=== PATIENT | male | born 1935 | race Caucasian/White ===

== ENCOUNTER 2017-03-22 15:53 | Inpatient (IN) | payer MEDICARE, BC ==
[2017-03-22] MEDS ORDERED: Zosyn per Pharmacy* NOTE FOLLOW UP SCH (17:00)
[2017-03-22 18:03] LABS: Hematocrit 26 % (42-52); Hemoglobin 8.9 g/dl (14.0-18.0); Mean Corpuscular HGB Conc 34 g/dl (31-36); Mean Corpuscular Hemoglobin 32 pg (27-31); Mean Corpuscular Volume 96 fL (80-94); Mean Platelet Volume 9 um3 (7.4-10.4); Red Blood Count 2.75 10^6/ul (4.0-5.4); Red Cell Distribution Width 18 % (10.5-15); White Blood Count 13.7 10^3/ul (3.5-10.8)
[2017-03-22 18:34] LABS: BUN/Creatinine Ratio 28.7 (8-20); Calcium 9.1 mg/dL (8.6-10.3); EGFR African American 52.1 (>60); EGFR Non-African American 40.5 (>60); Potassium 4.4 mmol/L (3.5-5.0)
[2017-03-22] MEDS ORDERED: Iodixanol* (CONTRAST) 320 MG/ML 100 ML SDV IV ONE (20:06)
[2017-03-22] MEDS ORDERED: ALPRAZolam TAB* 0.25 MG PO SCH (21:00)
[2017-03-22] MEDS: ALPRAZolam TAB* 0.25 MG PO SCH (21:45)
[2017-03-22] MEDS: ZOSYN 3.375 GM Q8H per EXTENDED INFUSION IVPB SCH ×2 (21:45)
--- NOTE | 2017-03-22 22:00 | RAD ---
Indication: Confusion, patient with lung cancer. Contrast: Administered 75.0 ml of VISIPAQUE 320 mg/ml CT of the brain was performed without and with IV contrast. Ventricular structures are midline. No midline shift is noted. The extraction spaces are unremarkable. No intracranial mass or hemorrhage is noted. Post contrast images demonstrates no evidence of abnormally enhancing lesions. Mastoid air cells and paranasal sinuses are otherwise unremarkable. IMPRESSION: No intracranial mass or hemorrhage is noted.
--- NOTE | 2017-03-22 22:07 | RAD ---
Indication: Left lower quadrant pain, elevated white blood cell count. CT of the abdomen and pelvis was performed without oral or IV contrast administration. Coronal and sagittal reconstructed images were obtained. Comparison is made with previous exam dated February 22, 2017. The lung bases demonstrates small left pleural effusion. Heart is of normal size without evidence of pericardial effusion. The liver is normal in size. No focal lesions or intrahepatic ductal dilatation is noted. Calcified granulomas are noted in the right lobe of liver. This is unchanged from previous exam. Gallbladder demonstrates no calcified gallstones. No pericholecystic fluid or wall thickening is identified. The spleen is normal in size. No dilated loops of bowel are noted. The colon is filled with stool. No adrenal masses are noted. The kidneys demonstrate no hydronephrosis. No retroperitoneal lymphadenopathy is noted. Atherosclerotic aorta is noted. CT of the pelvis demonstrates no abnormal dilatation of small bowel. The colon is filled with stool. In the sigmoid colon in the left mid abdomen there is focal wall thickening with a localized perforation and infiltration of fat. This likely represents diverticulitis. Phlegmonous change is noted. The descending colon is otherwise unremarkable. The urinary bladder demonstrates diffuse wall thickening. The prostate and seminal vesicles are unremarkable. No hernias are noted. IMPRESSION: FINDINGS CONSISTENT WITH DIVERTICULITIS OF THE SIGMOID COLON WITH SMALL LOCALIZED PERFORATION AND PHLEGMONOUS CHANGE. CALCIFICATIONS LIKELY DUE TO GRANULOMATOUS DISEASE THE RIGHT LOBE OF LIVER. SMALL LEFT PLEURAL EFFUSION IS PRESENT.
[2017-03-23] MEDS ORDERED: NS 0.9% 1000 ML* 1,000 ML IV ONE (01:05)
[2017-03-23] MEDS: ZOSYN 3.375 GM Q8H per EXTENDED INFUSION IVPB SCH ×6 (05:34→21:46)
--- NOTE | 2017-03-23 07:09 | PN ---
Progress Note - Progress Note Date of Service: 03/23/17 SOAP: Subjective: mentally markedly better this am. reports that he feels less confused with improved energy, though still very tired. no appetite. +LLQ pain. bolus of fluid given at 3 am for hypotension. normal BM yesterday am, denies blood in stool. no nausea. +weak voice x 2 weeks. Objective: Vital Signs Temp Pulse Resp BP Pulse Ox 97.7 F 78 16 96/44 95 03/23/17 03:50 03/23/17 03:50 03/23/17 03:50 03/23/17 03:50 03/23/17 03:50 well appearing male lying flat in bed in nad perr eomi op moist dec bs bases bilaterally ttp over llq with guarding +bs no le edema A+O x 3, nonfocal neurological exam voice hoarse skin intact Alprazolam (Xanax Tab*) 0.25 mg PO BID [facility] Last Admin: 03/22/17 21:45 Dose: 0.25 mg Aspirin (Aspirin Ec Low Dose*) 81 mg PO DAILY [facility] Piperacillin Sod/Tazobactam (Sod 3.375 gm/ Sodium Chloride) 100 mls @ 25 mls/ hr IVPB Q8H [facility] Last Admin: 03/23/17 05:34 Dose: 25 mls/hr Sodium Chloride (Ns 0.9% 1000 Ml*) 1,000 mls @ 150 mls/hr IV PER RATE [facility] Non-Formulary Medication (Fluticasone/Vilanterol Mdi(Nf) [Breo Ellipta Mdi 100/ 25(Nf)]) 1 puff INH DAILY [facility] Pharmacy Consult (Zosyn Per Pharmacy*) 1 note FOLLOW UP .ZOSYN PER PHARMACY [facility] Rivaroxaban (Xarelto (*)) 20 mg PO DAILY [facility] Rosuvastatin Calcium (Crestor (Nf)) 10 mg PO DAILY [facility] Laboratory Results - last 24 hr 03/22/17 03/22/17 17:50 17:50 WBC 13.7 H RBC 2.75 L Hgb 8.9 L Hct 26 L MCV 96 H MCH 32 H MCHC 34 RDW 18 H Plt Count 170 MPV 9 Neut % (Auto) 88.1 H Lymph % (Auto) 4.6 L [place] % (Auto) 7.1 Eos % (Auto) 0.1 Baso % (Auto) 0.1 Absolute Neuts (auto) 12.1 H Absolute Lymphs (auto) 0.6 L Absolute Monos (auto) 1.0 H Absolute Eos (auto) 0 Absolute Basos (auto) 0 Absolute Nucleated RBC 0 Nucleated RBC % 0 Sodium 127 L Potassium 4.4 Chloride 91 L Carbon Dioxide 28 Anion Gap 8 BUN 47 H Creatinine 1.64 H Est GFR ( Amer) 52.1 Est GFR (Non-Af Amer) 40.5 BUN/Creatinine Ratio 28.7 H Glucose 118 H Calcium 9.1 Assessment: 81 yo M w PMH of locally advanced lung cancer recently completing a course of carboplatin/gemcitabine (02/10/17) now with 3 dys of anorexia and LLQ pain followed by [facility] and found to have sigmoid diverticulitis with perforation. clinically appears markedly improved over what was described yesterday, though with leukocytosis and hypotension does meet SIRS criteria. 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
[2017-03-23] MEDS: ALPRAZolam TAB* 0.25 MG PO SCH ×2 (08:06→21:45)
[2017-03-23] MEDS: Aspirin EC Low Dose* 81 MG TAB.EC PO SCH (08:06)
[2017-03-23 08:46] LABS: Hematocrit 25 % (42-52); Hemoglobin 8.3 g/dl (14.0-18.0); Mean Corpuscular HGB Conc 33 g/dl (31-36); Mean Corpuscular Hemoglobin 32 pg (27-31); Mean Corpuscular Volume 96 fL (80-94); Mean Platelet Volume 9 um3 (7.4-10.4); Red Blood Count 2.61 10^6/ul (4.0-5.4); Red Cell Distribution Width 18 % (10.5-15)
[2017-03-23] MEDS ORDERED: Rivaroxaban TAB(*) 20 MG TAB PO SCH (09:00)
[2017-03-23] MEDS ORDERED: [UNRECOGNIZED DRUG - OTHER] INH SCH (09:00)
[2017-03-23] MEDS ORDERED: Atenolol TAB* 50 MG PO SCH (09:00)
[2017-03-23] MEDS ORDERED: ROSUVASTATIN 10 MG PO SCH (09:00)
[2017-03-23] MEDS ORDERED: Diltiazem CD CAP* 120 MG PO SCH (09:00)
[2017-03-23] MEDS ORDERED: Ramipril CAP* 5 MG PO SCH (09:00)
[2017-03-23 09:08] LABS: Albumin 3.3 g/dL (3.2-5.2); BUN/Creatinine Ratio 28.9 (8-20); EGFR African American 69.4 (>60); EGFR Non-African American 53.9 (>60); Globulin 3.4 g/dL (2-4); Magnesium 2.6 mg/dL (1.9-2.7); Potassium 3.7 mmol/L (3.5-5.0); Total Bilirubin 0.8 mg/dL (0.2-1.0); Total Protein 6.7 g/dL (6.4-8.9)
[2017-03-23] MEDS: NS 0.9% 1000 ML* 1,000 ML IV SCH ×2 (13:54→21:45)
--- NOTE | 2017-03-23 15:59 | CONS ---
SURGICAL CONSULTATION REPORT: DATE OF CONSULT/DICTATION: 03/23/17 ATTENDING SURGEON: Star Eid MD (DICTATED BY MJ UPTON NP) LOCATION: This patient is seen at [facility] in room 416. CHIEF COMPLAINT: Left lower quadrant pain. HISTORY OF PRESENT ILLNESS: The patient is an 81-year-old male with a past medical history of locally advanced lung cancer and completed a course of chemotherapy through Dr. Osuna's office in January 2017. On 03/22/17, he was admitted to [facility] with 3 days of anorexia, left lower quadrant pain, weakness, and change in mental status. On admission, his white blood cell count was elevated at 13.5 and he was hypotensive with systolic blood pressure in the 80s. A CAT scan of the abdomen and pelvis revealed findings consistent with diverticula of the sigmoid colon with small localized perforation and phlegmonous changes. The CAT scan was reviewed today by Dr. Eid, who stated that there was no evidence of free fluid or abscess and the free air was of a small volume and focal to the area of inflammation. The patient is currently n.p.o. and on intravenous Zosyn and IV fluid resuscitation. Today, he denies any abdominal pain; he states that he is passing flatus and believes that his last bowel moment was yesterday morning; he denies any nausea or vomiting and is not hungry. PAST MEDICAL HISTORY: Significant chronic obstructive pulmonary disease; coronary artery disease; hypertension; atrial fibrillation; left foot drop, 2015 ; melanoma on his forehead, 2012; prostate cancer, 2006, treated with radiation ; myocardial infarction in 1977, 1982, and 1984, with coronary artery bypass, four vessels, in 1984. PAST SURGICAL HISTORY: Coronary artery bypass, 1984; bilateral open inguinal hernia repairs; left rotator cuff repair. CURRENT MEDICATIONS: Reviewed and currently his Xarelto is on hold. ALLERGIES: No known drug allergies. FAMILY HISTORY: Noncontributory. SOCIAL HISTORY: He is ; he stopped smoking around age 40 and had smoked from age 16. 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 REVIEW OF SYSTEMS: Constitutional: Alert and oriented x3. HEENT: No visual changes. No sore throat. He does have dysphonia over the past 2 weeks. Hematologic: No history of deep vein thrombosis or pulmonary embolism. No easy bruising or bleeding. Respiratory: No dyspnea at rest. No hemoptysis. Cardiovascular: No anginal chest pain, palpitations, or orthopnea. Gastrointestinal: No previous history of intestinal conditions. No current abdominal pain. No nausea or vomiting. He is passing flatus and states that he had a bowel movement yesterday. No blood noted. Genitourinary: No hematuria or dysuria. Musculoskeletal: Reports that his legs were very weak prior to admission. Neurologic: Alert and oriented x3. Follows commands. PHYSICAL EXAM: General Survey: The patient is an 81-year-old male, well- developed, well-nourished, in no acute distress. Height 5 feet 9 inches, weight 184 pounds, body mass index 27.2. Skin: Warm, dry, and intact. HEENT: Benign. Voice is very soft. Neck: Supple without masses or thyromegaly. Back: No CVA tenderness. Lungs: Breath sounds bilaterally clear and equal. Heart: Regular rate and rhythm. No murmurs or rubs appreciated. Chest: Symmetric, well-healed surgical scars status post coronary artery bypass grafting. Abdomen: Hypoactive bowel sounds, soft, nondistended, and nontender throughout to deep palpation. No guarding, no rebound tenderness. Well-healed inguinal surgical scars. No obvious masses or organomegaly. Genitalia and rectal exams are deferred. Extremities are warm without edema or skin ulceration. Neurologic: Alert and oriented x3. Follows commands. DIAGNOSTIC STUDIES/LAB DATA: White blood cell count of today 7 down from 13.7, hemoglobin and hematocrit 8.3 and 25. Creatinine 1.28 today down from 1.64 with hydration. Lactic acid of 0.6. CAT scan of the abdomen and pelvis as previously mentioned in history of present illness consistent with diverticulitis of the sigmoid colon with small localized perforation and phlegmonous change. IMPRESSION: Sigmoid diverticulitis with small localized perforation and phlegmonous changes reviewed by Dr. Eid. PLAN: Dr. Eid indicated that resolution was likely with nonoperative therapy of n.p.o., IV fluids, and IV antibiotics. We will follow the patient with you. Thank you for this surgical consultation. TIME SPENT: Time spent today 75 minutes with greater than 50% spent in face-to - face history taking and patient education. MJ UPTON, ENGINE DESIGNER [id number]/[facility] #: [id number] [facility]
[2017-03-23] MEDS: Fluticasone/Vilanterol MDI(NF) 100/25 MDI INH SCH (16:23)
[2017-03-24] MEDS: ZOSYN 3.375 GM Q8H per EXTENDED INFUSION IVPB SCH ×2 (05:48)
[2017-03-24 06:01] LABS: Hematocrit 26 % (42-52); Hemoglobin 8.7 g/dl (14.0-18.0); Mean Corpuscular HGB Conc 34 g/dl (31-36); Mean Corpuscular Hemoglobin 32 pg (27-31); Mean Corpuscular Volume 95 fL (80-94); Mean Platelet Volume 9 um3 (7.4-10.4); Red Cell Distribution Width 18 % (10.5-15); White Blood Count 5.6 10^3/ul (3.5-10.8)
[2017-03-24 06:16] LABS: BUN/Creatinine Ratio 23.5 (8-20); Calcium 8.9 mg/dL (8.6-10.3); EGFR African American 94.4 (>60); EGFR Non-African American 73.4 (>60); Potassium 3.7 mmol/L (3.5-5.0)
[2017-03-24] MEDS: Aspirin EC Low Dose* 81 MG TAB.EC PO SCH (08:47)
[2017-03-24] MEDS: ALPRAZolam TAB* 0.25 MG PO SCH (08:48)
--- NOTE | 2017-03-24 09:02 | PN ---
Progress Note - Progress Note Date of Service: 03/24/17 SOAP: Subjective:OOB in chair;passed form stool and flatus;denies abdominal pain [] Objective:afebrile;VSS;lungs:clear bilat;Heart:RRR;Abd:+bs,soft,nondistended, nontender,no guarding or rebound Ext:no edema Vital Signs Temp 97.5 F 03/24/17 03:37 Pulse 81 03/24/17 03:37 Resp 16 03/24/17 08:48 BP 116/55 03/24/17 03:37 Pulse Ox 96 03/24/17 03:37 Intake & Output 03/23/17 03/24/17 03/24/17 18:59 06:59 18:59 Intake Total 1679 108 0 Output Total 800 1225 Balance 879 -1117 0 Intake: IV Fluids 1679 ABX - ZOSYN 200 NS (0.9%) 1479 IVPB 108 ABX - ZOSYN 108 Oral 0 0 0 Output: Urine 800 1225 Other: Estimated Void Medium Date of Last Bowel 03/24/17 Movement # Bowel Movements 1 Estimated Stool Amount Small [] Assessment:resolving sigmoid diverticulitis on non operative treatment [] Plan:recommend starting clear liquids,transition to oral antibiotics and possible home later today or tomorrow []
[2017-03-24] MEDS: Fluticasone/Vilanterol MDI(NF) 100/25 MDI INH SCH (10:42)
--- NOTE | 2017-03-24 12:58 | DS ---
DISCHARGE SUMMARY: DATE OF ADMISSION: 03/22/17 DATE OF DISCHARGE: 03/24/17 DISCHARGE DIAGNOSES: 1. Diverticulitis with perforation: Resolved following n.p.o. status with IV antibiotics, not a surgical candidate, and will transition to p.o. with close monitoring. 2. Confusion: Secondary to systemic inflammatory response syndrome related to perforation, resolved. 3. Squamous cell lung cancer: Status post definitive chemotherapy with stable disease, in surveillance. DISCHARGE MEDICATIONS: 1. Augmentin 875 mg p.o. b.i.d. x14 days. 2. Alprazolam 1 tab p.o. b.i.d. p.r.n. anxiety. 3. Aspirin 81 mg p.o. every other day. 4. Atenolol 100 mg p.o. q. day. 5. Ramipril 5 mg p.o. q. day. 6. Hydrochlorothiazide 25 mg p.o. every other day. 7. Crestor 10 mg p.o. every day. 8. Cartia XT daily 9. Ondansetron 4 mg p.o. q.4 hours p.r.n. nausea. 10. Evolocumab 140 mg subcutaneous every 14 days. 11. Compazine 10 mg p.o. q.6 hours p.r.n. nausea. 12. Coenzyme Q10 100 mg p.o. q. day. 13. Breo Ellipta 200 mcg 1 inhalation every day. * Hold Xarelto until evaluated by provider. HOSPITAL COURSE: Please see admission note for full H and P; however, briefly, Mr. Carreon is well known to our service due to his diagnosis of locally advanced non- small cell lung cancer, now status post definitive chemotherapy. He presented to our office on 03/22/17 in the afternoon with progressive confusion and significant changes from prior visits. Ultimately, admitted with altered mental status and left lower quadrant pain with workup including MRI and CT. CT of the brain was negative; however, CT of the abdomen and pelvis was positive for diverticulitis of the small colon with small localized perforation and phlegmonous change. Overnight, Mr. Carreon did develop hypotension and received a bolus with improvement. He was started on Zosyn that evening as well. Ultimately, with leukocytosis and hypotension, Mr. Carreon did meet SIRS criteria and was monitored very closely and managed with as stated previously IV antibiotics and IV hydration. Within the first 12 hours of treatment, Mr. Carreon improved significantly. Surgery was consulted on 03/23. Dr. Eid saw the patient, felt with improvement and significant underlying cardiac risks, he was certainly not a candidate for surgical management. Medical management was continued with n.p.o. status, IV hydration, IV antibiotics, and monitoring. This a.m., on 03/24/17, Mr. Carreon continues to improve and is feeling very well. He was seen by Mellissa Medrano NP, [facility], and in consultation with Dr. Eid agreed he could transition to clear liquid diet and start p.o. antibiotics. Case was discussed with Dr. Monroe as well as surgical team and plan was made for Mr. Carreon to be discharged this evening as long as p.o. intake was tolerated. Case was discussed at length with the patient and his daughter, who is a care provider. Mr. Carreon will be discharged home back on most of his home medications; however , he will hold Xarelto due to the perforation. He will follow up with Dr. Monroe on 03/28/17 to determine further plan of care and consider restarting Xarelto. TIME SPENT: Greater than 40 minutes spent with greater than 50% in face-to- face counseling. ZOË CREWS, ARLEN [id number]/[facility] #: [id number] MARRY
--- NOTE | 2017-03-24 14:09 | PN ---
Progress Note - Progress Note Date of Service: 03/24/17 SOAP: Subjective: []Weakness since treatment and was doing PT at home. Enjoying it and prior to this admission was getting stronger. Remains unsteady and uses walker. Wants to be able to walk but needs to take frequent rests. Objective: []Unsteady to improved strength. Uses walker appropriately. Assessment: []81 yo m with deconditioning post chemotherapy. Poor balance requiring a walker. Plan: []Recommend Rollating walker so that pt. may rest on seat PRN. Will order with d/c. Resume PT in approx. 1 week. Can cont. home excercises for now.
[2017-03-24 15:39] VITALS: BP 121/57
[2017-03-24] MEDS ORDERED: Amoxicillin/Clavulanate TAB* 875 MG PO SCH (21:00)
== END 2017-03-24 17:30 | disposition home or self-care (01) | DRG 392 ==
LOC: MED 16:42
PROVIDERS: ADMIT Internal Medicine Hematology & Oncology; ATTEND Internal Medicine Hematology & Oncology
DX: K57.20 Diverticulitis of large intestine with perforation and abscess without bleeding (principal); N17.9 Acute kidney failure, unspecified; I95.9 Hypotension, unspecified; D64.81 Anemia due to antineoplastic chemotherapy; R65.10 Systemic inflammatory response syndrome (SIRS) of non-infectious origin without acute organ dysfunction; C34.12 Malignant neoplasm of upper lobe, left bronchus or lung; I11.9 Hypertensive heart disease without heart failure; J44.9 Chronic obstructive pulmonary disease, unspecified; I25.10 Atherosclerotic heart disease of native coronary artery without angina pectoris; E87.6 Hypokalemia; R49.0 Dysphonia; E74.39 Other disorders of intestinal carbohydrate absorption; Z95.1 Presence of aortocoronary bypass graft; Z85.46 Personal history of malignant neoplasm of prostate; Z85.820 Personal history of malignant melanoma of skin; I25.2 Old myocardial infarction; Z79.82 Long term (current) use of aspirin; Z79.899 Other long term (current) drug therapy; Z87.891 Personal history of nicotine dependence
CPT/HCPCS: 36415; 70470; 74176; 80048; 80053; 83605; 83735; 85025; 85027; 99212; 99222; 99233; A9270-GY; G0463; J2543; Q9967

== ENCOUNTER 2017-05-17 09:34 | Day surgery (SDC) | payer MEDICARE, BC ==
[~2017-05-17 09:34] MED LIST: Buffered Lidocaine 0.9% SYRIN* 5 ML/SYR SYRINGE INTRADERM ONE; Famotidine IV* 10 MG/ML 2 ML (20 mg) IV ONE
[2017-05-17] MEDS ORDERED: Buffered Lidocaine 0.9% SYRIN* 5 ML/SYR SYRINGE ONE (09:46)
[2017-05-17] MEDS ORDERED: Famotidine IV* 10 MG/ML 2 ML (20 mg) ONE (09:46)
[2017-05-17] MEDS ORDERED: Midazolam* 1 MG/ML 5 ML VIAL (5 MG) ONE (10:16)
[2017-05-17] MEDS ORDERED: Lidocaine 2% PF * 5 ML VIAL ONE (10:16)
[2017-05-17] MEDS ORDERED: Ondansetron INJ* 2 MG/ML VIAL ONE (10:16)
[2017-05-17] MEDS ORDERED: Propofol* 10 MG/ML 20 ML BTL IV PUSH ONE (10:16)
[2017-05-17] MEDS ORDERED: Lidocaine 4% TOPICAL* 50 ML TOP.SOLN ONE ×2 (10:16→10:41)
[2017-05-17] MEDS ORDERED: fentaNYL* 50 MCG/ML 2 ML VIAL (100 MCG VIAL) ONE (10:16)
[2017-05-17] MEDS ORDERED: Dexamethasone IV* 4 MG/ML 1 ML (4 MG) ONE (10:16)
[2017-05-17] MEDS ORDERED: Glycopyrrolate IV* 0.2 MG/ML 1 ML VIAL ONE (10:18)
[2017-05-17] MEDS ORDERED: Lidocaine 2% VISCOUS* 15 ML UDC ONE (10:30)
[2017-05-17] MEDS ORDERED: Lidocaine 1% MPF wEPI 200,000* 30 ML SDV ONE (10:41)
[2017-05-17] MEDS ORDERED: Oxymetazoline 0.05% NASAL SPR* 15 ML BTL ONE (10:41)
[2017-05-17] MEDS ORDERED: Phenylephrine 1% NASAL* 15 ML BOT ONE (10:45)
[2017-05-17] MEDS ORDERED: ceFAZolin 1 GM ADVAN(*) 1 GM ADDV.VIAL IVPB ONE (11:34)
[2017-05-17] MEDS ORDERED: oxyCODONE/Acetamin 5/325 MG* TAB PO PRN (11:48)
[2017-05-17] MEDS ORDERED: Ondansetron INJ* 2 MG/ML VIAL IV PRN (11:48)
[2017-05-17] MEDS ORDERED: fentaNYL* 50 MCG/ML 2 ML VIAL (100 MCG VIAL) IV PRN (11:48)
[2017-05-17] MEDS ORDERED: Acetaminophen ADULT LIQ* 650 MG/20.3 ML UDC ONE (12:57)
[2017-05-17 13:36] VITALS: BP 109/51
--- NOTE | 2017-05-18 04:55 | OP ---
DATE OF OPERATION: 05/17/17 - [facility] DATE OF : 35 SURGEON: Jesus Horton MD RESEARCH AND DEVELOPMENT SCIENTIST: MYRNA Pinto ANESTHESIOLOGIST: Orville Castelan MD ANESTHESIA: MAC PRE-OP DIAGNOSIS: Left vocal cord paralysis and dysphonia. POST-OP DIAGNOSIS: Left vocal cord paralysis and dysphonia. OPERATIVE PROCEDURE: Thyroplasty with Canaan-Dariusz graft left larynx. BRIEF HISTORY: This 81-year-old gentleman diagnosed with CA of the lung, noted to have paralysis with a large glottic chink. I did not feel like injection thyroplasty would be helpful. DESCRIPTION OF PROCEDURE: Patient was taken to the operating room, MAC anesthesia was given. Neck was then prepped and draped in the usual fashion. A curvilinear incision was made at the midportion of the thyroid. Strap muscles were divided out laterally. Thyroid cartilage was then identified. Perichondrium was then elevated. A window was made approximately 10 mm from the midportion of the thyroid, about 7 mm from the inferior border. A 6 mm x 6 mm window was created. Once the internal perichondrium was elevated towards the arytenoid, approximately 10 cm of Canaan-Dariusz was then inserted until vocalization was obtained to be within acceptable range. Flexible scope was then introduced, showed a somewhat adequately medialized left vocal cord. The perichondrium was replaced. Strap muscles were reapproximated in the midline. The wound was closed in single layers. TLS was applied. The patient was awakened and sent to the Recovery in stable condition. Instrument and sponge counts were correct. Blood loss was minimal. [id number]/[facility] #: [id number] [facility]
== END 2017-05-17 13:37 | disposition home or self-care (01) ==
LOC: OR 09:34
PROVIDERS: ATTEND Otolaryngology
DX: J38.01 Paralysis of vocal cords and larynx, unilateral (principal); R49.0 Dysphonia; C34.90 Malignant neoplasm of unspecified part of unspecified bronchus or lung; I48.91 Unspecified atrial fibrillation; Z79.01 Long term (current) use of anticoagulants; I25.10 Atherosclerotic heart disease of native coronary artery without angina pectoris; Z95.1 Presence of aortocoronary bypass graft; J44.9 Chronic obstructive pulmonary disease, unspecified; Z79.82 Long term (current) use of aspirin; Z87.891 Personal history of nicotine dependence; E78.5 Hyperlipidemia, unspecified
CPT/HCPCS: A9270-GY; C1781; J0690; J1100; J2001; J2250; J2405; J2704; J3010

== ENCOUNTER 2017-08-04 07:44 | Day surgery (SDC) | payer MEDICARE, BC ==
--- NOTE | 2017-08-02 21:10 | HP ---
CC: Dr. Young; Nelson Dykes DO * ADMITTING HISTORY AND PHYSICAL: DATE OF ADMISSION: 08/04/17 ADMITTING DIAGNOSES: 1. Gross hematuria. 2. Bladder tumors. PLANNED PROCEDURE: Cystoscopy, transurethral resection of bladder tumors. SURGEON: Ricardo Cueto MD HISTORY OF PRESENT ILLNESS: Tristan Carreon is an 81-year-old gentleman who was recently gross hematuria. This had initially occurred while he was on Xarelto, but has persisted even after he has been off Xarelto for 7 to 10 days. Cystoscopy revealed what appeared to be due to 2 superficial bladder tumors on the right side and because of the persistence of hematuria (happening daily, he has been on Xarelto for 10 days). He is now being brought in for transurethral resection of these bladder tumors to control the hematuria. PAST MEDICAL HISTORY: Significant for: 1. Lung cancer. 2. Coronary artery disease. 3. History of atrial and ventricular fibrillation. 4. Remote history of prostate cancer. 5. Hypertension. 6. COPD. MEDICATIONS: On admission: 1. Rosuvastatin 20 mg daily. 2. Atenolol 100 mg daily. 3. Repatha 140 mg injection every 2 weeks. 4. Hydrochlorothiazide 25 mg a day. 5. Ramipril 5 mg a day. 6. Cartia XT 120 mg a day. 7. Breo 1 puff inhaled daily. ALLERGIES: No known drug allergies. PHYSICAL EXAMINATION GENERAL: Reveals a pleasant elderly gentleman. VITAL SIGNS: Blood pressure is 106/70, pulse 56 per minute, oxygen saturation 98% on room air. LUNGS: Clear bilaterally. CARDIOVASCULAR: S1, S2. ABDOMEN: Soft, without masses. IMPRESSION: An 81-year-old gentleman right side of the bladder. PLAN: Planned procedure is transurethral resection of bladder tumors. [id number]/[facility] #: [id number] MTDD
[~2017-08-04 07:44] MED LIST changes: +Dexamethasone IV* 4 MG/ML 1 ML (4 MG) IV SLOW PU ONE; +Dexamethasone IV* 4 MG/ML 1 ML (4 MG) ONE; +Famotidine IV* 10 MG/ML 2 ML (20 mg) ONE; +cefTRIAXone(*) 2 GM ADDV.VIAL IVPB ONE
[2017-08-04] MEDS ORDERED: Midazolam* 1 MG/ML 2 ML VIAL (2 MG) ONE (08:48)
[2017-08-04] MEDS ORDERED: Furosemide IV* 10 MG/ML 2 ML VIAL (20 MG) ONE (09:25)
[2017-08-04 12:12] VITALS: BP 123/58
[2017-08-04] MEDS ORDERED: Tamsulosin CAP* 0.4 MG ONE (12:21)
--- NOTE | 2017-08-05 03:36 | OP ---
CC: Von Young MD * DATE OF OPERATION: 08/04/17 - [facility] DATE OF : 35 SURGEON: Ricardo Cueto MD ANESTHESIOLOGIST: Dr. Wasserman ANESTHESIA: Spinal PRE-OP DIAGNOSES: 1. Gross hematuria. 2. 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 Gross hematuria. 2. 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 OPERATIVE PROCEDURE: Cystoscopy, transurethral resection, and fulguration of bladder lesions (2 to 3 cm). COMPLICATIONS: None. POSTOPERATIVE CONDITION: Stable. OPERATIVE FINDINGS: 1. Mildly enlarged prostate. 2. Two small lesions between bladder neck and trigone on the right side, one stem actively bleeding. INDICATIONS: Tristan Carreon is an 81-year-old gentleman who has had persistent gross hematuria secondary to a small lesion on the right side of the bladder. The hematuria has persisted even after being off anticoagulation and he is now being brought in for transurethral resection and fulguration. DESCRIPTION OF PROCEDURE: After induction of spinal anesthesia, the patient was placed in dorsal lithotomy position. Sequential compression devices were in place and functioning. Initial cystoscopy revealed a normal appearing urethra, and mildly enlarged prostate. The bladder was examined the right and left ureteral orifices are normal in position and configuration. Between the right orifice and the right side of the bladder neck, there were two lesions with an appearance consistent with low grade superficial neoplasm, one of them was actively bleeding. The remainder of the bladder was unremarkable. Route Sales Manager biopsies were obtained and sent for histopathology. Next the resectoscope was introduced and all of the normal appearing areas were resected and/or fulgurated. At the end of the procedure, hemostasis appeared satisfactory and clear urine was seen effluxing from both orifices. An #18 Wolof Lopez was placed for temporarily bladder drainage. The patient tolerated the procedure satisfactorily and was transferred back to the recovery area in stable condition. [id number]/[facility] #: [id number] [facility]
== END 2017-08-04 12:29 | disposition home or self-care (01) ==
LOC: OR 07:44
PROVIDERS: ATTEND Urology
DX: C67.2 Malignant neoplasm of lateral wall of bladder (principal); R31.0 Gross hematuria; N40.0 Benign prostatic hyperplasia without lower urinary tract symptoms; Z79.01 Long term (current) use of anticoagulants; Z85.118 Personal history of other malignant neoplasm of bronchus and lung; I25.10 Atherosclerotic heart disease of native coronary artery without angina pectoris; Z85.46 Personal history of malignant neoplasm of prostate; J44.9 Chronic obstructive pulmonary disease, unspecified; I10 Essential (primary) hypertension; I48.91 Unspecified atrial fibrillation; I49.01 Ventricular fibrillation; I25.2 Old myocardial infarction; Z95.1 Presence of aortocoronary bypass graft
CPT/HCPCS: 88305; J0696; J1100; J1940; J2250

== ENCOUNTER 2017-09-16 15:00 | Observation (INO) | payer MEDICARE, BC ==
[2017-09-16 16:28] LABS: ABS Basophils 0 10^3/ul (0-0.2); ABS Eosinophils 0 10^3/ul (0-0.6); ABS Lymphocytes 0.6 10^3/ul (1.0-4.8); ABS Monocytes 0.4 10^3/ul (0-0.8); ABS Neutrophils 3.9 10^3/ul (1.5-7.7); ABS Nucleated RBC 0 10^3/ul; Eosinophil % 0.1 % (0-6); Hematocrit 27 % (42-52); Hemoglobin 9.4 g/dl (14.0-18.0); Lymphocyte % 11.2 % (25-47); Mean Corpuscular HGB Conc 35 g/dl (31-36); Mean Corpuscular Hemoglobin 32 pg (27-31); Mean Corpuscular Volume 91 fL (80-94); Mean Platelet Volume 8 um3 (7.4-10.4); Nucleated Red Blood Cells % 0; Platelet Count 165 10^3/ul (150-450); Red Blood Count 2.94 10^6/ul (4.0-5.4); Red Cell Distribution Width 15 % (10.5-15)
[2017-09-16 16:39] LABS: EGFR Non-African American 61.5 (>60)
[2017-09-16 16:49] LABS: INR 1.87 (0.77-1.02)
[2017-09-16] MEDS ORDERED: cefTRIAXone(*) 2 GM ADDV.VIAL IVPB ONE (18:26)
[2017-09-16] MEDS ORDERED: Lidocaine 2% PF * 5 ML VIAL ONE (18:32)
[2017-09-16] MEDS ORDERED: Dexamethasone IV* 4 MG/ML 1 ML (4 MG) ONE (18:32)
[2017-09-16] MEDS ORDERED: Ondansetron INJ* 2 MG/ML VIAL ONE (18:32)
[2017-09-16] MEDS ORDERED: Propofol* 10 MG/ML 20 ML BTL IV PUSH ONE (18:32)
[2017-09-16] MEDS ORDERED: fentaNYL* 50 MCG/ML 2 ML VIAL (100 MCG VIAL) ONE ×2 (18:32→20:32)
[2017-09-16] MEDS ORDERED: KETAMINE HCL* 50 MG/ML 10 ML VIAL ONE (18:33)
[2017-09-16] MEDS ORDERED: Midazolam* 1 MG/ML 10 ML VIAL (10 MG) ONE (18:33)
[2017-09-16] MEDS ORDERED: Phenylephrine INJ* 10 MG/ML 1 ML VIAL (10 MG) ONE (18:53)
[2017-09-16] MEDS ORDERED: Ondansetron INJ* 2 MG/ML VIAL IV PRN (19:06)
[2017-09-16] MEDS ORDERED: HYDROmorphone INJ* 1 MG/ML CARPUJECT SYRINGE IV PRN (19:06)
[2017-09-16] MEDS: fentaNYL* 50 MCG/ML 2 ML VIAL (100 MCG VIAL) IV PRN ×2 (20:35→20:59)
[2017-09-16] MEDS ORDERED: NS 0.9% 1000 ML* 1,000 ML IV SCH (20:45)
--- NOTE | 2017-09-16 23:03 | HP ---
CC: Dr. Von Young; Dr. Dykes * [facility] MEDICINE HISTORY AND PHYSICAL: DATE OF ADMISSION: 09/16/17 PRIMARY CARE PROVIDER: Dr. Vno Young. SIGN WRITER HAND: Dr. Dykes. ATTENDING PHYSICIAN: Dr. Braulio Espinoza * (dictation provided by Ana María Knott NP) CHIEF COMPLAINT: Blood in urine. HISTORY OF PRESENT ILLNESS: Mr. Carreon is an 82-year-old male with a complicated past medical history including multiple MIs with cardiac arrest and bypass surgery in the as well as lung cancer, currently undergoing treatment with Dr. Young; COPD; prostate cancer; atrial fibrillation, on Xarelto , who presents to the hospital today with concern for blood in his urine. Mr. Carreon is immediately after procedure today when I see him and most of the information is obtained from a note from Dr. Nelson Dykes, dated 04/27/17, and the patient's daughter who is at the bedside. Per the report, Mr. Carreon did have multiple MIs and cardiac arrest with bypass in the ; however, since then, he has been doing very well in terms of his cardiac function. His last known ejection fraction was normal, but he does have severe tricuspid regurgitation and mild pulmonary hypertension. He had been undergoing treatment for lung cancer with Dr. Young with chemotherapy but that is currently on hold and the report is that the tumor has not grown while on that treatment. The patient is scheduled to have a CT scan and blood work on on followup of this. He also has an issue with a vocal cord dysfunction and has had a Jasper-Dariusz injection with Dr. Horton that seems to have improved his speech and he is about to start speech therapy. He has a history of prostate cancer and had been found recently to have small scattered bladder tumors for which he saw Dr. Cueto for resection. This was about 6 weeks ago. The patient' s daughter reports that he has been having pink tinged urine since that time. Per her report, the patient would stop Xarelto and the urine would resolve, but then as soon as he resumes the Xarelto, the blood in the urine would return. The patient is on Xarelto for atrial fibrillation, but has never had a stroke. Today, the patient had sudden onset of bright red blood in the urine with large clots and ultimately came to the emergency room for evaluation. In the emergency room, attempts were made to catheterize Mr. Carreon. The catheter was able to be placed, but then the catheter became plugged with clots and then Dr. Reed was called. Dr. Reed evaluated the patient and then took him to the OR. Per the report, Dr. Reed found a concerning lesion in the bladder of unclear significance but there was no bleeding, hemostasis was achieved. Mr. Carreon has a mildly low sodium at 127. He is anemic with a hemoglobin of 9.4, but this is his baseline. PAST MEDICAL HISTORY: 1. Coronary artery disease with MIs, cardiac arrest, and cardiac bypass surgery in . 2. History of V-fib with. 3. Hyperlipidemia. 4. Impaired glucose tolerance. 5. 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 Young. 6. History of prostate cancer. 7. History of frozen vocal cord, undergoing treatment with Dr. Horton with Jasper- Dariusz injections. 8. Atrial fibrillation with no history of stroke on Xarelto. 9. Hypertension. 10. Melanoma. 11. COPD. 12. Basal cell tumor removal on the forehead. 13. History of bladder tumor, status post resection 6 weeks ago. Pathology showing papillary urothelial carcinoma. MEDICATIONS: 1. Breo Ellipta 100/25 one puff inhaled daily. 2. Atenolol 100 mg p.o. q.a.m. 3. Aspirin 81 mg p.o. every other day. 4. Crestor 10 mg p.o. q.a.m. 5. Coenzyme Q10 100 mg p.o. q.a.m. 6. Cartia XT 120 mg p.o. q.a.m. 7. Hydrochlorothiazide 25 mg p.o. q.a.m. 8. Repatha 140 mg subcutaneously q.14 days. 9. Rivaroxaban 20 mg p.o. q.p.m. 10. Ramipril 5 mg p.o. q.a.m. ALLERGIES: No known drug allergies. FAMILY HISTORY: The patient's daughter reports that the patient's father related to MS and the mother had diabetes but unclear cause of . SOCIAL HISTORY: The patient was a former smoker, but stopped at age 40 after he had an OH. He has no report of alcohol or drug abuse. He lives with his daughter, Carine, who is the health care proxy. REVIEW OF SYSTEMS: A 14-point review of systems was completed with Mr. Carreon and all those not mentioned above were negative. PHYSICAL EXAMINATION GENERAL: Mr. Carreon is being examined in the PACU. He is in no acute distress. His daughter is at the bedside. VITAL SIGNS: Temperature 98.2, pulse rate 65, respiratory rate 14, O2 saturation 100% on 2 L nasal cannula, blood pressure 115/60. HEENT: Face is symmetrical, pupils are equal and reactive. LUNGS: Clear to auscultation bilaterally with no accessory muscle use and good aeration. HEART: S1 and S2, and irregular. No murmur, rub, or gallop is appreciated. ABDOMEN: Soft and nontender with bowel sounds positive x4. GENITOURINARY: The patient has a matt catheter draining yellow urine. EXTREMITIES: No cyanosis or edema. NEURO: He is sleepy, but alert, and awakens easily to voice. He moves all extremities equally, follows commands. SKIN: Intact. LABORATORY DATA: WBC 5.0, hemoglobin 9.4, hematocrit 27, platelet count 165. INR 1.87. Sodium 127, potassium 4.6, chloride 95, serum bicarbonate 25, BUN 32 , creatinine 1.14, and glucose 113. ASSESSMENT AND PLAN: Mr. Carreon is an 82-year-old male with the past medical history of coronary artery disease with myocardial infarction, cardiac arrest, and coronary artery bypass graft as well as currently undergoing treatment for lung cancer, recent resection for bladder cancer, and a history of prostate cancer, who presents today to the hospital with concern for blood in the urine. The patient has been taken to the OR by Dr. Reed and a catheter was placed. During that procedure, clots were evacuated and a new lesion was found in the bladder. Plans are for observation in the hospital for the followin. Hematuria: I suspect this is secondary to bladder lesion, on Xarelto. Dr. Reed has recommended that the patient hold Xarelto for at least 1 to 2 days. The patient has no history of stroke in the past; therefore, I think this is reasonable. 2. Hyponatremia. Suspect the patient is somewhat dehydrated. His BUN is elevated as well. Plan for gentle IV fluids overnight and to recheck all his labs in the a.m. 3. Anemia. Chronic and at baseline. 4. Atrial fibrillation. Plan to hold Xarelto, but continue atenolol. Continue Cartia XT. 5. Hypertension. Plan to continue atenolol, but hold ramipril and hydrochlorothiazide until the patient can be reevaluated in the a.m. as I am concerned he is a dehydrated. Continue Cartia XT. 6. High cholesterol. Continue rosuvastatin, hold Repatha while the patient is inpatient. 7. Chronic obstructive pulmonary disease. No evidence of acute exacerbation. Plan to continue Breo Ellipta. 8. History of coronary artery disease. Plan to hold aspirin an acute period after this procedure with Dr. Reed. Will need to touch base with Dr. Reed tomorrow to determine when he would like to resume the aspirin and Xarelto. 9. Code status is full code. TIME SPENT: Approximately 60 minutes was spent in the admission of this patient , more than half the time spent with the patient at the bedside reviewing the events leading up to his hospitalization, performing the physical examination, and reviewing the plan of care. ANA MARÍA KNOTT NP [id number]/CPS #: [id number] MARRY
[2017-09-17 04:58] LABS: ABS Basophils 0 10^3/ul (0-0.2); ABS Eosinophils 0 10^3/ul (0-0.6); ABS Lymphocytes 0.3 10^3/ul (1.0-4.8); ABS Monocytes 0.1 10^3/ul (0-0.8); ABS Neutrophils 2.6 10^3/ul (1.5-7.7); ABS Nucleated RBC 0 10^3/ul; Eosinophil % 0.1 % (0-6); Hematocrit 25 % (42-52); Hemoglobin 8.9 g/dl (14.0-18.0); Lymphocyte % 9.5 % (25-47); Mean Corpuscular HGB Conc 36 g/dl (31-36); Mean Corpuscular Hemoglobin 33 pg (27-31); Mean Corpuscular Volume 91 fL (80-94); Mean Platelet Volume 8 um3 (7.4-10.4); Nucleated Red Blood Cells % 0.1; Platelet Count 140 10^3/ul (150-450); Red Blood Count 2.74 10^6/ul (4.0-5.4); Red Cell Distribution Width 15 % (10.5-15)
[2017-09-17 05:16] LABS: EGFR Non-African American 75.9 (>60)
--- NOTE | 2017-09-17 08:43 | PN ---
Subjective Date of Service: 09/17/17 Interval History: Patient seen and examined at bedside. Denies fever, chills, shortness of breath , chest discomfort, N/V/D. Denies pain. Tele: Afib, rate 60-80's. Family History: Unchanged from Admission Social History: Unchanged from Admission Past Medical History: Unchanged from Admission Objective Active Medications: Atenolol (Tenormin Tab*) 100 mg PO QAM JOSE Atorvastatin Calcium (Lipitor*) 20 mg PO QAM JOSE Diltiazem HCl (Cardizem Cd Cap*) 120 mg PO QAM JOSE Sodium Chloride (Ns 0.9% 1000 Ml*) 1,000 mls @ 75 mls/hr IV PER [facility] Vital Signs - 8 hr 09/17/17 09/17/17 03:27 07:58 Temperature 98.0 F 98.2 F Pulse Rate 79 83 Respiratory 20 12 Rate Blood Pressure 131/66 123/64 (mmHg) O2 Sat by Pulse 92 99 Oximetry Oxygen Devices in Use Now: None Appearance: NAD, sitting up in bed Ears/Nose/Mouth/Throat: Mucous Membranes Moist Respiratory: Symmetrical Chest Expansion and Respiratory Effort, Clear to Auscultation Cardiovascular: NL Sounds; No Murmurs; No JVD, - - Heart rate irregular irregular Abdominal: NL Sounds; No Tenderness; No Distention Extremities: No Edema Skin: No Rash or Ulcers Neurological: Alert and Oriented x 3, NL Muscle Strength and Tone Lines/Tubes/Other Access: Clean, Dry and Intact Lopez - intact, draining pink tinged urine, Clean, Dry and Intact Peripheral IV - site benign Nutrition: Taking PO's Result Diagrams: 09/17/17 04:52 09/17/17 04:52 Assess/Plan/Problems-Billing Assessment: Mr. Carreon is an 82 yo male with PMH significant CAD, Vfib, HLD, Afib, HTN, COPD , prostate CA, bladder CA, and lung CA who presented to the emergency room with hematuria. - Patient Problems (1) Hematuria Code(s): R31.9 - HEMATURIA, UNSPECIFIED SNOMED Code(s): 30147070 Comment: - S/P TURB - Urinary catheter in place, draining clear pink tinged urine - Urology consult, input appreciated (2) Hyponatremia Code(s): E87.1 - HYPO-OSMOLALITY AND HYPONATREMIA SNOMED Code(s): 31476802 Comment: - Improving with IVFs - Suspect secondary to dehydration (3) Anemia Code(s): D64.9 - ANEMIA, UNSPECIFIED SNOMED Code(s): 887149665 Comment: - Chronic - Appears to be near baseline (4) Afib Code(s): I48.91 - UNSPECIFIED ATRIAL FIBRILLATION SNOMED Code(s): 09297658 Comment: - Hold xarelto in the setting of hematuria - Continue atenolol and cartia XT (5) HTN (hypertension) Code(s): I10 - ESSENTIAL (PRIMARY) HYPERTENSION SNOMED Code(s): 68709167 Comment: - SBP 100-130's - Continue to hole ramipril and HCTZ - Continue atenolol and Cartia (6) HLD (hyperlipidemia) Code(s): E78.5 - HYPERLIPIDEMIA, UNSPECIFIED SNOMED Code(s): 58708246 Comment: - Hold Repatha - Continue statin (7) COPD (chronic obstructive pulmonary disease) Code(s): J44.9 - CHRONIC OBSTRUCTIVE PULMONARY DISEASE, UNSPECIFIED SNOMED Code(s): 21893527 Comment: - No evidence of exacerbation - Continue Breo Ellipta (8) History of coronary artery disease Code(s): Z86.79 - PERSONAL HISTORY OF OTHER DISEASES OF THE CIRCULATORY SYSTEM SNOMED Code(s): 706196355 Comment: - Hold ASA in the setting of hematuria - Continue atenolol and statin (9) DVT prophylaxis Code(s): ZEV6331 - SNOMED Code(s): 780730681 Comment: - Chemical DVT prophylaxis contraindicated in the setting of hematuria - SCDs (10) Full code status Code(s): Z78.9 - OTHER SPECIFIED HEALTH STATUS SNOMED Code(s): 524214663 Status and Disposition: OBV to Inpatient. Discharge to home when medically stable.
[2017-09-17] MEDS ORDERED: Atorvastatin* 20 MG TAB PO SCH (09:00)
[2017-09-17] MEDS ORDERED: Atenolol TAB* 50 MG PO SCH (09:00)
[2017-09-17] MEDS ORDERED: Diltiazem CD CAP* 120 MG PO SCH (09:00)
[2017-09-17] MEDS ORDERED: RAMIPRIL 5 MG PO SCH (09:00)
--- NOTE | 2017-09-17 11:41 | OP ---
CC: Dr. Young OPERATIVE REPORT: DATE OF OPERATION: 09/16/17 DATE OF : 35 SURGEON: Yoel Reed MD ANESTHESIOLOGIST: Dr. Orville Castelan. ANESTHESIA: General. PRE-OP DIAGNOSES: 1. Clot urinary retention. 2. Gross hematuria. POST-OP DIAGNOSES: 1. Clot urinary retention, gross hematuria. 2. Lesion of bladder neck. OPERATIVE PROCEDURE: 1. Cystoscopy. 2. Evacuation of clot retention. 3. Transurethral resection of lesion of bladder neck (3 cm). 4. Fulguration of bladder neck bleeders. INDICATION FOR PROCEDURE: Mr. 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 The tumor was resected and he did well postoperatively. He has been on anticoagulation because of coronary artery disease and atrial fibrillation. He presented today with several hours' history of gross hematuria and clot urinary retention. He had an attempt at evacuation of the clot retention in the emergency room by forceful catheter irrigation; however, it was not successful and he remained in retention. The patient had a CT of the abdomen and pelvis 6 weeks ago showing normal upper tracts. His upper tracts were not imaged at this visit. His past history relevant for Ca prostate treated several years ago with external beam radiation therapy. The patient is taken to the operating room on an urgent basis for evacuation of the clot retention and control of the gross hematuria. PATHOLOGY: At cystoscopy, the penile and bulbar urethrae looked normal. The prostatic urethra measured about 2.5 cm in length and there was minimal degree of prostate enlargement and obstruction. There was about 100 cc of fresh clots inside his bladder. After evacuation of the blood clots, inspection of the bladder showed a flat, irregular, friable lesion extending over a distance of 3 cm involving the bladder neck extending from 8 o'clock until 6 o'clock. The lesion was the source of the hematuria. The right ureteral orifice was elevated and prominent and somewhat edematous but was not involved by the lesion. The left ureteral orifice was flat, somewhat patulous, was also not also involved by the lesion. The rest of the rest of the bladder looked completely normal without any suspicious lesions or changes of radiation cystitis. No other source of hematuria noted. DESCRIPTION OF PROCEDURE: After successful general anesthesia, the patient was placed in the lithotomy position and was prepped and draped for cystoscopy. The resectoscope was introduced inside the bladder. The bladder was full of clots. After forceful irrigation, all the clots were evacuated, amounted about 100 cc of fresh clots. The bladder was then carefully inspected. The findings in the bladder neck were noted. After carefully identifying the ureteral orifices, the lesion in the bladder neck was resected starting at 8 o'clock and proceeding to 6 o'clock. The sites of the resection were thoroughly fulgurated with the coagulation current. At the completion of the resection, there were no residual lesions seen, there was very good hemostasis, and both ureteral orifices were intact. The bladder was irrigated and the resected tissue was evacuated and sent for pathology. After a final inspection, which showed very good hemostasis, intact ureteral orifices and no lesions in the bladder, the resectoscope was removed and a size 22- Hebrew Lopez catheter was passed inside the bladder and the balloon inflated with 20 cc of water. Irrigation yielded clear returns. The patient tolerated the procedure well and left the operating room in good condition. [id number]/[facility] #: [id number] [facility] CENTERHarvey
[2017-09-17 16:09] VITALS: BP 124/42
--- NOTE | 2017-09-18 19:23 | DS ---
CC: Dr. Von Young; Dr. Yoel Reed * DISCHARGE SUMMARY: DATE OF ADMISSION: 09/16/17 DATE OF DISCHARGE: 09/17/17 ATTENDING PHYSICIAN: Edenilson Springer MD * (dictated by Lori Guillen NP). PRIMARY CARE PROVIDER: Von Young MD. CONSULTATIONS WHILE IN THE HOSPITAL: Yoel Reed MD. PRIMARY DIAGNOSIS: Hematuria. SECONDARY DIAGNOSES: 1. Coronary artery disease. 2. Hyperlipidemia. 3. Lung squamous cell carcinoma. 4. Prostate carcinoma. 5. Atrial fibrillation. 6. Melanoma. 7. Chronic obstructive pulmonary disease. 8. History of bladder cancer. PROCEDURES WHILE IN THE HOSPITAL: Status post cystoscopy and transurethral bladder resection on 09/16/17. STUDIES WHILE IN THE HOSPITAL: None. DISCHARGE MEDICATIONS: Continued home medications: 1. Aspirin 81 mg oral daily. 2. Atenolol 100 mg oral daily. 3. Ramipril 5 mg oral daily. 4. Hydrochlorothiazide 25 mg oral daily. 5. Crestor 10 mg oral daily. 6. Cartia XT 120 mg every morning. 7. Repatha 140 mg subcutaneous every 14 days. 8. CoQ10 of 100 mg oral daily. 9. Xarelto 20 mg oral daily, to be resumed tomorrow. 10. Breo Ellipta MDI 100/25 one puff inhalation daily. HISTORY OF PRESENT ILLNESS/HOSPITAL COURSE: Mr. Carreon is an 82-year-old male with past medical history significant for coronary artery disease with multiple MIs and cardiac arrest status post bypass surgery as well as lung cancer, currently undergoing treatment, COPD, prostate cancer, atrial fibrillation, on Xarelto, who presented to the emergency room with complaints of blood in his urine. The patient states that intermittently since his last procedure with Urology, he has continued to intermittently have some hematuria, but this was worse today due to the worsening of the hematuria. The patient presented to the emergency room for further evaluation. While in the emergency room, the patient was unable to be straight cathed initially and then once the catheter was placed, it became plugged with blood clots. Dr. Reed was called. He evaluated the patient and took him to the operating room for a transurethral bladder resection for a lesion of unclear significance and hospitalists were asked to admit the patient for observation overnight. While in the hospital, the patient had initially been noted to have mild hyponatremia, this improved. His hemoglobin and hematocrit remained stable. He remained afebrile. He was feeling well. His urine turned to nice clear yellow. He had a urinary catheter in place. The patient was again seen by Dr. Reed who felt he was stable for discharge home with a urinary catheter. Mr. Carreon is stable for discharge to home today. PHYSICAL EXAMINATION: Vital signs are as follows: Temperature 97.9, heart rate 57, respiratory rate 20, O2 sat 97% on room air, blood pressure 124/42. DISCHARGE PLAN: Mr. Carreon will be discharged to home. Activity as tolerated. He will be on a heart healthy diet. As far as his hematuria, this is resolved. He will be continued on urinary catheter. He has been instructed to call Dr. Reed's office on Monday morning to set up an appointment for Monday to have his urinary catheter reinserted. He has been okay to resume his aspirin and we will resume his Xarelto tomorrow on September 18. The patient has been asked to called Dr. Young's office on September 19 to set up a followup appointment in a week. The patient was asked to return to the emergency room for any significant hematuria, shortness of breath, or chest pain. This is a summarized report of a complex medical history and hospital stay. For further details, please the entire medical record. TIME SPENT: Time for this discharge was approximately 60 minutes, greater than half of that was spent with the patient and his daughter discussing discharge plan and instructions and demonstrating catheter care with them. Reviewed by MIKE OLIVEIRA 09/19/17 2030 [id number]/[facility] #: [id number] MARRY
== END 2017-09-17 17:10 | disposition home or self-care (01) ==
LOC: ED 15:00 → OR 17:46 → MEDTELE 22:16
PROVIDERS: ADMIT Internal Medicine; ATTEND Internal Medicine
PROC: 0T5B8ZZ Destruction of Bladder, Via Natural or Artificial Opening Endoscopic (ICD-10-PCS; 2017-09-16)
PROC: 0TCB8ZZ Extirpation of Matter from Bladder, Via Natural or Artificial Opening Endoscopic (ICD-10-PCS; principal; 2017-09-16 18:28)
DX: R31.9 Hematuria, unspecified (principal); N32.89 Other specified disorders of bladder; R33.8 Other retention of urine; E87.1 Hypo-osmolality and hyponatremia; D64.9 Anemia, unspecified; E78.00 Pure hypercholesterolemia, unspecified; I25.10 Atherosclerotic heart disease of native coronary artery without angina pectoris; E78.5 Hyperlipidemia, unspecified; I48.91 Unspecified atrial fibrillation; Z79.01 Long term (current) use of anticoagulants; J44.9 Chronic obstructive pulmonary disease, unspecified; C34.90 Malignant neoplasm of unspecified part of unspecified bronchus or lung; Z85.51 Personal history of malignant neoplasm of bladder; Z85.46 Personal history of malignant neoplasm of prostate; Z79.899 Other long term (current) drug therapy; I25.2 Old myocardial infarction; Z95.1 Presence of aortocoronary bypass graft; Z87.891 Personal history of nicotine dependence; I44.7 Left bundle-branch block, unspecified
CPT/HCPCS: 36415; 80048; 80053; 85025; 85610; 85730; 93005; 94760; 99283; A9270-GY; G0378; J0696; J1100; J2250; J2405; J2704; J3010

== ENCOUNTER 2017-10-17 09:37 | Day surgery (SDC) | payer MEDICARE, BC ==
[~2017-10-17 09:37] MED LIST changes: +Acetaminophen TAB* 325 MG PO PRN; -Dexamethasone IV* 4 MG/ML 1 ML (4 MG) IV SLOW PU ONE; -Dexamethasone IV* 4 MG/ML 1 ML (4 MG) ONE; -Famotidine IV* 10 MG/ML 2 ML (20 mg) IV ONE; -Famotidine IV* 10 MG/ML 2 ML (20 mg) ONE; -cefTRIAXone(*) 2 GM ADDV.VIAL IVPB ONE
[2017-10-17] MEDS ORDERED: fentaNYL* 50 MCG/ML 2 ML VIAL (100 MCG VIAL) ONE (10:53)
[2017-10-17] MEDS ORDERED: Midazolam* 1 MG/ML 2 ML VIAL (2 MG) ONE (10:53)
[2017-10-17] MEDS ORDERED: Phenylephr/Ketorolac 1%/0.3% OPH DROP BTL ONE (11:10)
[2017-10-17] MEDS ORDERED: Tetracaine 0.5% OPTH.SOL 4 ML* 1 DROP BTL ONE (11:40)
[2017-10-17] MEDS ORDERED: Ketorolac 0.5% OPHTH (NF) 0.5 % 5 ML BTL ONE (11:40)
[2017-10-17] MEDS ORDERED: Neomycin/Polymy/Dex OPHTH.OIN* 3.5 GM ONE (11:40)
[2017-10-17] MEDS ORDERED: Phenylephrine 2.5% OPTH.SOL* 2 ML BTL ONE (11:40)
[2017-10-17] MEDS ORDERED: Tropicamide 1% OPTH.SOL* BTL ONE (11:40)
[2017-10-17] MEDS ORDERED: Cyclopentolate 1% OPTH.SOL* 2 ML BTL ONE (11:40)
[2017-10-17] MEDS ORDERED: Lidocaine 1% MPF* 2 ML VIAL ONE (11:40)
[2017-10-17 11:49] VITALS: BP 102/56
--- NOTE | 2017-10-18 01:15 | OP ---
DATE OF OPERATION: 10/17/17 - [facility] DATE OF : 35 SURGEON: Kyle Greenwood MD YEAST SUPERVISOR: None. ANESTHESIA: Topical with intravenous sedation. PRE-OP DIAGNOSIS: Cataract with astigmatism right eye. POST-OP DIAGNOSIS: Cataract with astigmatism right eye. OPERATIVE PROCEDURE: Phacoemulsification, cataract extraction with posterior chamber intraocular lens implant (toric lens). COMPLICATIONS: None. BLOOD LOSS: None. DESCRIPTION OF PROCEDURE: The patient was seen preoperatively where a marker was made at the 6 o'clock position of the limbus while the patient was in an upright position. The patient was subsequently brought to the operating room and received a small amount of intravenous sedation. A drop of Tetracaine was placed into his right eye. The patient was prepped and draped in the usual sterile fashion for ophthalmic surgery and attention was directed to the right eye where a speculum was placed. A paracentesis was created at the 11 o'clock position and 0.1 cc of 1% preservative-free lidocaine was injected into the anterior chamber followed by DisCoVisc. The eye was digitally stabilized while a 2.75 mm keratome was used to create a triplanar clear corneal incision at the 9 o'clock position. A continuous curvilinear capsulorrhexis was created with a cystotome and Utrata forceps. BSS on a cannula was used to hydrodissect the lens from the capsule. Phacoemulsification was performed in a divide-and- conquer technique to create 4 fragments which were removed. Residual cortical material was removed with irrigation and aspiration. Healon was used to inflate the capsular bag. Sawyer marker was used to estefania the 5- degree access at the limbus. An [id number] 22 diopter lens was folded and inserted into the capsular bag. A Sinskey hook was used to dial the lens to the appropriate axial alignment. The Sinskey hook remained in the eye through the paracentesis to stabilize the lens while irrigation and aspiration was performed to remove viscoelastic. The Sinskey hook was removed and the lens remained in good position. BSS on a cannula was used to hydrate the corneal stroma and seal the wound. At the end of the case, the pupil was round. The lens was centered stable and axially aligned. The eye pressure appeared normal and the wound was water tight. The speculum was removed and topical Maxitrol ointment was placed on the surface of the eye. Eye was closed, patched, and shielded and the patient was sent to the recovery room in stable condition with postop instructions and followup appointment given. [id number]/[facility] #: [id number] MARRY
== END 2017-10-17 12:01 | disposition home or self-care (01) ==
LOC: OREAST 09:37
PROVIDERS: ATTEND Ophthalmology
DX: H25.11 Age-related nuclear cataract, right eye (principal); H52.201 Unspecified astigmatism, right eye; I10 Essential (primary) hypertension; E78.00 Pure hypercholesterolemia, unspecified; C34.90 Malignant neoplasm of unspecified part of unspecified bronchus or lung; I51.9 Heart disease, unspecified
CPT/HCPCS: A9270-GY; C9447; J2250; J3010; V2787

== ENCOUNTER 2017-10-24 08:03 | Day surgery (SDC) | payer MEDICARE, BC, OTHER ==
[2017-10-24] MEDS ORDERED: Midazolam* 1 MG/ML 2 ML VIAL (2 MG) ONE (08:04)
[2017-10-24] MEDS ORDERED: fentaNYL* 50 MCG/ML 2 ML VIAL (100 MCG VIAL) ONE (08:04)
[2017-10-24] MEDS ORDERED: Lidocaine 1% MPF* 2 ML VIAL ONE (09:00)
[2017-10-24] MEDS ORDERED: Cyclopentolate 1% OPTH.SOL* 2 ML BTL ONE (09:00)
[2017-10-24] MEDS ORDERED: Phenylephrine 2.5% OPTH.SOL* 2 ML BTL ONE (09:00)
[2017-10-24] MEDS ORDERED: Ketorolac 0.5% OPHTH (NF) 0.5 % 5 ML BTL ONE (09:00)
[2017-10-24] MEDS ORDERED: Neomycin/Polymy/Dex OPHTH.OIN* 3.5 GM ONE (09:00)
[2017-10-24] MEDS ORDERED: Tetracaine 0.5% OPTH.SOL 4 ML* 1 DROP BTL ONE (09:00)
[2017-10-24] MEDS ORDERED: Tropicamide 1% OPTH.SOL* BTL ONE (09:00)
[2017-10-24 10:04] VITALS: BP 98/48
--- NOTE | 2017-10-24 21:27 | OP ---
DATE OF OPERATION: 10/24/17 - [facility] DATE OF : 35 SURGEON: Kyle Greenwood MD CLERK MANAGER: None. ANESTHESIA: Topical with intravenous sedation. PRE-OP DIAGNOSIS: Cataract left eye with astigmatism and small pupil. POST-OP DIAGNOSIS: Cataract left eye with astigmatism and small pupil. OPERATIVE PROCEDURE: Phacoemulsification and cataract extraction with posterior chamber toric intraocular lens implant left eye. COMPLICATIONS: None. BLOOD LOSS: None. DESCRIPTION OF PROCEDURE: The patient was seen preoperatively in the holding area, where he was placed in an upright position. A estefania was made at the 6 o' clock position of the limbus of the left eye. The patient was subsequently brought to the operating room and given a small amount of intravenous sedation and a drop of tetracaine in the left eye. The patient was prepped and draped in the usual sterile fashion for ophthalmic surgery and attention was directed to the left eye, where a speculum was placed. A paracentesis was created at the 5 o'clock position and 0.1 cc of 1% preservative-free lidocaine was injected into the anterior chamber followed by DisCoVisc. The pupil remained at approximately 3.5 mm in diameter despite preoperative dilating drops. _ was added to the irrigating solution. A continuous curvilinear capsulorrhexis was created with a cystotome and Utrata forceps. The capsulorrhexis measured approximately 4 mm in diameter. BSS on a cannula was used to hydrodissect the lens from the capsule. Phaco-emulsification was performed in a [id number] technique to create 4 fragments, which were removed. Residual cortical material was removed with irrigation and aspiration. Healon was used to inflate the capsular bag. A Sawyer marker and marking pen were used to estefania the 154 degree axis. An SN6AT3 22.0 diopter lens was folded and inserted into the capsular bag. A Sinskey hook was used to position the lens at the appropriate axial alignment. The Sinskey hook remained in the eye for the paracentesis to stabilize the lens while irrigation and aspiration were performed to remove viscoelastic from the eye. The Sinskey hook was removed. BSS on a cannula was used to hydrate the corneal stroma and seal the wound. At the end of the case, the pupil was round. The lens was centered stable and axially aligned. The eye pressure appeared normal and the wound was watertight. The speculum was removed and topical Maxitrol ointment was placed on the surface of the eye. The eye was closed, patched and shielded , and the patient was sent to recovery room in stable condition with postoperative instructions and followup appointment given. [id number]/[facility] #: [id number] MTDD
== END 2017-10-24 10:08 | disposition home or self-care (01) ==
LOC: OREAST 08:03
PROVIDERS: ATTEND Ophthalmology
DX: H25.12 Age-related nuclear cataract, left eye (principal); C34.90 Malignant neoplasm of unspecified part of unspecified bronchus or lung; I25.10 Atherosclerotic heart disease of native coronary artery without angina pectoris; I25.2 Old myocardial infarction; Z95.1 Presence of aortocoronary bypass graft; Z85.46 Personal history of malignant neoplasm of prostate; I48.91 Unspecified atrial fibrillation; Z79.01 Long term (current) use of anticoagulants; I36.1 Nonrheumatic tricuspid (valve) insufficiency; D64.9 Anemia, unspecified
CPT/HCPCS: A9270-GY; J2250; J3010; V2787

== ENCOUNTER → 2018-11-06 10:12 | Day surgery (SDC) | payer MEDICARE, BC ==
[~2018-11-06 10:12] MED LIST changes: -Acetaminophen TAB* 325 MG PO PRN; +Artificial Tear OPHTH.OINT* 3.5 GM ONE; -Buffered Lidocaine 0.9% SYRIN* 5 ML/SYR SYRINGE INTRADERM ONE; +Buffered Lidocaine 1% SYRIN* 1 ML/SYRINGE INTRADERM ONE; +Lactated Ringers 1000 ML Bag* 1,000 ML IV SCH; +Lidocain 1% EPI 1:100,000 * 30 ML MDV ONE; +Lidocaine 2% PF * 5 ML VIAL ONE; +Midazolam* 1 MG/ML 2 ML VIAL (2 MG) ONE; +Mineral Oil Sterile, TOPICAL* 25 ML BTL ONE; +Naloxone* 0.4 MG/ML 1 ML VIAL IV PRN; +Propofol* 10 MG/ML 20 ML BTL ONE; +ceFAZolin 2 GM PREMIX in ORs 2 GM/50 ML BAG IVPB ONE; +fentaNYL* 50 MCG/ML 2 ML VIAL (100 MCG VIAL) ONE
[2018-11-06 15:49] VITALS: BP 102/64
== END | disposition home or self-care (01) ==
LOC: OR 10:12
PROVIDERS: ATTEND Plastic Surgery
DX: C44.311 Basal cell carcinoma of skin of nose (principal); I48.91 Unspecified atrial fibrillation; I25.10 Atherosclerotic heart disease of native coronary artery without angina pectoris; I10 Essential (primary) hypertension; Z85.46 Personal history of malignant neoplasm of prostate; Z79.01 Long term (current) use of anticoagulants; Z85.118 Personal history of other malignant neoplasm of bronchus and lung
CPT/HCPCS: 88305; 88331; 88332; A9270-GY; J0690; J2250; J2704; J3010

== ENCOUNTER 2019-05-28 10:14 | Inpatient (IN) | payer MEDICARE, BC ==
[2019-05-29] MEDS ORDERED: Senna TAB 8.6 mg* TAB PO PRN (16:59)
[2019-05-29] MEDS ORDERED: Acetaminophen TAB* 325 MG PO PRN (16:59)
[2019-05-29] MEDS ORDERED: Magnesium Hydroxide LIQ* 30 ML UDC PO PRN (16:59)
[2019-05-29] MEDS: Docusate CAP* 100 MG PO SCH (20:27)
[2019-05-29] MEDS: Tamsulosin CAP* 0.4 MG PO SCH (20:28)
[2019-05-29] MEDS: Heparin VIAL(*) 5000 UNITS/ML VIAL (FIVE THOUSAND) SUBCUT SCH (20:28)
[2019-05-29] MEDS: Gabapentin CAP(*) 300 MG PO SCH (20:29)
--- NOTE | 2019-05-29 22:47 | HP ---
ADMISSION HISTORY AND PHYSICAL: DATE OF ADMISSION: 05/29/19 REASON FOR ADMISSION: Cervical cord compression; lung cancer, weakness. HISTORY OF PRESENT ILLNESS: rTistan Carreon is an 83-year-old male. He has a medical history significant for lung cancer, which was diagnosed 2-1/2 years ago. He normally sees Dr. Young for this. The patient lives locally, but was down in the [facility] area while his daughter, who is his flight readiness technician, was in the hospital having a procedure. He was staying with his son. One evening, while getting up to have dinner, in late April, he slipped and fell. He developed progressive weakness over the next few days and was brought to the hospital. The patient was also having some incontinence of bowel and bladder. He was brought to the hospital and admitted. He was noted to have a mild temperature elevation. He had a workup including an MRI of his cervical, thoracic, and lumbar spine. MRI of the cervical spine showed a right-sided disk herniation at C5-6 causing compression of the right spinal cord. The patient also had a Lopez catheter placed for his incontinence. The patient had developed hematuria. He normally takes Xarelto for atrial fibrillation. The Xarelto was stopped and he was put on aspirin. He had irrigation of his bladder by Urology. The patient also was found to have severe narrowing of his spinal cord at L3-4 and L4-5 on the MRI. The patient, as mentioned, was admitted. He was given IV Decadron for the possible cord compression and was later changed to a Medrol Dosepak. The patient, as mentioned, had his Xarelto stopped and was put on aspirin and continues to have a Lopez catheter. The patient remained weak. He was felt to have physical therapy and occupational therapy needs. The patient was given IV antibiotics for possible sepsis and pneumonia. This was later stopped. The patient is now being admitted for inpatient rehab so that he may return to independent living. PAST MEDICAL HISTORY: Significant for the aforementioned atrial fibrillation. He normally takes Xarelto and a baby aspirin and a beta-levy. He has a history of lung cancer and is on Abraxane for that. He has hypertension, hyperlipidemia, coronary artery disease, and a history of prostate cancer. He has had a CABG in the past. ALLERGIES: The patient has no known drug allergies. CURRENT MEDICATIONS: Include: 1. Full strength aspirin. 2. Tenormin. 3. Lipitor. 4. Cardizem CD. 5. Gabapentin. 6. Myrbetriq. 7. Dulera. 8. Protonix. 9. Flomax. SOCIAL HISTORY: He is a nonsmoker and nondrinker. He lives with his daughter in a one-story house. There are 2 steps to enter. He was independent prior to admission. REVIEW OF SYSTEMS: The patient reports no current shortness of breath or chest pain. PHYSICAL EXAMINATION VITAL SIGNS: The patient's temperature is 97.6, blood pressure is 127/63, pulse is 102, respirations 18. HEENT: His extraocular movements were intact. Tongue is midline. NECK: Supple. LUNGS: Sounds clear to auscultation bilaterally. HEART: Regular S1 and S2 are audible. ABDOMEN: Soft and nontender. EXTREMITIES: His extremities have normal muscle tone. Peripheral pulses were intact. NEUROLOGIC: His neurologic sensation was perhaps slightly diminished in his right leg. Muscle strength was about 3/5 to 4/5 in his legs and his handgrip was about 4/5. Otherwise his upper extremities are 5/5. FUNCTIONAL EXAM: He transfers with moderate amount of assistance. ASSESSMENT: 1. Possible cervical cord compression. 2. Spinal stenosis. 3. Lung cancer. PLAN: Integrate him into a comprehensive and therapeutic rehab program with the following goals: 1. Physical Therapy will work with the patient. They are going to work on functional transfer training, ambulation training, wheelchair mobilities. 2. Occupational Therapy will see the patient and work on his activities of daily living, including toileting and toilet transfers. 3. Heparin for DVT prophylaxis. We may be restarting his Xarelto. We will ask for Urology guidance on this. 4. For his lung cancer, we are going to continue with inhalers. We will talk to Oncology about when to restart his chemo. 5. For his atrial fibrillation, we are going to continue beta-levy. As mentioned, we may restart anticoagulation. 6. The patient did have Neurosurgery evaluation down at [facility]. They felt that no surgery was needed. He received a steroid dose, but we may have Neurosurgery followup. Speech Therapy will see the patient and work on his swallowing dysfunction. 7. Tooth Cutter Pinion will be closely involved to make sure that any services and equipment that the patient requires are in place prior to discharge. 8. For his urinary incontinence, we are going to continue Flomax and Myrbetriq. We may do a voiding trial and remove his Lopez catheter. 9. For his coronary artery disease, we are going to continue the aspirin and Lipitor. 10. Advance directives: The patient is a full code. 11. Home with appropriate services. ESTIMATED LENGTH OF STAY: Three weeks. [id number]/CPS #: [id number] MTDHarvey
[2019-05-30] MEDS: Heparin VIAL(*) 5000 UNITS/ML VIAL (FIVE THOUSAND) SUBCUT SCH ×3 (06:18→21:08)
[2019-05-30] MEDS: Mometasone/Formoter 100/5 MDI INH SCH ×2 (07:37→21:07)
[2019-05-30] MEDS: Atenolol TAB* 50 MG PO SCH (08:29)
[2019-05-30] MEDS: Docusate CAP* 100 MG PO SCH ×2 (08:29→21:07)
[2019-05-30] MEDS: Pantoprazole TAB * 40 MG TAB PO SCH (08:29)
[2019-05-30] MEDS: Aspirin EC TAB* 325 MG PO SCH (08:29)
[2019-05-30] MEDS: Diltiazem CD CAP* 120 MG PO SCH (08:29)
[2019-05-30] MEDS: NFT: Mirabegron (NF) 50 MG TAB PO SCH (08:33)
--- NOTE | 2019-05-30 17:07 | PN ---
Progress Note Date of Service: 05/30/19 Note: MADHURI RUSS was visited. Therapy notes read and reviewed. He has decreased coordination wwith his hands. He also has weakness in legs and decreased sensation in feet. Unclear how much is from back, how much from neck, how much from cancer. I spoke with his urologist who advised keeping catheter in until he is walking and holding Xarelto for now; Dr. Cueto thinks restarting Xarelto will lead to hematuria Current Medications: Active Medications Generic Name Dose Route Start Last Admin Trade Name Freq PRN Reason Stop Dose Admin Acetaminophen 650 mg 05/29/19 16:59 Tylenol Tab* PO Q6H PRN FEVER > 101 Aspirin 325 mg 05/30/19 09:00 05/30/19 08:29 Ecotrin Ec Tab* PO 325 mg DAILY JOSE Administration Atenolol 50 mg 05/30/19 09:00 05/30/19 08:29 Tenormin Tab* PO 50 mg DAILY JOSE Administration Atorvastatin Calcium 20 mg 05/30/19 17:00 Lipitor* PO 1700 JOSE Diltiazem HCl 120 mg 05/30/19 09:00 05/30/19 08:29 Cardizem Cd Cap* PO 120 mg DAILY JOSE Administration Docusate Sodium 100 mg 05/29/19 21:00 05/30/19 08:29 Colace Cap* PO 100 mg BID JOSE Administration Gabapentin 300 mg 05/29/19 21:00 05/29/19 20:29 Neurontin Cap(*) PO 300 mg BEDTIME JOSE Administration Heparin Sodium (Porcine) 5,000 units 05/29/19 22:00 05/30/19 16:11 Heparin Vial(*) SUBCUT 5,000 units Q8HR JOSE Administration Magnesium Hydroxide 30 ml 05/29/19 16:59 Milk Of Magnesia Liq* PO Q6H PRN CONSTIPATION Mirabegron 50 mg 05/30/19 09:00 05/30/19 08:33 Myrbetriq (Nf) PO Not Given DAILY JOSE Mometasone Furoate/Formoterol Fumar 2 puff 05/30/19 09:00 05/30/19 07:37 Dulera 100/5 Mdi* INH 2 puff BID JOSE Administration Pantoprazole Sodium 40 mg 05/30/19 09:00 05/30/19 08:29 Protonix Tab* PO 40 mg DAILY JOSE Administration Senna 2 tab 05/29/19 16:59 05/29/19 20:27 Senokot 8.6 Mg Tab* PO 2 tab BEDTIME PRN Administration CONSTIPATION Tamsulosin HCl 0.4 mg 05/29/19 21:00 05/29/19 20:28 Flomax Cap* PO 0.4 mg BEDTIME JOSE Administration Vital Signs: Vital Signs Temp Pulse Resp BP Pulse Ox 98.2 F 70 16 112/57 98 05/30/19 15:58 05/30/19 15:58 05/30/19 15:58 05/30/19 15:58 05/30/19 16:46 Exam: GENERAL: Elderly male in no distress LUNGS: Clear HEART: Irreg rhythm ABDOMEN: Soft EXTREMITIES: Tone seems close to normal NEUROLOGIC: A&O. Sensation diminished in feet. Muscle strength 3-4/5 in LEs and 4/5 in hands, 4+/5 in arms Assessment/Plan: 1. Cervical cord compression: Neurosurgery (at [facility]) did not want to operate. Received decadron. PT/OT 2. Severe Lumbar Spinal Stenosis: PT/OT. Unclear if this is causing bladder and bowel incontinence 3. Bladder incontinence: Has matt now. May do voiding trial if he gets more mobile. On Flomax and Myrbetriq 4. Hematuria: resolved off Xarelto 5. Atrial fibrillation: ASA/Atenolol/Cardizem 6. Lung Cancer: Will speak with Dr. Young 7. Bowel Incontinence: None since here, but patient says he cannot feel when he his going 8. DVT Prophylaxis: Heparin S/Q 9. Advanced Directives: Full Code 05/30/19 17:05 05/30/19 17:08 05/30/19 17:10
[2019-05-30] MEDS: Atorvastatin* 20 MG TAB PO SCH (17:46)
[2019-05-30] MEDS: Tamsulosin CAP* 0.4 MG PO SCH (21:07)
[2019-05-30] MEDS: Gabapentin CAP(*) 300 MG PO SCH (21:07)
[2019-05-31] MEDS: Heparin VIAL(*) 5000 UNITS/ML VIAL (FIVE THOUSAND) SUBCUT SCH ×3 (05:33→21:43)
[2019-05-31 06:12] LABS: ABS Basophils 0.1 10^3/ul (0-0.2); ABS Lymphocytes 0.3 10^3/ul (1.0-4.8); ABS Monocytes 0.4 10^3/ul (0-0.8); ABS Neutrophils 6.7 10^3/ul (1.5-7.7); Eosinophil % 0.2 %; Hematocrit 29 % (42-52); Hemoglobin 10.2 g/dL (14.0-18.0); Lymphocyte % 4.3 %; Mean Corpuscular HGB Conc 35 g/dL (31-36); Mean Corpuscular Hemoglobin 31 pg (27-31); Mean Corpuscular Volume 89 fL (80-94); Mean Platelet Volume 8.4 fL (7.4-10.4); Platelet Count 160 10^3/uL (150-450); Red Blood Count 3.26 10^6 /uL (4.18-5.48); Red Cell Distribution Width 19 % (10-15); White Blood Count 7.5 10^3/uL (3.5-10.8)
[2019-05-31 06:35] LABS: Albumin 3.1 g/dL (3.2-5.2); Albumin/Globulin Ratio 1.3 (1-3); BUN/Creatinine Ratio 32.9 (8-20); Calcium 8.2 mg/dL (8.6-10.3); EGFR African American 124.2 (>60); EGFR Non-African American 102.6 (>60); Globulin 2.4 g/dL (2-4); Potassium 4.7 mmol/L (3.5-5.0); Total Bilirubin 0.7 mg/dL (0.2-1.0); Total Protein 5.5 g/dL (6.4-8.9)
[2019-05-31] MEDS: Mometasone/Formoter 100/5 MDI INH SCH ×2 (07:27→21:44)
[2019-05-31] MEDS: Diltiazem CD CAP* 120 MG PO SCH (08:16)
[2019-05-31] MEDS: Pantoprazole TAB * 40 MG TAB PO SCH (08:16)
[2019-05-31] MEDS: Atenolol TAB* 50 MG PO SCH (08:16)
[2019-05-31] MEDS: Aspirin EC TAB* 325 MG PO SCH (08:16)
[2019-05-31] MEDS: Docusate CAP* 100 MG PO SCH ×2 (08:16→21:44)
[2019-05-31] MEDS: NFT: Mirabegron (NF) 50 MG TAB PO SCH (08:41)
--- NOTE | 2019-05-31 11:09 | PN ---
Progress Note Date of Service: 05/31/19 Note: MADHURI RUSS was visited. Nursing and therapy notes read and reviewed. No chest pain, shortness of breath or abdominal pain. Offers no complaints. Current Medications: Active Medications Generic Name Dose Route Start Last Admin Trade Name Freq PRN Reason Stop Dose Admin Acetaminophen 650 mg 05/29/19 16:59 Tylenol Tab* PO Q6H PRN FEVER > 101 Aspirin 325 mg 05/30/19 09:00 05/31/19 08:16 Ecotrin Ec Tab* PO 325 mg DAILY JOSE Administration Atenolol 50 mg 05/30/19 09:00 05/31/19 08:16 Tenormin Tab* PO 50 mg DAILY JOSE Administration Atorvastatin Calcium 20 mg 05/30/19 17:00 05/30/19 17:46 Lipitor* PO 20 mg 1700 JOSE Administration Diltiazem HCl 120 mg 05/30/19 09:00 05/31/19 08:16 Cardizem Cd Cap* PO 120 mg DAILY JOSE Administration Docusate Sodium 100 mg 05/29/19 21:00 05/31/19 08:16 Colace Cap* PO 100 mg BID JOSE Administration Gabapentin 300 mg 05/29/19 21:00 05/30/19 21:07 Neurontin Cap(*) PO 300 mg BEDTIME JOSE Administration Heparin Sodium (Porcine) 5,000 units 05/29/19 22:00 05/31/19 05:33 Heparin Vial(*) SUBCUT 5,000 units Q8HR JOSE Administration Magnesium Hydroxide 30 ml 05/29/19 16:59 Milk Of Magnesia Liq* PO Q6H PRN CONSTIPATION Mirabegron 50 mg 05/30/19 09:00 05/31/19 08:41 Myrbetriq (Nf) PO Not Given DAILY JOSE Mometasone Furoate/Formoterol Fumar 2 puff 05/30/19 09:00 05/31/19 07:27 Dulera 100/5 Mdi* INH 2 puff BID JOSE Administration Pantoprazole Sodium 40 mg 05/30/19 09:00 05/31/19 08:16 Protonix Tab* PO 40 mg DAILY JOSE Administration Senna 2 tab 05/29/19 16:59 05/29/19 20:27 Senokot 8.6 Mg Tab* PO 2 tab BEDTIME PRN Administration CONSTIPATION Tamsulosin HCl 0.4 mg 05/29/19 21:00 05/30/19 21:07 Flomax Cap* PO 0.4 mg BEDTIME JOSE Administration Vital Signs: Vital Signs Temp Pulse Resp BP Pulse Ox 97.9 F 80 16 108/52 98 05/31/19 05:22 05/31/19 07:34 05/31/19 08:10 05/31/19 06:12 05/31/19 05:22 Lab Results: Laboratory Results - last 24 hr 05/31/19 05/31/19 05:46 05:46 WBC 7.5 RBC 3.26 L Hgb 10.2 L Hct 29 L MCV 89 MCH 31 MCHC 35 RDW 19 H Plt Count 160 MPV 8.4 Neut % (Auto) 89.9 Lymph % (Auto) 4.3 Major % (Auto) 4.8 Eos % (Auto) 0.2 Baso % (Auto) 0.8 Absolute Neuts (auto) 6.7 Absolute Lymphs (auto) 0.3 L Absolute Monos (auto) 0.4 Absolute Eos (auto) 0.0 Absolute Basos (auto) 0.1 Absolute Nucleated RBC 0.0 Nucleated RBC % 0.0 Sodium 129 L Potassium 4.7 Chloride 96 L Carbon Dioxide 28 Anion Gap 5 BUN 24 Creatinine 0.73 Est GFR ( Amer) 124.2 Est GFR (Non-Af Amer) 102.6 BUN/Creatinine Ratio 32.9 H Glucose 91 Calcium 8.2 L Total Bilirubin 0.70 AST 38 ALT 40 Alkaline Phosphatase 84 Total Protein 5.5 L Albumin 3.1 L Globulin 2.4 Albumin/Globulin Ratio 1.3 Exam: GENERAL: No acute distress. Engaged with tasks in OT. LUNGS: Clear to auscultation bilaterally. HEART: Irregularly irregular rhythm ABDOMEN: Soft, + bowel sounds, non-tender, non-distended EXTREMITIES: no edema NEUROLOGIC: LT sensation is grossly intact but has some tingling in his fingertips. Motor 4+/5 BUE and BLE except 3/5 left knee ext, right DF and right EHL. Trace left DF and EHL. Assessment/Plan: 1. Cervical cord compression: Neurosurgery (at [facility]) did not want to operate. Received decadron. PT/OT 2. Severe Lumbar Spinal Stenosis: PT/OT. Unclear if this is causing bladder and bowel incontinence 3. Bladder incontinence/Hematuria: Dr. Deras spoke to urology. Keep off Xarelto for now. Lopez for now. May do voiding trial if he gets more mobile. On Flomax and Myrbetriq 4. Atrial fibrillation: full dose ASA/Atenolol/Cardizem 5. Lung Cancer: I called oncology for f/u. 6. Bowel Incontinence: None since here, but patient says he cannot feel when he his going 7. Hyponatremia: Not on diuretics. Elevated BUN/Cr ratio. Recheck for trend. 8. DVT Prophylaxis: Heparin S/Q 9. Advanced Directives: Full Code 10. Estimated LOS: IPOC today. 05/31/19 11:09
--- NOTE | 2019-05-31 12:37 | PMRUTEAM ---
PMRU: Team Meeting Current Status: Nursing: Current Status Skin Deviations [Bilateral Other Buttocks] Skin Deviation Description [ red area to left buttocks; blanchable Bilateral Buttocks] Physical Therapy: Current Status Bed Mobility Assistance mod assist Transfer Mobility Assistance total assist Transfer/Bed Mobility Rolling Walker Recommended Devices Ambulation Assistance total assist Ambulation Assistive Devices EZ stand Stairs Assistance Not Tested Objective Comments AM-PAC 07/07 Raw score CMS percentage 65.88% Occupational Therapy: Current Status Upper Body Dressing Mod Assist Lower Body Dressing Total Assist Bathing Mod Assist,2 Person Assist Toileting Total Assist,2 Person Assist Eating Supervision Rec Therapy: Current Status Summary of Assessment and Pt. was open to conversation and engaged Clinical Impression throughout. Pt.'s grandson was present in the room. Pt. identified with interests and involvement in them prior to admission. Pt. declined pet therapy but was open to continued leisure visits. Treatment Goals Pt. will engage in leisure activities while on the unit. Treatment Plan Provide recreation therapy and encourage involvement. Goals: Physical Therapy: Initial Goals Bed Mobility Assistance Independent Transfer Mobility Assistance Independent Transfer/Bed Mobility Rolling Walker Recommended Devices Ambulation Independent Ambulation Recommended Devices Rolling Walker Ambulation Distance 150 Stairs Assistance Independent Stair Recommended Devices Two Rails Number of Stairs 5 Occupational Therapy: Initial Goals Goals to be Completed in (Days 21 ) Upper Body Bathing Routine Modified Independent with Lower Body Bathing Routine Modified Independent with Upper Body Dressing Routine Independent Lower Body Dressing Routine Modified Independent with Toilet Hygeine and Clothing Modified Independent with Management Routine Toilet Transfer Routine Modified Independent with Tub Transfer Routine Supervision/Set Up Functional Transfers for ADL Modified Independent with Grooming Routine Independent,Modified Independent with Feeding Routine Independent,Modified Independent with Care Plan: Care Plan ADL's - Improve/Maintain Start: 05/30/19 10:39 Freq: DAILY@0700,1900 Status: Active Target: 06/20/19 Protocol: Activity Type Activity Date Activity User E-Sign Co-Sign Detail Recorded Client Recorded Date Recorded By Document 05/31/19 10:31 [id number] 05/31/19 10:31 [id number] 05/31/19 10:31 PMRU Outcome: ADL's/ADL Transfers Orders/Interventions Occupational Therapy Evaluation & Treatment Communication Tool in Patient Room Device Yes Address Deficits Secondary To: weakness Patient to receive OT 5x/wk for 60-120 Therex min/day Self Care Management Group Therapy Neuromuscular ReEducation UE/LE ADL's with Assist Yes: Tatiana ADL Transfers with Assist Yes: Tatiana Toileting: Transfers,Clothing Management Yes: Tatiana ,Hygeine w/Assist Light Kitchen/Laundry w/Assist No Other Outcome/Goals Pt participated well in treatment session, tolerated EZ stand transfer well, knees buckling slightly when lowering into chair, but able to safely complete with assist x 2. Pt appears pleased with recliner chair and use of EZ work environment safety inspector order to safely transfer with nursing staff. Progression Toward Outcome/Goals Goal Initiation Cardiovascular- Improve/Maintain Start: 05/29/19 22:35 Freq: DAILY@699,0 Status: Active Target: 06/19/19 Protocol: Activity Type Activity Date Activity User E-Sign Co-Sign Detail Recorded Client Recorded Date Recorded By Document 05/31/19 07:00 [id number] 05/31/19 07:03 [id number] 05/31/19 07:00 PMRU Outcome: Cardiovascular Vital Signs q Shift for 48hrs Then BID Yes Daily Weight Ordered No Current Cardiovascular Outcome/Goal Maintain/ Improve Perfusion Progression Toward Outcome/Goal Progressing Coping/Psych-Improve/Maintain Start: 05/29/19 22:35 Freq: DAILY@699,[id number] Status: Active Target: 06/19/19 Protocol: Activity Type Activity Date Activity User E-Sign Co-Sign Detail Recorded Client Recorded Date Recorded By Document 05/31/19 07:00 [id number] 05/31/19 07:03 [id number] 05/31/19 07:00 PMRU Outcome: Coping/Psychosocial Current Coping Outcome/Goals Verbalization of Acceptance of Rehab Admit Verbalization of Sense of Control Over Health Status Willingness to Participate in Treatment Plan and Basic Needs Progression Toward Outcome/Goals Progressing Current Psychosocial Outcome/Goals Maintain/ Improve Emotional Health Demonstrates Knowledge of Healthy Coping Mechanisms Available Cooperate/ Participate in Plan Progression Toward Outcome/Goals Progressing DVT Prophylaxis- Improve/Maintain Start: 05/29/19 22:35 Freq: DAILY@699,1900 Status: Active Target: 06/19/19 Protocol: Activity Type Activity Date Activity User E-Sign Co-Sign Detail Recorded Client Recorded Date Recorded By Document 05/31/19 07:00 [id number] 05/31/19 07:03 [id number] 05/31/19 07:00 PMRU Outcome: DVT Prophylaxis Current DVT Outcome/Goals Remains Free of DVT Complies with DVT Prophylaxis /Treatment Demonstrates Knowledge of DVT Prevention/ Treatment TEDS Stockings on Every AM, Off at HS Progression Toward Outcome/Goals Progressing Discharge Planning - Improve/Maintain Start: 05/29/19 22:35 Freq: DAILY@0700,1900 Status: Active Target: 06/19/19 Protocol: Activity Type Activity Date Activity User E-Sign Co-Sign Detail Recorded Client Recorded Date Recorded By Document 05/31/19 07:00 [id number] 05/31/19 07:03 [id number] 05/31/19 07:00 PMRU Outcome: Discharge Planning Update Patient Family No Current Discharge Planning Outcome/Goals Demonstrates Understanding of Discharge Plan Progression Toward Outcome/Goals Progressing Education-Improve/Maintain Start: 05/29/19 22:35 Freq: DAILY@0700,1900 Status: Active Target: 06/19/19 Protocol: Activity Type Activity Date Activity User E-Sign Co-Sign Detail Recorded Client Recorded Date Recorded By Document 05/31/19 07:00 [id number] 05/31/19 07:03 [id number] 05/31/19 07:00 PMRU Outcome: Education Current Education Outcome/Goals Demonstrate/ Verbalize Understanding of Written Discharge Instructions Demonstrates Skills Encourage Questions Progression Toward Outcome/Goals Progressing /GI-Improve/Maintain Start: 05/29/19 22:35 Freq: DAILY@0700,1900 Status: Active Target: 06/19/19 Protocol: Activity Type Activity Date Activity User E-Sign Co-Sign Detail Recorded Client Recorded Date Recorded By Document 05/31/19 07:00 [id number] 05/31/19 07:03 [id number] 05/31/19 07:00 PMRU Outcome: Genitourinary/ Gastrointestinal Current Gastrointestinal Outcome/Goals Maintain/ Achieve Bowel Regularity in Accordance with Pt's Baseline Remain Free of Emesis Prevent Constipation Laxatives as Ordered Progression Toward Outcome/Goals Progressing Current Genitourinary Outcome/Goals Maintain/ Achieve Urinary Continence Maintain/ Achieve Adequate Urinary Output Remain Free of Hospital- Acquired UTI Progression Toward Outcome/Goals Not Progressing Lack of Progression Comment patient has matt Medication Administration Start: 05/29/19 22:35 Freq: DAILY@0700,1900 Status: Active Target: 06/19/19 Protocol: Activity Type Activity Date Activity User E-Sign Co-Sign Detail Recorded Client Recorded Date Recorded By Document 05/31/19 07:00 [id number] 05/31/19 07:03 [id number] 05/31/19 07:00 PMRU Outcome: Medication Administration Assess Patient Knowledge/Teach Med Yes Education for all Meds Current Rippler Outcome/Goals Patient Independent with Medication Administration at Home Demonstrates Understanding Progression Towards Outcome/Goals Progressing Is Patient Going Home on Lovenox? No Mobility- Improve/Maintain Start: 05/30/19 18:03 Freq: DAILY@ Status: Active Target: 06/28/19 Protocol: Activity Type Activity Date Activity User E-Sign Co-Sign Detail Recorded Client Recorded Date Recorded By Document 05/30/19 18:03 [id number] 05/30/19 18:05 [id number] 05/30/19 18:03 PMRU Outcome: Mobility Physical Therapy Evaluation and Yes Treatment Activity OOB with Assistance Yes WBAT Yes Device Yes Assistance Yes Patient to be seen 5x/wk for 60-120 min/ Therex day for: Mobility Training Gait Training W/C Mobility Balance Current Mobility Outcome/Goals Maintain/ Achieve Baseline Mobility Status Improve Mobility Status Demonstrates Proper Use of Assistive Devices Free from Complications of Immobility Progression Toward Outcome/Goals Goal Initiation Bed Mobility Yes: independent Transfers Yes: independent with rollign walker. Gait x ft Yes: independent with rolling walker to 150' Up/Down Stairs Yes: independent up/ down 5 stairs with 2 rails. Pain/Comfort- Improve/Maintain Start: 05/29/19 22:35 Freq: DAILY@ Status: Active Target: 06/19/19 Protocol: Activity Type Activity Date Activity User E-Sign Co-Sign Detail Recorded Client Recorded Date Recorded By Document 05/31/19 07:00 [id number] 05/31/19 07:03 [id number] 05/31/19 07:00 PMRU Outcome: Pain/Comfort Current Pain/Comfort Outcome/Goals Demonstrates Knowledge and Use of Available Comfort Measures Achieves Acceptable Comfort/Pain Level as Determined by Patient/Condit Maintain Comfort Level Allowing Patient to Fully Participate in Rehab Progression Toward Outcome/Goals Progressing Rec Therapy- Improve/Maintain Start: 05/30/19 13:17 Freq: DAILY@699,1899 Status: Active Target: 06/04/19 Protocol: Activity Type Activity Date Activity User E-Sign Co-Sign Detail Recorded Client Recorded Date Recorded By Document 05/30/19 13:18 [id number] 05/30/19 13:18 [id number] 05/30/19 13:18 PMRU Outcome: Recreation Therapy Current Rec Ther Outcome/Goals Complete Rec Therapy Assessment Meet with Patient Regularly for Support Encourage Leisure Involvement Progression Toward Outcome/Goals Goal Initiation Respiratory - Improve/Maintain Start: 05/29/19 22:35 Freq: DAILY@699,1899 Status: Active Target: 06/19/19 Protocol: Activity Type Activity Date Activity User E-Sign Co-Sign Detail Recorded Client Recorded Date Recorded By Document 05/31/19 07:00 [id number] 05/31/19 07:03 [id number] 05/31/19 07:00 PMRU Outcome: Respiratory Does Patient Have a Trach No Current Respiratory Outcome/Goals Maintain/ Improve Baseline Respiratory Status Maintain/ Improve Activity Tolerance Prevent Pneumonia/ Atelectasis Progression Toward Outcome/Goals Progressing Safety- Improve/Maintain Start: 05/29/19 14:06 Freq: DAILY@ Status: Active Target: 06/19/19 Protocol: Activity Type Activity Date Activity User E-Sign Co-Sign Detail Recorded Client Recorded Date Recorded By Document 05/31/19 07:00 [id number] 05/31/19 07:03 [id number] 05/31/19 07:00 PMRU Outcome: Safety Current Safety Outcome/Goals Remain Free of Injury or Harm Cooperates with Safety Measures for Least Restrictive Environment Prevent Falls/ Injury Other Safety Outcome/Goals patient using call zamorano appropriately Progression Toward Outcome/Goals Progressing Skin- Improve/Maintain Start: 05/29/19 22:35 Freq: DAILY@ Status: Active Target: 06/19/19 Protocol: Activity Type Activity Date Activity User E-Sign Co-Sign Detail Recorded Client Recorded Date Recorded By Document 05/31/19 07:00 [id number] 05/31/19 07:03 [id number] 05/31/19 07:00 PMRU Outcome: Skin Skin Risk Level Mild Risk Skin Orders Heels Off Bed Turn/Position q2hr While in Bed Current Skin Outcome/Goals Maintain/ Improve Skin Integrity Free from Pressure Injury Progression Toward Outcome/Goals Not Progressing Lack of Progression Comment patient's coccyx slightly reddened. Medicine Note: Length of Stay: [4 weeks] Anticipated Discharge Destination: home with family Tentative Discharge Date: [06/28/19] Discharged to: [home]
[2019-05-31 15:55] LABS: Urine Appearance Cloudy; Urine Bacteria Absent (Absent); Urine Bilirubin Negative (Negative); Urine Blood 3+ (Negative); Urine Color Amber; Urine Glucose Negative (Negative); Urine Ketones Negative (Negative); Urine Nitrite Negative (Negative); Urine Protein 2+(100 mg/dL) (Negative); Urine Red Blood Cell 3+(>10/hpf) (Absent); Urine Urobilinogen Negative (Negative); Urine White Blood Cell 3+(>20/hpf) (Absent)
[2019-05-31] MEDS: Atorvastatin* 20 MG TAB PO SCH (17:58)
[2019-05-31] MEDS: Tamsulosin CAP* 0.4 MG PO SCH (21:43)
[2019-05-31] MEDS: Gabapentin CAP(*) 300 MG PO SCH (21:44)
[2019-06-01 04:58] LABS: BUN/Creatinine Ratio 35.7 (8-20); EGFR African American 130.3 (>60); EGFR Non-African American 107.7 (>60); Potassium 3.7 mmol/L (3.5-5.0)
[2019-06-01] MEDS: Heparin VIAL(*) 5000 UNITS/ML VIAL (FIVE THOUSAND) SUBCUT SCH ×3 (06:20→20:20)
[2019-06-01] MEDS: Mometasone/Formoter 100/5 MDI INH SCH ×2 (07:54→20:18)
[2019-06-01] MEDS ORDERED: Bisacodyl SUPP* 10 MG SUPP PR SCH (08:00)
[2019-06-01] MEDS: Diltiazem CD CAP* 120 MG PO SCH (08:55)
[2019-06-01] MEDS: Pantoprazole TAB * 40 MG TAB PO SCH (08:55)
[2019-06-01] MEDS: Docusate CAP* 100 MG PO SCH (08:55)
[2019-06-01] MEDS: Aspirin EC TAB* 325 MG PO SCH (08:55)
[2019-06-01] MEDS: NFT: Mirabegron (NF) 50 MG TAB PO SCH (09:05)
[2019-06-01] MEDS: Atenolol TAB* 50 MG PO SCH (11:10)
[2019-06-01] MEDS: Sulfamethox/Trimethoprim SS 400/80* TAB PO SCH ×2 (11:20→20:16)
--- NOTE | 2019-06-01 12:48 | PN ---
Progress Note Date of Service: 06/01/19 Note: MADHURI RUSS was visited. Nursing and therapy notes read and reviewed. His daughter has returned from [facility] and spoke to me this morning. She reports that he became progressively weaker since starting the newest chemo for his lung cancer. He became less and less mobile and started using a walker. His last chemo dose was in [facility] on 05/07. They visited with an oncologist in [facility] on 05/16 and given his weakness and leukopenia he was given an injection to boost his counts, had gabapentin increased to 300mg bid despite no pain, and was told they would stop chemo for now. The next day 05/17, he was put in a office like chair where he fell asleep and then slid out of on the floor. He had issues with bladder and bowel incontinence prior to the hospitalization and fall. He was already barely able to transfer and walk with great difficulty. Since hospitalization and not having chemo again she does not think he has gotten any worse. No chest pain, shortness breath or abdominal pain. This morning he had stool incontinence with continual soft, but not liquid output. Current Medications: Active Medications Generic Name Dose Route Start Last Admin Trade Name Freq PRN Reason Stop Dose Admin Acetaminophen 650 mg 05/29/19 16:59 Tylenol Tab* PO Q6H PRN FEVER > 101 Aspirin 325 mg 05/30/19 09:00 06/01/19 08:55 Ecotrin Ec Tab* PO 325 mg DAILY JOSE Administration Atenolol 50 mg 05/30/19 09:00 06/01/19 11:10 Tenormin Tab* PO 50 mg DAILY JOSE Administration Atorvastatin Calcium 20 mg 05/30/19 17:00 05/31/19 17:58 Lipitor* PO 20 mg 1700 JOSE Administration Bisacodyl 10 mg 06/01/19 08:00 06/01/19 09:02 Dulcolax Supp* IA Not Given 0800 JOSE Diltiazem HCl 120 mg 05/30/19 09:00 06/01/19 08:55 Cardizem Cd Cap* PO 120 mg DAILY JOSE Administration Gabapentin 300 mg 05/29/19 21:00 05/31/19 21:44 Neurontin Cap(*) PO 300 mg BEDTIME JOSE Administration Heparin Sodium (Porcine) 5,000 units 05/29/19 22:00 06/01/19 06:20 Heparin Vial(*) SUBCUT 5,000 units Q8HR JOSE Administration Magnesium Hydroxide 30 ml 05/29/19 16:59 Milk Of Magnesia Liq* PO Q6H PRN CONSTIPATION Mirabegron 50 mg 05/30/19 09:00 06/01/19 09:05 Myrbetriq (Nf) PO Not Given DAILY JOSE Mometasone Furoate/Formoterol Fumar 2 puff 05/30/19 09:00 06/01/19 07:54 Dulera 100/5 Mdi* INH 2 puff BID JOSE Administration Pantoprazole Sodium 40 mg 05/30/19 09:00 06/01/19 08:55 Protonix Tab* PO 40 mg DAILY JOSE Administration Senna 2 tab 05/29/19 16:59 05/29/19 20:27 Senokot 8.6 Mg Tab* PO 2 tab BEDTIME PRN Administration CONSTIPATION Tamsulosin HCl 0.4 mg 05/29/19 21:00 05/31/19 21:43 Flomax Cap* PO 0.4 mg BEDTIME JOSE Administration Trimethoprim/Sulfamethoxazole 1 tab 06/01/19 11:00 06/01/19 11:20 Bactrim Ss 400/80 Tab* PO 1 tab BID JOSE Administration Vital Signs: Vital Signs Temp Pulse Resp BP Pulse Ox 97.9 F 78 18 98/48 99 06/01/19 04:48 06/01/19 04:48 06/01/19 04:48 06/01/19 04:48 06/01/19 04:48 Lab Results: Laboratory Results - last 24 hr 05/31/19 06/01/19 14:42 04:35 Sodium 127 L Potassium 3.7 Chloride 95 L Carbon Dioxide 28 Anion Gap 4 BUN 25 H Creatinine 0.70 Est GFR ( Amer) 130.3 Est GFR (Non-Af Amer) 107.7 BUN/Creatinine Ratio 35.7 H Glucose 99 Calcium 8.0 L Urine Color Lissett Urine Appearance Cloudy Urine pH 5.0 Ur Specific Manter 1.020 Urine Protein 2+(100 mg/dl) A Urine Ketones Negative Urine Blood 3+ A Urine Nitrate Negative Urine Bilirubin Negative Urine Urobilinogen Negative Ur Leukocyte Esterase 2+ A Urine WBC (Auto) 3+(>20/hpf) A Urine RBC (Auto) 3+(>10/hpf) A Urine Bacteria Absent Urine Glucose Negative Exam: GENERAL: No acute distress. Engaged with tasks in OT. LUNGS: Clear to auscultation bilaterally. HEART: Irregularly irregular rhythm ABDOMEN: Soft, + bowel sounds, non-tender, non-distended EXTREMITIES: no edema NEUROLOGIC: LT sensation is grossly intact but has some tingling in his fingertips. Motor 4+/5 BUE and BLE except 3/5 left knee ext, right DF and right EHL. Trace left DF and EHL. Abdominal x-ray 06/01/19 shows moderate retained stool. Assessment/Plan: 1. Cervical cord compression: Neurosurgery (at [facility]) did not want to operate. Received decadron. PT/OT 2. Severe Lumbar Spinal Stenosis: Daughter reports this is longstanding. PT/OT. 3. Neurogenic Bladder/Hematuria with h/o prostate CA: Lack of control could be from cervical cord, cauda equina or chemo induced neuropathy. Dr. Deras spoke to urology. Keep off Xarelto for now. Lopez for now. May do voiding trial if he gets more mobile. On Flomax and Myrbetriq 4. Atrial fibrillation: full dose ASA/Atenolol/Cardizem 5. Lung Cancer: I called oncology for f/u. 6. Neurogenic Bowel: Lack of control could be from cervical cord, cauda equina or chemo induced neuropathy. Needs regular bowel program and more bulk to stool so that it does not just ooze out. Will d/c colace. Senna bid and suppository bid to start. This can be cut back if we get him more regulated. 7. Hyponatremia: Not on diuretics. Elevated BUN/Cr ratio. Recheck for trend. 8. DVT Prophylaxis: Heparin S/Q 9. Possible UTI: UA sent as routine since came with shaka on admission. Concerning for UTI vs colonized. Start bactrim and follow cultures. 10. Hyponatremia: Will ask for hospitalist evaluation given his comorbidities. 11. Advanced Directives: Full Code 12. Estimated LOS: 06/28. I d/w daughter. 06/01/19 12:50
--- NOTE | 2019-06-01 16:34 | CONS ---
CC: Dr. Zonia Aiken; Dr. Young CONSULTATION REPORT: DATE OF CONSULT: 06/01/19 REQUESTING PHYSICIAN: Dr. Zonia Aiken. PRIMARY CARE PROVIDER: Dr. Young. REASON FOR CONSULTATION: Hyponatremia. HISTORY OF PRESENT ILLNESS: Mr. Carreon is an 83-year-old male with a past medical history of atrial fibrillation, coronary artery disease, hyperlipidemia , impaired glucose tolerance, lung CA, prostate CA, hypertension, COPD, bladder CA, who was transferred to our rehabilitation unit due to cord compression and weakness. The patient has a very complex past medical history going back many years, but he was diagnosed with squamous cell carcinoma of the lung in 2017 and he is being treated by Dr. Young. His daughter had to undergo surgery herself, so he went to be with other family members in [place] and was receiving chemotherapy there for a short period of time in the summer. As per records from [facility], the patient was admitted on 05/18/19 with complaints of worsening weakness, new bladder and bowel incontinence and hematuria. As per records, he had sepsis secondary to urinary tract infection and that was treated with Zosyn. On 05/18/19, he was admitted with sepsis that initially was felt to be secondary to urinary tract infection as the patient was having hematuria, but his blood and urine cultures were negative and a CT of the chest showed multiple ill-defined nodular opacities suggestive of infection on top of nodular opacity containing calcification in the left upper lobe, left perihilar region. He was treated with vancomycin and Zosyn and later on completed 7 days of Zosyn as per ID recommendation. They felt that his hematuria was secondary to Xarelto and that was discontinued and the patient was transitioned from Xarelto to aspirin. Workup during the admission also revealed cord compression with the MRI of the spine showing right-sided disk herniation at the C5-6 level that does cause spinal cord compression and abnormal T2 prolongation involving the adjacent spinal cord. There was also a sequestered disk herniation suspected at the T12- L1 level on the right. There were also degenerative changes causing severe narrowing of the spinal canal at the L3-L4 and L4-L5 levels. The patient was seen by Neurology and Neurosurgery and started on steroid taper. The impression was that his cord compression was not tumor related, so radiation was not planned. The patient and family did not want surgical intervention, so the plan was for him to be transferred to rehabilitation. The last documented sodium on the patient's discharge summary was 132 and going back on his records, he has had mild hyponatremia at least since 2006 with some episodes of sodium as low as 127, but usually hanging around low 130s. The patient denies any symptoms at this time. He states that he is actually feeling better and satisfied with the progress he has made so far. He denies dizziness, lightheadedness, nausea, vomiting and his daughter at bedside endorses that this is his baseline mental status and he has not had any episodes of confusion. He describes drinking 3 to 4 cups of coffee, tea, soup during the day plus 1 or 2 bottles of water. He does not think his oral fluid intake has changed. The daughter explains that during his hospital stay, he had considerable lower extremity edema, but that also resolved prior to discharge. He denies excessive thirst. PAST MEDICAL HISTORY: 1. Prostate cancer diagnosed in 2006, treated with radiation therapy and prostate seeds. 2. Coronary artery disease, status post myocardial infarctions at age 42, 47, 49, status post CABG. 3. COPD. 4. Hypertension. 5. Glucose intolerance. 6. History of melanoma of the forehead in 2012, status post resection with no evidence of recurrence. 7. Left foot drop. 8. Atrial fibrillation, previously on Xarelto. 9. 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 As per Dr. Young's note from August 2017, the patient was not felt to be a surgical candidate, went to [facility] for further evaluation and was also not felt to be a surgical candidate and he is being treated with chemotherapy since. As per records from [facility], the patient had last received chemotherapy (Abraxane) on 05/07/19. MEDICATION LIST: At the time of this dictation, 1. Acetaminophen 650 mg p.o. q.6 hours p.r.n. pain. 2. Aspirin 325 mg p.o. daily. 3. Atenolol 50 mg p.o. daily. 4. Atorvastatin 20 mg p.o. daily. 5. Bisacodyl suppository 10 mg per rectum twice a day. 6. Cardizem CD 120 mg p.o. daily. 7. Gabapentin 300 mg p.o. at bedtime. 8. Heparin 5000 units subcutaneously q.8 hours. 9. Magnesium hydroxide 30 mL p.o. q.6 hours p.r.n. constipation. 10. Myrbetriq 50 mg p.o. daily. 11. Dulera 100/5 two puffs inhaled b.i.d. 12. Pantoprazole 40 mg p.o. daily. 13. Senna 2 tablets p.o. b.i.d. 14. Sulfamethoxazole/trimethoprim 1 tablet p.o. b.i.d. 15. Tamsulosin 0.4 mg p.o. at bedtime. ALLERGIES: No known drug allergies. FAMILY HISTORY: The patient's father had a history of multiple sclerosis and mother had diabetes. 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 He has a prior history of tobacco abuse 2 to 3 packs per day for more than 20 years. Occasional alcohol. No drug use. Surrogate decision maker is his daughter, Rosalina Marx, phone number is [phone]. REVIEW OF SYSTEMS: A 14-point review of system was performed and all the pertinent negatives as per the HPI. PHYSICAL EXANIMATION: Vital Signs: Temperature 97.9, heart rate 78, respiratory rate is 18, oxygen saturation 99% on room air, blood pressure is 98/ 48. General: The patient is an elderly frail gentleman, sitting up on a recliner, in no acute distress. HEENT: Pupils are equal. Moist mucous membranes. CVS: Normal S1, S2. Regular rate and rhythm with a systolic murmur. Chest: Breath sounds bilaterally coarse with no added sounds. Abdomen is soft. Bowel sounds present. Extremities: PARVEZ stockings in place. No pitting edema. Neuro: He is alert and oriented x3, able to move all 4 extremities, especially the lower extremities are weak. He has a Lopez catheter in place, draining clear yellow urine. LABORATORY AND IMAGING DATA: CBC done on 05/31/19 showed a WBC of 7.5, hemoglobin of 10.2, hematocrit of 29, platelets of 162, 89% neutrophils. Chemistry done on 06/01/19 showed a sodium of 127, potassium 3.7, chloride 95, bicarb of 28, BUN of 25, creatinine of 0.7, glucose of 99, calcium 8.0. Urinalysis done on 05/31/19 showed 2+ protein, 3+ blood, 2+ LE, 3+ wbc's, 3+ rbc 's. Abdomen x-ray done on 06/01/19 showed no evidence for obstruction. ASSESSMENT AND PLAN: Mr. Carreon is an 83-year-old male with a complex past medical history that includes coronary artery disease, status post CABG; atrial fibrillation; hypertension; hyperlipidemia; prostate cancer; bladder cancer; squamous cell carcinoma of the left lung, undergoing chemotherapy with a recent admission to [facility] with sepsis secondary to pneumonia and also cervical spine cord compression and spinal stenosis, who was transferred to our facility for rehabilitation. Consultation requested to assist with hyponatremia management. Hyponatremia. This appears to be euvolemic hyponatremia. The patient does not appear to be dehydrated, he is not on diuretics as outpatient. His fluid intake appears to be reasonable with no psychogenic polydipsia. On his recent admission, the patient did receive IV fluids and the daughter described some lower extremity edema, but that appears to be resolved. 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 Check serum and urine osmolality, urine sodium concentration as well as TSH. If his results confirm SIADH, I believe the first step would be to start fluid restriction and monitor his sodium. If that is not enough, we may be able to add some sodium tablets and keep escalating therapy as needed. 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 In any case, at this point, the patient is asymptomatic from a hyponatremia point of view. The patient's other problems will be management as per rehabilitation medicine. The hospitalist service will continue to follow with you. TIME SPENT: Approximately 55 minutes was spent with the patient interview, medical records review, physical examination to complete this consultation, more than half of this time was spent [id number] with the patient in coordination of care. [id number]/[facility] #: [id number] MARRY
[2019-06-01] MEDS: Atorvastatin* 20 MG TAB PO SCH (16:45)
[2019-06-01] MEDS: Bisacodyl SUPP* 10 MG SUPP PR SCH (18:33)
[2019-06-01] MEDS: Gabapentin CAP(*) 300 MG PO SCH (20:16)
[2019-06-01] MEDS: Tamsulosin CAP* 0.4 MG PO SCH (20:16)
[2019-06-01] MEDS: Senna TAB 8.6 mg* TAB PO SCH (20:16)
[2019-06-02] MEDS: Heparin VIAL(*) 5000 UNITS/ML VIAL (FIVE THOUSAND) SUBCUT SCH ×3 (05:40→21:07)
[2019-06-02] MEDS: Mometasone/Formoter 100/5 MDI INH SCH ×2 (07:22→21:06)
[2019-06-02] MEDS: Atenolol TAB* 50 MG PO SCH (09:19)
[2019-06-02] MEDS: Aspirin EC TAB* 325 MG PO SCH (09:19)
[2019-06-02] MEDS: Pantoprazole TAB * 40 MG TAB PO SCH (09:20)
[2019-06-02] MEDS: Senna TAB 8.6 mg* TAB PO SCH ×2 (09:20→21:08)
[2019-06-02] MEDS: Diltiazem CD CAP* 120 MG PO SCH (09:20)
[2019-06-02] MEDS: Sulfamethox/Trimethoprim SS 400/80* TAB PO SCH (09:20)
[2019-06-02] MEDS: Bisacodyl SUPP* 10 MG SUPP PR SCH ×2 (09:21→18:52)
--- NOTE | 2019-06-02 09:23 | PN ---
Subjective Date of Service: 06/02/19 Interval History: Mr. Carreon states that he is feeling well today. He has no acute complaints. He is tolerating the fluid restriction well, he states, "I don't miss it." He denies chest pain, SOB, nausea or abdominal pain. Objective Active Medications: Acetaminophen (Tylenol Tab*) 650 mg PO Q6H PRN Aspirin (Ecotrin Ec Tab*) 325 mg PO DAILY JOSE Atenolol (Tenormin Tab*) 50 mg PO DAILY JOSE Atorvastatin Calcium (Lipitor*) 20 mg PO 1700 JOSE Bisacodyl (Dulcolax Supp*) 10 mg MT 0800,1800 JOSE Diltiazem HCl (Cardizem Cd Cap*) 120 mg PO DAILY JOSE Gabapentin (Neurontin Cap(*)) 300 mg PO BEDTIME JOSE Heparin Sodium (Porcine) (Heparin Vial(*)) 5,000 units SUBCUT Q8HR JOSE Magnesium Hydroxide (Milk Of Magnesia Liq*) 30 ml PO Q6H PRN Mirabegron (Myrbetriq (Nf)) 50 mg PO DAILY JOSE Mometasone Furoate/Formoterol Fumar (Dulera 100/5 Mdi*) 2 puff INH BID JOSE Pantoprazole Sodium (Protonix Tab*) 40 mg PO DAILY JOSE Senna (Senokot 8.6 Mg Tab*) 2 tab PO BID JOSE Sodium Chloride (Sodium Chloride Tab*) 1 gm PO BID JOSE Tamsulosin HCl (Flomax Cap*) 0.4 mg PO BEDTIME JOSE Trimethoprim/Sulfamethoxazole (Bactrim Ss 400/80 Tab*) 1 tab PO BID JOSE Vital Signs: Temp Pulse Resp BP Pulse Ox 97.8 F 66 18 99/47 98 06/02/19 05:13 06/02/19 07:24 06/02/19 07:24 06/02/19 05:13 06/02/19 07:24 Oxygen Devices in Use Now: None Appearance: Male lying in bed in NAD Eyes: No Scleral Icterus Ears/Nose/Mouth/Throat: Mucous Membranes Moist Neck: Trachea Midline Respiratory: Symmetrical Chest Expansion and Respiratory Effort, Clear to Auscultation Cardiovascular: NL Sounds; No Murmurs; No JVD, No Edema Abdominal: NL Sounds; No Tenderness; No Distention Extremities: No Edema Skin: No Rash or Ulcers Neurological: Alert and Oriented x 3, NL Muscle Strength and Tone Nutrition: Taking PO's Result Diagrams: 05/31/19 05:46 06/01/19 04:35 Microbiology and Other Data: Microbiology 05/31/19 14:42 Urine Culture - Final Urine No Growth (<1,000 CFU/mL) Assess/Plan/Problems-Billing Mr. Carreon is an 83 yo M with a PMH of cervical cord compression (declined surgery), prostate cancer, afib, lung cancer, neurogenic bowel and bladder, and hyponatremia. Hospital Medicine has been consulted regarding asymptomatic hyponatremia, suspected due to SIADH. - Patient Problems (1) Hyponatremia Comment: - Na 129->127 - Suspect secondary to SIADH in setting of lung cancer and bactrim use. Bactrim d/c'd as urine culture was negative - Initiate fluid restriction and salt tabs, adjust as needed, repeat BMP in AM (2) Cord compression Comment: - Continued management per rehab team - Patient declined surgery (3) Afib Comment: - HR controlled - Continue diltiazem and atenolol with hold parameters - Anticoagulation discontinued due to hematuria (4) Anemia Comment: - Chronic - Appears to be near baseline, continue to monitor per routine (5) COPD (chronic obstructive pulmonary disease) (6) HTN (hypertension) Comment: - SBP 90-120s - Continue atenolol and diltiazem with hold parameters (7) HLD (hyperlipidemia) Comment: - Continue statin (8) History of coronary artery disease Comment: - Asymptomatic. - Continue atenolol and statin (9) Lung cancer Comment: - Therapy on hold indefinitely per Dr Monroe - Patient to follow with Dr Young at discharge from [facility] (10) DVT prophylaxis Comment: - Heparin SQ (11) Full code status Comment: Status and Disposition: Disposition per [facility]
[2019-06-02] MEDS: NFT: Mirabegron (NF) 50 MG TAB PO SCH (09:38)
--- NOTE | 2019-06-02 10:33 | PN ---
Progress Note - Progress Note Date of Service: 06/02/19 SOAP: ID []83 yo with reccurent NSCLC, on salvage therapy, 3 rd line therapy with Abraxane Events: Treated on 04/16/19 in [place], 05/07 in [facility] Progressive weakness s/p C#2 Admission [facility] 05/18/19 w/ progressive weakness, hematuria and incontinence - hematuria from Xarelto Full evaluation: - Dx Pneumonia - Weakness in part from Lumbar spinal stenosis and disk herniation, cord compression - Rx Zosyn/vanco for pneumonia, steriods and PT for cord compression, off Xarelto for hematuria. Transferred to [facility] 1. Lung cancer Hx: Pulmonary recurrence, no ANIMAL STICKER or other systemic disease. 2. Hyponatremia, chronic but worse this week 3. Anemia 4. COPD 5. A-fib, now on ASA 6. Prostae ancer adn melanoma 7. GERD Acetaminophen (Tylenol Tab*) 650 mg PO Q6H PRN PRN Reason: FEVER > 101 Aspirin (Ecotrin Ec Tab*) 325 mg PO DAILY [facility] Last Admin: 06/02/19 09:19 Dose: 325 mg Atenolol (Tenormin Tab*) 50 mg PO DAILY [facility] Atorvastatin Calcium (Lipitor*) 20 mg PO 1700 [facility] Last Admin: 06/01/19 16:45 Dose: 20 mg Bisacodyl (Dulcolax Supp*) 10 mg MN 0800,1800 [facility] Last Admin: 06/02/19 09:21 Dose: 10 mg Diltiazem HCl (Cardizem Cd Cap*) 120 mg PO DAILY [facility] Gabapentin (Neurontin Cap(*)) 300 mg PO BEDTIME [facility] Last Admin: 06/01/19 20:16 Dose: 300 mg Heparin Sodium (Porcine) (Heparin Vial(*)) 5,000 units SUBCUT Q8HR [facility] Last Admin: 06/02/19 05:40 Dose: 5,000 units Magnesium Hydroxide (Milk Of Magnesia Liq*) 30 ml PO Q6H PRN PRN Reason: CONSTIPATION Mirabegron (Myrbetriq (Nf)) 50 mg PO DAILY [facility] Last Admin: 06/02/19 09:38 Dose: Not Given Mometasone Furoate/Formoterol Fumar (Dulera 100/5 Mdi*) 2 puff INH BID [facility] Last Admin: 06/02/19 07:22 Dose: 2 puff Pantoprazole Sodium (Protonix Tab*) 40 mg PO DAILY [facility] Last Admin: 06/02/19 09:20 Dose: 40 mg Senna (Senokot 8.6 Mg Tab*) 2 tab PO BID [facility] Last Admin: 06/02/19 09:20 Dose: 2 tab Sodium Chloride (Sodium Chloride Tab*) 1 gm PO BID [facility] Tamsulosin HCl (Flomax Cap*) 0.4 mg PO BEDTIME [facility] Last Admin: 06/01/19 20:16 Dose: 0.4 mg Subjective: He feels he is maknig progress. Weaker and weaker from chemotherapy. He has nubness in hand and feet that makes it hard to walk. Not clear Abraxane made numbness worse. His hematuria has stopped, eating, trying to get home to live with daughter. Objective: [] Vital Signs Temp Pulse Resp BP Pulse Ox 97.8 F 66 18 99/47 98 06/02/19 05:13 06/02/19 07:24 06/02/19 07:24 06/02/19 05:13 06/02/19 07:24 HEENT: OM moist, pale CTA but dec BS, no crackles HR irregular but in 90 S1S2 +BS NT ND Etx tr edema Neuro: AAOx3, poor sensation to light touch on both feet Assessment: []83 year old recurrent NSCLC on 3rd line therapy. Admission with pneumonia, weakness, Cord compression from spinal stenosis, hyponatriema and hematuria. Plan: []1. Discussed lung cancer and we both agree chemotherapy on hold indefinitely, goal is getting home with daughter. Will follow up with Dr. Young to decide about cancer treatment or hospice in future. 2. Hyponatremia. Agree with Hospitalist. Bactrim may have also been contributing , now stopped. Follow. 3. Anemia. Check Iron and B12 4. Continue care PMRU, will discuss case with his primary oncologist.
--- NOTE | 2019-06-02 11:28 | PN ---
Progress Note Date of Service: 06/02/19 Note: MADHURI RUSS was visited. Nursing and therapy notes read and reviewed. No chest pain, shortness of breath or abdominal pain. He had a large BM yesterday after dinner without the suppository. It was still given, but he was then in bed. Got suppository this morning in bed and then did not get on commode. Seen by Dr. Monroe this morning and hospitalists f/u regarding hyponatremia. Current Medications: Active Medications Generic Name Dose Route Start Last Admin Trade Name Freq PRN Reason Stop Dose Admin Acetaminophen 650 mg 05/29/19 16:59 Tylenol Tab* PO Q6H PRN FEVER > 101 Aspirin 325 mg 05/30/19 09:00 06/02/19 09:19 Ecotrin Ec Tab* PO 325 mg DAILY JOSE Administration Atenolol 50 mg 06/02/19 09:25 Tenormin Tab* PO DAILY JOSE Atorvastatin Calcium 20 mg 05/30/19 17:00 06/01/19 16:45 Lipitor* PO 20 mg 1700 JOSE Administration Bisacodyl 10 mg 06/01/19 18:00 06/02/19 09:21 Dulcolax Supp* MN 10 mg 0800,1800 JOSE Administration Diltiazem HCl 120 mg 06/02/19 09:25 Cardizem Cd Cap* PO DAILY JOSE Gabapentin 300 mg 05/29/19 21:00 06/01/19 20:16 Neurontin Cap(*) PO 300 mg BEDTIME JOSE Administration Heparin Sodium (Porcine) 5,000 units 05/29/19 22:00 06/02/19 05:40 Heparin Vial(*) SUBCUT 5,000 units Q8HR JOSE Administration Magnesium Hydroxide 30 ml 05/29/19 16:59 Milk Of Magnesia Liq* PO Q6H PRN CONSTIPATION Mirabegron 50 mg 05/30/19 09:00 06/02/19 09:38 Myrbetriq (Nf) PO Not Given DAILY JOSE Mometasone Furoate/Formoterol Fumar 2 puff 05/30/19 09:00 06/02/19 07:22 Dulera 100/5 Mdi* INH 2 puff BID JOSE Administration Pantoprazole Sodium 40 mg 05/30/19 09:00 06/02/19 09:20 Protonix Tab* PO 40 mg DAILY JOSE Administration Senna 2 tab 06/01/19 21:00 06/02/19 09:20 Senokot 8.6 Mg Tab* PO 2 tab BID JOSE Administration Sodium Chloride 1 gm 06/02/19 09:17 Sodium Chloride Tab* PO BID JOSE Tamsulosin HCl 0.4 mg 05/29/19 21:00 06/01/19 20:16 Flomax Cap* PO 0.4 mg BEDTIME JOSE Administration Vital Signs: Vital Signs Temp Pulse Resp BP Pulse Ox 97.8 F 66 18 99/47 98 06/02/19 05:13 06/02/19 07:24 06/02/19 07:24 06/02/19 05:13 06/02/19 07:24 Lab Results: Laboratory Results - last 24 hr 06/01/19 06/01/19 06/01/19 04:35 04:35 17:00 Serum Osmolality 274 L TSH 1.86 Urine Osmolality 643 U Sodium Concentration 06/01/19 17:00 Serum Osmolality TSH Urine Osmolality U Sodium Concentration 29 Urine culture negative. Exam: GENERAL: No acute distress.Alert and appropriate. LUNGS: Clear to auscultation bilaterally. HEART: Irregularly irregular rhythm ABDOMEN: Soft, + bowel sounds, non-tender, non-distended EXTREMITIES: no edema NEUROLOGIC: LT sensation is grossly intact but has some tingling in his fingertips. Motor 4+/5 BUE and BLE except 3/5 left knee ext, right DF and right EHL. Trace left DF and EHL (chronic) Assessment/Plan: 1. Cervical cord compression: Neurosurgery (at [facility]) did not want to operate. Images were requested from [facility]. Received decadron. PT/OT 2. Severe Lumbar Spinal Stenosis: Daughter reports this is longstanding. PT/OT. 3. Neurogenic Bladder/Hematuria with h/o prostate CA: Lack of control could be from cervical cord, cauda equina or chemo induced neuropathy. Dr. Deras spoke to urology. Keep off Xarelto for now. Lopez for now. May do voiding trial if he gets more mobile. On Flomax and Myrbetriq. 4. Atrial fibrillation: full dose ASA/Atenolol/Cardizem 5. Lung Cancer: seen by Dr. Monroe 06/02/19. No plans to resume current chemo regimen. f/u with Dr. Young. 6. Neurogenic Bowel: Lack of control could be from cervical cord, cauda equina or chemo induced neuropathy. Needs regular bowel program and more bulk to stool so that it does not just ooze out. Off scheduled colace. Senna bid and suppository bid to start. This can be cut back if we get him more regulated. I explained to him and nurse getting on commode with suppository after breakfast and dinner. 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 Seen by hospitalists and started on NaCL with 1.5L fluid restriction. Not on diuretics. Elevated BUN/Cr ratio. Recheck for trend. 8. DVT Prophylaxis: Heparin S/Q 9. Questionable UTI: Urine culture negative. d/c'd bactrim after 1 day. 10. Advanced Directives: Full Code 11. Estimated LOS: 06/28. I d/w daughter. 06/02/19 11:29
[2019-06-02] MEDS: Sodium Chloride TAB* 1 GM PO SCH ×2 (12:24→21:07)
[2019-06-02] MEDS: Atorvastatin* 20 MG TAB PO SCH (15:54)
[2019-06-02 18:23] LABS: % Iron Saturation 18 % (15-55); Iron 52 ug/dL (50-212); Total Iron Binding Capacity 286 mcg/dL (250-450); Transferrin 204 mg/dL (203-362)
[2019-06-02 18:44] LABS: Ferritin 128.4 ng/mL (24-336)
[2019-06-02] MEDS ORDERED: Sodium Chloride TAB* 1 GM PO SCH (21:00)
[2019-06-02] MEDS: Tamsulosin CAP* 0.4 MG PO SCH (21:07)
[2019-06-02] MEDS: Gabapentin CAP(*) 300 MG PO SCH (21:07)
[2019-06-03 05:40] LABS: BUN/Creatinine Ratio 25.7 (8-20); EGFR African American 130.3 (>60); EGFR Non-African American 107.7 (>60); Potassium 3.8 mmol/L (3.5-5.0)
[2019-06-03] MEDS: Heparin VIAL(*) 5000 UNITS/ML VIAL (FIVE THOUSAND) SUBCUT SCH (06:09)
[2019-06-03] MEDS: Mometasone/Formoter 100/5 MDI INH SCH ×2 (08:40→21:19)
[2019-06-03] MEDS: NFT: Mirabegron (NF) 50 MG TAB PO SCH (08:41)
[2019-06-03] MEDS: Aspirin EC TAB* 325 MG PO SCH (08:42)
[2019-06-03] MEDS: Diltiazem CD CAP* 120 MG PO SCH (08:42)
[2019-06-03] MEDS: Sodium Chloride TAB* 1 GM PO SCH (08:42)
[2019-06-03] MEDS: Pantoprazole TAB * 40 MG TAB PO SCH (08:43)
[2019-06-03] MEDS: Senna TAB 8.6 mg* TAB PO SCH ×2 (08:43→21:19)
[2019-06-03] MEDS: Atenolol TAB* 50 MG PO SCH (08:43)
--- NOTE | 2019-06-03 13:36 | PN ---
Subjective Date of Service: 06/03/19 Interval History: Pt feels well. States he is having no difficulty with fluid restriction, as he does not drink a lot anyway. He has a matt in place and has hematuria, which has been ongoing during his admission; he is currently being taken off xarelto, heparin; continue aspirin. He notes that if he sits too long he develops pain in the sacral area, but he has no other complaints at this time. He denies dizziness, lightheadedness. He notes that he has poor dexterity in distal fingertips, but notes this is chronic. Objective Active Medications: Acetaminophen (Tylenol Tab*) 650 mg PO Q6H PRN Aspirin (Ecotrin Ec Tab*) 325 mg PO DAILY JOSE Atenolol (Tenormin Tab*) 50 mg PO DAILY JOSE Atorvastatin Calcium (Lipitor*) 20 mg PO 1700 JOSE Bisacodyl (Dulcolax Supp*) 10 mg [place] 0800,1800 JOSE Diltiazem HCl (Cardizem Cd Cap*) 120 mg PO DAILY JOSE Gabapentin (Neurontin Cap(*)) 300 mg PO BEDTIME JOSE Magnesium Hydroxide (Milk Of Magnesia Liq*) 30 ml PO Q6H PRN Mirabegron (Myrbetriq (Nf)) 50 mg PO DAILY JOSE Mometasone Furoate/Formoterol Fumar (Dulera 100/5 Mdi*) 2 puff INH BID JOSE Pantoprazole Sodium (Protonix Tab*) 40 mg PO DAILY JOSE Senna (Senokot 8.6 Mg Tab*) 2 tab PO BID JOSE Sodium Chloride (Sodium Chloride Tab*) 1 gm PO BID JOSE Tamsulosin HCl (Flomax Cap*) 0.4 mg PO BEDTIME JOSE Vital Signs: Temp Pulse Resp BP Pulse Ox 97.9 F 81 18 102/39 97 06/03/19 05:13 06/03/19 05:13 06/03/19 08:00 06/03/19 05:13 06/03/19 08:00 Oxygen Devices in Use Now: None Appearance: Pt is sitting up in wheelchair. He is in no acute distress. Eyes: No Scleral Icterus, PERRLA Ears/Nose/Mouth/Throat: NL Teeth, Lips, Gums, Clear Oropharnyx, Mucous Membranes Moist Neck: NL Appearance and Movements; NL JVP, Trachea Midline Respiratory: Symmetrical Chest Expansion and Respiratory Effort, Clear to Auscultation Cardiovascular: NL Sounds; No Murmurs; No JVD, RRR, No Edema Abdominal: NL Sounds; No Tenderness; No Distention, No Hepatosplenomegaly Extremities: No Edema, No Clubbing, Cyanosis Neurological: Alert and Oriented x 3, NL Sensation Result Diagrams: 05/31/19 05:46 06/03/19 04:59 Microbiology and Other Data: Microbiology 05/31/19 14:42 Urine Culture - Final Urine No Growth (<1,000 CFU/mL) Assess/Plan/Problems-Billing Mr. Carreon is an 83 yo M with a PMH of cervical cord compression (declined surgery), prostate cancer, afib, lung cancer, neurogenic bowel and bladder, and hyponatremia. Hospital Medicine has been consulted regarding asymptomatic hyponatremia, suspected due to SIADH. - Patient Problems (1) Hyponatremia Comment: - Na has improved from 127 to 129 with fluid restriction, Bactrim d/c, Na tablets - Suspect secondary to SIADH in setting of lung cancer and bactrim use. Bactrim d/c'd as urine culture was negative - Continue fluid restriction and salt tabs - Recheck BMP in a.m. (2) Cord compression Comment: - Continued management per rehab team - Patient declined surgery (3) Afib Comment: - HR controlled - Continue diltiazem and atenolol with hold parameters - Anticoagulation discontinued due to hematuria (4) Anemia Comment: - Chronic - Appears to be near baseline, continue to monitor per routine (5) HTN (hypertension) Comment: - SBP 100s - Continue atenolol and diltiazem with hold parameters (6) Lung cancer Comment: - Therapy on hold indefinitely per Dr Monroe - Patient to follow with Dr Young at discharge from [facility] (7) COPD (chronic obstructive pulmonary disease) Comment: - No evidence of exacerbation - Continue Dulera (8) History of coronary artery disease Comment: - Asymptomatic. - Continue atenolol and statin (9) HLD (hyperlipidemia) Comment: - Continue statin (10) DVT prophylaxis Comment: - Heparin SQ (11) Full code status Comment: Status and Disposition: Disposition per [facility].
[2019-06-03] MEDS: Bisacodyl SUPP* 10 MG SUPP PR SCH ×2 (14:43→18:26)
[2019-06-03] MEDS: Atorvastatin* 20 MG TAB PO SCH (17:19)
--- NOTE | 2019-06-03 20:24 | PN ---
Progress Note Date of Service: 06/03/19 Note: MADHURI RUSS was visited. Therapy notes read and reviewed. His sodium has come back to 129, and I don't think we should worry too much about this. Have d/ c'd the fluid restriction and will eliminate the salt tablets. Otherwise he feels like he is a little stronger. Today, he developed hematuria. Will d/c heparin and watch to see if we need to iirigate the matt. Current Medications: Active Medications Generic Name Dose Route Start Last Admin Trade Name Freq PRN Reason Stop Dose Admin Acetaminophen 650 mg 05/29/19 16:59 Tylenol Tab* PO Q6H PRN FEVER > 101 Aspirin 325 mg 05/30/19 09:00 06/03/19 08:42 Ecotrin Ec Tab* PO 325 mg DAILY JOSE Administration Atenolol 50 mg 06/02/19 09:25 06/03/19 08:43 Tenormin Tab* PO 50 mg DAILY JOSE Administration Atorvastatin Calcium 20 mg 05/30/19 17:00 06/03/19 17:19 Lipitor* PO 20 mg 1700 JOSE Administration Bisacodyl 10 mg 06/01/19 18:00 06/03/19 18:26 Dulcolax Supp* [place] 10 mg 0800,1800 JOSE Administration Diltiazem HCl 120 mg 06/02/19 09:25 06/03/19 08:42 Cardizem Cd Cap* PO 120 mg DAILY JOSE Administration Gabapentin 300 mg 05/29/19 21:00 06/02/19 21:07 Neurontin Cap(*) PO 300 mg BEDTIME JOSE Administration Magnesium Hydroxide 30 ml 05/29/19 16:59 Milk Of Magnesia Liq* PO Q6H PRN CONSTIPATION Mirabegron 50 mg 05/30/19 09:00 06/03/19 08:41 Myrbetriq (Nf) PO Not Given DAILY JOSE Mometasone Furoate/Formoterol Fumar 2 puff 05/30/19 09:00 06/03/19 08:40 Dulera 100/5 Mdi* INH 2 puff BID JOSE Administration Pantoprazole Sodium 40 mg 05/30/19 09:00 06/03/19 08:43 Protonix Tab* PO 40 mg DAILY JOSE Administration Senna 2 tab 06/01/19 21:00 06/03/19 08:43 Senokot 8.6 Mg Tab* PO 2 tab BID JOSE Administration Sodium Chloride 1 gm 06/04/19 09:00 Sodium Chloride Tab* PO DAILY JOSE Tamsulosin HCl 0.4 mg 05/29/19 21:00 06/02/19 21:07 Flomax Cap* PO 0.4 mg BEDTIME JOSE Administration Vital Signs: Vital Signs Temp Pulse Resp BP Pulse Ox 98.3 F 77 18 104/41 100 06/03/19 16:59 06/03/19 16:59 06/03/19 08:00 06/03/19 16:59 06/03/19 16:59 Lab Results: Laboratory Results - last 24 hr 06/03/19 04:59 Sodium 129 L Potassium 3.8 Chloride 97 L Carbon Dioxide 27 Anion Gap 5 BUN 18 Creatinine 0.70 Est GFR ( Amer) 130.3 Est GFR (Non-Af Amer) 107.7 BUN/Creatinine Ratio 25.7 H Glucose 91 Calcium 8.0 L Exam: GENERAL: Elderly male in no distress LUNGS: Clear HEART: Irreg rhythm ABDOMEN: Soft EXTREMITIES: Tone seems close to normal NEUROLOGIC: A&O. Sensation diminished in feet. Muscle strength 3-4/5 in LEs and 4/5 in hands, 4+/5 in arms Assessment/Plan: 1. Cervical cord compression: Neurosurgery (at [facility]) did not want to operate. Images were requested from [facility]. Received decadron. PT/OT 2. Severe Lumbar Spinal Stenosis: . PT/OT. 3. Neurogenic Bladder/Hematuria with h/o prostate CA: Keep off Xarelto for now. Matt for now. May do voiding trial if he gets more mobile. Flomax/Myrbetriq. 4. Atrial fibrillation: ASA/Atenolol/Cardizem 5. Lung Cancer: seen by Dr. Monroe 06/02/19. No plans to resume current chemo regimen. f/u with Dr. Young. 6. 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 Senna bid and suppository bid. 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 129 is an acceptable range. D/C fluid restriction 8. DVT Prophylaxis: Heparin S/Q 9. Advanced Directives: Full Code 06/03/19 20:25 06/03/19 20:26
[2019-06-03] MEDS: Tamsulosin CAP* 0.4 MG PO SCH (21:19)
[2019-06-03] MEDS: Gabapentin CAP(*) 300 MG PO SCH (21:19)
[2019-06-04] MEDS: Mometasone/Formoter 100/5 MDI INH SCH ×3 (08:40→21:07)
[2019-06-04] MEDS: Sodium Chloride TAB* 1 GM PO SCH (08:47)
[2019-06-04] MEDS: Atenolol TAB* 50 MG PO SCH (08:47)
[2019-06-04] MEDS: Aspirin EC TAB* 325 MG PO SCH (08:47)
[2019-06-04] MEDS: Senna TAB 8.6 mg* TAB PO SCH ×2 (08:47→21:00)
[2019-06-04] MEDS: Diltiazem CD CAP* 120 MG PO SCH (08:47)
[2019-06-04] MEDS: Pantoprazole TAB * 40 MG TAB PO SCH (08:48)
[2019-06-04] MEDS: Bisacodyl SUPP* 10 MG SUPP PR SCH ×2 (08:50→17:55)
[2019-06-04] MEDS: NFT: Mirabegron (NF) 50 MG TAB PO SCH (09:34)
--- NOTE | 2019-06-04 10:49 | PN ---
Hospitalist Progress Note Date of Service: 06/04/19 Pt followed by Hospitalist team for hyponatremia. This has improved with fluid restriction and sodium tablets. Recommend continuation of this regimen. The Hospitalist team will sign off on this patient. Please don't hesitate to reconsult us at any point. Thank you for allowing us to participate in the care of Mr. Carreon.
--- NOTE | 2019-06-04 12:54 | PMRUTEAM ---
PMRU: Team Meeting Current Status: Nursing: Current Status Skin Deviations [Bilateral Other Buttocks] Skin Deviation Description [ sl reddened Bilateral Buttocks] Bladder Current Status matt Bowel Current Status patient declined [place] Nutrition Current Status appetite good Medication Current Status needs reinforcment Physical Therapy: Current Status Bed Mobility Assistance Min Assist Transfer Mobility Assistance Max Assist,Total Assist Transfer/Bed Mobility Railings,EZ Stand Recommended Devices Transfer Mobility Comment Max SPT with rail, EZ-stand with nsg staff Ambulation Assistance Unable Ambulation Assistive Devices Rolling Walker Number of Feet Patient 3 Ambulated Stairs Assistance Not Tested Objective Comments Proprioception: R LE absent at knee, ankle and great toe. L LE absent at L great toe, intact at ankle Sensation to light touch: absent B feet and ankles , intact at knees and through thighs Occupational Therapy: Current Status Upper Body Dressing Min Assist Lower Body Dressing Total Assist,2 Person Assist Bathing Mod Assist,2 Person Assist Toileting Total Assist Toilet Transfer Total Assist Toilet Transfer Progress EZ stand Shower Transfer Progress TBA Eating Supervision Instrumental ADL [facility] 09/10=66.57% Rec Therapy: Current Status Summary of Assessment and Recreation Therapy services introduced and Clinical Impression assessment complete. Pt. has been minimally engaged in leisure visits, declining pet therapy but is open to brief check-in's from this feature writer throughout his hospitalization. Treatment Goals Pt. will engage in leisure activities as tolerated . Treatment Plan Provide recreation therapy and encourage involvement. Nutrition: Current Status Monitoring Pt maintained on heart healthy diet, 1500mL fluid restriction. Consumes avg 75% at meals. Last BM . Full nutrition assessment to follow. Goals: Physical Therapy: Initial Goals Bed Mobility Assistance Independent Transfer Mobility Assistance Independent Transfer/Bed Mobility Rolling Walker Recommended Devices Ambulation Independent Ambulation Recommended Devices Rolling Walker Ambulation Distance 150 Stairs Assistance Independent Stair Recommended Devices Two Rails Number of Stairs 5 Physical Therapy: Updated Goals Transfer/Bed Mobility EZ Stand Recommended Devices Occupational Therapy: Initial Goals Goals to be Completed in (Days 21 ) Upper Body Bathing Routine Modified Independent with Lower Body Bathing Routine Modified Independent with Upper Body Dressing Routine Independent Lower Body Dressing Routine Modified Independent with Toilet Hygeine and Clothing Modified Independent with Management Routine Toilet Transfer Routine Modified Independent with Tub Transfer Routine Supervision/Set Up Functional Transfers for ADL Modified Independent with Grooming Routine Independent,Modified Independent with Feeding Routine Independent,Modified Independent with Nursing: Goals Bladder Goal independent Bowel Goal independent Nutrition Goal 100 % of all meals Medication Goal independent Care Plan: Care Plan ADL's - Improve/Maintain Start: 05/30/19 10:39 Freq: DAILY@ Status: Active Target: 06/20/19 Protocol: Activity Type Activity Date Activity User E-Sign Co-Sign Detail Recorded Client Recorded Date Recorded By Document 06/03/19 13:14 [id number] [id number] 06/03/19 13:14 [id number] 06/03/19 13:14 PMRU Outcome: ADL's/ADL Transfers Orders/Interventions Occupational Therapy Evaluation & Treatment Communication Tool in Patient Room Device Yes Address Deficits Secondary To: weakness Patient to receive OT 5x/wk for 60-120 Therex min/day Self Care Management Group Therapy Neuromuscular ReEducation UE/LE ADL's with Assist Yes: Tatiana ADL Transfers with Assist Yes: Tatiana Toileting: Transfers,Clothing Management Yes: Tatiana ,Hygeine w/Assist Light Kitchen/Laundry w/Assist No Other Outcome/Goals Pt participated well in treatment session, new opened areas to buttocks observed this date. Progression Toward Outcome/Goals Progressing Cardiovascular- Improve/Maintain Start: 05/29/19 22:35 Freq: DAILY@ Status: Active Target: 06/03/19 Protocol: Activity Type Activity Date Activity User E-Sign Co-Sign Detail Recorded Client Recorded Date Recorded By Document 06/03/19 23:57 [id number] 06/03/19 23:59 [id number] 06/03/19 23:57 PMRU Outcome: Cardiovascular Vital Signs q Shift for 48hrs Then BID Yes Daily Weight Ordered No Current Cardiovascular Outcome/Goal Maintain/ Achieve Baseline HR, BP , Perfusion Maintain/ Improve Perfusion Progression Toward Outcome/Goal Progressing Coping/Psych-Improve/Maintain Start: 05/29/19 22:35 Freq: DAILY@ Status: Active Target: 06/03/19 Protocol: Activity Type Activity Date Activity User E-Sign Co-Sign Detail Recorded Client Recorded Date Recorded By Document 06/03/19 23:57 [id number] 06/03/19 23:59 [id number] 06/03/19 23:57 PMRU Outcome: Coping/Psychosocial Current Coping Outcome/Goals Verbalization of Acceptance of Rehab Admit Verbalization of Sense of Control Over Health Status Willingness to Participate in Treatment Plan and Basic Needs Utilization of Available Support Systems Progression Toward Outcome/Goals Progressing Current Psychosocial Outcome/Goals Maintain/ Improve Emotional Health Demonstrates Knowledge of Healthy Coping Mechanisms Available Cooperate/ Participate in Plan Progression Toward Outcome/Goals Progressing DVT Prophylaxis- Improve/Maintain Start: 05/29/19 22:35 Freq: DAILY@0700,1900 Status: Active Target: 06/03/19 Protocol: Activity Type Activity Date Activity User E-Sign Co-Sign Detail Recorded Client Recorded Date Recorded By Document 06/03/19 23:57 [id number] 06/03/19 23:59 [id number] 06/03/19 23:57 PMRU Outcome: DVT Prophylaxis Current DVT Outcome/Goals Remains Free of DVT Complies with DVT Prophylaxis /Treatment Demonstrates Knowledge of DVT Prevention/ Treatment TEDS Stockings on Every AM, Off at HS Progression Toward Outcome/Goals Progressing Discharge Planning - Improve/Maintain Start: 05/29/19 22:35 Freq: DAILY@0700,1900 Status: Active Target: 06/03/19 Protocol: Activity Type Activity Date Activity User E-Sign Co-Sign Detail Recorded Client Recorded Date Recorded By Document 06/03/19 23:57 [id number] 06/03/19 23:59 [id number] 06/03/19 23:57 PMRU Outcome: Discharge Planning Update Patient Family No Current Discharge Planning Outcome/Goals Demonstrates Understanding of Discharge Plan Progression Toward Outcome/Goals Progressing Education-Improve/Maintain Start: 05/29/19 22:35 Freq: DAILY@0700,1900 Status: Active Target: 06/03/19 Protocol: Activity Type Activity Date Activity User E-Sign Co-Sign Detail Recorded Client Recorded Date Recorded By Document 06/03/19 23:57 [id number] 06/03/19 23:59 [id number] 06/03/19 23:57 PMRU Outcome: Education Current Education Outcome/Goals Encourage Questions Progression Toward Outcome/Goals Progressing /GI-Improve/Maintain Start: 05/29/19 22:35 Freq: DAILY@0700,1900 Status: Active Target: 06/03/19 Protocol: Activity Type Activity Date Activity User E-Sign Co-Sign Detail Recorded Client Recorded Date Recorded By Document 06/03/19 23:57 [id number] 06/03/19 23:59 [id number] 06/03/19 23:57 PMRU Outcome: Genitourinary/ Gastrointestinal Current Gastrointestinal Outcome/Goals Maintain/ Achieve Bowel Regularity in Accordance with Pt's Baseline Remain Free of Emesis Prevent Constipation Laxatives as Ordered Progression Toward Outcome/Goals Progressing Current Genitourinary Outcome/Goals Maintain/ Achieve Urinary Continence Maintain/ Achieve Adequate Urinary Output Remain Free of Hospital- Acquired UTI Progression Toward Outcome/Goals Not Progressing Lack of Progression Comment patient has matt draining dark urine Medication Administration Start: 05/29/19 22:35 Freq: DAILY@699,[id number] Status: Active Target: 06/03/19 Protocol: Activity Type Activity Date Activity User E-Sign Co-Sign Detail Recorded Client Recorded Date Recorded By Document 06/03/19 23:57 [id number] 06/03/19 23:59 [id number] 06/03/19 23:57 PMRU Outcome: Medication Administration Assess Patient Knowledge/Teach Med Yes Education for all Meds Current [employer] Outcome/Goals Patient Independent with Medication Administration at Home Demonstrates Understanding Progression Towards Outcome/Goals Progressing Is Patient Going Home on Lovenox? No Mobility- Improve/Maintain Start: 05/30/19 18:03 Freq: DAILY@699,[id number] Status: Active Target: 06/28/19 Protocol: Activity Type Activity Date Activity User E-Sign Co-Sign Detail Recorded Client Recorded Date Recorded By Document 06/03/19 16:23 [id number] 06/03/19 16:23 [id number] 06/03/19 16:23 PMRU Outcome: Mobility Physical Therapy Evaluation and Yes Treatment Activity OOB with Assistance Yes WBAT Yes Device Yes Assistance Yes Patient to be seen 5x/wk for 60-120 min/ Therex day for: Mobility Training Gait Training W/C Mobility Balance Current Mobility Outcome/Goals Maintain/ Achieve Baseline Mobility Status Improve Mobility Status Demonstrates Proper Use of Assistive Devices Free from Complications of Immobility Progression Toward Outcome/Goals Progressing Bed Mobility Yes: independent Transfers Yes: independent with rollign walker. Gait x ft Yes: independent with rolling walker to 150' Up/Down Stairs Yes: independent up/ down 5 stairs with 2 rails. Pain/Comfort- Improve/Maintain Start: 05/29/19 22:35 Freq: DAILY@699,1899 Status: Active Target: 06/03/19 Protocol: Activity Type Activity Date Activity User E-Sign Co-Sign Detail Recorded Client Recorded Date Recorded By Document 06/03/19 23:57 [id number] 06/03/19 23:59 [id number] 06/03/19 23:57 PMRU Outcome: Pain/Comfort Current Pain/Comfort Outcome/Goals Demonstrates Knowledge and Use of Available Comfort Measures Achieves Acceptable Comfort/Pain Level as Determined by Patient/Condit Maintain Comfort Level Allowing Patient to Fully Participate in Rehab Progression Toward Outcome/Goals Progressing Outcome/Goals Met Comment pt denied pain Rec Therapy- Improve/Maintain Start: 05/30/19 13:17 Freq: DAILY@699,1899 Status: Active Target: 06/11/19 Protocol: Activity Type Activity Date Activity User E-Sign Co-Sign Detail Recorded Client Recorded Date Recorded By Document 06/03/19 15:58 [id number] 06/03/19 15:59 [id number] 06/03/19 15:58 PMRU Outcome: Recreation Therapy Current Rec Ther Outcome/Goals Meet with Patient Regularly for Support Encourage Leisure Involvement Progression Toward Outcome/Goals Progressing Lack of Progression Comment pt. has been minimally engage in leisure visits - declined recreation groups or pet therapy but is open to brieft check-in's from this feature writer throughout hospitalization . Outcome/Goals Met Meet with Patient Regularly for Support Encourage Leisure Involvement Respiratory - Improve/Maintain Start: 05/29/19 22:35 Freq: DAILY@699,[id number] Status: Active Target: 06/03/19 Protocol: Activity Type Activity Date Activity User E-Sign Co-Sign Detail Recorded Client Recorded Date Recorded By Document 06/03/19 23:57 [id number] [email or web address] 06/03/19 23:59 [id number] 06/03/19 23:57 PMRU Outcome: Respiratory Does Patient Have a Trach No Current Respiratory Outcome/Goals Maintain/ Improve Baseline Respiratory Status Maintain/ Improve Activity Tolerance Prevent Pneumonia/ Atelectasis Progression Toward Outcome/Goals Progressing Safety- Improve/Maintain Start: 05/29/19 14:06 Freq: DAILY@[id number] Status: Active Target: 06/03/19 Protocol: Activity Type Activity Date Activity User E-Sign Co-Sign Detail Recorded Client Recorded Date Recorded By Document 06/03/19 23:57 [id number] [email or web address] 06/03/19 23:59 [id number] 06/03/19 23:57 PMRU Outcome: Safety Current Safety Outcome/Goals Remain Free of Injury or Harm Cooperates with Safety Measures for Least Restrictive Environment Prevent Falls/ Injury Progression Toward Outcome/Goals Progressing Skin- Improve/Maintain Start: 05/29/19 22:35 Freq: DAILY@0700,1900 Status: Active Target: 06/03/19 Protocol: Activity Type Activity Date Activity User E-Sign Co-Sign Detail Recorded Client Recorded Date Recorded By Document 06/03/19 23:57 [id number] 06/03/19 23:59 [id number] 06/03/19 23:57 PMRU Outcome: Skin Skin Risk Level Moderate Risk Skin Orders Air Mattress Heels Off Bed Turn/Position q2hr While in Bed Current Skin Outcome/Goals Maintain/ Improve Skin Integrity Free from Pressure Injury Progression Toward Outcome/Goals Progressing Medicine Note: Length of Stay: 3 1/2 weeks Anticipated Discharge Destination: Tentative Discharge Date: 06/28/19 Discharged to: Home
[2019-06-04] MEDS: Atorvastatin* 20 MG TAB PO SCH (17:53)
--- NOTE | 2019-06-04 20:55 | PN ---
Progress Note Date of Service: 06/04/19 Note: MADHURI RUSS was visited. Therapy notes read and reviewed. He was discussed in interdisciplinary team rounds. He has no complaints other than fatigue; hematuria seems to be clearing off heparin Current Medications: Active Medications Generic Name Dose Route Start Last Admin Trade Name Freq PRN Reason Stop Dose Admin Acetaminophen 650 mg 05/29/19 16:59 Tylenol Tab* PO Q6H PRN FEVER > 101 Aspirin 325 mg 05/30/19 09:00 06/04/19 08:47 Ecotrin Ec Tab* PO 325 mg DAILY JOSE Administration Atenolol 50 mg 06/02/19 09:25 06/04/19 08:47 Tenormin Tab* PO 50 mg DAILY JOSE Administration Atorvastatin Calcium 20 mg 05/30/19 17:00 06/04/19 17:53 Lipitor* PO 20 mg 1700 JOSE Administration Bisacodyl 10 mg 06/04/19 18:00 06/04/19 17:55 Dulcolax Supp* [place] 10 mg 1800 JOSE Administration Diltiazem HCl 120 mg 06/02/19 09:25 06/04/19 08:47 Cardizem Cd Cap* PO 120 mg DAILY JOSE Administration Gabapentin 300 mg 05/29/19 21:00 06/03/19 21:19 Neurontin Cap(*) PO 300 mg BEDTIME JOSE Administration Magnesium Hydroxide 30 ml 05/29/19 16:59 Milk Of Magnesia Liq* PO Q6H PRN CONSTIPATION Mirabegron 50 mg 05/30/19 09:00 06/04/19 09:34 Myrbetriq (Nf) PO Not Given DAILY JOSE Mometasone Furoate/Formoterol Fumar 2 puff 05/30/19 09:00 06/04/19 08:40 Dulera 100/5 Mdi* INH 2 puff BID JOSE Administration Pantoprazole Sodium 40 mg 05/30/19 09:00 06/04/19 08:48 Protonix Tab* PO 40 mg DAILY JOSE Administration Senna 2 tab 06/01/19 21:00 06/04/19 08:47 Senokot 8.6 Mg Tab* PO 2 tab BID JOSE Administration Sodium Chloride 1 gm 06/04/19 09:00 06/04/19 08:47 Sodium Chloride Tab* PO 1 gm DAILY JOSE Administration Tamsulosin HCl 0.4 mg 05/29/19 21:00 06/03/19 21:19 Flomax Cap* PO 0.4 mg BEDTIME JOSE Administration Vital Signs: Vital Signs Temp Pulse Resp BP Pulse Ox 98.2 F 75 15 102/46 100 06/04/19 16:08 06/04/19 16:08 06/04/19 16:08 06/04/19 16:08 06/04/19 16:08 Exam: GENERAL: Elderly male in no distress LUNGS: Clear HEART: Irreg rhythm ABDOMEN: Soft EXTREMITIES: Tone seems close to normal NEUROLOGIC: A&O. Sensation diminished in feet. Muscle strength 3-4/5 in LEs and 4/5 in hands, 4+/5 in arms Assessment/Plan: 1. Cervical cord compression: Neurosurgery (at [facility]) did not want to operate. Images were requested from [facility]. Received decadron. PT/OT 2. Severe Lumbar Spinal Stenosis: . PT/OT. 3. Neurogenic Bladder/Hematuria with h/o prostate CA: Keep off Xarelto for now. Lopez for now. May do voiding trial if he gets more mobile. Flomax/Myrbetriq. 4. Atrial fibrillation: ASA/Atenolol/Cardizem 5. Lung Cancer: seen by Dr. Monroe 06/02/19. No plans to resume current chemo regimen. f/u with Dr. Young. 6. 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 Senna bid and suppository bid. 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 129 is an acceptable range. D/C fluid restriction 8. DVT Prophylaxis: Holding Heparin due to hematuria 9. Advanced Directives: Full Code 06/04/19 20:55 06/04/19 20:55
[2019-06-04] MEDS: Tamsulosin CAP* 0.4 MG PO SCH (20:59)
[2019-06-04] MEDS: Gabapentin CAP(*) 300 MG PO SCH (21:04)
[2019-06-05] MEDS: Mometasone/Formoter 100/5 MDI INH SCH ×2 (10:16→19:50)
[2019-06-05] MEDS: Sodium Chloride TAB* 1 GM PO SCH (12:20)
[2019-06-05] MEDS: Pantoprazole TAB * 40 MG TAB PO SCH (12:20)
[2019-06-05] MEDS: Aspirin EC TAB* 325 MG PO SCH (12:20)
[2019-06-05] MEDS: Senna TAB 8.6 mg* TAB PO SCH ×2 (12:20→19:50)
[2019-06-05] MEDS: Atenolol TAB* 50 MG PO SCH (12:21)
[2019-06-05] MEDS: Diltiazem CD CAP* 120 MG PO SCH (12:21)
[2019-06-05] MEDS: NFT: Mirabegron (NF) 50 MG TAB PO SCH (12:22)
[2019-06-05] MEDS: Atorvastatin* 20 MG TAB PO SCH (17:28)
[2019-06-05] MEDS: Bisacodyl SUPP* 10 MG SUPP PR SCH (17:28)
[2019-06-05] MEDS: Tamsulosin CAP* 0.4 MG PO SCH (19:48)
[2019-06-05] MEDS: Gabapentin CAP(*) 300 MG PO SCH (19:48)
--- NOTE | 2019-06-05 21:47 | PN ---
Progress Note Date of Service: 06/05/19 Note: MADHURI RUSS was visited. Therapy notes read and reviewed. His urine has cleared off heparin and he looks pretty good otherwise Current Medications: Active Medications Generic Name Dose Route Start Last Admin Trade Name Freq PRN Reason Stop Dose Admin Acetaminophen 650 mg 05/29/19 16:59 Tylenol Tab* PO Q6H PRN FEVER > 101 Aspirin 325 mg 05/30/19 09:00 06/05/19 12:20 Ecotrin Ec Tab* PO 325 mg DAILY JOSE Administration Atenolol 50 mg 06/02/19 09:25 06/05/19 12:21 Tenormin Tab* PO 50 mg DAILY JOSE Administration Atorvastatin Calcium 20 mg 05/30/19 17:00 06/05/19 17:28 Lipitor* PO 20 mg 1700 JOSE Administration Bisacodyl 10 mg 06/04/19 18:00 06/05/19 17:28 Dulcolax Supp* [place] 10 mg 1800 JOSE Administration Diltiazem HCl 120 mg 06/02/19 09:25 06/05/19 12:21 Cardizem Cd Cap* PO 120 mg DAILY JOSE Administration Gabapentin 300 mg 05/29/19 21:00 06/05/19 19:48 Neurontin Cap(*) PO 300 mg BEDTIME JOSE Administration Magnesium Hydroxide 30 ml 05/29/19 16:59 Milk Of Magnesia Liq* PO Q6H PRN CONSTIPATION Mirabegron 50 mg 05/30/19 09:00 06/05/19 12:22 Myrbetriq (Nf) PO Not Given DAILY JOSE Mometasone Furoate/Formoterol Fumar 2 puff 05/30/19 09:00 06/05/19 19:50 Dulera 100/5 Mdi* INH 2 puff BID JOSE Administration Pantoprazole Sodium 40 mg 05/30/19 09:00 06/05/19 12:20 Protonix Tab* PO 40 mg DAILY JOSE Administration Senna 2 tab 06/01/19 21:00 06/05/19 19:50 Senokot 8.6 Mg Tab* PO 2 tab BID JOSE Administration Sodium Chloride 1 gm 06/04/19 09:00 06/05/19 12:20 Sodium Chloride Tab* PO 1 gm DAILY JOSE Administration Tamsulosin HCl 0.4 mg 05/29/19 21:00 06/05/19 19:48 Flomax Cap* PO 0.4 mg BEDTIME JOSE Administration Vital Signs: Vital Signs Temp Pulse Resp BP Pulse Ox 98.2 F 90 18 116/43 98 06/05/19 15:52 06/05/19 15:52 06/05/19 19:48 06/05/19 15:52 06/05/19 18:08 Exam: GENERAL: Elderly male in no distress LUNGS: Clear HEART: Irreg rhythm ABDOMEN: Soft EXTREMITIES: Tone seems close to normal NEUROLOGIC: A&O. Sensation diminished in feet. Muscle strength 3-4/5 in LEs and 4/5 in hands, 4+/5 in arms Assessment/Plan: 1. Cervical cord compression: Neurosurgery (at [facility]) did not want to operate. Images were requested from [facility]. Received decadron. PT/OT 2. Severe Lumbar Spinal Stenosis: . PT/OT. 3. Neurogenic Bladder/Hematuria with h/o prostate CA: Keep off Xarelto for now. Lopez for now. May do voiding trial if he gets more mobile. Flomax/Myrbetriq. 4. Atrial fibrillation: ASA/Atenolol/Cardizem 5. Lung Cancer: seen by Dr. Monroe 06/02/19. No plans to resume current chemo regimen. f/u with Dr. Young. 6. 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 Senna bid and suppository bid. 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 129 is an acceptable range. D/C fluid restriction 8. DVT Prophylaxis: Holding Heparin due to hematuria 9. Advanced Directives: Full Code 06/05/19 21:47
[2019-06-06] MEDS: Mometasone/Formoter 100/5 MDI INH SCH ×2 (08:04→20:43)
[2019-06-06] MEDS: Diltiazem CD CAP* 120 MG PO SCH (11:16)
[2019-06-06] MEDS: Sodium Chloride TAB* 1 GM PO SCH (11:16)
[2019-06-06] MEDS: Senna TAB 8.6 mg* TAB PO SCH ×2 (11:16→20:42)
[2019-06-06] MEDS: Atenolol TAB* 50 MG PO SCH (11:16)
[2019-06-06] MEDS: Aspirin EC TAB* 325 MG PO SCH (11:16)
[2019-06-06] MEDS: Pantoprazole TAB * 40 MG TAB PO SCH (11:16)
[2019-06-06] MEDS: NFT: Mirabegron (NF) 50 MG TAB PO SCH (11:17)
--- NOTE | 2019-06-06 15:30 | PN ---
Progress Note Date of Service: 06/06/19 Note: MADHURI RUSS was visited. Therapy notes read and reviewed. His urine remains yellow and he is off Heparin now. His daughter has brought in his medicine for lung cancer, Repatha Current Medications: Active Medications Generic Name Dose Route Start Last Admin Trade Name Freq PRN Reason Stop Dose Admin Acetaminophen 650 mg 05/29/19 16:59 Tylenol Tab* PO Q6H PRN FEVER > 101 Aspirin 325 mg 05/30/19 09:00 06/06/19 11:16 Ecotrin Ec Tab* PO 325 mg DAILY JOSE Administration Atenolol 50 mg 06/02/19 09:25 06/06/19 11:16 Tenormin Tab* PO 50 mg DAILY JOSE Administration Atorvastatin Calcium 20 mg 05/30/19 17:00 06/05/19 17:28 Lipitor* PO 20 mg 1700 JOSE Administration Bisacodyl 10 mg 06/04/19 18:00 06/05/19 17:28 Dulcolax Supp* [place] 10 mg 1800 JOSE Administration Diltiazem HCl 120 mg 06/02/19 09:25 06/06/19 11:16 Cardizem Cd Cap* PO 120 mg DAILY JOSE Administration Gabapentin 300 mg 05/29/19 21:00 06/05/19 19:48 Neurontin Cap(*) PO 300 mg BEDTIME JOSE Administration Magnesium Hydroxide 30 ml 05/29/19 16:59 Milk Of Magnesia Liq* PO Q6H PRN CONSTIPATION Mirabegron 50 mg 05/30/19 09:00 06/06/19 11:17 Myrbetriq (Nf) PO Not Given DAILY JOSE Mometasone Furoate/Formoterol Fumar 2 puff 05/30/19 09:00 06/06/19 08:04 Dulera 100/5 Mdi* INH 2 puff BID JOSE Administration Pantoprazole Sodium 40 mg 05/30/19 09:00 06/06/19 11:16 Protonix Tab* PO 40 mg DAILY JOSE Administration Senna 2 tab 06/01/19 21:00 06/06/19 11:16 Senokot 8.6 Mg Tab* PO 2 tab BID JOSE Administration Sodium Chloride 1 gm 06/04/19 09:00 06/06/19 11:16 Sodium Chloride Tab* PO 1 gm DAILY JOSE Administration Tamsulosin HCl 0.4 mg 05/29/19 21:00 06/05/19 19:48 Flomax Cap* PO 0.4 mg BEDTIME JOSE Administration Vital Signs: Vital Signs Temp Pulse Resp BP Pulse Ox 98.1 F 87 16 113/54 100 06/06/19 06:10 06/06/19 11:14 06/06/19 08:05 06/06/19 11:14 06/06/19 11:14 Exam: GENERAL: Elderly male in no distress LUNGS: Clear HEART: Irreg rhythm ABDOMEN: Soft EXTREMITIES: Tone seems close to normal NEUROLOGIC: A&O. Sensation diminished in feet. Muscle strength 3-4/5 in LEs and 4/5 in hands, 4+/5 in arms Assessment/Plan: 1. Cervical cord compression: Neurosurgery (at [facility]) did not want to operate. Images were requested from [facility]. Received decadron. PT/OT 2. Severe Lumbar Spinal Stenosis: . PT/OT. 3. Neurogenic Bladder/Hematuria with h/o prostate CA: Keep off Xarelto for now. Lopez for now. May do voiding trial if he gets more mobile. Flomax/Myrbetriq. 4. Atrial fibrillation: ASA/Atenolol/Cardizem 5. Lung Cancer: seen by Dr. Monroe 06/02/19. Repatha 6. 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 Senna bid and suppository bid. 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 129 is an acceptable range. D/C fluid restriction 8. DVT Prophylaxis: Holding Heparin due to hematuria 9. Advanced Directives: Full Code 06/06/19 15:30
[2019-06-06] MEDS: Atorvastatin* 20 MG TAB PO SCH (17:39)
[2019-06-06] MEDS: Bisacodyl SUPP* 10 MG SUPP PR SCH (17:41)
[2019-06-06] MEDS: Gabapentin CAP(*) 300 MG PO SCH (20:42)
[2019-06-06] MEDS: Tamsulosin CAP* 0.4 MG PO SCH (20:42)
[2019-06-07 05:14] LABS: ABS Lymphocytes 0.3 10^3/ul (1.0-4.8); ABS Monocytes 0.3 10^3/ul (0-0.8); ABS Neutrophils 3.1 10^3/ul (1.5-7.7); Eosinophil % 0.9 %; Hematocrit 24 % (42-52); Hemoglobin 8.3 g/dL (14.0-18.0); Lymphocyte % 6.7 %; Mean Corpuscular HGB Conc 34 g/dL (31-36); Mean Corpuscular Hemoglobin 30 pg (27-31); Mean Corpuscular Volume 89 fL (80-94); Mean Platelet Volume 8.3 fL (7.4-10.4); Nucleated Red Blood Cells % 0.1; Platelet Count 135 10^3/uL (150-450); Red Blood Count 2.72 10^6 /uL (4.18-5.48); Red Cell Distribution Width 20 % (10-15); White Blood Count 3.7 10^3/uL (3.5-10.8)
[2019-06-07 05:36] LABS: Albumin 2.9 g/dL (3.2-5.2); Albumin/Globulin Ratio 1.3 (1-3); BUN/Creatinine Ratio 18.8 (8-20); Calcium 8.2 mg/dL (8.6-10.3); EGFR African American 132.5 (>60); EGFR Non-African American 109.5 (>60); Globulin 2.3 g/dL (2-4); Potassium 3.9 mmol/L (3.5-5.0); Total Bilirubin 0.5 mg/dL (0.2-1.0); Total Protein 5.2 g/dL (6.4-8.9)
[2019-06-07] MEDS: NFT: Mirabegron (NF) 50 MG TAB PO SCH (08:21)
[2019-06-07] MEDS: Diltiazem CD CAP* 120 MG PO SCH (08:23)
[2019-06-07] MEDS: Senna TAB 8.6 mg* TAB PO SCH ×2 (08:23→20:18)
[2019-06-07] MEDS: Aspirin EC TAB* 325 MG PO SCH (08:23)
[2019-06-07] MEDS: Atenolol TAB* 50 MG PO SCH (08:23)
[2019-06-07] MEDS: Sodium Chloride TAB* 1 GM PO SCH (08:35)
[2019-06-07] MEDS: Pantoprazole TAB * 40 MG TAB PO SCH (08:35)
[2019-06-07] MEDS: Mometasone/Formoter 100/5 MDI INH SCH ×2 (08:35→20:18)
--- NOTE | 2019-06-07 16:57 | PN ---
Progress Note Date of Service: 06/07/19 Note: MADHURI RUSS was visited. Therapy notes read and reviewed. Hematuria again today-this does appear to be a chronic problem. Note drop in Hb/Hct-will continue to monitor. Current Medications: Active Medications Generic Name Dose Route Start Last Admin Trade Name Freq PRN Reason Stop Dose Admin Acetaminophen 650 mg 05/29/19 16:59 Tylenol Tab* PO Q6H PRN FEVER > 101 Aspirin 325 mg 05/30/19 09:00 06/07/19 08:23 Ecotrin Ec Tab* PO 325 mg DAILY JOSE Administration Atenolol 50 mg 06/02/19 09:25 06/07/19 08:23 Tenormin Tab* PO 50 mg DAILY JOSE Administration Atorvastatin Calcium 20 mg 05/30/19 17:00 06/06/19 17:39 Lipitor* PO 20 mg 1700 JOSE Administration Bisacodyl 10 mg 06/04/19 18:00 06/06/19 17:41 Dulcolax Supp* [place] 10 mg 1800 JOSE Administration Diltiazem HCl 120 mg 06/02/19 09:25 06/07/19 08:23 Cardizem Cd Cap* PO 120 mg DAILY JOSE Administration Gabapentin 300 mg 05/29/19 21:00 06/06/19 20:42 Neurontin Cap(*) PO 300 mg BEDTIME JOSE Administration Magnesium Hydroxide 30 ml 05/29/19 16:59 Milk Of Magnesia Liq* PO Q6H PRN CONSTIPATION Mirabegron 50 mg 05/30/19 09:00 06/07/19 08:21 Myrbetriq (Nf) PO Not Given DAILY JOSE Mometasone Furoate/Formoterol Fumar 2 puff 05/30/19 09:00 06/07/19 08:35 Dulera 100/5 Mdi* INH 2 puff BID JOSE Administration Non-Formulary Medication 140 mg 06/12/19 09:00 Evolocumab SUBCUT Q14D JOSE Pantoprazole Sodium 40 mg 05/30/19 09:00 06/07/19 08:35 Protonix Tab* PO 40 mg DAILY JOSE Administration Senna 2 tab 06/01/19 21:00 06/07/19 08:23 Senokot 8.6 Mg Tab* PO 2 tab BID JOSE Administration Tamsulosin HCl 0.4 mg 05/29/19 21:00 06/06/19 20:42 Flomax Cap* PO 0.4 mg BEDTIME JOSE Administration Vital Signs: Vital Signs Temp Pulse Resp BP Pulse Ox 98.3 F 68 18 106/40 96 06/07/19 16:49 06/07/19 16:49 06/07/19 16:49 06/07/19 16:49 06/07/19 16:49 Lab Results: Laboratory Results - last 24 hr 06/07/19 06/07/19 04:34 04:34 WBC 3.7 RBC 2.72 L Hgb 8.3 L Hct 24 L MCV 89 MCH 30 MCHC 34 RDW 20 H Plt Count 135 L MPV 8.3 Neut % (Auto) 84.0 Lymph % (Auto) 6.7 [place] % (Auto) 8.1 Eos % (Auto) 0.9 Baso % (Auto) 0.3 Absolute Neuts (auto) 3.1 Absolute Lymphs (auto) 0.3 L Absolute Monos (auto) 0.3 Absolute Eos (auto) 0.0 Absolute Basos (auto) 0.0 Absolute Nucleated RBC 0.0 Nucleated RBC % 0.1 Sodium 130 L Potassium 3.9 Chloride 98 L Carbon Dioxide 26 Anion Gap 6 BUN 13 Creatinine 0.69 Est GFR ( Amer) 132.5 Est GFR (Non-Af Amer) 109.5 BUN/Creatinine Ratio 18.8 Glucose 94 Calcium 8.2 L Total Bilirubin 0.50 AST 45 H ALT 60 H Alkaline Phosphatase 78 Total Protein 5.2 L Albumin 2.9 L Globulin 2.3 Albumin/Globulin Ratio 1.3 Exam: GENERAL: Elderly male in no distress LUNGS: Clear HEART: Irreg rhythm ABDOMEN: Soft EXTREMITIES: Tone seems close to normal NEUROLOGIC: A&O. Sensation diminished in feet. Muscle strength 3-4/5 in LEs and 4/5 in hands, 4+/5 in arms Assessment/Plan: 1. Cervical cord compression: Neurosurgery (at [facility]) did not want to operate. Images were requested from [facility]. Received decadron. PT/OT 2. Severe Lumbar Spinal Stenosis: . PT/OT. 3. Neurogenic Bladder/Hematuria with h/o prostate CA: Lopez for now. May do voiding trial if he gets more mobile. Flomax/Myrbetriq. 4. Atrial fibrillation: ASA/Atenolol/Cardizem 5. Lung Cancer: seen by Dr. Monroe 06/02/19. 6. 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 Senna bid and suppository bid. 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 130 is an acceptable range. 8. DVT Prophylaxis: Holding Heparin due to hematuria 9. Anemia: Recheck Hb on Monday 10. Advanced Directives: Full Code 06/07/19 16:58 06/07/19 16:58
[2019-06-07] MEDS: Atorvastatin* 20 MG TAB PO SCH (17:25)
[2019-06-07] MEDS: Bisacodyl SUPP* 10 MG SUPP PR SCH (18:28)
[2019-06-07] MEDS: Tamsulosin CAP* 0.4 MG PO SCH (20:18)
[2019-06-07] MEDS: Gabapentin CAP(*) 300 MG PO SCH (20:18)
[2019-06-08] MEDS: Mometasone/Formoter 100/5 MDI INH SCH ×2 (08:32→20:31)
--- NOTE | 2019-06-08 10:12 | PN ---
Progress Note Date of Service: 06/08/19 Note: MADHURI RUSS was visited. Therapy notes read and reviewed. He has no complaints otherwise, urine has cleared again. Current Medications: Active Medications Generic Name Dose Route Start Last Admin Trade Name Freq PRN Reason Stop Dose Admin Acetaminophen 650 mg 05/29/19 16:59 Tylenol Tab* PO Q6H PRN FEVER > 101 Aspirin 325 mg 05/30/19 09:00 06/07/19 08:23 Ecotrin Ec Tab* PO 325 mg DAILY JOSE Administration Atenolol 50 mg 06/02/19 09:25 06/07/19 08:23 Tenormin Tab* PO 50 mg DAILY JOSE Administration Atorvastatin Calcium 20 mg 05/30/19 17:00 06/07/19 17:25 Lipitor* PO 20 mg 1700 JOSE Administration Bisacodyl 10 mg 06/04/19 18:00 06/07/19 18:28 Dulcolax Supp* [place] 10 mg 1800 JOSE Administration Diltiazem HCl 120 mg 06/02/19 09:25 06/07/19 08:23 Cardizem Cd Cap* PO 120 mg DAILY JOSE Administration Gabapentin 300 mg 05/29/19 21:00 06/07/19 20:18 Neurontin Cap(*) PO 300 mg BEDTIME JOSE Administration Magnesium Hydroxide 30 ml 05/29/19 16:59 Milk Of Magnesia Liq* PO Q6H PRN CONSTIPATION Mirabegron 50 mg 05/30/19 09:00 06/07/19 08:21 Myrbetriq (Nf) PO Not Given DAILY JOSE Mometasone Furoate/Formoterol Fumar 2 puff 05/30/19 09:00 06/08/19 08:32 Dulera 100/5 Mdi* INH 2 puff BID JOSE Administration Non-Formulary Medication 140 mg 06/12/19 09:00 Evolocumab SUBCUT Q14D JOSE Pantoprazole Sodium 40 mg 05/30/19 09:00 06/07/19 08:35 Protonix Tab* PO 40 mg DAILY JOSE Administration Senna 2 tab 06/01/19 21:00 06/07/19 20:18 Senokot 8.6 Mg Tab* PO 2 tab BID JOSE Administration Tamsulosin HCl 0.4 mg 05/29/19 21:00 06/07/19 20:18 Flomax Cap* PO 0.4 mg BEDTIME JOSE Administration Vital Signs: Vital Signs Temp Pulse Resp BP Pulse Ox 97.8 F 98 16 110/60 99 06/08/19 05:32 06/08/19 08:34 06/08/19 08:34 06/08/19 05:53 06/08/19 08:34 Exam: GENERAL: Elderly male in no distress LUNGS: Clear HEART: Irreg rhythm ABDOMEN: Soft EXTREMITIES: Tone seems close to normal : Lopez draining yellow urine NEUROLOGIC: A&O. Sensation diminished in feet. Muscle strength 3-4/5 in LEs and 4/5 in hands, 4+/5 in arms Assessment/Plan: 1. Cervical cord compression: Neurosurgery (at [facility]) did not want to operate. Images were requested from [facility]. Received decadron. PT/OT 2. Severe Lumbar Spinal Stenosis: . PT/OT. 3. Neurogenic Bladder/Hematuria with h/o prostate CA: Lopez for now. May do voiding trial if he gets more mobile. Flomax/Myrbetriq. 4. Atrial fibrillation: ASA/Atenolol/Cardizem 5. Lung Cancer: seen by Dr. Monroe 06/02/19. 6. 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 Senna bid and suppository bid. 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 130 is an acceptable range. 8. DVT Prophylaxis: Holding Heparin due to hematuria 9. Anemia: Recheck Hb on Monday 10. Advanced Directives: Full Code 06/08/19 10:13
[2019-06-08] MEDS: Diltiazem CD CAP* 120 MG PO SCH (10:36)
[2019-06-08] MEDS: Aspirin EC TAB* 325 MG PO SCH (10:36)
[2019-06-08] MEDS: Atenolol TAB* 50 MG PO SCH (10:36)
[2019-06-08] MEDS: Pantoprazole TAB * 40 MG TAB PO SCH (10:36)
[2019-06-08] MEDS: NFT: Mirabegron (NF) 50 MG TAB PO SCH (10:40)
[2019-06-08] MEDS: Senna TAB 8.6 mg* TAB PO SCH ×2 (11:12→20:31)
[2019-06-08] MEDS: Atorvastatin* 20 MG TAB PO SCH (18:02)
[2019-06-08] MEDS: Bisacodyl SUPP* 10 MG SUPP PR SCH (18:02)
[2019-06-08] MEDS: Tamsulosin CAP* 0.4 MG PO SCH (20:31)
[2019-06-08] MEDS: Gabapentin CAP(*) 300 MG PO SCH (20:32)
[2019-06-09 04:55] LABS: ABS Eosinophils 0.1 10^3/ul (0-0.6); ABS Lymphocytes 0.4 10^3/ul (1.0-4.8); ABS Monocytes 0.3 10^3/ul (0-0.8); ABS Neutrophils 3.1 10^3/ul (1.5-7.7); Eosinophil % 1.6 %; Hematocrit 24 % (42-52); Hemoglobin 8.3 g/dL (14.0-18.0); Lymphocyte % 10.5 %; Mean Corpuscular HGB Conc 34 g/dL (31-36); Mean Corpuscular Hemoglobin 31 pg (27-31); Mean Corpuscular Volume 90 fL (80-94); Mean Platelet Volume 8.2 fL (7.4-10.4); Platelet Count 151 10^3/uL (150-450); Red Blood Count 2.71 10^6 /uL (4.18-5.48); Red Cell Distribution Width 20 % (10-15); White Blood Count 3.9 10^3/uL (3.5-10.8)
[2019-06-09] MEDS: Mometasone/Formoter 100/5 MDI INH SCH ×2 (08:25→21:51)
[2019-06-09] MEDS: Diltiazem CD CAP* 120 MG PO SCH (10:21)
[2019-06-09] MEDS: Senna TAB 8.6 mg* TAB PO SCH ×2 (10:21→21:41)
[2019-06-09] MEDS: Atenolol TAB* 50 MG PO SCH (10:21)
[2019-06-09] MEDS: Aspirin EC TAB* 325 MG PO SCH (10:21)
[2019-06-09] MEDS: Pantoprazole TAB * 40 MG TAB PO SCH (10:21)
[2019-06-09] MEDS: NFT: Mirabegron (NF) 50 MG TAB PO SCH (10:22)
[2019-06-09] MEDS: Bisacodyl SUPP* 10 MG SUPP PR SCH (17:52)
[2019-06-09] MEDS: Atorvastatin* 20 MG TAB PO SCH (17:52)
--- NOTE | 2019-06-09 18:12 | PN ---
Progress Note Date of Service: 06/09/19 Note: MADHURI RUSS was visited. Nursing notes read and reviewed. His urine is clear and yellow and he has no complaints. Current Medications: Active Medications Generic Name Dose Route Start Last Admin Trade Name Freq PRN Reason Stop Dose Admin Acetaminophen 650 mg 05/29/19 16:59 Tylenol Tab* PO Q6H PRN FEVER > 101 Aspirin 325 mg 05/30/19 09:00 06/09/19 10:21 Ecotrin Ec Tab* PO 325 mg DAILY JOSE Administration Atenolol 50 mg 06/02/19 09:25 06/09/19 10:21 Tenormin Tab* PO 50 mg DAILY JOSE Administration Atorvastatin Calcium 20 mg 05/30/19 17:00 06/09/19 17:52 Lipitor* PO 20 mg 1700 JOSE Administration Bisacodyl 10 mg 06/04/19 18:00 06/09/19 17:52 Dulcolax Supp* [place] 10 mg 1800 JOSE Administration Diltiazem HCl 120 mg 06/02/19 09:25 06/09/19 10:21 Cardizem Cd Cap* PO 120 mg DAILY JOSE Administration Gabapentin 300 mg 05/29/19 21:00 06/08/19 20:32 Neurontin Cap(*) PO 300 mg BEDTIME JOSE Administration Magnesium Hydroxide 30 ml 05/29/19 16:59 Milk Of Magnesia Liq* PO Q6H PRN CONSTIPATION Mirabegron 50 mg 05/30/19 09:00 06/09/19 10:22 Myrbetriq (Nf) PO Not Given DAILY JOSE Mometasone Furoate/Formoterol Fumar 2 puff 05/30/19 09:00 06/09/19 08:25 Dulera 100/5 Mdi* INH 2 puff BID JOSE Administration Non-Formulary Medication 140 mg 06/12/19 09:00 Evolocumab SUBCUT Q14D JOSE Pantoprazole Sodium 40 mg 05/30/19 09:00 06/09/19 10:21 Protonix Tab* PO 40 mg DAILY JOSE Administration Senna 2 tab 06/01/19 21:00 06/09/19 10:21 Senokot 8.6 Mg Tab* PO 2 tab BID JOSE Administration Tamsulosin HCl 0.4 mg 05/29/19 21:00 06/08/19 20:31 Flomax Cap* PO 0.4 mg BEDTIME JOSE Administration Vital Signs: Vital Signs Temp Pulse Resp BP Pulse Ox 97.9 F 81 18 111/40 96 06/09/19 04:42 06/09/19 08:25 06/09/19 08:25 06/09/19 04:42 06/09/19 08:25 Lab Results: Laboratory Results - last 24 hr 06/09/19 04:32 WBC 3.9 RBC 2.71 L Hgb 8.3 L Hct 24 L MCV 90 MCH 31 MCHC 34 RDW 20 H Plt Count 151 MPV 8.2 Neut % (Auto) 80.2 Lymph % (Auto) 10.5 [place] % (Auto) 7.2 Eos % (Auto) 1.6 Baso % (Auto) 0.5 Absolute Neuts (auto) 3.1 Absolute Lymphs (auto) 0.4 L Absolute Monos (auto) 0.3 Absolute Eos (auto) 0.1 Absolute Basos (auto) 0.0 Absolute Nucleated RBC 0.0 Nucleated RBC % 0.0 Exam: GENERAL: Elderly male in no distress LUNGS: Clear HEART: Irreg rhythm ABDOMEN: Soft EXTREMITIES: Tone seems close to normal : Lopez draining yellow urine NEUROLOGIC: A&O. Sensation diminished in feet. Muscle strength 3-4/5 in LEs and 4/5 in hands, 4+/5 in arms Assessment/Plan: 1. Cervical cord compression: Neurosurgery (at [facility]) did not want to operate. Images were requested from [facility]. Received decadron. PT/OT 2. Severe Lumbar Spinal Stenosis: . PT/OT. 3. Neurogenic Bladder/Hematuria with h/o prostate CA: Lopez for now. May do voiding trial if he gets more mobile. Flomax/Myrbetriq. 4. Atrial fibrillation: ASA/Atenolol/Cardizem 5. Lung Cancer: seen by Dr. Monroe 06/02/19. 6. 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 Senna bid and suppository bid. 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 130 is an acceptable range. 8. DVT Prophylaxis: Holding Heparin due to hematuria 9. Anemia: No change, but down since admission 10. Advanced Directives: Full Code 06/09/19 18:12 06/09/19 18:13
[2019-06-09] MEDS: Tamsulosin CAP* 0.4 MG PO SCH (21:40)
[2019-06-09] MEDS: Gabapentin CAP(*) 300 MG PO SCH (21:41)
[2019-06-10] MEDS: Mometasone/Formoter 100/5 MDI INH SCH ×2 (08:12→20:17)
[2019-06-10] MEDS: Senna TAB 8.6 mg* TAB PO SCH ×2 (09:39→20:16)
[2019-06-10] MEDS: NFT: Mirabegron (NF) 50 MG TAB PO SCH (09:40)
[2019-06-10] MEDS: Atenolol TAB* 50 MG PO SCH (09:40)
[2019-06-10] MEDS: Diltiazem CD CAP* 120 MG PO SCH (09:40)
[2019-06-10] MEDS: Pantoprazole TAB * 40 MG TAB PO SCH (09:40)
[2019-06-10] MEDS: Aspirin EC TAB* 325 MG PO SCH (09:40)
[2019-06-10] MEDS: Atorvastatin* 20 MG TAB PO SCH (16:50)
--- NOTE | 2019-06-10 17:06 | PN ---
Progress Note Date of Service: 06/10/19 Note: MADHURI RUSS was visited. Therapy notes read and reviewed. Was able to walk a little further today than he could last week. Current Medications: Active Medications Generic Name Dose Route Start Last Admin Trade Name Freq PRN Reason Stop Dose Admin Acetaminophen 650 mg 05/29/19 16:59 Tylenol Tab* PO Q6H PRN FEVER > 101 Aspirin 325 mg 05/30/19 09:00 06/10/19 09:40 Ecotrin Ec Tab* PO 325 mg DAILY JOSE Administration Atenolol 50 mg 06/02/19 09:25 06/10/19 09:40 Tenormin Tab* PO 50 mg DAILY JOSE Administration Atorvastatin Calcium 20 mg 05/30/19 17:00 06/10/19 16:50 Lipitor* PO 20 mg 1700 JOSE Administration Bisacodyl 10 mg 06/04/19 18:00 06/09/19 17:52 Dulcolax Supp* [place] 10 mg 1800 JOSE Administration Diltiazem HCl 120 mg 06/02/19 09:25 06/10/19 09:40 Cardizem Cd Cap* PO 120 mg DAILY JOSE Administration Gabapentin 300 mg 05/29/19 21:00 06/09/19 21:41 Neurontin Cap(*) PO 300 mg BEDTIME JOSE Administration Magnesium Hydroxide 30 ml 05/29/19 16:59 Milk Of Magnesia Liq* PO Q6H PRN CONSTIPATION Mirabegron 50 mg 05/30/19 09:00 06/10/19 09:40 Myrbetriq (Nf) PO Not Given DAILY JOSE Mometasone Furoate/Formoterol Fumar 2 puff 05/30/19 09:00 06/10/19 08:12 Dulera 100/5 Mdi* INH 2 puff BID JOSE Administration Non-Formulary Medication 140 mg 06/12/19 09:00 Evolocumab SUBCUT Q14D JOSE Pantoprazole Sodium 40 mg 05/30/19 09:00 06/10/19 09:40 Protonix Tab* PO 40 mg DAILY JOSE Administration Senna 2 tab 06/01/19 21:00 06/10/19 09:39 Senokot 8.6 Mg Tab* PO 2 tab BID JOSE Administration Tamsulosin HCl 0.4 mg 05/29/19 21:00 06/09/19 21:40 Flomax Cap* PO 0.4 mg BEDTIME JOSE Administration Vital Signs: Vital Signs Temp Pulse Resp BP Pulse Ox 98.2 F 71 24 116/46 98 06/10/19 15:00 06/10/19 15:00 06/10/19 15:00 06/10/19 15:00 06/10/19 15:00 Exam: GENERAL: Elderly male in no distress LUNGS: Clear HEART: Irreg rhythm ABDOMEN: Soft EXTREMITIES: Tone seems close to normal : Lopez draining yellow urine NEUROLOGIC: A&O. Sensation diminished in feet. Muscle strength 3-4/5 in LEs and 4/5 in hands, 4+/5 in arms Assessment/Plan: 1. Cervical cord compression: Neurosurgery (at [facility]) did not want to operate. Images were requested from [facility]. Received decadron. PT/OT 2. Severe Lumbar Spinal Stenosis: . PT/OT. 3. Neurogenic Bladder/Hematuria with h/o prostate CA: Lopez for now. May do voiding trial if he gets more mobile. Flomax/Myrbetriq. 4. Atrial fibrillation: ASA/Atenolol/Cardizem 5. Lung Cancer: seen by Dr. Monroe 06/02/19. 6. 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 Senna bid and suppository bid. 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 130 is an acceptable range. 8. DVT Prophylaxis: Holding Heparin due to hematuria 9. Anemia: No change, but down since admission 10. Advanced Directives: Full Code 06/10/19 17:07
[2019-06-10] MEDS: Bisacodyl SUPP* 10 MG SUPP PR SCH (17:51)
[2019-06-10] MEDS: Tamsulosin CAP* 0.4 MG PO SCH (20:16)
[2019-06-10] MEDS: Gabapentin CAP(*) 300 MG PO SCH (20:16)
[2019-06-11] MEDS: Mometasone/Formoter 100/5 MDI INH SCH ×2 (08:18→20:24)
[2019-06-11] MEDS: Senna TAB 8.6 mg* TAB PO SCH ×2 (08:54→20:24)
[2019-06-11] MEDS: Aspirin EC TAB* 325 MG PO SCH (08:56)
[2019-06-11] MEDS: Pantoprazole TAB * 40 MG TAB PO SCH (08:56)
[2019-06-11] MEDS: Atenolol TAB* 50 MG PO SCH (08:56)
[2019-06-11] MEDS: Diltiazem CD CAP* 120 MG PO SCH (08:56)
[2019-06-11] MEDS ORDERED: Senna TAB 8.6 mg* TAB ONE (09:03)
[2019-06-11] MEDS: NFT: Mirabegron (NF) 50 MG TAB PO SCH (09:08)
--- NOTE | 2019-06-11 12:26 | PMRUTEAM ---
PMRU: Team Meeting Current Status: Nursing: Current Status Skin Deviations [scrotum] Other Skin Deviations [Bilateral Other Buttocks] Skin Deviation Description [ redness - lotion applied scrotum] Skin Deviation Description [ redness lotion applied Bilateral Buttocks] Bladder Current Status matt Bowel Current Status patient declined ME Nutrition Current Status appetite good Medication Current Status needs reinforcment Physical Therapy: Current Status Bed Mobility Assistance Supervision Transfer Mobility Assistance Mod Assist,2 or More Person Assist Transfer/Bed Mobility Railings,EZ Stand Recommended Devices Transfer Mobility Comment Mod SPT with PT, EZ-stand with nsg Ambulation Assistance Max Assist,2 or More Person Assist Ambulation Assistive Devices Rolling Walker Number of Feet Patient 70' Ambulated Ambulation Comment with lite gait Stairs Assistance Not Tested Manual Wheelchair Control/ Bilateral UE's Technique Wheelchair Propulsion Ability Standby Assistance Wheelchair Distance (ft) 75 Objective Comments STANDING: -static standing:in llbars- 1x1 min max time followed by 5 bouts at 50% (5x30 sec holds) with progressively less assist (modA- CGA) with manual cues for increased LE activation -unsupported standing in llbars 3 bouts for 5-10 sec with out UE support and CGA BED MOBILITY: short [id number] using logroll with min A and max cues for sequencing, no sheering noted with good understanding of proper technique Occupational Therapy: Current Status Upper Body Dressing Min Assist Lower Body Dressing Total Assist Bathing Mod Assist Toileting Total Assist,2 Person Assist Toilet Transfer Total Assist Toilet Transfer Progress EZ stand Shower Transfer Progress TBA Eating Supervision Instrumental ADL [facility] 09/10=66.57% Rec Therapy: Current Status Summary of Assessment and Recreation Therapy services introduced and Clinical Impression assessment complete. Pt. has been minimally engaged in leisure visits, declining pet therapy but is open to brief check-in's from this grant writer throughout his hospitalization. Treatment Goals Pt. will engage in leisure activities as tolerated . Treatment Plan Provide recreation therapy and encourage involvement. Nutrition: Current Status Monitoring Pt maintained on heart healthy diet, caffeine ok. Fluid restriction d/c'd one week ago. Mild hyponatremia, stable (130) and within acceptable range w/SIADH. AST/ALT slightly elevated (per labs 06/07). Somewhat variable po intake, but adequate ; averaging ~75% at meals. Last BMs 06/09 and today; accepts daily Senna. No specific nutrition interventions at this time. Goals: Physical Therapy: Initial Goals Bed Mobility Assistance Independent Transfer Mobility Assistance Independent Transfer/Bed Mobility Rolling Walker Recommended Devices Ambulation Independent Ambulation Recommended Devices Rolling Walker Ambulation Distance 150 Stairs Assistance Independent Stair Recommended Devices Two Rails Number of Stairs 5 Physical Therapy: Updated Goals Transfer/Bed Mobility EZ Stand Recommended Devices Occupational Therapy: Initial Goals Goals to be Completed in (Days 21 ) Upper Body Bathing Routine Modified Independent with Lower Body Bathing Routine Modified Independent with Upper Body Dressing Routine Independent Lower Body Dressing Routine Modified Independent with Toilet Hygeine and Clothing Modified Independent with Management Routine Toilet Transfer Routine Modified Independent with Tub Transfer Routine Supervision/Set Up Functional Transfers for ADL Modified Independent with Grooming Routine Independent,Modified Independent with Feeding Routine Independent,Modified Independent with Nursing: Goals Bladder Goal independent Bowel Goal independent Nutrition Goal 100 % of all meals Medication Goal independent Nutrition: Goals Intervention Goals 1. Intake will remain adequate to maintain UBW 2. Pt will maintain regular bowel pattern without constipation (or diarrhea) 3. Maintain serum electrolytes within acceptable ranges Care Plan: Care Plan ADL's - Improve/Maintain Start: 05/30/19 10:39 Freq: DAILY@0700,1900 Status: Active Target: 06/20/19 Protocol: Activity Type Activity Date Activity User E-Sign Co-Sign Detail Recorded Client Recorded Date Recorded By Document 06/10/19 12:23 [id number] 06/10/19 12:23 [id number] 06/10/19 12:23 PMRU Outcome: ADL's/ADL Transfers Orders/Interventions Occupational Therapy Evaluation & Treatment Communication Tool in Patient Room Device Yes Address Deficits Secondary To: weakness Patient to receive OT 5x/wk for 60-120 Therex min/day Self Care Management Group Therapy Neuromuscular ReEducation UE/LE ADL's with Assist Yes: Tatiana ADL Transfers with Assist Yes: Tatiana Toileting: Transfers,Clothing Management Yes: Tatiana ,Hygeine w/Assist Light Kitchen/Laundry w/Assist No Other Outcome/Goals Pt participated well in ADL treatment session, did not require 2nd person assist for rolling in supine to complete ADLs. Progression Toward Outcome/Goals Progressing Cardiovascular- Improve/Maintain Start: 05/29/19 22:35 Freq: DAILY@0700,1900 Status: Active Target: 07/01/19 Protocol: Activity Type Activity Date Activity User E-Sign Co-Sign Detail Recorded Client Recorded Date Recorded By Document 06/11/19 07:00 [id number] 06/11/19 10:05 06/11/19 07:00 PMRU Outcome: Cardiovascular Vital Signs q Shift for 48hrs Then BID Yes Daily Weight Ordered No Current Cardiovascular Outcome/Goal Maintain/ Achieve Baseline HR, BP , Perfusion Improve HR Within Prescribed Parameters Maintain/ Improve Perfusion Free of Abnormal Cardiac Symptoms Progression Toward Outcome/Goal Progressing Coping/Psych-Improve/Maintain Start: 05/29/19 22:35 Freq: DAILY@0700,1900 Status: Active Target: 07/01/19 Protocol: Activity Type Activity Date Activity User E-Sign Co-Sign Detail Recorded Client Recorded Date Recorded By Document 06/11/19 07:00 [id number] 06/11/19 10:05 06/11/19 07:00 PMRU Outcome: Coping/Psychosocial Current Coping Outcome/Goals Verbalization of Acceptance of Rehab Admit Verbalization of Sense of Control Over Health Status Utilization of Appropriate Problem Solving Techniques Willingness to Participate in Treatment Plan and Basic Needs Utilization of Available Support Systems Progression Toward Outcome/Goals Progressing Current Psychosocial Outcome/Goals Maintain/ Improve Emotional Health Demonstrates Knowledge of Healthy Coping Mechanisms Available Cooperate/ Participate in Plan Progression Toward Outcome/Goals Progressing DVT Prophylaxis- Improve/Maintain Start: 05/29/19 22:35 Freq: DAILY@0700,1900 Status: Active Target: 07/01/19 Protocol: Activity Type Activity Date Activity User E-Sign Co-Sign Detail Recorded Client Recorded Date Recorded By Document 06/11/19 07:00 [id number] 06/11/19 10:05 [id number] 06/11/19 07:00 PMRU Outcome: DVT Prophylaxis Current DVT Outcome/Goals Remains Free of DVT Free of complications from current DVT Complies with DVT Prophylaxis /Treatment Demonstrates Knowledge of DVT Prevention/ Treatment TEDS Stockings on Every AM, Off at HS Progression Toward Outcome/Goals Progressing Discharge Planning - Improve/Maintain Start: 05/29/19 22:35 Freq: DAILY@0700,1900 Status: Active Target: 06/28/19 Protocol: Activity Type Activity Date Activity User E-Sign Co-Sign Detail Recorded Client Recorded Date Recorded By Document 06/11/19 07:00 [id number] 06/11/19 10:05 [id number] 06/11/19 07:00 PMRU Outcome: Discharge Planning Update Patient Family No Current Discharge Planning Outcome/Goals Demonstrates Understanding of Discharge Plan Progression Toward Outcome/Goals Progressing Education-Improve/Maintain Start: 05/29/19 22:35 Freq: DAILY@0700,1900 Status: Active Target: 06/28/19 Protocol: Activity Type Activity Date Activity User E-Sign Co-Sign Detail Recorded Client Recorded Date Recorded By Document 06/11/19 07:00 [id number] 06/11/19 10:05 [id number] 06/11/19 07:00 PMRU Outcome: Education Current Education Outcome/Goals Demonstrates Skills Encourage Questions Progression Toward Outcome/Goals Progressing /GI-Improve/Maintain Start: 05/29/19 22:35 Freq: DAILY@07,190 Status: Active Target: 07/01/19 Protocol: Activity Type Activity Date Activity User E-Sign Co-Sign Detail Recorded Client Recorded Date Recorded By Document 06/11/19 07:00 [id number] 06/11/19 10:05 [id number] 06/11/19 07:00 PMRU Outcome: Genitourinary/ Gastrointestinal Current Gastrointestinal Outcome/Goals Maintain/ Achieve Bowel Regularity in Accordance with Pt's Baseline Remain Free of Emesis Prevent Constipation Bowel Regularity at Home Progression Toward Outcome/Goals Progressing Current Genitourinary Outcome/Goals Maintain/ Achieve Urinary Continence Maintain/ Achieve Adequate Urinary Output Progression Toward Outcome/Goals Progressing Medication Administration Start: 05/29/19 22:35 Freq: DAILY@699,1899 Status: Active Target: 07/01/19 Protocol: Activity Type Activity Date Activity User E-Sign Co-Sign Detail Recorded Client Recorded Date Recorded By Document 06/11/19 07:00 [id number] [id number] 06/11/19 10:05 [id number] 06/11/19 07:00 PMRU Outcome: Medication Administration Assess Patient Knowledge/Teach Med Yes Education for all Meds Current Remote Sensing Specialist Outcome/Goals Patient Independent with Medication Administration at Home Progression Towards Outcome/Goals Progressing Is Patient Going Home on Lovenox? No Mobility- Improve/Maintain Start: 05/30/19 18:03 Freq: DAILY@0700,1900 Status: Active Target: 06/28/19 Protocol: Activity Type Activity Date Activity User E-Sign Co-Sign Detail Recorded Client Recorded Date Recorded By Document 06/06/19 16:32 [id number] 06/06/19 16:32 [id number] 06/06/19 16:32 PMRU Outcome: Mobility Physical Therapy Evaluation and Yes Treatment Activity OOB with Assistance Yes WBAT Yes Device Yes Assistance Yes Patient to be seen 5x/wk for 60-120 min/ Therex day for: Mobility Training Gait Training W/C Mobility Balance Current Mobility Outcome/Goals Maintain/ Achieve Baseline Mobility Status Improve Mobility Status Demonstrates Proper Use of Assistive Devices Free from Complications of Immobility Progression Toward Outcome/Goals Progressing Outcome/Goals Met Improve Mobility Status Bed Mobility Yes: independent Transfers Yes: independent with rollign walker. Gait x ft Yes: independent with rolling walker to 150' Up/Down Stairs Yes: independent up/ down 5 stairs with 2 rails. Pain/Comfort- Improve/Maintain Start: 05/29/19 22:35 Freq: DAILY@699,0 Status: Active Target: 07/01/19 Protocol: Activity Type Activity Date Activity User E-Sign Co-Sign Detail Recorded Client Recorded Date Recorded By Document 06/11/19 07:00 [id number] 06/11/19 10:05 [id number] 06/11/19 07:00 PMRU Outcome: Pain/Comfort Current Pain/Comfort Outcome/Goals Demonstrates Knowledge and Use of Available Comfort Measures Achieves Acceptable Comfort/Pain Level as Determined by Patient/Condit Maintain Comfort Level Allowing Patient to Fully Participate in Rehab Progression Toward Outcome/Goals Progressing Outcome/Goals Met Comment pt resting Rec Therapy- Improve/Maintain Start: 05/30/19 13:17 Freq: DAILY@0700,1900 Status: Active Target: 06/28/19 Protocol: Activity Type Activity Date Activity User E-Sign Co-Sign Detail Recorded Client Recorded Date Recorded By Document 06/10/19 15:38 [id number] 06/10/19 15:39 [id number] 06/10/19 15:38 PMRU Outcome: Recreation Therapy Current Rec Ther Outcome/Goals Meet with Patient Regularly for Support Encourage Leisure Involvement Progression Toward Outcome/Goals Progressing Lack of Progression Comment pt. has been minimally engage in leisure visits - declined recreation groups or pet therapy but is open to brieft check-in's from this grant writer throughout hospitalization . Outcome/Goals Met Meet with Patient Regularly for Support Encourage Leisure Involvement Respiratory - Improve/Maintain Start: 05/29/19 22:35 Freq: DAILY@699,1899 Status: Active Target: 07/01/19 Protocol: Activity Type Activity Date Activity User E-Sign Co-Sign Detail Recorded Client Recorded Date Recorded By Document 06/11/19 07:00 [id number] [email or web address] 06/11/19 10:05 06/11/19 07:00 PMRU Outcome: Respiratory Does Patient Have a Trach No Current Respiratory Outcome/Goals Maintain/ Improve O2 Sat per MD Order Maintain/ Improve Baseline Respiratory Status Maintain/ Improve Activity Tolerance Progression Toward Outcome/Goals Progressing Safety- Improve/Maintain Start: 05/29/19 14:06 Freq: DAILY@699,1899 Status: Active Target: 07/01/19 Protocol: Activity Type Activity Date Activity User E-Sign Co-Sign Detail Recorded Client Recorded Date Recorded By Document 06/11/19 07:00 [id number] 06/11/19 10:05 [id number] 06/11/19 07:00 PMRU Outcome: Safety Current Safety Outcome/Goals Remain Free of Injury or Harm Cooperates with Safety Measures for Least Restrictive Environment Prevent Falls/ Injury Progression Toward Outcome/Goals Progressing Skin- Improve/Maintain Start: 05/29/19 22:35 Freq: DAILY@699,1899 Status: Active Target: 07/01/19 Protocol: Activity Type Activity Date Activity User E-Sign Co-Sign Detail Recorded Client Recorded Date Recorded By Document 06/11/19 07:00 [id number] 06/11/19 10:05 [id number] 06/11/19 07:00 PMRU Outcome: Skin Skin Risk Level Mild Risk Current Skin Outcome/Goals Maintain/ Improve Skin Integrity Free from Pressure Injury Progression Toward Outcome/Goals Progressing Medicine Note: Length of Stay: 2 1/2 weeks Anticipated Discharge Destination: Tentative Discharge Date: 06/28/19 Discharged to: Home
[2019-06-11] MEDS: Atorvastatin* 20 MG TAB PO SCH (16:57)
[2019-06-11] MEDS: Bisacodyl SUPP* 10 MG SUPP PR SCH (17:41)
--- NOTE | 2019-06-11 19:53 | PN ---
Progress Note Date of Service: 06/11/19 Note: MADHURI RUSS was visited. Therapy notes read and reviewed. Patient was discussed in interdisciplinary team rounds. Making gains with ambulating. Current Medications: Active Medications Generic Name Dose Route Start Last Admin Trade Name Freq PRN Reason Stop Dose Admin Acetaminophen 650 mg 05/29/19 16:59 Tylenol Tab* PO Q6H PRN FEVER > 101 Aspirin 325 mg 05/30/19 09:00 06/11/19 08:56 Ecotrin Ec Tab* PO 325 mg DAILY JOSE Administration Atenolol 50 mg 06/02/19 09:25 06/11/19 08:56 Tenormin Tab* PO 50 mg DAILY JOSE Administration Atorvastatin Calcium 20 mg 05/30/19 17:00 06/11/19 16:57 Lipitor* PO 20 mg 1700 JOSE Administration Bisacodyl 10 mg 06/04/19 18:00 06/11/19 17:41 Dulcolax Supp* [place] 10 mg 1800 JOSE Administration Diltiazem HCl 120 mg 06/02/19 09:25 06/11/19 08:56 Cardizem Cd Cap* PO 120 mg DAILY JOSE Administration Gabapentin 300 mg 05/29/19 21:00 06/10/19 20:16 Neurontin Cap(*) PO 300 mg BEDTIME JOSE Administration Magnesium Hydroxide 30 ml 05/29/19 16:59 Milk Of Magnesia Liq* PO Q6H PRN CONSTIPATION Mometasone Furoate/Formoterol Fumar 2 puff 05/30/19 09:00 06/11/19 08:18 Dulera 100/5 Mdi* INH 2 puff BID JOSE Administration Non-Formulary Medication 140 mg 06/12/19 09:00 Evolocumab SUBCUT Q14D JOSE Pantoprazole Sodium 40 mg 05/30/19 09:00 06/11/19 08:56 Protonix Tab* PO 40 mg DAILY JOSE Administration Senna 2 tab 06/01/19 21:00 06/11/19 08:54 Senokot 8.6 Mg Tab* PO 2 tab BID JOSE Administration Tamsulosin HCl 0.4 mg 05/29/19 21:00 06/10/19 20:16 Flomax Cap* PO 0.4 mg BEDTIME JOSE Administration Vital Signs: Vital Signs Temp Pulse Resp BP Pulse Ox 97.9 F 81 16 108/35 98 06/11/19 16:17 09/24/19 16:17 06/11/19 16:17 06/11/19 16:17 06/11/19 16:26 Exam: GENERAL: Elderly male in no distress LUNGS: Clear HEART: Irreg rhythm ABDOMEN: Soft EXTREMITIES: Tone seems close to normal : Lopez draining yellow urine NEUROLOGIC: A&O. Sensation diminished in feet. Muscle strength 3-4/5 in LEs and 4/5 in hands, 4+/5 in arms Assessment/Plan: 1. Cervical cord compression: Neurosurgery (at [facility]) did not want to operate. Images were requested from [facility]. Received decadron. PT/OT 2. Severe Lumbar Spinal Stenosis: . PT/OT. 3. Neurogenic Bladder/Hematuria with h/o prostate CA: Lopez for now. May do voiding trial if he gets more mobile. Flomax/Myrbetriq. 4. Atrial fibrillation: ASA/Atenolol/Cardizem 5. Lung Cancer: seen by Dr. Monroe 06/02/19. 6. 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 Senna bid and suppository bid. 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 130 is an acceptable range. 8. DVT Prophylaxis: Holding Heparin due to hematuria 9. Anemia: No change, but down since admission 10. Advanced Directives: Full Code 06/11/19 19:53
[2019-06-11] MEDS: Gabapentin CAP(*) 300 MG PO SCH (20:23)
[2019-06-11] MEDS: Tamsulosin CAP* 0.4 MG PO SCH (20:23)
[2019-06-12] MEDS: Mometasone/Formoter 100/5 MDI INH SCH ×2 (07:52→19:44)
[2019-06-12] MEDS ORDERED: EVOLOCUMAB 140 MG SUBCUT SCH (09:00)
[2019-06-12] MEDS: Senna TAB 8.6 mg* TAB PO SCH ×2 (09:23→19:43)
[2019-06-12] MEDS: Diltiazem CD CAP* 120 MG PO SCH (09:24)
[2019-06-12] MEDS: Atenolol TAB* 50 MG PO SCH (09:24)
[2019-06-12] MEDS: Pantoprazole TAB * 40 MG TAB PO SCH (09:24)
[2019-06-12] MEDS: Aspirin EC TAB* 325 MG PO SCH (09:24)
[2019-06-12] MEDS: PTO:Evolocumab (NF) 140 MG/ML SYRINGE SUBCUT SCH (11:20)
[2019-06-12] MEDS: Atorvastatin* 20 MG TAB PO SCH (16:48)
[2019-06-12] MEDS: Bisacodyl SUPP* 10 MG SUPP PR SCH (17:51)
--- NOTE | 2019-06-12 19:14 | PN ---
Progress Note Date of Service: 06/12/19 Note: MADHURI RUSS was visited. Therapy notes read and reviewed. He feels like he is getting stronger without complaints. Urine clear Current Medications: Active Medications Generic Name Dose Route Start Last Admin Trade Name Freq PRN Reason Stop Dose Admin Acetaminophen 650 mg 05/29/19 16:59 Tylenol Tab* PO Q6H PRN FEVER > 101 Aspirin 325 mg 05/30/19 09:00 06/12/19 09:24 Ecotrin Ec Tab* PO 325 mg DAILY JOSE Administration Atenolol 50 mg 06/02/19 09:25 06/12/19 09:24 Tenormin Tab* PO 50 mg DAILY JOSE Administration Atorvastatin Calcium 20 mg 05/30/19 17:00 06/12/19 16:48 Lipitor* PO 20 mg 1700 JOSE Administration Bisacodyl 10 mg 06/04/19 18:00 06/12/19 17:51 Dulcolax Supp* [place] 10 mg 1800 JOSE Administration Diltiazem HCl 120 mg 06/02/19 09:25 06/12/19 09:24 Cardizem Cd Cap* PO 120 mg DAILY JOSE Administration Gabapentin 300 mg 05/29/19 21:00 06/11/19 20:23 Neurontin Cap(*) PO 300 mg BEDTIME JOSE Administration Magnesium Hydroxide 30 ml 05/29/19 16:59 Milk Of Magnesia Liq* PO Q6H PRN CONSTIPATION Mometasone Furoate/Formoterol Fumar 2 puff 05/30/19 09:00 06/12/19 07:52 Dulera 100/5 Mdi* INH 2 puff BID JOSE Administration Non-Formulary Medication 140 mg 06/12/19 09:00 06/12/19 11:19 Evolocumab SUBCUT 140 mg Q14D JOSE Administration Pantoprazole Sodium 40 mg 05/30/19 09:00 06/12/19 09:24 Protonix Tab* PO 40 mg DAILY JOSE Administration Senna 2 tab 06/01/19 21:00 06/12/19 09:23 Senokot 8.6 Mg Tab* PO 2 tab BID JOSE Administration Tamsulosin HCl 0.4 mg 05/29/19 21:00 06/11/19 20:23 Flomax Cap* PO 0.4 mg BEDTIME JOSE Administration Vital Signs: Vital Signs Temp Pulse Resp BP Pulse Ox 98.2 F 125 20 114/56 99 06/12/19 16:10 06/12/19 16:10 06/12/19 16:10 06/12/19 16:10 06/12/19 16:10 Exam: GENERAL: Elderly male in no distress LUNGS: Clear HEART: Irreg rhythm ABDOMEN: Soft EXTREMITIES: Tone seems close to normal : Lopez draining yellow urine NEUROLOGIC: A&O. Sensation diminished in feet. Muscle strength 3-4/5 in LEs and 4/5 in hands, 4+/5 in arms Assessment/Plan: 1. Cervical cord compression: Neurosurgery (at [facility]) did not want to operate. Images were requested from [facility]. Received decadron. PT/OT 2. Severe Lumbar Spinal Stenosis: . PT/OT. 3. Neurogenic Bladder/Hematuria with h/o prostate CA: Lopez for now. May do voiding trial if he gets more mobile. Flomax/Myrbetriq. 4. Atrial fibrillation: ASA/Atenolol/Cardizem 5. Lung Cancer: seen by Dr. Monroe 06/02/19. 6. 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 Senna bid and suppository bid. 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 130 is an acceptable range. 8. DVT Prophylaxis: Holding Heparin due to hematuria 9. Anemia: No change, but down since admission 10. Advanced Directives: Full Code 06/12/19 19:14
[2019-06-12] MEDS: Tamsulosin CAP* 0.4 MG PO SCH (19:43)
[2019-06-12] MEDS: Gabapentin CAP(*) 300 MG PO SCH (19:43)
[2019-06-13] MEDS: Diltiazem CD CAP* 120 MG PO SCH (08:32)
[2019-06-13] MEDS: Atenolol TAB* 50 MG PO SCH (08:32)
[2019-06-13] MEDS: Senna TAB 8.6 mg* TAB PO SCH ×2 (08:33→20:19)
[2019-06-13] MEDS: Pantoprazole TAB * 40 MG TAB PO SCH (08:33)
[2019-06-13] MEDS: Aspirin EC TAB* 325 MG PO SCH (08:33)
[2019-06-13] MEDS: Mometasone/Formoter 100/5 MDI INH SCH ×2 (08:38→20:18)
[2019-06-13] MEDS ORDERED: Evolocumab (NF) 140 MG/ML SYRINGE SUBCUT SCH (11:56)
--- NOTE | 2019-06-13 14:33 | PN ---
Progress Note Date of Service: 06/13/19 Note: MADHURI RUSS was visited. Therapy notes read and reviewed. He has no complaints other than fatigue. His urine is again a little bloody. Current Medications: Active Medications Generic Name Dose Route Start Last Admin Trade Name Freq PRN Reason Stop Dose Admin Acetaminophen 650 mg 05/29/19 16:59 Tylenol Tab* PO Q6H PRN FEVER > 101 Aspirin 325 mg 05/30/19 09:00 06/13/19 08:33 Ecotrin Ec Tab* PO 325 mg DAILY JOSE Administration Atenolol 50 mg 06/02/19 09:25 06/13/19 08:32 Tenormin Tab* PO 50 mg DAILY JOSE Administration Atorvastatin Calcium 20 mg 05/30/19 17:00 06/12/19 16:48 Lipitor* PO 20 mg 1700 JOSE Administration Bisacodyl 10 mg 06/04/19 18:00 06/12/19 17:51 Dulcolax Supp* [place] 10 mg 1800 JOSE Administration Diltiazem HCl 120 mg 06/02/19 09:25 06/13/19 08:32 Cardizem Cd Cap* PO 120 mg DAILY JOSE Administration Evolocumab 140 mg 06/12/19 12:00 06/12/19 11:20 Repatha Inj (Nf) SUBCUT Not Given Q14D JOSE Gabapentin 300 mg 05/29/19 21:00 06/12/19 19:43 Neurontin Cap(*) PO 300 mg BEDTIME JOSE Administration Magnesium Hydroxide 30 ml 05/29/19 16:59 Milk Of Magnesia Liq* PO Q6H PRN CONSTIPATION Mometasone Furoate/Formoterol Fumar 2 puff 05/30/19 09:00 06/13/19 08:38 Dulera 100/5 Mdi* INH 2 puff BID JOSE Administration Pantoprazole Sodium 40 mg 05/30/19 09:00 06/13/19 08:33 Protonix Tab* PO 40 mg DAILY JOSE Administration Senna 2 tab 06/01/19 21:00 06/13/19 08:33 Senokot 8.6 Mg Tab* PO 2 tab BID JOSE Administration Tamsulosin HCl 0.4 mg 05/29/19 21:00 06/12/19 19:43 Flomax Cap* PO 0.4 mg BEDTIME JOSE Administration Vital Signs: Vital Signs Temp Pulse Resp BP Pulse Ox 97.9 F 97 16 108/45 99 06/13/19 04:45 06/13/19 08:41 06/13/19 08:41 06/13/19 04:45 06/13/19 08:41 Exam: GENERAL: No acute distress HEENT: Left facial droop LUNGS: Clear to auscultation bilaterally. HEART: Regular rate and rhythm, II/ systolic murmur ABDOMEN: Soft, + bowel sounds, non-tender, non-distended EXTREMITIES: No edema. NEUROLOGIC: Sensation intact x4. Motor 4/4 BUE and BLE except trace left DF/EHL. Assessment/Plan: 1. Cervical cord compression: Neurosurgery (at [facility]) did not want to operate. Images were requested from [facility]. Received decadron. PT/OT 2. Severe Lumbar Spinal Stenosis: . PT/OT. 3. Neurogenic Bladder/Hematuria with h/o prostate CA: Lopez for now. May do voiding trial if he gets more mobile. Flomax/Myrbetriq. 4. Atrial fibrillation: ASA/Atenolol/Cardizem 5. Lung Cancer: seen by Dr. Monroe 06/02/19. 6. 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 Senna bid and suppository bid. 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 130 is an acceptable range. 8. DVT Prophylaxis: Holding Heparin due to hematuria 9. Anemia: No change, but down since admission 10. Advanced Directives: Full Code 06/13/19 14:34
[2019-06-13] MEDS: Atorvastatin* 20 MG TAB PO SCH (17:45)
[2019-06-13] MEDS: Bisacodyl SUPP* 10 MG SUPP PR SCH (18:30)
[2019-06-13] MEDS: Tamsulosin CAP* 0.4 MG PO SCH (20:19)
[2019-06-13] MEDS: Gabapentin CAP(*) 300 MG PO SCH (20:19)
[2019-06-14 04:24] LABS: ABS Eosinophils 0.1 10^3/ul (0-0.6); ABS Lymphocytes 0.4 10^3/ul (1.0-4.8); ABS Monocytes 0.5 10^3/ul (0-0.8); ABS Neutrophils 3.1 10^3/ul (1.5-7.7); Eosinophil % 2.6 %; Hematocrit 25 % (42-52); Hemoglobin 8.2 g/dL (14.0-18.0); Lymphocyte % 9.1 %; Mean Corpuscular HGB Conc 33 g/dL (31-36); Mean Corpuscular Hemoglobin 30 pg (27-31); Mean Corpuscular Volume 89 fL (80-94); Mean Platelet Volume 7.8 fL (7.4-10.4); Nucleated Red Blood Cells % 0.1; Platelet Count 228 10^3/uL (150-450); Red Blood Count 2.76 10^6 /uL (4.18-5.48); Red Cell Distribution Width 20 % (10-15); White Blood Count 4.1 10^3/uL (3.5-10.8)
[2019-06-14 04:41] LABS: Albumin/Globulin Ratio 1.2 (1-3); BUN/Creatinine Ratio 21.2 (8-20); Calcium 8.3 mg/dL (8.6-10.3); EGFR African American 139.5 (>60); EGFR Non-African American 115.3 (>60); Globulin 2.5 g/dL (2-4); Potassium 3.6 mmol/L (3.5-5.0); Total Bilirubin 0.5 mg/dL (0.2-1.0); Total Protein 5.5 g/dL (6.4-8.9)
[2019-06-14] MEDS: Mometasone/Formoter 100/5 MDI INH SCH ×3 (08:15→20:59)
[2019-06-14] MEDS: Pantoprazole TAB * 40 MG TAB PO SCH (08:45)
[2019-06-14] MEDS: Atenolol TAB* 50 MG PO SCH (08:45)
[2019-06-14] MEDS: Diltiazem CD CAP* 120 MG PO SCH (08:45)
[2019-06-14] MEDS: Senna TAB 8.6 mg* TAB PO SCH ×2 (08:45→20:59)
[2019-06-14] MEDS: Aspirin EC TAB* 325 MG PO SCH (08:47)
--- NOTE | 2019-06-14 11:31 | PN ---
Progress Note Date of Service: 06/14/19 Note: MADHURI RUSS was visited. Nursing and therapy notes read and reviewed. No chest pain, shortness of breath or abdominal pain. customer manager recommends regular diet. Current Medications: Active Medications Generic Name Dose Route Start Last Admin Trade Name Freq PRN Reason Stop Dose Admin Acetaminophen 650 mg 05/29/19 16:59 Tylenol Tab* PO Q6H PRN FEVER > 101 Aspirin 325 mg 05/30/19 09:00 06/14/19 08:47 Ecotrin Ec Tab* PO 325 mg DAILY JOSE Administration Atenolol 50 mg 06/02/19 09:25 06/14/19 08:45 Tenormin Tab* PO 50 mg DAILY JOSE Administration Atorvastatin Calcium 20 mg 05/30/19 17:00 06/13/19 17:45 Lipitor* PO 20 mg 1700 JOSE Administration Bisacodyl 10 mg 06/04/19 18:00 06/13/19 18:30 Dulcolax Supp* TX Not Given 1800 JOSE Diltiazem HCl 120 mg 06/02/19 09:25 06/14/19 08:45 Cardizem Cd Cap* PO 120 mg DAILY JOSE Administration Evolocumab 140 mg 06/12/19 12:00 06/12/19 11:20 Repatha Inj (Nf) SUBCUT Not Given Q14D JOSE Gabapentin 300 mg 05/29/19 21:00 06/13/19 20:19 Neurontin Cap(*) PO 300 mg BEDTIME JOSE Administration Magnesium Hydroxide 30 ml 05/29/19 16:59 Milk Of Magnesia Liq* PO Q6H PRN CONSTIPATION Mometasone Furoate/Formoterol Fumar 2 puff 05/30/19 09:00 06/14/19 08:16 Dulera 100/5 Mdi* INH 2 puff BID JOSE Administration Pantoprazole Sodium 40 mg 05/30/19 09:00 06/14/19 08:45 Protonix Tab* PO 40 mg DAILY JOSE Administration Senna 2 tab 06/01/19 21:00 06/14/19 08:45 Senokot 8.6 Mg Tab* PO 2 tab BID JOSE Administration Tamsulosin HCl 0.4 mg 05/29/19 21:00 06/13/19 20:19 Flomax Cap* PO 0.4 mg BEDTIME JOSE Administration Vital Signs: Vital Signs Temp Pulse Resp BP Pulse Ox 98.3 F 87 16 108/44 97 06/14/19 04:10 06/14/19 08:17 06/14/19 08:17 06/14/19 04:10 06/14/19 08:17 Lab Results: Laboratory Results - last 24 hr 06/14/19 06/14/19 04:07 04:07 WBC 4.1 RBC 2.76 L Hgb 8.2 L Hct 25 L MCV 89 MCH 30 MCHC 33 RDW 20 H Plt Count 228 MPV 7.8 Neut % (Auto) 76.1 Lymph % (Auto) 9.1 [place] % (Auto) 11.8 Eos % (Auto) 2.6 Baso % (Auto) 0.4 Absolute Neuts (auto) 3.1 Absolute Lymphs (auto) 0.4 L Absolute Monos (auto) 0.5 Absolute Eos (auto) 0.1 Absolute Basos (auto) 0.0 Absolute Nucleated RBC 0.0 Nucleated RBC % 0.1 Sodium 134 L Potassium 3.6 Chloride 102 Carbon Dioxide 26 Anion Gap 6 BUN 14 Creatinine 0.66 L Est GFR ( Amer) 139.5 Est GFR (Non-Af Amer) 115.3 BUN/Creatinine Ratio 21.2 H Glucose 89 Calcium 8.3 L Total Bilirubin 0.50 AST 28 ALT 42 Alkaline Phosphatase 75 Total Protein 5.5 L Albumin 3.0 L Globulin 2.5 Albumin/Globulin Ratio 1.2 Exam: GENERAL: No acute distress. alert and appropriate. LUNGS: Clear to auscultation bilaterally. HEART: irregularly irregular ABDOMEN: Soft, + bowel sounds, non-tender, non-distended EXTREMITIES: No edema. NEUROLOGIC: Sensation intact x4 but reports tingling in fingers (unchanged). Motor 4/4 BUE and BLE except trace left DF/EHL. Assessment/Plan: 1. Cervical cord compression: Neurosurgery (at [facility]) did not want to operate. Received decadron. PT/OT 2. Severe Lumbar Spinal Stenosis: . PT/OT. 3. Neurogenic Bladder/Hematuria with h/o prostate CA: Lopez for now. May do voiding trial if he gets more mobile. Flomax/Myrbetriq. 4. Atrial fibrillation: ASA/Atenolol/Cardizem. off xarelto due to hematuria 5. Lung Cancer: seen by Dr. Monroe 06/02/19. 6. 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 bowel program. 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 130 is an acceptable range. 8. DVT Prophylaxis: Holding Heparin due to hematuria 9. Anemia: stable 10. Advanced Directives: Full Code 06/14/19 11:30
[2019-06-14] MEDS: Atorvastatin* 20 MG TAB PO SCH (17:36)
[2019-06-14] MEDS: Bisacodyl SUPP* 10 MG SUPP PR SCH (17:36)
[2019-06-14] MEDS: Gabapentin CAP(*) 300 MG PO SCH (20:58)
[2019-06-14] MEDS: Tamsulosin CAP* 0.4 MG PO SCH (20:59)
[2019-06-15] MEDS: Mometasone/Formoter 100/5 MDI INH SCH ×2 (08:41→20:14)
[2019-06-15] MEDS: Senna TAB 8.6 mg* TAB PO SCH ×2 (08:44→20:13)
[2019-06-15] MEDS: Diltiazem CD CAP* 120 MG PO SCH (08:45)
[2019-06-15] MEDS: Aspirin EC TAB* 325 MG PO SCH (08:45)
[2019-06-15] MEDS: Pantoprazole TAB * 40 MG TAB PO SCH (08:45)
[2019-06-15] MEDS: Atenolol TAB* 50 MG PO SCH (08:46)
--- NOTE | 2019-06-15 10:44 | PN ---
Progress Note Date of Service: 06/15/19 Note: MADHURI RUSS was visited. Nursing and therapy notes read and reviewed. He tends to have BM spontaneously before dinner and after therapies, but not on commode. He cannot sense it is coming, but does have sensation as he is going which is an improvement. No chest pain, shortness of breath or abdominal pain. Current Medications: Active Medications Generic Name Dose Route Start Last Admin Trade Name Freq PRN Reason Stop Dose Admin Acetaminophen 650 mg 05/29/19 16:59 Tylenol Tab* PO Q6H PRN FEVER > 101 Aspirin 325 mg 05/30/19 09:00 06/15/19 08:45 Ecotrin Ec Tab* PO 325 mg DAILY JOSE Administration Atenolol 50 mg 06/02/19 09:25 06/15/19 08:46 Tenormin Tab* PO 50 mg DAILY JOSE Administration Atorvastatin Calcium 20 mg 05/30/19 17:00 06/14/19 17:36 Lipitor* PO 20 mg 1700 JOSE Administration Bisacodyl 10 mg 06/15/19 10:17 Dulcolax Supp* [place] 1800 PRN CONSTIPATION Diltiazem HCl 120 mg 06/02/19 09:25 06/15/19 08:45 Cardizem Cd Cap* PO 120 mg DAILY JOSE Administration Evolocumab 140 mg 06/12/19 12:00 06/12/19 11:20 Repatha Inj (Nf) SUBCUT Not Given Q14D JOSE Gabapentin 300 mg 05/29/19 21:00 06/14/19 20:58 Neurontin Cap(*) PO 300 mg BEDTIME JOSE Administration Magnesium Hydroxide 30 ml 05/29/19 16:59 Milk Of Magnesia Liq* PO Q6H PRN CONSTIPATION Mometasone Furoate/Formoterol Fumar 2 puff 05/30/19 09:00 06/15/19 08:41 Dulera 100/5 Mdi* INH 2 puff BID JOSE Administration Pantoprazole Sodium 40 mg 05/30/19 09:00 06/15/19 08:45 Protonix Tab* PO 40 mg DAILY JOSE Administration Senna 2 tab 06/01/19 21:00 06/15/19 08:44 Senokot 8.6 Mg Tab* PO 2 tab BID JOSE Administration Tamsulosin HCl 0.4 mg 05/29/19 21:00 06/14/19 20:59 Flomax Cap* PO 0.4 mg BEDTIME JOSE Administration Vital Signs: Vital Signs Temp Pulse Resp BP Pulse Ox 98.0 F 80 18 109/36 95 06/15/19 04:17 06/15/19 04:17 06/15/19 04:17 06/15/19 04:17 06/15/19 04:17 Exam: GENERAL: No acute distress. alert and appropriate. LUNGS: Clear to auscultation bilaterally. HEART: irregularly irregular ABDOMEN: Soft, + bowel sounds, non-tender, non-distended EXTREMITIES: No edema. NEUROLOGIC: Sensation intact x4 but reports tingling in fingers (unchanged). Motor 4/4 BUE and BLE except trace left DF/EHL. Assessment/Plan: 1. Cervical cord compression: Neurosurgery (at [facility]) did not want to operate. Received decadron. PT/OT 2. Severe Lumbar Spinal Stenosis: . PT/OT. 3. Neurogenic Bladder/Hematuria with h/o prostate CA: Lopez for now. May do voiding trial if he gets more mobile. Flomax/Myrbetriq. 4. Atrial fibrillation: ASA/Atenolol/Cardizem. off xarelto due to hematuria 5. Lung Cancer: seen by Dr. Monroe 06/02/19. 6. 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 Will start to put him on commode at 1630 daily without suppository and make dulcolax suppository prn for bowel program. goal is predictable BMs on commode for home. Make adjustments as needed. 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 130 is an acceptable range. 8. DVT Prophylaxis: Holding Heparin due to hematuria 9. Anemia: stable 10. Advanced Directives: Full Code 06/15/19 10:42
[2019-06-15] MEDS: Atorvastatin* 20 MG TAB PO SCH (16:53)
[2019-06-15] MEDS: Bisacodyl SUPP* 10 MG SUPP PR PRN (17:43)
[2019-06-15] MEDS: Tamsulosin CAP* 0.4 MG PO SCH (20:13)
[2019-06-15] MEDS: Gabapentin CAP(*) 300 MG PO SCH (20:13)
[2019-06-16] MEDS: Atenolol TAB* 50 MG PO SCH (09:12)
[2019-06-16] MEDS: Aspirin EC TAB* 325 MG PO SCH (09:12)
[2019-06-16] MEDS: Diltiazem CD CAP* 120 MG PO SCH (09:12)
[2019-06-16] MEDS: Pantoprazole TAB * 40 MG TAB PO SCH (09:12)
[2019-06-16] MEDS: Senna TAB 8.6 mg* TAB PO SCH ×2 (09:13→20:08)
[2019-06-16] MEDS: Mometasone/Formoter 100/5 MDI INH SCH ×2 (09:14→20:11)
--- NOTE | 2019-06-16 10:34 | PN ---
Progress Note Date of Service: 06/16/19 Note: AMDHURI RUSS was visited. Nursing notes read and reviewed. No BM yesterday but he had urge. No chest pain, shortness of breath or abdominal pain. Urine with sediment and some foul scent. Current Medications: Active Medications Generic Name Dose Route Start Last Admin Trade Name Freq PRN Reason Stop Dose Admin Acetaminophen 650 mg 05/29/19 16:59 Tylenol Tab* PO Q6H PRN FEVER > 101 Aspirin 325 mg 05/30/19 09:00 06/16/19 09:12 Ecotrin Ec Tab* PO 325 mg DAILY JOSE Administration Atenolol 50 mg 06/02/19 09:25 06/16/19 09:12 Tenormin Tab* PO 50 mg DAILY JOSE Administration Atorvastatin Calcium 20 mg 05/30/19 17:00 06/15/19 16:53 Lipitor* PO 20 mg 1700 JOSE Administration Bisacodyl 10 mg 06/15/19 10:17 06/15/19 17:43 Dulcolax Supp* [place] 10 mg 1800 PRN Administration CONSTIPATION Diltiazem HCl 120 mg 06/02/19 09:25 06/16/19 09:12 Cardizem Cd Cap* PO 120 mg DAILY JOSE Administration Evolocumab 140 mg 06/12/19 12:00 06/12/19 11:20 Repatha Inj (Nf) SUBCUT Not Given Q14D JOSE Gabapentin 300 mg 05/29/19 21:00 06/15/19 20:13 Neurontin Cap(*) PO 300 mg BEDTIME JOSE Administration Magnesium Hydroxide 30 ml 05/29/19 16:59 Milk Of Magnesia Liq* PO Q6H PRN CONSTIPATION Mometasone Furoate/Formoterol Fumar 2 puff 05/30/19 09:00 06/16/19 09:14 Dulera 100/5 Mdi* INH 2 puff BID JOSE Administration Pantoprazole Sodium 40 mg 05/30/19 09:00 06/16/19 09:12 Protonix Tab* PO 40 mg DAILY JOSE Administration Senna 2 tab 06/01/19 21:00 06/16/19 09:13 Senokot 8.6 Mg Tab* PO 2 tab BID JOSE Administration Tamsulosin HCl 0.4 mg 05/29/19 21:00 06/15/19 20:13 Flomax Cap* PO 0.4 mg BEDTIME JOSE Administration Vital Signs: Vital Signs Temp Pulse Resp BP Pulse Ox 97 F 82 19 92/38 92 06/16/19 05:55 06/16/19 05:55 06/16/19 08:00 06/16/19 05:55 06/16/19 08:00 Exam: GENERAL: No acute distress. alert and appropriate. LUNGS: Clear to auscultation bilaterally. HEART: irregularly irregular ABDOMEN: Soft, + bowel sounds, non-tender, non-distended EXTREMITIES: No edema. NEUROLOGIC: Sensation intact x4 but reports tingling in fingers (unchanged). Motor 4/4 BUE and BLE except trace left DF/EHL. Assessment/Plan: 1. Cervical cord compression: Neurosurgery (at [facility]) did not want to operate. Received decadron. PT/OT 2. Severe Lumbar Spinal Stenosis: . PT/OT. 3. Neurogenic Bladder/Hematuria with h/o prostate CA: Matt for now but may need changing. I d/w nursing possible bladder colonization without other signs of infection. I asked that he get a new matt bag and tubing at least right now. May do voiding trial if he gets more mobile. Flomax/Myrbetriq. 4. Atrial fibrillation: ASA/Atenolol/Cardizem. off xarelto due to hematuria 5. Lung Cancer: seen by Dr. Monroe 06/02/19. 6. 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 Put him on commode at 1630 daily without suppository and use dulcolax suppository prn for bowel program. goal is predictable BMs on commode for home. Make adjustments as needed. 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 130 is an acceptable range. 8. DVT Prophylaxis: Holding Heparin due to hematuria 9. Anemia: stable 10. Advanced Directives: Full Code 06/16/19 10:30
[2019-06-16] MEDS: Atorvastatin* 20 MG TAB PO SCH (16:58)
[2019-06-16] MEDS: Bisacodyl SUPP* 10 MG SUPP PR PRN (17:44)
[2019-06-16] MEDS: Gabapentin CAP(*) 300 MG PO SCH (20:08)
[2019-06-16] MEDS: Tamsulosin CAP* 0.4 MG PO SCH (20:08)
[2019-06-17] MEDS: Mometasone/Formoter 100/5 MDI INH SCH ×2 (08:16→21:15)
[2019-06-17] MEDS: Senna TAB 8.6 mg* TAB PO SCH ×2 (08:17→21:15)
[2019-06-17] MEDS: Diltiazem CD CAP* 120 MG PO SCH (08:17)
[2019-06-17] MEDS: Atenolol TAB* 50 MG PO SCH (08:17)
[2019-06-17] MEDS: Aspirin EC TAB* 325 MG PO SCH (08:17)
[2019-06-17] MEDS: Pantoprazole TAB * 40 MG TAB PO SCH (08:17)
[2019-06-17 14:09] LABS: Urine Appearance Turbid; Urine Bacteria 1+ (Absent); Urine Bilirubin Negative (Negative); Urine Blood 3+ (Negative); Urine Color Amber; Urine Glucose Negative (Negative); Urine Ketones Trace (Negative); Urine Nitrite Negative (Negative); Urine Protein 2+(100 mg/dL) (Negative); Urine Red Blood Cell 3+(>10/hpf) (Absent); Urine Specific Gravity 1.018 (1.010-1.030); Urine Urobilinogen Negative (Negative); Urine White Blood Cell 3+(>20/hpf) (Absent)
[2019-06-17] MEDS: Atorvastatin* 20 MG TAB PO SCH (17:22)
--- NOTE | 2019-06-17 17:25 | PN ---
Progress Note Date of Service: 06/17/19 Note: MADHURI RUSS was visited. Therapy notes read and reviewed. He had a foul smelling urine and a sample was sent. It is consistent with a UTI. He has no drug allergies. Will start Ampicillin and await culture results. Current Medications: Active Medications Generic Name Dose Route Start Last Admin Trade Name Freq PRN Reason Stop Dose Admin Acetaminophen 650 mg 05/29/19 16:59 Tylenol Tab* PO Q6H PRN FEVER > 101 Aspirin 325 mg 05/30/19 09:00 06/17/19 08:17 Ecotrin Ec Tab* PO 325 mg DAILY JOSE Administration Atenolol 50 mg 06/02/19 09:25 06/17/19 08:17 Tenormin Tab* PO 50 mg DAILY JOSE Administration Atorvastatin Calcium 20 mg 05/30/19 17:00 06/16/19 16:58 Lipitor* PO 20 mg 1700 JOSE Administration Bisacodyl 10 mg 06/15/19 10:17 06/16/19 17:44 Dulcolax Supp* [place] 10 mg 1800 PRN Administration CONSTIPATION Diltiazem HCl 120 mg 06/02/19 09:25 06/17/19 08:17 Cardizem Cd Cap* PO 120 mg DAILY JOSE Administration Evolocumab 140 mg 06/12/19 12:00 06/12/19 11:20 Repatha Inj (Nf) SUBCUT Not Given Q14D JOSE Gabapentin 300 mg 05/29/19 21:00 06/16/19 20:08 Neurontin Cap(*) PO 300 mg BEDTIME JOSE Administration Magnesium Hydroxide 30 ml 05/29/19 16:59 Milk Of Magnesia Liq* PO Q6H PRN CONSTIPATION Mometasone Furoate/Formoterol Fumar 2 puff 05/30/19 09:00 06/17/19 08:16 Dulera 100/5 Mdi* INH 2 puff BID JOSE Administration Pantoprazole Sodium 40 mg 05/30/19 09:00 06/17/19 08:17 Protonix Tab* PO 40 mg DAILY JOSE Administration Senna 2 tab 06/01/19 21:00 06/17/19 08:17 Senokot 8.6 Mg Tab* PO 2 tab BID JOSE Administration Tamsulosin HCl 0.4 mg 05/29/19 21:00 06/16/19 20:08 Flomax Cap* PO 0.4 mg BEDTIME JOSE Administration Vital Signs: Vital Signs Temp Pulse Resp BP Pulse Ox 97.7 F 89 16 110/58 96 06/17/19 05:26 06/17/19 05:26 06/17/19 08:00 06/17/19 05:06/17/19 08:00 Lab Results: Laboratory Results - last 24 hr 06/17/19 13:22 Urine Color [place] Urine Appearance Turbid Urine pH 5.0 Ur Specific [place] 1.018 Urine Protein 2+(100 mg/dl) A Urine Ketones Trace A Urine Blood 3+ A Urine Nitrate Negative Urine Bilirubin Negative Urine Urobilinogen Negative Ur Leukocyte Esterase 2+ A Urine WBC (Auto) 3+(>20/hpf) A Urine RBC (Auto) 3+(>10/hpf) A Urine Bacteria 1+ A Urine Glucose Negative Urine Ascorbic Acid * A Exam: GENERAL: No acute distress. alert and appropriate. LUNGS: Clear to auscultation bilaterally. HEART: irregularly irregular ABDOMEN: Soft, + bowel sounds, non-tender, non-distended EXTREMITIES: No edema. NEUROLOGIC: Sensation intact x4 but reports tingling in fingers (unchanged). Motor 4/4 BUE and BLE except trace left DF/EHL. Assessment/Plan: 1. Cervical cord compression: Neurosurgery (at [facility]) did not want to operate. Received decadron. PT/OT 2. Severe Lumbar Spinal Stenosis: . PT/OT. 3. Neurogenic Bladder/Hematuria with h/o prostate CA: May do voiding trial if he gets more mobile. Flomax/Myrbetriq. 4. Atrial fibrillation: ASA/Atenolol/Cardizem. off xarelto due to hematuria 5. Lung Cancer: seen by Dr. Monroe 06/02/19. 6. 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 commode at 1630 daily 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 130 is an acceptable range. 8. DVT Prophylaxis: Holding Heparin due to hematuria 9. Anemia: stable 10. Urinary Tract infection: Ampicillin day 1. Await cultures 11. Advanced Directives: Full Code 06/17/19 17:25
[2019-06-17] MEDS ORDERED: Ampicillin CAP* 500 MG PO SCH (18:00)
[2019-06-17] MEDS: Gabapentin CAP(*) 300 MG PO SCH (21:15)
[2019-06-17] MEDS: Tamsulosin CAP* 0.4 MG PO SCH (21:15)
[2019-06-17] MEDS: Ampicillin CAP* 500 MG PO SCH (23:52)
[2019-06-18] MEDS: Diltiazem CD CAP* 120 MG PO SCH (08:11)
[2019-06-18] MEDS: Aspirin EC TAB* 325 MG PO SCH (08:11)
[2019-06-18] MEDS: Atenolol TAB* 50 MG PO SCH (08:11)
[2019-06-18] MEDS: Ampicillin CAP* 500 MG PO SCH ×3 (08:11→23:57)
[2019-06-18] MEDS: Pantoprazole TAB * 40 MG TAB PO SCH (08:11)
[2019-06-18] MEDS: Senna TAB 8.6 mg* TAB PO SCH ×2 (08:12→20:08)
[2019-06-18] MEDS: Mometasone/Formoter 100/5 MDI INH SCH ×2 (08:14→20:09)
--- NOTE | 2019-06-18 12:28 | PMRUTEAM ---
PMRU: Team Meeting Current Status: Nursing: Current Status Skin Deviations [scrotum] Other Skin Deviations [Bilateral Other Buttocks] Skin Deviation Description [ reddened. barrier applied scrotum] Skin Deviation Description [ pink, barrier applied Bilateral Buttocks] Bladder Current Status matt Bowel Current Status last bm 06/17/19 Nutrition Current Status appetite good Medication Current Status needs reinforcment Physical Therapy: Current Status Bed Mobility Assistance Supervision Transfer Mobility Assistance Contact Guard Assist,Min Assist Transfer/Bed Mobility Rolling Walker Recommended Devices Transfer Mobility Comment Mod SPT with PT, EZ-stand with nsg Ambulation Assistance Min Assist,Mod Assist Ambulation Assistive Devices Rolling Walker Number of Feet Patient 1x30', 1x15' Ambulated Ambulation Comment with lite gait Stairs Assistance Not Tested Curb Unable Manual Wheelchair Control/ Bilateral LE's Technique Wheelchair Propulsion Ability Minimum Assistance Wheelchair Distance (ft) 90 Objective Comments R foot sensation to light touch absent L foot sensation to light touch impaired (able to acurately state 50% of the time) Occupational Therapy: Current Status Upper Body Dressing Min Assist Lower Body Dressing Total Assist Bathing Mod Assist Toileting Total Assist Toilet Transfer Total Assist Toilet Transfer Progress EZ stand Shower Transfer Progress TBA Eating Independent,Supervision Instrumental ADL [facility] 09/10=66.57% Rec Therapy: Current Status Summary of Assessment and Recreation Therapy services introduced and Clinical Impression assessment complete. Pt. has been minimally engaged in leisure visits, declining pet therapy but is open to brief check-in's from this service writer throughout his hospitalization. Treatment Goals Pt. will engage in leisure activities as tolerated . Treatment Plan Provide recreation therapy and encourage involvement. Nutrition: Current Status Monitoring diet changed to regular unrestricted on 06/14. PO intake cont to be adequate, typically eating 100% of 2 meals/day; otherwise 50-75%. Mild hyponatremia improved (134) and within acceptable range w/SIADH. AST/ALT back to normal range (per labs 06/14). Last BM 06/17; accepts daily Senna. Tentative d/c date 06/28. Appears to be meeting goals as outlined below. Goals: Physical Therapy: Initial Goals Bed Mobility Assistance Independent Transfer Mobility Assistance Independent Transfer/Bed Mobility Rolling Walker Recommended Devices Ambulation Independent Ambulation Recommended Devices Rolling Walker Ambulation Distance 150 Stairs Assistance Independent Stair Recommended Devices Two Rails Number of Stairs 5 Physical Therapy: Updated Goals Transfer/Bed Mobility EZ Stand Recommended Devices Occupational Therapy: Initial Goals Goals to be Completed in (Days 21 ) Upper Body Bathing Routine Modified Independent with Lower Body Bathing Routine Modified Independent with Upper Body Dressing Routine Independent Lower Body Dressing Routine Modified Independent with Toilet Hygeine and Clothing Modified Independent with Management Routine Toilet Transfer Routine Modified Independent with Tub Transfer Routine Supervision/Set Up Functional Transfers for ADL Modified Independent with Grooming Routine Independent,Modified Independent with Feeding Routine Independent,Modified Independent with Nursing: Goals Bladder Goal independent Bowel Goal independent Nutrition Goal 100 % of all meals Medication Goal independent Nutrition: Goals Intervention Goals 1. Intake will remain adequate to maintain UBW 2. Pt will maintain regular bowel pattern without constipation (or diarrhea) 3. Maintain serum electrolytes within acceptable ranges Care Plan: Care Plan ADL's - Improve/Maintain Start: 05/30/19 10:39 Freq: DAILY@[id number] Status: Active Target: 06/20/19 Protocol: Activity Type Activity Date Activity User E-Sign Co-Sign Detail Recorded Client Recorded Date Recorded By Document 06/17/19 15:43 [id number] 06/17/19 15:43 [id number] 06/17/19 15:43 PMRU Outcome: ADL's/ADL Transfers Orders/Interventions Occupational Therapy Evaluation & Treatment Communication Tool in Patient Room Device Yes Address Deficits Secondary To: weakness Patient to receive OT 5x/wk for 60-120 Therex min/day Self Care Management Group Therapy Neuromuscular ReEducation UE/LE ADL's with Assist Yes: Tatiana ADL Transfers with Assist Yes: Tatiana Toileting: Transfers,Clothing Management Yes: Tatiana ,Hygeine w/Assist Light Kitchen/Laundry w/Assist No Other Outcome/Goals Pt participated well in treatment session, declined shower due to fatigue this am, however participated well in ADL routine. Progression Toward Outcome/Goals Progressing Cardiovascular- Improve/Maintain Start: 05/29/19 22:35 Freq: DAILY@699,1900 Status: Active Target: 06/21/19 Protocol: Activity Type Activity Date Activity User E-Sign Co-Sign Detail Recorded Client Recorded Date Recorded By Document 06/18/19 08:59 [id number] 06/18/19 09:01 [id number] 06/18/19 08:59 PMRU Outcome: Cardiovascular Vital Signs q Shift for 48hrs Then BID Yes Daily Weight Ordered No Current Cardiovascular Outcome/Goal Maintain/ Achieve Baseline HR, BP , Perfusion Free of Abnormal Cardiac Symptoms Progression Toward Outcome/Goal Progressing Coping/Psych-Improve/Maintain Start: 05/29/19 22:35 Freq: DAILY@699,0 Status: Active Target: 06/21/19 Protocol: Activity Type Activity Date Activity User E-Sign Co-Sign Detail Recorded Client Recorded Date Recorded By Document 06/18/19 08:59 [id number] [email or web address] 06/18/19 09:01 [id number] 06/18/19 08:59 PMRU Outcome: Coping/Psychosocial Current Coping Outcome/Goals Verbalization of Acceptance of Rehab Admit Verbalization of Sense of Control Over Health Status Utilization of Appropriate Problem Solving Techniques Willingness to Participate in Treatment Plan and Basic Needs Progression Toward Outcome/Goals Goals Met Outcome/Goals Met Demonstrates Understanding of Rehab Admit and Goal Setting Process Performs Actions to Reduce Fear and Anxiety Performs Actions to Reduce Pain and Prevent Complications Current Psychosocial Outcome/Goals Maintain/ Improve Emotional Health Demonstrates Knowledge of Healthy Coping Mechanisms Available Cooperate/ Participate in Plan Progression Toward Outcome/Goals Goals Met Outcome/Goals Met Maintain/ Improved Emotional Health Demonstrated Knowledge of Healthy Coping Mechanisms Available Cooperate/ Participated in Plan DVT Prophylaxis- Improve/Maintain Start: 05/29/19 22:35 Freq: DAILY@ Status: Active Target: 06/21/19 Protocol: Activity Type Activity Date Activity User E-Sign Co-Sign Detail Recorded Client Recorded Date Recorded By Document 06/18/19 08:59 [id number] [id number] 06/18/19 09:01 [id number] 06/18/19 08:59 PMRU Outcome: DVT Prophylaxis Current DVT Outcome/Goals Remains Free of DVT Complies with DVT Prophylaxis /Treatment Demonstrates Knowledge of DVT Prevention/ Treatment TEDS Stockings on Every AM, Off at HS Progression Toward Outcome/Goals Progressing Discharge Planning - Improve/Maintain Start: 05/29/19 22:35 Freq: DAILY@ Status: Active Target: 06/21/19 Protocol: Activity Type Activity Date Activity User E-Sign Co-Sign Detail Recorded Client Recorded Date Recorded By Document 06/18/19 00:00 [id number] [id number] 06/18/19 01:08 [id number] 06/18/19 00:00 PMRU Outcome: Discharge Planning Update Patient Family No Current Discharge Planning Outcome/Goals Demonstrates Understanding of Discharge Plan Progression Toward Outcome/Goals Progressing Education-Improve/Maintain Start: 05/29/19 22:35 Freq: DAILY@0700,1900 Status: Active Target: 06/21/19 Protocol: Activity Type Activity Date Activity User E-Sign Co-Sign Detail Recorded Client Recorded Date Recorded By Document 06/18/19 08:59 [id number] 06/18/19 09:01 [id number] 06/18/19 08:59 PMRU Outcome: Education Current Education Outcome/Goals Demonstrate/ Verbalize Understanding of Written Discharge Instructions Demonstrates Skills Encourage Questions Progression Toward Outcome/Goals Progressing /GI-Improve/Maintain Start: 05/29/19 22:35 Freq: DAILY@0700,1900 Status: Active Target: 06/21/19 Protocol: Activity Type Activity Date Activity User E-Sign Co-Sign Detail Recorded Client Recorded Date Recorded By Document 06/18/19 08:59 [id number] 06/18/19 09:01 [id number] 06/18/19 08:59 PMRU Outcome: Genitourinary/ Gastrointestinal Current Gastrointestinal Outcome/Goals Maintain/ Achieve Bowel Regularity in Accordance with Pt's Baseline Prevent Constipation Bowel Regularity at Home Laxatives as Ordered Bowel Program Progression Toward Outcome/Goals Progressing Current Genitourinary Outcome/Goals Maintain/ Achieve Urinary Continence Maintain/ Achieve Adequate Urinary Output Remain Free of Hospital- Acquired UTI Progression Toward Outcome/Goals Not Progressing Lack of Progression Comment matt catheter intact. + for UTI Medication Administration Start: 05/29/19 22:35 Freq: DAILY@0700,1900 Status: Active Target: 06/21/19 Protocol: Activity Type Activity Date Activity User E-Sign Co-Sign Detail Recorded Client Recorded Date Recorded By Document 06/18/19 08:59 [id number] 06/18/19 09:01 [id number] 06/18/19 08:59 PMRU Outcome: Medication Administration Assess Patient Knowledge/Teach Med Yes Education for all Meds Current Billet Driller Outcome/Goals Patient Independent with Medication Administration at Home Demonstrates Understanding Progression Towards Outcome/Goals Progressing Is Patient Going Home on Lovenox? No Mobility- Improve/Maintain Start: 05/30/19 18:03 Freq: DAILY@0700,1900 Status: Active Target: 06/28/19 Protocol: Activity Type Activity Date Activity User E-Sign Co-Sign Detail Recorded Client Recorded Date Recorded By Document 06/14/19 11:57 [id number] [email or web address] 06/14/19 11:57 [id number] 06/14/19 11:57 PMRU Outcome: Mobility Physical Therapy Evaluation and Yes Treatment Activity OOB with Assistance Yes WBAT Yes Device Yes Assistance Yes Patient to be seen 5x/wk for 60-120 min/ Therex day for: Mobility Training Gait Training W/C Mobility Balance Current Mobility Outcome/Goals Maintain/ Achieve Baseline Mobility Status Improve Mobility Status Demonstrates Proper Use of Assistive Devices Free from Complications of Immobility Progression Toward Outcome/Goals Progressing Outcome/Goals Met Improve Mobility Status Free from Complications of Immobility Bed Mobility Yes: independent Transfers Yes: independent with rollign walker. Gait x ft Yes: independent with rolling walker to 150' Up/Down Stairs Yes: independent up/ down 5 stairs with 2 rails. Pain/Comfort- Improve/Maintain Start: 05/29/19 22:35 Freq: DAILY@0700,1900 Status: Complete Target: 07/01/19 Protocol: Activity Type Activity Date Activity User E-Sign Co-Sign Detail Recorded Client Recorded Date Recorded By Document 06/13/19 00:55 [id number] [email or web address] 06/13/19 01:02 [id number] 06/13/19 00:55 PMRU Outcome: Pain/Comfort Current Pain/Comfort Outcome/Goals Demonstrates Knowledge and Use of Available Comfort Measures Achieves Acceptable Comfort/Pain Level as Determined by Patient/Condit Maintain Comfort Level Allowing Patient to Fully Participate in Rehab Progression Toward Outcome/Goals Goals Met Outcome/Goals Met Demonstrates Knowledge and Use of Available Comfort Measures Achieves Acceptable Comfort/Pain Level as Determined by Patient/Condit Maintain Comfort Level Allowing Patient to Fully Participate in Rehab Outcome/Goals Met Comment Pt resting Rec Therapy- Improve/Maintain Start: 05/30/19 13:17 Freq: DAILY@0700,1900 Status: Active Target: 06/28/19 Protocol: Activity Type Activity Date Activity User E-Sign Co-Sign Detail Recorded Client Recorded Date Recorded By Document 06/14/19 14:23 [id number] [email or web address] 06/14/19 14:24 [id number] 06/14/19 14:23 PMRU Outcome: Recreation Therapy Current Rec Ther Outcome/Goals Meet with Patient Regularly for Support Encourage Leisure Involvement Progression Toward Outcome/Goals Progressing Lack of Progression Comment offered outdoor leisure this afternoon, pt. declined. will con't to encourage involvement in leiusre and provide support . Outcome/Goals Met Meet with Patient Regularly for Support Encourage Leisure Involvement Respiratory - Improve/Maintain Start: 05/29/19 22:35 Freq: DAILY@0700,1900 Status: Active Target: 06/21/19 Protocol: Activity Type Activity Date Activity User E-Sign Co-Sign Detail Recorded Client Recorded Date Recorded By Document 06/18/19 08:59 [id number] [email or web address] 06/18/19 09:01 [id number] 06/18/19 08:59 PMRU Outcome: Respiratory Does Patient Have a Trach No Current Respiratory Outcome/Goals Maintain/ Improve Baseline Respiratory Status Maintain/ Improve Activity Tolerance Prevent Pneumonia/ Atelectasis Progression Toward Outcome/Goals Progressing Safety- Improve/Maintain Start: 05/29/19 14:06 Freq: DAILY@0700,1900 Status: Active Target: 06/21/19 Protocol: Activity Type Activity Date Activity User E-Sign Co-Sign Detail Recorded Client Recorded Date Recorded By Document 06/18/19 08:59 [id number] 06/18/19 09:01 [id number] 06/18/19 08:59 PMRU Outcome: Safety Current Safety Outcome/Goals Remain Free of Injury or Harm Cooperates with Safety Measures for Least Restrictive Environment Prevent Falls/ Injury Progression Toward Outcome/Goals Progressing Skin- Improve/Maintain Start: 05/29/19 22:35 Freq: DAILY@0700,1900 Status: Active Target: 06/21/19 Protocol: Activity Type Activity Date Activity User E-Sign Co-Sign Detail Recorded Client Recorded Date Recorded By Document 06/18/19 08:59 [id number] [email or web address] 06/18/19 09:01 [id number] 06/18/19 08:59 PMRU Outcome: Skin Skin Risk Level Mild Risk Skin Orders Turn/Position q2hr While in Bed Other Skin Orders Comment raul bed Current Skin Outcome/Goals Maintain/ Improve Skin Integrity Free from Pressure Injury Maintain/ Improve Wound Status Progression Toward Outcome/Goals Progressing Medicine Note: Length of Stay: 10 days Anticipated Discharge Destination: Tentative Discharge Date: 06/28/19 Discharged to: Home vs SNF
[2019-06-18] MEDS: Atorvastatin* 20 MG TAB PO SCH (16:24)
[2019-06-18] MEDS: Gabapentin CAP(*) 300 MG PO SCH (20:08)
[2019-06-18] MEDS: Tamsulosin CAP* 0.4 MG PO SCH (20:08)
--- NOTE | 2019-06-18 20:10 | PN ---
Progress Note Date of Service: 06/18/19 Note: MADHURI RUSS was visited. Therapy notes read and reviewed. He was discussed in interdisciplinary team rounds. He is still incontinent of bowels with accidents. Trying to establish a bowel program in the evening, but will need to discuss with his daughter. Urine culture: E.Coli, sensitivies pending Current Medications: Active Medications Generic Name Dose Route Start Last Admin Trade Name Freq PRN Reason Stop Dose Admin Acetaminophen 650 mg 05/29/19 16:59 Tylenol Tab* PO Q6H PRN FEVER > 101 Ampicillin 500 mg 06/18/19 00:00 06/18/19 16:23 Ampicillin Cap* PO 500 mg 0000,0800,1600 JSOE Administration Aspirin 325 mg 05/30/19 09:00 06/18/19 08:11 Ecotrin Ec Tab* PO 325 mg DAILY JOSE Administration Atenolol 50 mg 06/02/19 09:25 06/18/19 08:11 Tenormin Tab* PO 50 mg DAILY JOSE Administration Atorvastatin Calcium 20 mg 05/30/19 17:00 06/18/19 16:24 Lipitor* PO 20 mg 1700 JOSE Administration Bisacodyl 10 mg 06/15/19 10:17 06/16/19 17:44 Dulcolax Supp* [place] 10 mg 1800 PRN Administration CONSTIPATION Diltiazem HCl 120 mg 06/02/19 09:25 06/18/19 08:11 Cardizem Cd Cap* PO 120 mg DAILY JOSE Administration Evolocumab 140 mg 06/12/19 12:00 06/12/19 11:20 Repatha Inj (Nf) SUBCUT Not Given Q14D JOSE Gabapentin 300 mg 05/29/19 21:00 06/17/19 21:15 Neurontin Cap(*) PO 300 mg BEDTIME JOSE Administration Magnesium Hydroxide 30 ml 05/29/19 16:59 Milk Of Magnesia Liq* PO Q6H PRN CONSTIPATION Mometasone Furoate/Formoterol Fumar 2 puff 05/30/19 09:00 06/18/19 08:14 Dulera 100/5 Mdi* INH 2 puff BID JOSE Administration Pantoprazole Sodium 40 mg 05/30/19 09:00 06/18/19 08:11 Protonix Tab* PO 40 mg DAILY JOES Administration Senna 2 tab 06/01/19 21:00 06/18/19 08:12 Senokot 8.6 Mg Tab* PO 2 tab BID JOSE Administration Tamsulosin HCl 0.4 mg 05/29/19 21:00 06/17/19 21:15 Flomax Cap* PO 0.4 mg BEDTIME JOSE Administration Vital Signs: Vital Signs Temp Pulse Resp BP Pulse Ox 98.3 F 87 18 125/55 94 06/18/19 16:00 06/18/19 16:00 06/18/19 16:00 06/18/19 16:00 06/18/19 17:01 Exam: GENERAL: No acute distress. alert and appropriate. LUNGS: Clear to auscultation bilaterally. HEART: irregularly irregular ABDOMEN: Soft, + bowel sounds, non-tender, non-distended EXTREMITIES: No edema. NEUROLOGIC: Sensation intact x4 but reports tingling in fingers (unchanged). Motor 4/4 BUE and BLE except trace left DF/EHL. Assessment/Plan: 1. Cervical cord compression: Neurosurgery (at [facility]) did not want to operate. Received decadron. PT/OT 2. Severe Lumbar Spinal Stenosis: . PT/OT. 3. Neurogenic Bladder/Hematuria with h/o prostate CA: May do voiding trial if he gets more mobile. Flomax/Myrbetriq. 4. Atrial fibrillation: ASA/Atenolol/Cardizem. off xarelto due to hematuria 5. Lung Cancer: seen by Dr. Monroe 06/02/19. 6. 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 commode at 1630 daily 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 130 is an acceptable range. 8. DVT Prophylaxis: Holding Heparin due to hematuria 9. Anemia: stable 10. Urinary Tract infection: Ampicillin day 1. Await cultures 11. Advanced Directives: Full Code 06/17/19 17:25
[2019-06-19] MEDS: Ampicillin CAP* 500 MG PO SCH (08:55)
[2019-06-19] MEDS: Senna TAB 8.6 mg* TAB PO SCH ×2 (08:55→21:29)
[2019-06-19] MEDS: Diltiazem CD CAP* 120 MG PO SCH (08:56)
[2019-06-19] MEDS: Aspirin EC TAB* 325 MG PO SCH (08:56)
[2019-06-19] MEDS: Atenolol TAB* 50 MG PO SCH (08:56)
[2019-06-19] MEDS: Mometasone/Formoter 100/5 MDI INH SCH ×2 (08:57→21:31)
[2019-06-19] MEDS: Pantoprazole TAB * 40 MG TAB PO SCH (08:58)
[2019-06-19] MEDS ORDERED: Sulfamethox/Trimethoprim DS 800/160* TAB PO ONE (12:23)
[2019-06-19] MEDS: Atorvastatin* 20 MG TAB PO SCH (16:12)
[2019-06-19] MEDS: Bisacodyl SUPP* 10 MG SUPP PR PRN (18:04)
--- NOTE | 2019-06-19 20:29 | PN ---
Progress Note Date of Service: 06/19/19 Note: MADHURI RUSS was visited. Therapy notes read and reviewed. I spoke with his urologist, Dr. Cueto. He will change his catheter Monday. Family training to start tomorrow. Current Medications: Active Medications Generic Name Dose Route Start Last Admin Trade Name Freq PRN Reason Stop Dose Admin Acetaminophen 650 mg 05/29/19 16:59 Tylenol Tab* PO Q6H PRN FEVER > 101 Aspirin 325 mg 05/30/19 09:00 06/19/19 08:56 Ecotrin Ec Tab* PO 325 mg DAILY JOSE Administration Atenolol 50 mg 06/02/19 09:25 06/19/19 08:56 Tenormin Tab* PO 50 mg DAILY JOSE Administration Atorvastatin Calcium 20 mg 05/30/19 17:00 06/19/19 16:12 Lipitor* PO 20 mg 1700 JOSE Administration Bisacodyl 10 mg 06/15/19 10:17 06/19/19 18:04 Dulcolax Supp* [place] 10 mg 1800 PRN Administration CONSTIPATION Diltiazem HCl 120 mg 06/02/19 09:25 06/19/19 08:56 Cardizem Cd Cap* PO 120 mg DAILY JOSE Administration Evolocumab 140 mg 06/12/19 12:00 06/12/19 11:20 Repatha Inj (Nf) SUBCUT Not Given Q14D JOSE Gabapentin 300 mg 05/29/19 21:00 06/18/19 20:08 Neurontin Cap(*) PO 300 mg BEDTIME JOSE Administration Magnesium Hydroxide 30 ml 05/29/19 16:59 Milk Of Magnesia Liq* PO Q6H PRN CONSTIPATION Mometasone Furoate/Formoterol Fumar 2 puff 05/30/19 09:00 06/19/19 08:57 Dulera 100/5 Mdi* INH 2 puff BID JOSE Administration Pantoprazole Sodium 40 mg 05/30/19 09:00 06/19/19 08:58 Protonix Tab* PO 40 mg DAILY JOSE Administration Senna 2 tab 06/01/19 21:00 06/19/19 08:55 Senokot 8.6 Mg Tab* PO 2 tab BID JOSE Administration Tamsulosin HCl 0.4 mg 05/29/19 21:00 06/18/19 20:08 Flomax Cap* PO 0.4 mg BEDTIME JOSE Administration Trimethoprim/Sulfamethoxazole 1 tab 06/19/19 21:00 Bactrim Ds 800/160 Tab* PO BID JOSE Vital Signs: Vital Signs Temp Pulse Resp BP Pulse Ox 98.4 F 89 24 118/53 96 06/19/19 16:52 06/19/19 16:52 06/19/19 16:52 06/19/19 16:52 06/19/19 16:52 Exam: GENERAL: No acute distress. alert and appropriate. LUNGS: Clear to auscultation bilaterally. HEART: irregularly irregular ABDOMEN: Soft, + bowel sounds, non-tender, non-distended EXTREMITIES: No edema. NEUROLOGIC: Sensation intact x4 but reports tingling in fingers (unchanged). Motor 4/4 BUE and BLE except trace left DF/EHL. Assessment/Plan: 1. Cervical cord compression: Neurosurgery (at [facility]) did not want to operate. Received decadron. PT/OT 2. Severe Lumbar Spinal Stenosis: . PT/OT. 3. Neurogenic Bladder/Hematuria with h/o prostate CA: Dr. Cueto will change matt Monday. Flomax/Myrbetriq. 4. Atrial fibrillation: ASA/Atenolol/Cardizem. off xarelto due to hematuria 5. Lung Cancer: seen by Dr. Monroe 06/02/19. 6. 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 commode at 1630 daily 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 8. DVT Prophylaxis: Holding Heparin due to hematuria 9. Anemia: stable 10. Urinary Tract infection: Bactrim day 2. E Coli sens to Bactrim 11. Advanced Directives: Full Code 06/19/19 20:30 06/19/19 20:30
[2019-06-19] MEDS: Tamsulosin CAP* 0.4 MG PO SCH (21:29)
[2019-06-19] MEDS: Gabapentin CAP(*) 300 MG PO SCH (21:29)
[2019-06-19] MEDS: Sulfamethox/Trimethoprim DS 800/160* TAB PO SCH (21:29)
[2019-06-20] MEDS: Mometasone/Formoter 100/5 MDI INH SCH ×2 (08:18→19:15)
[2019-06-20] MEDS: Diltiazem CD CAP* 120 MG PO SCH (08:20)
[2019-06-20] MEDS: Senna TAB 8.6 mg* TAB PO SCH ×2 (08:20→19:13)
[2019-06-20] MEDS: Pantoprazole TAB * 40 MG TAB PO SCH (08:20)
[2019-06-20] MEDS: Atenolol TAB* 50 MG PO SCH (08:21)
[2019-06-20] MEDS: Aspirin EC TAB* 325 MG PO SCH (08:21)
[2019-06-20] MEDS: Sulfamethox/Trimethoprim DS 800/160* TAB PO SCH ×2 (08:59→19:13)
[2019-06-20] MEDS ORDERED: Influenza VAC *QUAD* 2019-20* 0.5 ML SYRINGE IM ONE (09:00)
[2019-06-20] MEDS: Atorvastatin* 20 MG TAB PO SCH (17:06)
[2019-06-20] MEDS: Bisacodyl SUPP* 10 MG SUPP PR SCH (17:52)
[2019-06-20] MEDS: Tamsulosin CAP* 0.4 MG PO SCH (19:13)
[2019-06-20] MEDS: Gabapentin CAP(*) 300 MG PO SCH (19:13)
--- NOTE | 2019-06-20 19:48 | PN ---
Progress Note Date of Service: 06/20/19 Note: MADHURI RUSS was visited. Therapy notes read and reviewed. Family training with physical therapy today. He needs more help than family can give. Will likely need ALEKSANDR-will talk with daughter tomorrow. Current Medications: Active Medications Generic Name Dose Route Start Last Admin Trade Name Freq PRN Reason Stop Dose Admin Acetaminophen 650 mg 05/29/19 16:59 Tylenol Tab* PO Q6H PRN FEVER > 101 Aspirin 325 mg 05/30/19 09:00 06/20/19 08:21 Ecotrin Ec Tab* PO 325 mg DAILY JOSE Administration Atenolol 50 mg 06/02/19 09:25 06/20/19 08:21 Tenormin Tab* PO 50 mg DAILY JOSE Administration Atorvastatin Calcium 20 mg 05/30/19 17:00 06/20/19 17:06 Lipitor* PO 20 mg 1700 JOSE Administration Bisacodyl 10 mg 06/20/19 18:00 06/20/19 17:52 Dulcolax Supp* [place] 10 mg 1800 JOSE Administration Diltiazem HCl 120 mg 06/02/19 09:25 06/20/19 08:20 Cardizem Cd Cap* PO 120 mg DAILY JOSE Administration Evolocumab 140 mg 06/12/19 12:00 06/12/19 11:20 Repatha Inj (Nf) SUBCUT Not Given Q14D JOSE Gabapentin 300 mg 05/29/19 21:00 06/20/19 19:13 Neurontin Cap(*) PO 300 mg BEDTIME JOSE Administration Magnesium Hydroxide 30 ml 05/29/19 16:59 Milk Of Magnesia Liq* PO Q6H PRN CONSTIPATION Mometasone Furoate/Formoterol Fumar 2 puff 05/30/19 09:00 06/20/19 19:15 Dulera 100/5 Mdi* INH 2 puff BID JOSE Administration Pantoprazole Sodium 40 mg 05/30/19 09:00 06/20/19 08:20 Protonix Tab* PO 40 mg DAILY JOSE Administration Senna 2 tab 06/01/19 21:00 06/20/19 19:13 Senokot 8.6 Mg Tab* PO 2 tab BID JOSE Administration Tamsulosin HCl 0.4 mg 05/29/19 21:00 06/20/19 19:13 Flomax Cap* PO 0.4 mg BEDTIME JOSE Administration Trimethoprim/Sulfamethoxazole 1 tab 06/19/19 21:00 06/20/19 19:13 Bactrim Ds 800/160 Tab* PO 1 tab BID JOSE Administration Vital Signs: Vital Signs Temp Pulse Resp BP Pulse Ox 97.6 F 71 18 119/51 94 06/20/19 15:57 06/20/19 15:57 06/20/19 19:13 06/20/19 15:57 06/20/19 15:57 Exam: GENERAL: No acute distress. alert and appropriate. LUNGS: Clear to auscultation bilaterally. HEART: irregularly irregular ABDOMEN: Soft, + bowel sounds, non-tender, non-distended EXTREMITIES: No edema. NEUROLOGIC: Sensation intact x4 but reports tingling in fingers (unchanged). Motor 4/4 BUE and BLE except trace left DF/EHL. Assessment/Plan: 1. Cervical cord compression: Neurosurgery (at [facility]) did not want to operate. Received decadron. PT/OT 2. Severe Lumbar Spinal Stenosis: . PT/OT. 3. Neurogenic Bladder/Hematuria with h/o prostate CA: Dr. Cueto will change matt Monday. Flomax/Myrbetriq. 4. Atrial fibrillation: ASA/Atenolol/Cardizem. off xarelto due to hematuria 5. Lung Cancer: seen by Dr. Monroe 06/02/19. 6. 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 8. DVT Prophylaxis: Holding Heparin due to hematuria 9. Anemia: stable 10. Urinary Tract infection: Bactrim day 3/6. E Coli sens to Bactrim 11. Advanced Directives: Full Code 06/20/19 19:48
[2019-06-21 04:28] LABS: ABS Eosinophils 0.1 10^3/ul (0-0.6); ABS Lymphocytes 0.4 10^3/ul (1.0-4.8); ABS Monocytes 0.6 10^3/ul (0-0.8); ABS Neutrophils 3.8 10^3/ul (1.5-7.7); Eosinophil % 1.5 %; Hematocrit 26 % (42-52); Hemoglobin 8.6 g/dL (14.0-18.0); Lymphocyte % 9.1 %; Mean Corpuscular HGB Conc 33 g/dL (31-36); Mean Corpuscular Hemoglobin 29 pg (27-31); Mean Corpuscular Volume 88 fL (80-94); Mean Platelet Volume 7.8 fL (7.4-10.4); Platelet Count 250 10^3/uL (150-450); Red Blood Count 2.95 10^6 /uL (4.18-5.48); Red Cell Distribution Width 20 % (10-15); White Blood Count 4.9 10^3/uL (3.5-10.8)
[2019-06-21 04:46] LABS: Albumin/Globulin Ratio 1.2 (1-3); BUN/Creatinine Ratio 15.5 (8-20); Calcium 8.4 mg/dL (8.6-10.3); EGFR African American 105.6 (>60); EGFR Non-African American 87.3 (>60); Globulin 2.5 g/dL (2-4); Potassium 3.8 mmol/L (3.5-5.0); Total Bilirubin 0.4 mg/dL (0.2-1.0); Total Protein 5.5 g/dL (6.4-8.9)
[2019-06-21] MEDS: Mometasone/Formoter 100/5 MDI INH SCH ×2 (10:28→19:41)
[2019-06-21] MEDS: Senna TAB 8.6 mg* TAB PO SCH ×2 (10:29→19:36)
[2019-06-21] MEDS: Atenolol TAB* 50 MG PO SCH (10:29)
[2019-06-21] MEDS: Pantoprazole TAB * 40 MG TAB PO SCH (10:29)
[2019-06-21] MEDS: Aspirin EC TAB* 325 MG PO SCH (10:30)
[2019-06-21] MEDS: Sulfamethox/Trimethoprim DS 800/160* TAB PO SCH ×2 (10:30→20:09)
[2019-06-21] MEDS: Diltiazem CD CAP* 120 MG PO SCH (10:30)
[2019-06-21] MEDS: Bisacodyl SUPP* 10 MG SUPP PR SCH (18:02)
[2019-06-21] MEDS: Atorvastatin* 20 MG TAB PO SCH (18:02)
[2019-06-21] MEDS: Tamsulosin CAP* 0.4 MG PO SCH (19:36)
[2019-06-21] MEDS: Gabapentin CAP(*) 300 MG PO SCH (19:41)
--- NOTE | 2019-06-21 19:44 | PN ---
Progress Note Date of Service: 06/21/19 Note: MADHURI RUSS was visited. Therapy notes read and reviewed. He is tired this evening but otherwise has no complaints. Feels ok. Current Medications: Active Medications Generic Name Dose Route Start Last Admin Trade Name Freq PRN Reason Stop Dose Admin Acetaminophen 650 mg 05/29/19 16:59 Tylenol Tab* PO Q6H PRN FEVER > 101 Aspirin 325 mg 05/30/19 09:00 06/21/19 10:30 Ecotrin Ec Tab* PO 325 mg DAILY JOSE Administration Atenolol 50 mg 06/02/19 09:25 06/21/19 10:29 Tenormin Tab* PO 50 mg DAILY JOSE Administration Atorvastatin Calcium 20 mg 05/30/19 17:00 06/21/19 18:02 Lipitor* PO 20 mg 1700 JOSE Administration Bisacodyl 10 mg 06/20/19 18:00 06/21/19 18:02 Dulcolax Supp* [place] 10 mg 1800 JOSE Administration Diltiazem HCl 120 mg 06/02/19 09:25 06/21/19 10:30 Cardizem Cd Cap* PO 120 mg DAILY JOSE Administration Evolocumab 140 mg 06/12/19 12:00 06/12/19 11:20 Repatha Inj (Nf) SUBCUT Not Given Q14D JOSE Gabapentin 300 mg 05/29/19 21:00 06/21/19 19:41 Neurontin Cap(*) PO 300 mg BEDTIME JOSE Administration Magnesium Hydroxide 30 ml 05/29/19 16:59 Milk Of Magnesia Liq* PO Q6H PRN CONSTIPATION Mometasone Furoate/Formoterol Fumar 2 puff 05/30/19 09:00 06/21/19 19:41 Dulera 100/5 Mdi* INH 2 puff BID JOSE Administration Pantoprazole Sodium 40 mg 05/30/19 09:00 06/21/19 10:29 Protonix Tab* PO 40 mg DAILY JOSE Administration Senna 2 tab 06/01/19 21:00 06/21/19 19:36 Senokot 8.6 Mg Tab* PO 2 tab BID JOSE Administration Tamsulosin HCl 0.4 mg 05/29/19 21:00 06/21/19 19:36 Flomax Cap* PO 0.4 mg BEDTIME JOSE Administration Trimethoprim/Sulfamethoxazole 1 tab 06/19/19 21:00 06/21/19 10:30 Bactrim Ds 800/160 Tab* PO 1 tab BID JOSE Administration Vital Signs: Vital Signs Temp Pulse Resp BP Pulse Ox 98.3 F 75 18 110/47 95 06/21/19 17:56 06/21/19 17:56 06/21/19 19:41 06/21/19 17:56 06/21/19 17:58 Lab Results: Laboratory Results - last 24 hr 06/21/19 06/21/19 04:07 04:07 WBC 4.9 RBC 2.95 L Hgb 8.6 L Hct 26 L MCV 88 MCH 29 MCHC 33 RDW 20 H Plt Count 250 MPV 7.8 Neut % (Auto) 77.6 Lymph % (Auto) 9.1 [place] % (Auto) 11.3 Eos % (Auto) 1.5 Baso % (Auto) 0.5 Absolute Neuts (auto) 3.8 Absolute Lymphs (auto) 0.4 L Absolute Monos (auto) 0.6 Absolute Eos (auto) 0.1 Absolute Basos (auto) 0.0 Absolute Nucleated RBC 0.0 Nucleated RBC % 0.0 Sodium 135 Potassium 3.8 Chloride 103 Carbon Dioxide 25 Anion Gap 7 BUN 13 Creatinine 0.84 Est GFR ( Amer) 105.6 Est GFR (Non-Af Amer) 87.3 BUN/Creatinine Ratio 15.5 Glucose 87 Calcium 8.4 L Total Bilirubin 0.40 AST 25 ALT 33 Alkaline Phosphatase 76 Total Protein 5.5 L Albumin 3.0 L Globulin 2.5 Albumin/Globulin Ratio 1.2 Exam: GENERAL: No acute distress. alert and appropriate. LUNGS: Clear to auscultation bilaterally. HEART: irregularly irregular ABDOMEN: Soft, + bowel sounds, non-tender, non-distended EXTREMITIES: No edema. NEUROLOGIC: Sensation intact x4 but reports tingling in fingers (unchanged). Motor 4/4 BUE and BLE except trace left DF/EHL. Assessment/Plan: 1. Cervical cord compression: Neurosurgery (at [facility]) did not want to operate. Received decadron. PT/OT 2. Severe Lumbar Spinal Stenosis: . PT/OT. 3. Neurogenic Bladder/Hematuria with h/o prostate CA: Dr. Cueto will change matt Monday. Flomax/Myrbetriq. 4. Atrial fibrillation: ASA/Atenolol/Cardizem. off xarelto due to hematuria 5. Lung Cancer: seen by Dr. Monroe 06/02/19. 6. 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 8. DVT Prophylaxis: Holding Heparin due to hematuria 9. Anemia: stable 10. Urinary Tract infection: Bactrim day 4/6. E Coli sens to Bactrim 11. Advanced Directives: Full Code 06/21/19 19:45
[2019-06-22] MEDS: Mometasone/Formoter 100/5 MDI INH SCH ×2 (07:43→21:43)
[2019-06-22] MEDS: Sulfamethox/Trimethoprim DS 800/160* TAB PO SCH ×2 (09:45→21:41)
[2019-06-22] MEDS: Aspirin EC TAB* 325 MG PO SCH (09:45)
[2019-06-22] MEDS: Atenolol TAB* 50 MG PO SCH (09:45)
[2019-06-22] MEDS: Senna TAB 8.6 mg* TAB PO SCH ×2 (09:46→21:42)
[2019-06-22] MEDS: Diltiazem CD CAP* 120 MG PO SCH (09:46)
[2019-06-22] MEDS: Pantoprazole TAB * 40 MG TAB PO SCH (09:46)
--- NOTE | 2019-06-22 10:11 | PN ---
Progress Note Date of Service: 06/22/19 Note: MADHURI RUSS was visited. Therapy notes read and reviewed. He has no complaints and feels good this morning. Current Medications: Active Medications Generic Name Dose Route Start Last Admin Trade Name Freq PRN Reason Stop Dose Admin Acetaminophen 650 mg 05/29/19 16:59 Tylenol Tab* PO Q6H PRN FEVER > 101 Aspirin 325 mg 05/30/19 09:00 06/22/19 09:45 Ecotrin Ec Tab* PO 325 mg DAILY JOSE Administration Atenolol 50 mg 06/02/19 09:25 06/22/19 09:45 Tenormin Tab* PO 50 mg DAILY JOSE Administration Atorvastatin Calcium 20 mg 05/30/19 17:00 06/21/19 18:02 Lipitor* PO 20 mg 1700 JOSE Administration Bisacodyl 10 mg 06/20/19 18:00 06/21/19 18:02 Dulcolax Supp* [place] 10 mg 1800 JOSE Administration Diltiazem HCl 120 mg 06/02/19 09:25 06/22/19 09:46 Cardizem Cd Cap* PO 120 mg DAILY JOSE Administration Evolocumab 140 mg 06/12/19 12:00 06/12/19 11:20 Repatha Inj (Nf) SUBCUT Not Given Q14D JOSE Gabapentin 300 mg 05/29/19 21:00 06/21/19 19:41 Neurontin Cap(*) PO 300 mg BEDTIME JOSE Administration Magnesium Hydroxide 30 ml 05/29/19 16:59 Milk Of Magnesia Liq* PO Q6H PRN CONSTIPATION Mometasone Furoate/Formoterol Fumar 2 puff 05/30/19 09:00 06/22/19 07:43 Dulera 100/5 Mdi* INH 2 puff BID JOSE Administration Pantoprazole Sodium 40 mg 05/30/19 09:00 06/22/19 09:46 Protonix Tab* PO 40 mg DAILY JOSE Administration Senna 2 tab 06/01/19 21:00 06/22/19 09:46 Senokot 8.6 Mg Tab* PO 2 tab BID JOSE Administration Tamsulosin HCl 0.4 mg 05/29/19 21:00 06/21/19 19:36 Flomax Cap* PO 0.4 mg BEDTIME JOSE Administration Trimethoprim/Sulfamethoxazole 1 tab 06/19/19 21:00 06/22/19 09:45 Bactrim Ds 800/160 Tab* PO 1 tab BID JOSE Administration Vital Signs: Vital Signs Temp Pulse Resp BP Pulse Ox 97.9 F 83 18 109/54 95 06/22/19 05:18 06/22/19 05:18 06/22/19 05:18 06/22/19 05:18 06/22/19 05:18 Exam: GENERAL: No acute distress. alert and appropriate. LUNGS: Clear to auscultation bilaterally. HEART: irregularly irregular ABDOMEN: Soft, + bowel sounds, non-tender, non-distended EXTREMITIES: No edema. NEUROLOGIC: Sensation intact x4 but reports tingling in fingers (unchanged). Motor 4/4 BUE and BLE except trace left DF/EHL. Assessment/Plan: 1. Cervical cord compression: Neurosurgery (at [facility]) did not want to operate. Received decadron. PT/OT 2. Severe Lumbar Spinal Stenosis: . PT/OT. 3. Neurogenic Bladder/Hematuria with h/o prostate CA: Dr. Cueto will change matt Monday. Flomax/Myrbetriq. 4. Atrial fibrillation: ASA/Atenolol/Cardizem. off xarelto due to hematuria 5. Lung Cancer: seen by Dr. Monroe 06/02/19. 6. 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 8. DVT Prophylaxis: Holding Heparin due to hematuria 9. Anemia: stable 10. Urinary Tract infection: Bactrim day 4/6. E Coli sens to Bactrim 11. Advanced Directives: Full Code 06/22/19 10:12 06/22/19 10:12
[2019-06-22] MEDS: Atorvastatin* 20 MG TAB PO SCH (17:59)
[2019-06-22] MEDS: Bisacodyl SUPP* 10 MG SUPP PR SCH ×2 (17:59→18:32)
[2019-06-22] MEDS: Tamsulosin CAP* 0.4 MG PO SCH (21:41)
[2019-06-22] MEDS: Gabapentin CAP(*) 300 MG PO SCH (21:42)
[2019-06-23] MEDS: Mometasone/Formoter 100/5 MDI INH SCH ×2 (07:14→21:57)
[2019-06-23] MEDS: Senna TAB 8.6 mg* TAB PO SCH ×2 (08:45→21:51)
[2019-06-23] MEDS: Sulfamethox/Trimethoprim DS 800/160* TAB PO SCH ×2 (08:45→21:51)
[2019-06-23] MEDS: Atenolol TAB* 50 MG PO SCH (08:45)
[2019-06-23] MEDS: Aspirin EC TAB* 325 MG PO SCH (08:45)
[2019-06-23] MEDS: Pantoprazole TAB * 40 MG TAB PO SCH (08:45)
[2019-06-23] MEDS: Diltiazem CD CAP* 120 MG PO SCH (08:45)
--- NOTE | 2019-06-23 13:34 | PN ---
Progress Note Date of Service: 06/23/19 Note: MADHURI RUSS was visited. Nursing notes read and reviewed. He is doing okay. WIll have matt changed tomorrow. Current Medications: Active Medications Generic Name Dose Route Start Last Admin Trade Name Freq PRN Reason Stop Dose Admin Acetaminophen 650 mg 05/29/19 16:59 Tylenol Tab* PO Q6H PRN FEVER > 101 Aspirin 325 mg 05/30/19 09:00 06/23/19 08:45 Ecotrin Ec Tab* PO 325 mg DAILY JOSE Administration Atenolol 50 mg 06/02/19 09:25 06/23/19 08:45 Tenormin Tab* PO 50 mg DAILY JOSE Administration Atorvastatin Calcium 20 mg 05/30/19 17:00 06/22/19 17:59 Lipitor* PO 20 mg 1700 JOSE Administration Bisacodyl 10 mg 06/20/19 18:00 06/22/19 18:32 Dulcolax Supp* [place] Not Given 1800 JOSE Diltiazem HCl 120 mg 06/02/19 09:25 06/23/19 08:45 Cardizem Cd Cap* PO 120 mg DAILY JOSE Administration Evolocumab 140 mg 06/12/19 12:00 06/12/19 11:20 Repatha Inj (Nf) SUBCUT Not Given Q14D JOSE Gabapentin 300 mg 05/29/19 21:00 06/22/19 21:42 Neurontin Cap(*) PO 300 mg BEDTIME JOSE Administration Magnesium Hydroxide 30 ml 05/29/19 16:59 Milk Of Magnesia Liq* PO Q6H PRN CONSTIPATION Mometasone Furoate/Formoterol Fumar 2 puff 05/30/19 09:00 06/23/19 07:14 Dulera 100/5 Mdi* INH 2 puff BID JOSE Administration Pantoprazole Sodium 40 mg 05/30/19 09:00 06/23/19 08:45 Protonix Tab* PO 40 mg DAILY JOSE Administration Senna 2 tab 06/01/19 21:00 06/23/19 08:45 Senokot 8.6 Mg Tab* PO 2 tab BID JOSE Administration Tamsulosin HCl 0.4 mg 05/29/19 21:00 06/22/19 21:41 Flomax Cap* PO 0.4 mg BEDTIME JOSE Administration Trimethoprim/Sulfamethoxazole 1 tab 06/19/19 21:00 06/23/19 08:45 Bactrim Ds 800/160 Tab* PO 1 tab BID JOSE Administration Vital Signs: Vital Signs Temp Pulse Resp BP Pulse Ox 98.8 F 75 18 104/49 95 06/22/19 16:05 06/22/19 16:05 06/23/19 08:00 06/22/19 16:05 06/22/19 16:05 Exam: GENERAL: No acute distress. alert and appropriate. LUNGS: Clear to auscultation bilaterally. HEART: irregularly irregular ABDOMEN: Soft, + bowel sounds, non-tender, non-distended EXTREMITIES: No edema. NEUROLOGIC: Sensation intact x4 but reports tingling in fingers (unchanged). Motor 4/4 BUE and BLE except trace left DF/EHL. Assessment/Plan: 1. Cervical cord compression: Neurosurgery (at [facility]) did not want to operate. Received decadron. PT/OT 2. Severe Lumbar Spinal Stenosis: . PT/OT. 3. Neurogenic Bladder/Hematuria with h/o prostate CA: Dr. Cueto will change matt Monday. Flomax/Myrbetriq. 4. Atrial fibrillation: ASA/Atenolol/Cardizem. off xarelto due to hematuria 5. Lung Cancer: seen by Dr. Monroe 06/02/19. 6. 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 8. DVT Prophylaxis: Holding Heparin due to hematuria 9. Anemia: stable 10. Urinary Tract infection: Bactrim day 5/6. E Coli sens to Bactrim 11. Advanced Directives: Full Code 06/23/19 13:34
[2019-06-23] MEDS: Bisacodyl SUPP* 10 MG SUPP PR SCH (17:51)
[2019-06-23] MEDS: Atorvastatin* 20 MG TAB PO SCH (17:51)
[2019-06-23] MEDS: Tamsulosin CAP* 0.4 MG PO SCH (21:51)
[2019-06-23] MEDS: Gabapentin CAP(*) 300 MG PO SCH (21:51)
[2019-06-24] MEDS: Diltiazem CD CAP* 120 MG PO SCH (08:16)
[2019-06-24] MEDS: Mometasone/Formoter 100/5 MDI INH SCH ×2 (08:16→19:35)
[2019-06-24] MEDS: Senna TAB 8.6 mg* TAB PO SCH ×2 (08:16→19:33)
[2019-06-24] MEDS: Aspirin EC TAB* 325 MG PO SCH (08:17)
[2019-06-24] MEDS: Atenolol TAB* 50 MG PO SCH (08:17)
[2019-06-24] MEDS: Pantoprazole TAB * 40 MG TAB PO SCH (08:17)
[2019-06-24] MEDS: Sulfamethox/Trimethoprim DS 800/160* TAB PO SCH ×2 (08:17→19:33)
--- NOTE | 2019-06-24 16:13 | PN ---
Progress Note Date of Service: 06/24/19 Note: MADHURI RUSS was visited. Therapy notes read and reviewed. His matt came out today and he has been dribbling continuously since removal. A condom catheter was applied. Will see what PVR is. Current Medications: Active Medications Generic Name Dose Route Start Last Admin Trade Name Freq PRN Reason Stop Dose Admin Acetaminophen 650 mg 05/29/19 16:59 Tylenol Tab* PO Q6H PRN FEVER > 101 Aspirin 325 mg 05/30/19 09:00 06/24/19 08:17 Ecotrin Ec Tab* PO 325 mg DAILY JOSE Administration Atenolol 50 mg 06/02/19 09:25 06/24/19 08:17 Tenormin Tab* PO 50 mg DAILY JOSE Administration Atorvastatin Calcium 20 mg 05/30/19 17:00 06/23/19 17:51 Lipitor* PO 20 mg 1700 JOSE Administration Bisacodyl 10 mg 06/20/19 18:00 06/23/19 17:51 Dulcolax Supp* [place] Not Given 1800 JOSE Diltiazem HCl 120 mg 06/02/19 09:25 06/24/19 08:16 Cardizem Cd Cap* PO 120 mg DAILY JOSE Administration Evolocumab 140 mg 06/12/19 12:00 06/12/19 11:20 Repatha Inj (Nf) SUBCUT Not Given Q14D JOSE Gabapentin 300 mg 05/29/19 21:00 06/23/19 21:51 Neurontin Cap(*) PO 300 mg BEDTIME JOSE Administration Magnesium Hydroxide 30 ml 05/29/19 16:59 Milk Of Magnesia Liq* PO Q6H PRN CONSTIPATION Mometasone Furoate/Formoterol Fumar 2 puff 05/30/19 09:00 06/24/19 08:16 Dulera 100/5 Mdi* INH 2 puff BID JOSE Administration Pantoprazole Sodium 40 mg 05/30/19 09:00 06/24/19 08:17 Protonix Tab* PO 40 mg DAILY JOSE Administration Senna 2 tab 06/01/19 21:00 06/24/19 08:16 Senokot 8.6 Mg Tab* PO 2 tab BID JOSE Administration Tamsulosin HCl 0.4 mg 05/29/19 21:00 06/23/19 21:51 Flomax Cap* PO 0.4 mg BEDTIME JOSE Administration Trimethoprim/Sulfamethoxazole 1 tab 06/19/19 21:00 06/24/19 08:17 Bactrim Ds 800/160 Tab* PO 1 tab BID JOSE Administration Vital Signs: Vital Signs Temp Pulse Resp BP Pulse Ox 97.6 F 90 18 110/47 94 06/24/19 04:58 06/24/19 04:58 06/24/19 08:00 06/24/19 04:58 06/24/19 04:58 Exam: GENERAL: No acute distress. alert and appropriate. LUNGS: Clear to auscultation bilaterally. HEART: irregularly irregular ABDOMEN: Soft, + bowel sounds, non-tender, non-distended EXTREMITIES: No edema. NEUROLOGIC: Sensation intact x4 but reports tingling in fingers (unchanged). Motor 4/4 BUE and BLE except trace left DF/EHL. Assessment/Plan: 1. Cervical cord compression: Neurosurgery (at [facility]) did not want to operate. Received decadron. PT/OT 2. Severe Lumbar Spinal Stenosis: . PT/OT. 3. Neurogenic Bladder/Hematuria with h/o prostate CA: Matt out, condom on, will check PVR. Flomax/Myrbetriq. 4. Atrial fibrillation: ASA/Atenolol/Cardizem. off xarelto due to hematuria 5. Lung Cancer: seen by Dr. Monroe 06/02/19. 6. 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 8. DVT Prophylaxis: Holding Heparin due to hematuria 9. Anemia: stable 10. Urinary Tract infection: Bactrim day 02/21. E Coli sens to Bactrim 11. Advanced Directives: Full Code 06/24/19 16:13 06/24/19 16:14
[2019-06-24] MEDS: Atorvastatin* 20 MG TAB PO SCH (16:32)
[2019-06-24] MEDS: Bisacodyl SUPP* 10 MG SUPP PR SCH (18:22)
[2019-06-24] MEDS: Tamsulosin CAP* 0.4 MG PO SCH (19:33)
[2019-06-24] MEDS: Gabapentin CAP(*) 300 MG PO SCH (19:34)
[2019-06-25] MEDS: Aspirin EC TAB* 325 MG PO SCH (08:53)
[2019-06-25] MEDS: Pantoprazole TAB * 40 MG TAB PO SCH (08:54)
[2019-06-25] MEDS: Atenolol TAB* 50 MG PO SCH (08:54)
[2019-06-25] MEDS: Diltiazem CD CAP* 120 MG PO SCH (08:54)
[2019-06-25] MEDS: Senna TAB 8.6 mg* TAB PO SCH ×2 (08:54→20:01)
[2019-06-25] MEDS: Mometasone/Formoter 100/5 MDI INH SCH ×2 (09:06→20:03)
--- NOTE | 2019-06-25 13:05 | PMRUTEAM ---
PMRU: Team Meeting Current Status: Physical Therapy: Current Status Current Rolling Status Setup or Clean-up Assist Current Supine <-> Sit Status Independent Current Sit <-> Stand Status Supervision/Touching Current Bed <-> Chair Status Partial/Moderate Transfer/Bed Mobility Rolling Walker Recommended Devices Transfer Mobility Comment Mod SPT with PT, EZ-stand with nsg Current Ambulation Assistance Partial/Moderate Status Ambulation Assistive Device Rolling Walker Ambulation Conditions Two or More Turns Current Ambulation Distance 100 Ambulation Comment with lite gait Manual Wheelchair Control/ Bilateral LE's Technique Current Wheelchair Propulsion Supervision/Touching Ability Status Wheelchair Distance (ft) 50 Current Stair Climbing Status Dependent Stair Climbing Assistive Left Railing,Right Railing Devices Number of Stairs Climbed 1 Objective Comments 1 step up 3" step with mod Ax2 with hands on FWW Occupational Therapy: Current Status Current Upper Body Dressing Partial/Moderate Status Current Lower Body Dressing Dependent Status Current Footwear Status Substantial/Maximal Current Bathing Status Dependent Current Grooming Status Setup or Clean-up Assist Current Toileting Status Dependent Toilet Transfer Progress EZ stand Current Eating Status Setup or Clean-up Assist Instrumental ADL [facility] 09/10=66.57% Nursing: Current Status Skin Deviations [scrotum] Other Skin Deviations [Bilateral Other Buttocks] Skin Deviation Description [ healing well scrotum] Skin Deviation Description [ healing well. mild redness noted. Bilateral Buttocks] Bladder Current Status matt dc'd 06/23/19. incontinent of urine. patient requesting to have matt reinserted but also feels he could handle being incontinent and changing his brief here and at home. declines to learn straight cath Bowel Current Status last bm 06/23/19. patient refused OK on evening shift. Nutrition Current Status appetite good Medication Current Status needs reinforcment Rec Therapy: Current Status Summary of Assessment and Recreation Therapy services introduced and Clinical Impression assessment complete. Pt. has been minimally engaged in leisure visits, declining pet therapy but is open to brief check-in's from this principal technical writer throughout his hospitalization. Treatment Goals Pt. will engage in leisure activities as tolerated . Treatment Plan Provide recreation therapy and encourage involvement. Nutrition: Current Status Monitoring diet changed to regular unrestricted on 06/14. PO intake cont to be adequate, typically eating 100% of 2 meals/day; otherwise 50-75%. Mild hyponatremia improved (134) and within acceptable range w/SIADH. AST/ALT back to normal range (per labs 06/14). Last BM 06/17; accepts daily Senna. Tentative d/c date 06/28. Appears to be meeting goals as outlined below. Goals: Physical Therapy: Goals Goals to Be Accomplished in ( 14 Days) Goal: Rolling Assistance Independent Goal Supine <-> Sit Status Independent Goal Sit <-> Stand Status Independent Goal Bed <-> Chair Status Independent Transfer/Bed Mobility Rolling Walker Recommended Devices Goal: Picking Up Object Independent Goal: Car Transfer Status Setup or Clean-up Assist Goal: Ambulation Assistance Independent Ambulation Assistive Devices Rolling Walker Ambulation Distance (ft) 150 Goal: Wheelchair Propulsion Independent Ability Wheelchair Distance (ft) 150 Goal: Stairs Assistance Independent Stairs Recommended Devices Two Rails Number of Stairs 5 Goal: Curb Assistance Independent Goal: Home Exercise Program Independent Assistance Occupational Therapy: Goals Goals to be Completed in ( ) Nutrition: Goals Intervention Goals 1. Intake will remain adequate to maintain UBW 2. Pt will maintain regular bowel pattern without constipation (or diarrhea) 3. Maintain serum electrolytes within acceptable ranges Nursing: Goals Bladder Goal independent Bowel Goal assistance with OK insertion Nutrition Goal 100 % of all meals Medication Goal independent Care Plan: Care Plan ADL's - Improve/Maintain Start: 05/30/19 10:39 Freq: DAILY@0700,1900 Status: Active Target: 06/20/19 Protocol: Activity Type Activity Date Activity User E-Sign Co-Sign Detail Recorded Client Recorded Date Recorded By Document 06/24/19 15:48 [id number] 06/24/19 15:48 [id number] 06/24/19 15:48 PMRU Outcome: ADL's/ADL Transfers Orders/Interventions Occupational Therapy Evaluation & Treatment Communication Tool in Patient Room Device Yes Address Deficits Secondary To: weakness Patient to receive OT 5x/wk for 60-120 Therex min/day Self Care Management Group Therapy Neuromuscular ReEducation UE/LE ADL's with Assist Yes: Tatiana ADL Transfers with Assist Yes: Tatiana Toileting: Transfers,Clothing Management Yes: Tatiana ,Hygeine w/Assist Light Kitchen/Laundry w/Assist No Other Outcome/Goals Pt participated well in treatment session, able to complete dynamic standing activities this date with unilateral UE support and Anna for balance. Progression Toward Outcome/Goals Progressing Cardiovascular- Improve/Maintain Start: 05/29/19 22:35 Freq: DAILY@0700,1900 Status: Active Target: 06/30/19 Protocol: Activity Type Activity Date Activity User E-Sign Co-Sign Detail Recorded Client Recorded Date Recorded By Document 06/25/19 09:08 [id number] 06/25/19 09:10 [id number] 06/25/19 09:08 PMRU Outcome: Cardiovascular Vital Signs q Shift for 48hrs Then BID Yes Daily Weight Ordered No Current Cardiovascular Outcome/Goal Maintain/ Achieve Baseline HR, BP , Perfusion Free of Abnormal Cardiac Symptoms Progression Toward Outcome/Goal Progressing Coping/Psych-Improve/Maintain Start: 05/29/19 22:35 Freq: DAILY@699,1899 Status: Complete Target: 06/21/19 Protocol: Activity Type Activity Date Activity User E-Sign Co-Sign Detail Recorded Client Recorded Date Recorded By Document 06/25/19 09:08 [id number] 06/25/19 09:10 [id number] 06/25/19 09:08 PMRU Outcome: Coping/Psychosocial Current Coping Outcome/Goals Verbalization of Acceptance of Rehab Admit Verbalization of Sense of Control Over Health Status Utilization of Appropriate Problem Solving Techniques Willingness to Participate in Treatment Plan and Basic Needs Utilization of Available Support Systems Progression Toward Outcome/Goals Progressing Current Psychosocial Outcome/Goals Maintain/ Improve Emotional Health Demonstrates Knowledge of Healthy Coping Mechanisms Available Cooperate/ Participate in Plan Progression Toward Outcome/Goals Progressing DVT Prophylaxis- Improve/Maintain Start: 05/29/19 22:35 Freq: DAILY@699,[id number] Status: Active Target: 06/28/19 Protocol: Activity Type Activity Date Activity User E-Sign Co-Sign Detail Recorded Client Recorded Date Recorded By Document 06/25/19 09:08 [id number] 06/25/19 09:10 [id number] 06/25/19 09:08 PMRU Outcome: DVT Prophylaxis Current DVT Outcome/Goals Remains Free of DVT Free of complications from current DVT Complies with DVT Prophylaxis /Treatment Demonstrates Knowledge of DVT Prevention/ Treatment TEDS Stockings on Every AM, Off at HS Progression Toward Outcome/Goals Progressing Discharge Planning - Improve/Maintain Start: 05/29/19 22:35 Freq: DAILY@0700,1900 Status: Active Target: 06/29/19 Protocol: Activity Type Activity Date Activity User E-Sign Co-Sign Detail Recorded Client Recorded Date Recorded By Document 06/25/19 04:21 [id number] 06/25/19 04:22 [id number] 06/25/19 04:21 PMRU Outcome: Discharge Planning Update Patient Family No Current Discharge Planning Outcome/Goals Demonstrates Understanding of Discharge Plan Progression Toward Outcome/Goals Progressing Education-Improve/Maintain Start: 05/29/19 22:35 Freq: DAILY@0700,1900 Status: Active Target: 06/29/19 Protocol: Activity Type Activity Date Activity User E-Sign Co-Sign Detail Recorded Client Recorded Date Recorded By Document 06/25/19 09:08 [id number] [email or web address] 06/25/19 09:10 [id number] 06/25/19 09:08 PMRU Outcome: Education Current Education Outcome/Goals Demonstrate/ Verbalize Understanding of Written Discharge Instructions Demonstrates Skills Encourage Questions Progression Toward Outcome/Goals Progressing /GI-Improve/Maintain Start: 05/29/19 22:35 Freq: DAILY@699,1900 Status: Active Target: 06/29/19 Protocol: Activity Type Activity Date Activity User E-Sign Co-Sign Detail Recorded Client Recorded Date Recorded By Document 06/25/19 09:08 [id number] 06/25/19 09:10 [id number] 06/25/19 09:08 PMRU Outcome: Genitourinary/ Gastrointestinal Current Gastrointestinal Outcome/Goals Maintain/ Achieve Bowel Regularity in Accordance with Pt's Baseline Remain Free of Emesis Prevent Constipation Laxatives as Ordered Progression Toward Outcome/Goals Progressing Current Genitourinary Outcome/Goals Maintain/ Achieve Urinary Continence Maintain/ Achieve Adequate Urinary Output Progression Toward Outcome/Goals Not Progressing Lack of Progression Comment shaka rios'd 06/24. incontinent of urine Medication Administration Start: 05/29/19 22:35 Freq: DAILY@0700,1900 Status: Active Target: 06/28/19 Protocol: Activity Type Activity Date Activity User E-Sign Co-Sign Detail Recorded Client Recorded Date Recorded By Document 06/25/19 09:08 [id number] 06/25/19 09:10 [id number] 06/25/19 09:08 PMRU Outcome: Medication Administration Assess Patient Knowledge/Teach Med Yes Education for all Meds Current C Wpf Developer Outcome/Goals Patient Independent with Medication Administration at Home Demonstrates Understanding Progression Towards Outcome/Goals Progressing Is Patient Going Home on Lovenox? No Mobility- Improve/Maintain Start: 05/30/19 18:03 Freq: DAILY@699,1899 Status: Active Target: 06/28/19 Protocol: Activity Type Activity Date Activity User E-Sign Co-Sign Detail Recorded Client Recorded Date Recorded By Document 06/24/19 09:30 [id number] 06/24/19 09:30 [id number] 06/24/19 09:30 PMRU Outcome: Mobility Physical Therapy Evaluation and Yes Treatment Activity OOB with Assistance Yes WBAT Yes Device Yes Assistance Yes Patient to be seen 5x/wk for 60-120 min/ Therex day for: Mobility Training Gait Training W/C Mobility Balance Current Mobility Outcome/Goals Maintain/ Achieve Baseline Mobility Status Improve Mobility Status Demonstrates Proper Use of Assistive Devices Free from Complications of Immobility Progression Toward Outcome/Goals Progressing Outcome/Goals Met Improve Mobility Status Free from Complications of Immobility Bed Mobility Yes: independent Transfers Yes: independent with rolling walker. Gait x ft Yes: independent with rolling walker to 150' Up/Down Stairs Yes: independent up/ down 5 stairs with 2 rails. Pain/Comfort- Improve/Maintain Start: 05/29/19 22:35 Freq: DAILY@ Status: Complete Target: 07/01/19 Protocol: Activity Type Activity Date Activity User E-Sign Co-Sign Detail Recorded Client Recorded Date Recorded By Document 06/13/19 00:55 [id number] [email or web address] 06/13/19 01:02 [id number] 06/13/19 00:55 PMRU Outcome: Pain/Comfort Current Pain/Comfort Outcome/Goals Demonstrates Knowledge and Use of Available Comfort Measures Achieves Acceptable Comfort/Pain Level as Determined by Patient/Condit Maintain Comfort Level Allowing Patient to Fully Participate in Rehab Progression Toward Outcome/Goals Goals Met Outcome/Goals Met Demonstrates Knowledge and Use of Available Comfort Measures Achieves Acceptable Comfort/Pain Level as Determined by Patient/Condit Maintain Comfort Level Allowing Patient to Fully Participate in Rehab Outcome/Goals Met Comment Pt resting Rec Therapy- Improve/Maintain Start: 05/30/19 13:17 Freq: DAILY@699,1900 Status: Active Target: 06/28/19 Protocol: Activity Type Activity Date Activity User E-Sign Co-Sign Detail Recorded Client Recorded Date Recorded By Document 06/25/19 11:22 [id number] 06/25/19 11:23 [id number] 06/25/19 11:22 PMRU Outcome: Recreation Therapy Current Rec Ther Outcome/Goals Meet with Patient Regularly for Support Encourage Leisure Involvement Progression Toward Outcome/Goals Progressing Lack of Progression Comment bi-weekly visits have been provided and pt. appears to appreciate the check-ins. Outcome/Goals Met Meet with Patient Regularly for Support Encourage Leisure Involvement Respiratory - Improve/Maintain Start: 05/29/19 22:35 Freq: DAILY@0700,1900 Status: Active Target: 06/28/19 Protocol: Activity Type Activity Date Activity User E-Sign Co-Sign Detail Recorded Client Recorded Date Recorded By Document 06/25/19 09:08 [id number] 06/25/19 09:10 [id number] 06/25/19 09:08 PMRU Outcome: Respiratory Does Patient Have a Trach No Current Respiratory Outcome/Goals Maintain/ Improve Baseline Respiratory Status Maintain/ Improve Activity Tolerance Prevent Pneumonia/ Atelectasis Progression Toward Outcome/Goals Progressing Safety- Improve/Maintain Start: 05/29/19 14:06 Freq: DAILY@0700,1900 Status: Active Target: 06/28/19 Protocol: Activity Type Activity Date Activity User E-Sign Co-Sign Detail Recorded Client Recorded Date Recorded By Document 06/25/19 09:08 [id number] 06/25/19 09:10 [id number] 06/25/19 09:08 PMRU Outcome: Safety Current Safety Outcome/Goals Remain Free of Injury or Harm Cooperates with Safety Measures for Least Restrictive Environment Prevent Falls/ Injury Progression Toward Outcome/Goals Progressing Skin- Improve/Maintain Start: 05/29/19 22:35 Freq: DAILY@0700,1900 Status: Active Target: 06/29/19 Protocol: Activity Type Activity Date Activity User E-Sign Co-Sign Detail Recorded Client Recorded Date Recorded By Document 06/25/19 09:08 [id number] 06/25/19 09:10 [id number] 06/25/19 09:08 PMRU Outcome: Skin Skin Risk Level Mild Risk Skin Orders Turn/Position q2hr While in Bed Current Skin Outcome/Goals Maintain/ Improve Skin Integrity Free from Pressure Injury Maintain/ Improve Wound Status Progression Toward Outcome/Goals Progressing - Interdisciplinary Staff Present Lead Sales Consultant/Social Work Staff Present: Lissett Vivar LMSW Nursing Staff Present: Mikki Chavira LPN OT Staff Present: Cheryl Bingham PT Staff Present: Arleth Mcrae Rec Therapy Staff Present: Bina Evans Medicine Note: Length of Stay: [] Anticipated Discharge Destination: Tentative Discharge Date: [] Discharged to: []
[2019-06-25] MEDS: Atorvastatin* 20 MG TAB PO SCH (17:05)
--- NOTE | 2019-06-25 17:58 | PN ---
Progress Note Date of Service: 06/25/19 Note: MADHURI RUSS was visited. Therapy notes read and reviewed. Micaheal was discussed in interdisciplinary team rounds. Will likely need ALEKSANDR. He was able to void this evening, still leaks between voids. Current Medications: Active Medications Generic Name Dose Route Start Last Admin Trade Name Freq PRN Reason Stop Dose Admin Acetaminophen 650 mg 05/29/19 16:59 Tylenol Tab* PO Q6H PRN FEVER > 101 Aspirin 325 mg 05/30/19 09:00 06/25/19 08:53 Ecotrin Ec Tab* PO 325 mg DAILY JOSE Administration Atenolol 50 mg 06/02/19 09:25 06/25/19 08:54 Tenormin Tab* PO 50 mg DAILY JOSE Administration Atorvastatin Calcium 20 mg 05/30/19 17:00 06/25/19 17:05 Lipitor* PO 20 mg 1700 JOSE Administration Bisacodyl 10 mg 06/20/19 18:00 06/24/19 18:22 Dulcolax Supp* [place] Not Given 1800 JOSE Diltiazem HCl 120 mg 06/02/19 09:25 06/25/19 08:54 Cardizem Cd Cap* PO 120 mg DAILY JOSE Administration Evolocumab 140 mg 06/12/19 12:00 06/12/19 11:20 Repatha Inj (Nf) SUBCUT Not Given Q14D JOSE Gabapentin 300 mg 05/29/19 21:00 06/24/19 19:34 Neurontin Cap(*) PO 300 mg BEDTIME JOSE Administration Magnesium Hydroxide 30 ml 05/29/19 16:59 Milk Of Magnesia Liq* PO Q6H PRN CONSTIPATION Mometasone Furoate/Formoterol Fumar 2 puff 05/30/19 09:00 06/25/19 09:06 Dulera 100/5 Mdi* INH 2 puff BID JOSE Administration Pantoprazole Sodium 40 mg 05/30/19 09:00 06/25/19 08:54 Protonix Tab* PO 40 mg DAILY JOSE Administration Senna 2 tab 06/01/19 21:00 06/25/19 08:54 Senokot 8.6 Mg Tab* PO 2 tab BID JOSE Administration Tamsulosin HCl 0.4 mg 05/29/19 21:00 06/24/19 19:33 Flomax Cap* PO 0.4 mg BEDTIME JOSE Administration Vital Signs: Vital Signs Temp Pulse Resp BP Pulse Ox 97.6 F 86 18 115/51 94 06/25/19 06:09 06/25/19 06:09 06/25/19 06:09 06/25/19 06:09 06/25/19 06:09 Exam: GENERAL: No acute distress. alert and appropriate. LUNGS: Clear to auscultation bilaterally. HEART: irregularly irregular ABDOMEN: Soft, + bowel sounds, non-tender, non-distended EXTREMITIES: No edema.Left foot skin flaking, appears tinea pedis NEUROLOGIC: Sensation intact x4 but reports tingling in fingers (unchanged). Motor 4/4 BUE and BLE except trace left DF/EHL. Assessment/Plan: 1. Cervical cord compression: Neurosurgery (at [facility]) did not want to operate. Received decadron. PT/OT 2. Severe Lumbar Spinal Stenosis: . PT/OT. 3. Neurogenic Bladder/Hematuria with h/o prostate CA: Lopez out, condom on, will check PVR. Flomax/Myrbetriq. 4. Atrial fibrillation: ASA/Atenolol/Cardizem. off xarelto due to hematuria 5. Lung Cancer: seen by Dr. Monroe 06/02/19. 6. 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 8. DVT Prophylaxis: Holding Heparin due to hematuria 9. Anemia: stable 10. Advanced Directives: Full Code 06/25/19 17:58
[2019-06-25] MEDS: Bisacodyl SUPP* 10 MG SUPP PR SCH (18:00)
[2019-06-25] MEDS: Gabapentin CAP(*) 300 MG PO SCH (20:01)
[2019-06-25] MEDS: Tamsulosin CAP* 0.4 MG PO SCH (20:01)
[2019-06-25] MEDS: Miconazole TOPICAL CREAM 2%* 30 GM TOPICAL SCH (20:04)
[2019-06-26] MEDS: Mometasone/Formoter 100/5 MDI INH SCH ×2 (07:39→19:44)
[2019-06-26] MEDS: Senna TAB 8.6 mg* TAB PO SCH ×2 (08:26→19:42)
[2019-06-26] MEDS: Miconazole TOPICAL CREAM 2%* 30 GM TOPICAL SCH ×2 (08:26→19:44)
[2019-06-26] MEDS: Aspirin EC TAB* 325 MG PO SCH (08:27)
[2019-06-26] MEDS: Atenolol TAB* 50 MG PO SCH (08:27)
[2019-06-26] MEDS: Diltiazem CD CAP* 120 MG PO SCH (08:27)
[2019-06-26] MEDS: Pantoprazole TAB * 40 MG TAB PO SCH (08:33)
[2019-06-26] MEDS: PTO:Evolocumab (NF) 140 MG/ML SYRINGE SUBCUT SCH (12:05)
[2019-06-26] MEDS: Atorvastatin* 20 MG TAB PO SCH (16:51)
--- NOTE | 2019-06-26 17:35 | PN ---
Progress Note Date of Service: 06/26/19 Note: MADHURI RUSS was visited. Therapy notes read and reviewed. Was able to work on stairs today and has been able to void, but had a high bladder volume. Current Medications: Active Medications Generic Name Dose Route Start Last Admin Trade Name Freq PRN Reason Stop Dose Admin Acetaminophen 650 mg 05/29/19 16:59 Tylenol Tab* PO Q6H PRN FEVER > 101 Aspirin 325 mg 05/30/19 09:00 06/26/19 08:27 Ecotrin Ec Tab* PO 325 mg DAILY JOSE Administration Atenolol 50 mg 06/02/19 09:25 06/26/19 08:27 Tenormin Tab* PO 50 mg DAILY JOSE Administration Atorvastatin Calcium 20 mg 05/30/19 17:00 06/26/19 16:51 Lipitor* PO 20 mg 1700 JOSE Administration Bisacodyl 10 mg 06/20/19 18:00 06/25/19 18:00 Dulcolax Supp* [place] Not Given 1800 JOSE Diltiazem HCl 120 mg 06/02/19 09:25 06/26/19 08:27 Cardizem Cd Cap* PO 120 mg DAILY JOSE Administration Evolocumab 140 mg 06/12/19 12:00 06/26/19 12:05 Repatha Inj (Nf) SUBCUT 140 mg Q14D JOSE Administration Gabapentin 300 mg 05/29/19 21:00 06/25/19 20:01 Neurontin Cap(*) PO 300 mg BEDTIME JOSE Administration Magnesium Hydroxide 30 ml 05/29/19 16:59 Milk Of Magnesia Liq* PO Q6H PRN CONSTIPATION Miconazole Nitrate 1 applic 06/25/19 21:00 06/26/19 08:26 Monistat 2%* TOPICAL 1 applic BID JOSE Administration Mometasone Furoate/Formoterol Fumar 2 puff 05/30/19 09:00 06/26/19 07:39 Dulera 100/5 Mdi* INH 2 puff BID JOSE Administration Pantoprazole Sodium 40 mg 05/30/19 09:00 06/26/19 08:33 Protonix Tab* PO 40 mg DAILY JOSE Administration Senna 2 tab 06/01/19 21:00 06/26/19 08:26 Senokot 8.6 Mg Tab* PO 2 tab BID JOSE Administration Tamsulosin HCl 0.4 mg 05/29/19 21:00 06/25/19 20:01 Flomax Cap* PO 0.4 mg BEDTIME JOSE Administration Vital Signs: Vital Signs Temp Pulse Resp BP Pulse Ox 98.7 F 68 24 115/50 97 06/26/19 15:44 06/26/19 15:44 06/26/19 15:44 06/26/19 15:44 06/26/19 15:44 Exam: GENERAL: No acute distress. alert and appropriate. LUNGS: Clear to auscultation bilaterally. HEART: irregularly irregular ABDOMEN: Soft, + bowel sounds, non-tender, non-distended EXTREMITIES: No edema.Left foot skin flaking, appears tinea pedis NEUROLOGIC: Sensation intact x4 but reports tingling in fingers (unchanged). Motor 4/4 BUE and BLE except trace left DF/EHL. Assessment/Plan: 1. Cervical cord compression: Neurosurgery (at [facility]) did not want to operate. Received decadron. PT/OT 2. Severe Lumbar Spinal Stenosis: . PT/OT. 3. Neurogenic Bladder/Hematuria with h/o prostate CA: Lopez out, checking PVR. Flomax/Myrbetriq. 4. Atrial fibrillation: ASA/Atenolol/Cardizem. off xarelto due to hematuria 5. Lung Cancer: seen by Dr. Monroe 06/02/19. 6. 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 8. DVT Prophylaxis: Holding Heparin due to hematuria 9. Anemia: stable 10. Advanced Directives: Full Code 06/26/19 17:35
[2019-06-26] MEDS: Bisacodyl SUPP* 10 MG SUPP PR SCH (18:04)
[2019-06-26] MEDS: Tamsulosin CAP* 0.4 MG PO SCH (19:42)
[2019-06-26] MEDS: Gabapentin CAP(*) 300 MG PO SCH (19:42)
[2019-06-27] MEDS: Mometasone/Formoter 100/5 MDI INH SCH ×2 (07:15→20:19)
[2019-06-27] MEDS: Aspirin EC TAB* 325 MG PO SCH (09:17)
[2019-06-27] MEDS: Diltiazem CD CAP* 120 MG PO SCH (09:17)
[2019-06-27] MEDS: Atenolol TAB* 50 MG PO SCH (09:17)
[2019-06-27] MEDS: Senna TAB 8.6 mg* TAB PO SCH ×2 (09:18→20:18)
[2019-06-27] MEDS: Pantoprazole TAB * 40 MG TAB PO SCH (09:18)
[2019-06-27] MEDS: Miconazole TOPICAL CREAM 2%* 30 GM TOPICAL SCH ×2 (09:19→20:19)
--- NOTE | 2019-06-27 15:46 | PN ---
Progress Note Date of Service: 06/27/19 Note: MADHURI RUSS was visited. Therapy notes read and reviewed. He remains incontinent of urine and has been wearing a pad. He tells me his bladder scans have been under 200 Current Medications: Active Medications Generic Name Dose Route Start Last Admin Trade Name Freq PRN Reason Stop Dose Admin Acetaminophen 650 mg 05/29/19 16:59 Tylenol Tab* PO Q6H PRN FEVER > 101 Aspirin 325 mg 05/30/19 09:00 06/27/19 09:17 Ecotrin Ec Tab* PO 325 mg DAILY JOSE Administration Atenolol 50 mg 06/02/19 09:25 06/27/19 09:17 Tenormin Tab* PO 50 mg DAILY JOSE Administration Atorvastatin Calcium 20 mg 05/30/19 17:00 06/26/19 16:51 Lipitor* PO 20 mg 1700 JOSE Administration Bisacodyl 10 mg 06/20/19 18:00 06/26/19 18:04 Dulcolax Supp* [place] 10 mg 1800 JOSE Administration Diltiazem HCl 120 mg 06/02/19 09:25 06/27/19 09:17 Cardizem Cd Cap* PO 120 mg DAILY JOSE Administration Evolocumab 140 mg 06/12/19 12:00 06/26/19 12:05 Repatha Inj (Nf) SUBCUT 140 mg Q14D JOSE Administration Gabapentin 300 mg 05/29/19 21:00 06/26/19 19:42 Neurontin Cap(*) PO 300 mg BEDTIME JOSE Administration Magnesium Hydroxide 30 ml 05/29/19 16:59 Milk Of Magnesia Liq* PO Q6H PRN CONSTIPATION Miconazole Nitrate 1 applic 06/25/19 21:00 06/27/19 09:19 Monistat 2%* TOPICAL 1 applic BID JOSE Administration Mometasone Furoate/Formoterol Fumar 2 puff 05/30/19 09:00 06/27/19 07:15 Dulera 100/5 Mdi* INH 2 puff BID JOSE Administration Pantoprazole Sodium 40 mg 05/30/19 09:00 06/27/19 09:18 Protonix Tab* PO 40 mg DAILY JOSE Administration Senna 2 tab 06/01/19 21:00 06/27/19 09:18 Senokot 8.6 Mg Tab* PO 2 tab BID JOSE Administration Tamsulosin HCl 0.4 mg 05/29/19 21:00 06/26/19 19:42 Flomax Cap* PO 0.4 mg BEDTIME JOSE Administration Vital Signs: Vital Signs Temp Pulse Resp BP Pulse Ox 97.7 F 94 18 108/46 100 06/27/19 06:25 06/27/19 06:25 06/27/19 08:00 06/27/19 06:25 06/27/19 06:25 Exam: GENERAL: No acute distress. alert and appropriate. LUNGS: Clear to auscultation bilaterally. HEART: irregularly irregular ABDOMEN: Soft, + bowel sounds, non-tender, non-distended EXTREMITIES: No edema.Left foot skin flaking, appears tinea pedis NEUROLOGIC: Sensation intact x4 but reports tingling in fingers (unchanged). Motor 4/4 BUE and BLE except trace left DF/EHL. Assessment/Plan: 1. Cervical cord compression: Neurosurgery (at [facility]) did not want to operate. Received decadron. PT/OT 2. Severe Lumbar Spinal Stenosis: . PT/OT. 3. Neurogenic Bladder/Hematuria with h/o prostate CA: Lopez out, checking PVR. Flomax/Myrbetriq. 4. Atrial fibrillation: ASA/Atenolol/Cardizem. off xarelto due to hematuria 5. Lung Cancer: seen by Dr. Monroe 06/02/19. 6. 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 8. DVT Prophylaxis: Holding Heparin due to hematuria 9. Anemia: stable 10. Advanced Directives: Full Code 06/27/19 15:46
[2019-06-27] MEDS: Atorvastatin* 20 MG TAB PO SCH (17:35)
[2019-06-27] MEDS: Bisacodyl SUPP* 10 MG SUPP PR SCH (18:02)
[2019-06-27] MEDS: Gabapentin CAP(*) 300 MG PO SCH (20:18)
[2019-06-27] MEDS: Tamsulosin CAP* 0.4 MG PO SCH (20:18)
[2019-06-28] MEDS: Senna TAB 8.6 mg* TAB PO SCH ×2 (07:35→21:03)
[2019-06-28] MEDS: Miconazole TOPICAL CREAM 2%* 30 GM TOPICAL SCH ×2 (07:35→21:02)
[2019-06-28] MEDS: Aspirin EC TAB* 325 MG PO SCH (07:35)
[2019-06-28] MEDS: Atenolol TAB* 50 MG PO SCH (07:35)
[2019-06-28] MEDS: Diltiazem CD CAP* 120 MG PO SCH (07:35)
[2019-06-28] MEDS: Pantoprazole TAB * 40 MG TAB PO SCH (07:35)
[2019-06-28] MEDS: Mometasone/Formoter 100/5 MDI INH SCH ×2 (09:21→21:03)
--- NOTE | 2019-06-28 10:10 | PN ---
Progress Note Date of Service: 06/28/19 Note: MADHURI RUSS was visited. Nursing and therapy notes read and reviewed. Multiple large incontinent voids documented overnight with large volume bladder scans, but it is not clear that these are real PVRs since voids are found on routine checks and patient is unaware that he has gone and is not waking up for it. This morning had 200cc in bladder. No chest pain, shortness of breath or abdominal pain. He has not felt any urinary urge or discomfort. Current Medications: Active Medications Generic Name Dose Route Start Last Admin Trade Name Freq PRN Reason Stop Dose Admin Acetaminophen 650 mg 05/29/19 16:59 Tylenol Tab* PO Q6H PRN FEVER > 101 Aspirin 325 mg 05/30/19 09:00 06/28/19 07:35 Ecotrin Ec Tab* PO 325 mg DAILY JOSE Administration Atenolol 50 mg 06/02/19 09:25 06/28/19 07:35 Tenormin Tab* PO 50 mg DAILY JOSE Administration Atorvastatin Calcium 20 mg 05/30/19 17:00 06/27/19 17:35 Lipitor* PO 20 mg 1700 JOSE Administration Bisacodyl 10 mg 06/20/19 18:00 06/27/19 18:02 Dulcolax Supp* [place] 10 mg 1800 JOSE Administration Diltiazem HCl 120 mg 06/02/19 09:25 06/28/19 07:35 Cardizem Cd Cap* PO 120 mg DAILY JOSE Administration Evolocumab 140 mg 06/12/19 12:00 06/26/19 12:05 Repatha Inj (Nf) SUBCUT 140 mg Q14D JOSE Administration Gabapentin 300 mg 05/29/19 21:00 06/27/19 20:18 Neurontin Cap(*) PO 300 mg BEDTIME JOSE Administration Magnesium Hydroxide 30 ml 05/29/19 16:59 Milk Of Magnesia Liq* PO Q6H PRN CONSTIPATION Miconazole Nitrate 1 applic 06/25/19 21:00 06/28/19 07:35 Monistat 2%* TOPICAL 1 applic BID JOSE Administration Mometasone Furoate/Formoterol Fumar 2 puff 05/30/19 09:00 06/28/19 09:21 Dulera 100/5 Mdi* INH 2 puff BID JOSE Administration Pantoprazole Sodium 40 mg 05/30/19 09:00 06/28/19 07:35 Protonix Tab* PO 40 mg DAILY JOSE Administration Senna 2 tab 06/01/19 21:00 06/28/19 07:35 Senokot 8.6 Mg Tab* PO 2 tab BID JOSE Administration Tamsulosin HCl 0.4 mg 05/29/19 21:00 06/27/19 20:18 Flomax Cap* PO 0.4 mg BEDTIME JOSE Administration Vital Signs: Vital Signs Temp Pulse Resp BP Pulse Ox 98.3 F 83 12 111/48 98 06/28/19 05:00 06/28/19 09:24 06/28/19 09:29 06/28/19 05:00 06/28/19 09:24 Exam: GENERAL: No acute distress. alert and appropriate. LUNGS: Clear to auscultation bilaterally. HEART: irregularly irregular ABDOMEN: Soft, + bowel sounds, non-tender, non-distended EXTREMITIES: No edema. NEUROLOGIC: Sensation intact x4 but reports tingling in fingers (unchanged). Motor 4/4 BUE and BLE except trace left DF. Has left AFO on. Assessment/Plan: 1. Cervical cord compression: Neurosurgery (at [facility] did not want to operate. Received decadron. PT/OT 2. Severe Lumbar Spinal Stenosis: . PT/OT. 3. Neurogenic Bladder/Hematuria with h/o prostate CA: Lopez out. Checking bladder scans, but unclear if getting true PVRs. Last 2 readings were 200cc. Flomax/Myrbetriq. f/u with urology. 4. Atrial fibrillation: ASA/Atenolol/Cardizem. off xarelto due to hematuria 5. Lung Cancer: seen by Dr. Monroe 06/02/19. 6. 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 labs pending. 8. DVT Prophylaxis: Holding Heparin due to hematuria 9. Anemia: labs pending. 10. Advanced Directives: Full Code 06/28/19 10:17
[2019-06-28 10:47] LABS: Albumin 3.6 g/dL (3.2-5.2); Albumin/Globulin Ratio 1.2 (1-3); BUN/Creatinine Ratio 18.2 (8-20); Calcium 9.1 mg/dL (8.6-10.3); EGFR African American 100.1 (>60); EGFR Non-African American 82.7 (>60); Potassium 4.7 mmol/L (3.5-5.0); Total Bilirubin 0.4 mg/dL (0.2-1.0); Total Protein 6.6 g/dL (6.4-8.9)
[2019-06-28 11:00] LABS: ABS Lymphocytes 0.7 10^3/ul (1.0-4.8); ABS Monocytes 0.5 10^3/ul (0-0.8); ABS Neutrophils 5.4 10^3/ul (1.5-7.7); Eosinophil % 0.7 %; Hematocrit 29 % (42-52); Hemoglobin 9.4 g/dL (14.0-18.0); Lymphocyte % 9.9 %; Mean Corpuscular HGB Conc 33 g/dL (31-36); Mean Corpuscular Hemoglobin 29 pg (27-31); Mean Corpuscular Volume 88 fL (80-94); Mean Platelet Volume 8.1 fL (7.4-10.4); Platelet Count 235 10^3/uL (150-450); Red Blood Count 3.25 10^6 /uL (4.18-5.48); Red Cell Distribution Width 20 % (10-15); White Blood Count 6.7 10^3/uL (3.5-10.8)
[2019-06-28] MEDS: Bisacodyl SUPP* 10 MG SUPP PR SCH (18:05)
[2019-06-28] MEDS: Atorvastatin* 20 MG TAB PO SCH (18:29)
[2019-06-28] MEDS: Gabapentin CAP(*) 300 MG PO SCH (21:01)
[2019-06-28] MEDS: Tamsulosin CAP* 0.4 MG PO SCH (21:02)
[2019-06-29] MEDS: Atenolol TAB* 50 MG PO SCH (08:26)
[2019-06-29] MEDS: Aspirin EC TAB* 325 MG PO SCH (08:26)
[2019-06-29] MEDS: Senna TAB 8.6 mg* TAB PO SCH ×2 (08:27→20:18)
[2019-06-29] MEDS: Pantoprazole TAB * 40 MG TAB PO SCH (08:27)
[2019-06-29] MEDS: Mometasone/Formoter 100/5 MDI INH SCH ×2 (08:30→20:21)
[2019-06-29] MEDS: Diltiazem CD CAP* 120 MG PO SCH (08:32)
[2019-06-29] MEDS: Miconazole TOPICAL CREAM 2%* 30 GM TOPICAL SCH ×2 (09:41→20:23)
--- NOTE | 2019-06-29 10:30 | PN ---
Progress Note Date of Service: 06/29/19 Note: MADHURI RUSS was visited. Nursing and therapy notes read and reviewed. Had a good BM last night after dinner with suppository. Current Medications: Active Medications Generic Name Dose Route Start Last Admin Trade Name Freq PRN Reason Stop Dose Admin Acetaminophen 650 mg 05/29/19 16:59 Tylenol Tab* PO Q6H PRN FEVER > 101 Aspirin 325 mg 05/30/19 09:00 06/29/19 08:26 Ecotrin Ec Tab* PO 325 mg DAILY JOSE Administration Atenolol 50 mg 06/02/19 09:25 06/29/19 08:26 Tenormin Tab* PO 50 mg DAILY JOSE Administration Atorvastatin Calcium 20 mg 05/30/19 17:00 06/28/19 18:29 Lipitor* PO 20 mg 1700 JOSE Administration Bisacodyl 10 mg 06/20/19 18:00 06/28/19 18:05 Dulcolax Supp* [place] 10 mg 1800 JOSE Administration Diltiazem HCl 120 mg 06/02/19 09:25 06/29/19 08:32 Cardizem Cd Cap* PO 120 mg DAILY JOSE Administration Evolocumab 140 mg 06/12/19 12:00 06/26/19 12:05 Repatha Inj (Nf) SUBCUT 140 mg Q14D JOSE Administration Gabapentin 300 mg 05/29/19 21:00 06/28/19 21:01 Neurontin Cap(*) PO 300 mg BEDTIME JOSE Administration Magnesium Hydroxide 30 ml 05/29/19 16:59 Milk Of Magnesia Liq* PO Q6H PRN CONSTIPATION Miconazole Nitrate 1 applic 06/25/19 21:00 06/29/19 09:41 Monistat 2%* TOPICAL 1 applic BID JOSE Administration Mometasone Furoate/Formoterol Fumar 2 puff 05/30/19 09:00 06/29/19 08:30 Dulera 100/5 Mdi* INH 2 puff BID JOSE Administration Pantoprazole Sodium 40 mg 05/30/19 09:00 06/29/19 08:27 Protonix Tab* PO 40 mg DAILY JOSE Administration Senna 2 tab 06/01/19 21:00 06/29/19 08:27 Senokot 8.6 Mg Tab* PO 2 tab BID JOSE Administration Tamsulosin HCl 0.4 mg 05/29/19 21:00 06/28/19 21:02 Flomax Cap* PO 0.4 mg BEDTIME JOSE Administration Vital Signs: Vital Signs Temp Pulse Resp BP Pulse Ox 97.4 F 88 18 109/59 97 06/29/19 05:41 06/29/19 05:41 06/29/19 05:41 06/29/19 05:41 06/29/19 07:38 Lab Results: Laboratory Results - last 24 hr 06/28/19 06/28/19 10:12 10:47 WBC 6.7 RBC 3.25 L Hgb 9.4 L Hct 29 L MCV 88 MCH 29 MCHC 33 RDW 20 H Plt Count 235 MPV 8.1 Neut % (Auto) 81.2 Lymph % (Auto) 9.9 [place] % (Auto) 7.6 Eos % (Auto) 0.7 Baso % (Auto) 0.6 Absolute Neuts (auto) 5.4 Absolute Lymphs (auto) 0.7 L Absolute Monos (auto) 0.5 Absolute Eos (auto) 0.0 Absolute Basos (auto) 0.0 Absolute Nucleated RBC 0.0 Nucleated RBC % 0.0 Sodium 135 Potassium 4.7 Chloride 103 Carbon Dioxide 26 Anion Gap 6 BUN 16 Creatinine 0.88 Est GFR ( Amer) 100.1 Est GFR (Non-Af Amer) 82.7 BUN/Creatinine Ratio 18.2 Glucose 99 Calcium 9.1 Total Bilirubin 0.40 AST 29 ALT 32 Alkaline Phosphatase 96 Total Protein 6.6 Albumin 3.6 Globulin 3.0 Albumin/Globulin Ratio 1.2 Exam: GENERAL: No acute distress. alert and appropriate. LUNGS: Clear to auscultation bilaterally. HEART: irregularly irregular ABDOMEN: Soft, + bowel sounds, non-tender, non-distended EXTREMITIES: No edema. NEUROLOGIC: Sensation intact x4 but reports tingling in fingers (unchanged). Motor 4/4 BUE and BLE except trace left DF and EHL. Assessment/Plan: 1. Cervical cord compression: Neurosurgery (at [facility]) did not want to operate. Received decadron. PT/OT 2. Severe Lumbar Spinal Stenosis: . PT/OT. 3. Neurogenic Bladder/Hematuria with h/o prostate CA: Lopez out. Checking bladder scans, but unclear if getting true PVRs. Last 24hr readings during the day 200-350 range. Flomax/Myrbetriq. f/u with urology. 4. Atrial fibrillation: ASA/Atenolol/Cardizem. off xarelto due to hematuria 5. Lung Cancer: seen by Dr. Monroe 06/02/19. 6. 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 stable. 8. DVT Prophylaxis: Holding Heparin due to hematuria 9. Anemia: stable 10. Advanced Directives: Full Code 06/29/19 10:29
[2019-06-29] MEDS: Atorvastatin* 20 MG TAB PO SCH (16:42)
[2019-06-29] MEDS: Bisacodyl SUPP* 10 MG SUPP PR SCH (18:03)
[2019-06-29] MEDS: Tamsulosin CAP* 0.4 MG PO SCH (20:18)
[2019-06-29] MEDS: Gabapentin CAP(*) 300 MG PO SCH (20:18)
[2019-06-30] MEDS: Diltiazem CD CAP* 120 MG PO SCH (08:35)
[2019-06-30] MEDS: Atenolol TAB* 50 MG PO SCH (08:35)
[2019-06-30] MEDS: Aspirin EC TAB* 325 MG PO SCH (08:35)
[2019-06-30] MEDS: Senna TAB 8.6 mg* TAB PO SCH ×2 (08:36→19:54)
[2019-06-30] MEDS: Pantoprazole TAB * 40 MG TAB PO SCH (08:36)
[2019-06-30] MEDS: Mometasone/Formoter 100/5 MDI INH SCH ×2 (08:38→19:56)
[2019-06-30] MEDS: Miconazole TOPICAL CREAM 2%* 30 GM TOPICAL SCH ×2 (08:40→19:58)
--- NOTE | 2019-06-30 10:22 | PN ---
Progress Note Date of Service: 06/30/19 Note: MADHURI RUSS was visited. Nursing notes read and reviewed. No chest pain, shortness of breath or abdominal pain. Current Medications: Active Medications Generic Name Dose Route Start Last Admin Trade Name Freq PRN Reason Stop Dose Admin Acetaminophen 650 mg 05/29/19 16:59 Tylenol Tab* PO Q6H PRN FEVER > 101 Aspirin 325 mg 05/30/19 09:00 06/30/19 08:35 Ecotrin Ec Tab* PO 325 mg DAILY JOSE Administration Atenolol 50 mg 06/02/19 09:25 06/30/19 08:35 Tenormin Tab* PO 50 mg DAILY JOSE Administration Atorvastatin Calcium 20 mg 05/30/19 17:00 06/29/19 16:42 Lipitor* PO 20 mg 1700 JOSE Administration Bisacodyl 10 mg 06/20/19 18:00 06/29/19 18:03 Dulcolax Supp* [place] 10 mg 1800 JOSE Administration Diltiazem HCl 120 mg 06/02/19 09:25 06/30/19 08:35 Cardizem Cd Cap* PO 120 mg DAILY JOSE Administration Evolocumab 140 mg 06/12/19 12:00 06/26/19 12:05 Repatha Inj (Nf) SUBCUT 140 mg Q14D JOSE Administration Gabapentin 300 mg 05/29/19 21:00 06/29/19 20:18 Neurontin Cap(*) PO 300 mg BEDTIME JOSE Administration Magnesium Hydroxide 30 ml 05/29/19 16:59 Milk Of Magnesia Liq* PO Q6H PRN CONSTIPATION Miconazole Nitrate 1 applic 06/25/19 21:00 06/30/19 08:40 Monistat 2%* TOPICAL 1 applic BID JOSE Administration Mometasone Furoate/Formoterol Fumar 2 puff 05/30/19 09:00 06/30/19 08:38 Dulera 100/5 Mdi* INH 2 puff BID JOSE Administration Pantoprazole Sodium 40 mg 05/30/19 09:00 06/30/19 08:36 Protonix Tab* PO 40 mg DAILY JOSE Administration Senna 2 tab 06/01/19 21:00 06/30/19 08:36 Senokot 8.6 Mg Tab* PO 2 tab BID JOSE Administration Tamsulosin HCl 0.4 mg 05/29/19 21:00 06/29/19 20:18 Flomax Cap* PO 0.4 mg BEDTIME JOSE Administration Vital Signs: Vital Signs Temp Pulse Resp BP Pulse Ox 97.9 F 94 18 126/43 98 06/30/19 05:59 06/30/19 05:59 06/30/19 08:00 06/30/19 05:59 06/30/19 08:00 Exam: GENERAL: No acute distress. alert and appropriate. LUNGS: Clear to auscultation bilaterally. HEART: irregularly irregular ABDOMEN: Soft, + bowel sounds, non-tender, non-distended EXTREMITIES: No edema. NEUROLOGIC: Sensation intact x4 but reports tingling in fingers (unchanged). Motor 4/4 BUE and BLE except trace left DF and EHL. Assessment/Plan: 1. Cervical cord compression: Neurosurgery (at [facility]) did not want to operate. Received decadron. PT/OT 2. Severe Lumbar Spinal Stenosis: . PT/OT. 3. Neurogenic Bladder/Hematuria with h/o prostate CA: Lopez out. Checking bladder scans, but unclear if getting true PVRs. Continuously dribbles with stress incontinence when standing. Flomax/Myrbetriq. f/u with urology. 4. Atrial fibrillation: ASA/Atenolol/Cardizem. off xarelto due to hematuria 5. Lung Cancer: seen by Dr. Monroe 06/02/19. 6. 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 stable. 8. DVT Prophylaxis: Holding Heparin due to hematuria 9. Anemia: stable 10. Advanced Directives: Full Code 06/30/19 10:21
[2019-06-30] MEDS: Atorvastatin* 20 MG TAB PO SCH (16:19)
[2019-06-30] MEDS: Bisacodyl SUPP* 10 MG SUPP PR SCH (17:57)
[2019-06-30] MEDS: Tamsulosin CAP* 0.4 MG PO SCH (19:54)
[2019-06-30] MEDS: Gabapentin CAP(*) 300 MG PO SCH (19:54)
[2019-07-01] MEDS: Atenolol TAB* 50 MG PO SCH (07:58)
[2019-07-01] MEDS: Aspirin EC TAB* 325 MG PO SCH (07:58)
[2019-07-01] MEDS: Pantoprazole TAB * 40 MG TAB PO SCH (07:58)
[2019-07-01] MEDS: Diltiazem CD CAP* 120 MG PO SCH (07:58)
[2019-07-01] MEDS: Miconazole TOPICAL CREAM 2%* 30 GM TOPICAL SCH ×2 (07:58→20:58)
[2019-07-01] MEDS: Senna TAB 8.6 mg* TAB PO SCH ×2 (07:59→20:58)
[2019-07-01] MEDS: Mometasone/Formoter 100/5 MDI INH SCH ×2 (08:51→20:59)
[2019-07-01] MEDS: Atorvastatin* 20 MG TAB PO SCH (17:13)
--- NOTE | 2019-07-01 17:27 | PN ---
Progress Note Date of Service: 07/01/19 Note: MADHURI RUSS was visited. Therapy notes read and reviewed. For transfer to [facility] tomorrow. He is still having trouble with sensing when he has to void. Often incontinent Current Medications: Active Medications Generic Name Dose Route Start Last Admin Trade Name Freq PRN Reason Stop Dose Admin Acetaminophen 650 mg 05/29/19 16:59 Tylenol Tab* PO Q6H PRN FEVER > 101 Aspirin 325 mg 05/30/19 09:00 07/01/19 07:58 Ecotrin Ec Tab* PO 325 mg DAILY JOSE Administration Atenolol 50 mg 06/02/19 09:25 07/01/19 07:58 Tenormin Tab* PO 50 mg DAILY JOSE Administration Atorvastatin Calcium 20 mg 05/30/19 17:00 07/01/19 17:13 Lipitor* PO 20 mg 1700 JOSE Administration Bisacodyl 10 mg 06/20/19 18:00 06/30/19 17:57 Dulcolax Supp* [place] 10 mg 1800 JOSE Administration Diltiazem HCl 120 mg 06/02/19 09:25 07/01/19 07:58 Cardizem Cd Cap* PO 120 mg DAILY JOSE Administration Evolocumab 140 mg 06/12/19 12:00 06/26/19 12:05 Repatha Inj (Nf) SUBCUT 140 mg Q14D JOSE Administration Gabapentin 300 mg 05/29/19 21:00 06/30/19 19:54 Neurontin Cap(*) PO 300 mg BEDTIME JOSE Administration Magnesium Hydroxide 30 ml 05/29/19 16:59 Milk Of Magnesia Liq* PO Q6H PRN CONSTIPATION Miconazole Nitrate 1 applic 06/25/19 21:00 07/01/19 07:58 Monistat 2%* TOPICAL 1 applic BID JOSE Administration Mometasone Furoate/Formoterol Fumar 2 puff 05/30/19 09:00 07/01/19 08:51 Dulera 100/5 Mdi* INH 2 puff BID JOSE Administration Pantoprazole Sodium 40 mg 05/30/19 09:00 07/01/19 07:58 Protonix Tab* PO 40 mg DAILY JOSE Administration Senna 2 tab 06/01/19 21:00 07/01/19 07:59 Senokot 8.6 Mg Tab* PO 2 tab BID JOSE Administration Tamsulosin HCl 0.4 mg 05/29/19 21:00 06/30/19 19:54 Flomax Cap* PO 0.4 mg BEDTIME JOSE Administration Vital Signs: Vital Signs Temp Pulse Resp BP Pulse Ox 98.1 F 78 22 129/58 99 07/01/19 16:03 07/01/19 16:03 07/01/19 16:06 07/01/19 16:03 07/01/19 16:06 Exam: GENERAL: No acute distress. alert and appropriate. LUNGS: Clear to auscultation bilaterally. HEART: irregularly irregular ABDOMEN: Soft, + bowel sounds, non-tender, non-distended EXTREMITIES: No edema. NEUROLOGIC: Sensation intact x4 but reports tingling in fingers (unchanged). Motor 4/4 BUE and BLE except trace left DF and EHL. Assessment/Plan: 1. Cervical cord compression: Neurosurgery (at [facility]) did not want to operate. Received decadron. PT/OT 2. Severe Lumbar Spinal Stenosis: . PT/OT. 3. Neurogenic Bladder/Hematuria with h/o prostate CA: Lopez out. Continuously dribbles. Flomax/Myrbetriq. f/u with urology. 4. Atrial fibrillation: ASA/Atenolol/Cardizem. off xarelto due to hematuria 5. Lung Cancer: seen by Dr. Monroe 06/02/19. 6. 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 stable. 8. DVT Prophylaxis: Holding Heparin due to hematuria 9. Anemia: stable 10. Advanced Directives: Full Code 07/01/19 17:27
[2019-07-01] MEDS: Bisacodyl SUPP* 10 MG SUPP PR SCH (18:08)
--- NOTE | 2019-07-01 19:58 | TRS ---
CC: [facility] * TRANSFER SUMMARY: DATE OF ADMISSION: 05/29/19 DATE OF DISCHARGE: 07/02/19 The patient is being transferred to [facility]. DISCHARGE DIAGNOSES: 1. Cervical cord compression. 2. Lung cancer. 3. Lumbar spinal stenosis. 4. Paroxysmal atrial fibrillation. 5. Hematuria. 6. History of prostate cancer. 7. Neurogenic bowel. 8. Neurogenic bladder. 9. Hyponatremia secondary to SIADH, resolved. 10. Urinary tract infection. HISTORY OF ILLNESS AND HOSPITAL COURSE: For complete history of the events leading up to his rehab stay, please see the history and physical dictated by me on 05/29/19. While on the rehab unit, the patient remained fairly stable from a medical point of view. He did have a low sodium, which was felt to be due to SIADH secondary to lung cancer. He was initially put on a fluid restriction, but then his sodium normalized on its own. The patient did develop a urinary tract infection, which grew out E. coli. He was treated for this with Bactrim. The patient otherwise is medically stable. He continued to have trouble with neurogenic bowel and bladder. His Lopez catheter was removed after discussing the case with his urologist. The patient has had no sensation to void. He does have a constant stream of incontinence. The patient's neurogenic bowel has been handled with a daily suppository. The patient worked with Physical Therapy and Occupational Therapy and did made gains with both disciplines. With physical therapy at the time of admission, the patient required total assistance for transfer as he was unable to ambulate. With occupational therapy at the time of admission, the patient required moderate amount of assistance for upper body dressing, total assistance for lower body dressing, total assistance for toileting and toilet transfers. By the time of discharge, the patient is supervision for upper body dressing, max assist for lower body dressing, mod assist for bathing, total assist for toilet hygiene. He transfers with mod assist getting out of bed, but supervision getting out of a chair. He is able to ambulate about 50 feet with moderate amount of assistance. The patient is being transferred to [facility] in order to undergo continued rehabilitation on a slightly slower scale that he might return to independent living. DISPOSITION: [facility] DISCHARGE DIET: Regular. DISCHARGE MEDICATIONS: 1. Tylenol 650 mg every 6 hours as needed. 2. Aspirin 325 mg orally daily. 3. Tenormin 50 mg orally daily. 4. Cardizem CD 120 mg orally daily. 5. Dulcolax suppository 1 per rectum at 1800 or at 6 p.m. daily. 6. Lipitor 20 mg daily at 5 p.m. 7. Repatha injection 140 mg subcutaneously every 14 days, next one due on 07/10. 8. Gabapentin 300 mg at bedtime. 9. Dulera inhaler 2 puffs twice daily. 10. Protonix 40 mg daily. 11. Senokot 2 tablets twice a day. 12. Flomax 0.4 mg at bedtime. SERVICES AFTER DISCHARGE: He should have restorative physical therapy and occupational therapy. FOLLOWUP: He can follow up with his oncologist, Dr. Von Young, regarding further chemotherapy. CONDITION AT DISCHARGE: The patient was in stable condition at the time of discharge. [id number]/CPS #: [id number] MTDD
[2019-07-01] MEDS: Gabapentin CAP(*) 300 MG PO SCH (20:58)
[2019-07-01] MEDS: Tamsulosin CAP* 0.4 MG PO SCH (20:59)
[2019-07-02 06:02] VITALS: BP 120/56
[2019-07-02] MEDS: Mometasone/Formoter 100/5 MDI INH SCH (07:24)
[2019-07-02] MEDS: Aspirin EC TAB* 325 MG PO SCH (08:24)
[2019-07-02] MEDS: Senna TAB 8.6 mg* TAB PO SCH (08:25)
[2019-07-02] MEDS: Pantoprazole TAB * 40 MG TAB PO SCH (08:25)
[2019-07-02] MEDS: Atenolol TAB* 50 MG PO SCH (08:25)
[2019-07-02] MEDS: Diltiazem CD CAP* 120 MG PO SCH (08:25)
[2019-07-02] MEDS: Miconazole TOPICAL CREAM 2%* 30 GM TOPICAL SCH (10:45)
== END 2019-07-02 13:30 | DRG 945 ==
LOC: PMRU 05-29 13:34
PROVIDERS: ADMIT Physical Medicine & Rehabilitation; ATTEND Physical Medicine & Rehabilitation
PROC: F07Z5ZZ Bed Mobility Treatment (ICD-10-PCS; principal; 2019-05-29)
PROC: F07Z8ZZ Transfer Training Treatment (ICD-10-PCS; 2019-05-29)
PROC: F07Z9ZZ Gait Training/Functional Ambulation Treatment (ICD-10-PCS; 2019-05-29)
PROC: F07Z4ZZ Wheelchair Mobility Treatment (ICD-10-PCS; 2019-05-29)
PROC: F08Z0ZZ Bathing/Showering Techniques Treatment (ICD-10-PCS; 2019-05-29)
PROC: F08Z1ZZ Dressing Techniques Treatment (ICD-10-PCS; 2019-05-29)
PROC: F08Z3ZZ Feeding/Eating Treatment (ICD-10-PCS; 2019-05-29)
PROC: F08Z2ZZ Grooming/Personal Hygiene Treatment (ICD-10-PCS; 2019-05-29)
PROC: F08Z4ZZ Home Management Treatment (ICD-10-PCS; 2019-05-29)
DX: S14.105D Unspecified injury at C5 level of cervical spinal cord, subsequent encounter (principal); C34.90 Malignant neoplasm of unspecified part of unspecified bronchus or lung; K59.2 Neurogenic bowel, not elsewhere classified; E22.2 Syndrome of inappropriate secretion of antidiuretic hormone; N39.0 Urinary tract infection, site not specified; N31.8 Other neuromuscular dysfunction of bladder; M50.222 Other cervical disc displacement at C5-C6 level; M48.061 Spinal stenosis, lumbar region without neurogenic claudication; I48.0 Paroxysmal atrial fibrillation; R31.9 Hematuria, unspecified; N39.45 Continuous leakage; B96.20 Unspecified Escherichia coli [E. coli] as the cause of diseases classified elsewhere; I10 Essential (primary) hypertension; E78.5 Hyperlipidemia, unspecified; I25.10 Atherosclerotic heart disease of native coronary artery without angina pectoris; D64.9 Anemia, unspecified; M51.24 Other intervertebral disc displacement, thoracic region; B35.3 Tinea pedis; R73.02 Impaired glucose tolerance (oral); M21.372 Foot drop, left foot; K21.9 Gastro-esophageal reflux disease without esophagitis; W18.39XD Other fall on same level, subsequent encounter; Z79.01 Long term (current) use of anticoagulants; Z95.1 Presence of aortocoronary bypass graft; Z85.46 Personal history of malignant neoplasm of prostate; Z79.82 Long term (current) use of aspirin; Z79.899 Other long term (current) drug therapy; Z85.51 Personal history of malignant neoplasm of bladder; Z85.820 Personal history of malignant melanoma of skin; Z83.3 Family history of diabetes mellitus; Z82.69 Family history of other diseases of the musculoskeletal system and connective tissue; Z87.891 Personal history of nicotine dependence
CPT/HCPCS: 36415; 74019; 80048; 80053; 81003; 81015; 82607; 82728; 83540; 83550; 83930; 83935; 84300; 84443; 85025; 87077; 87086; 87186; 90686; 94640; 99233; A9270-GY; J1644

== ENCOUNTER 2019-09-26 16:08 | Inpatient (IN) | payer MEDICARE, BC ==
--- OUTSIDE RECORDS SUMMARY | 2019-09-26 16:19 | XMS REPORT ---
:1935 Author Organization [facility] Care Team Providers Name Role Phone Unavailable Unavailable Unavailable Problems Condition Condition Condition Status Onset Resolution Last Treating Comments Name Details Category Date Date Treatment Clinician Date Other Other Diagnosis Active 2018-09 Citlali interverteb interverteb 09-29 [place] ral disc ral disc displacemen displacemen t, lumbar t, lumbar region region Spinal Spinal Diagnosis Active 2018-09 Citlali stenosis, stenosis, 09-29 [place] lumbar lumbar region region without without neurogenic neurogenic claudicatio claudicatio n n Polyneuropa Polyneuropa Diagnosis Active Citlali thy, thy, 09-18 [place] unspecified unspecified Unspecified Unspecified Diagnosis Active Citlali atrial atrial 09-18 [place] fibrillatio fibrillatio n n 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 Chronic Chronic Diagnosis Active Citlali obstructive obstructive 09-18 [place] pulmonary pulmonary disease, disease, unspecified unspecified Essential Essential Diagnosis Active Citlali (primary) (primary) [place] hypertensio hypertensio n n Obstructive Obstructive Diagnosis Active Citlali and reflux and reflux [place] uropathy, uropathy, unspecified unspecified Presence of Presence of Diagnosis Active Citlali aortocorona aortocorona [place] ry bypass ry bypass graft graft 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 Citlali (current) (current) [place] use of use of aspirin aspirin Personal Personal Diagnosis Active Citlali history of history of [place] other other 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 and lung Personal Personal Diagnosis Active Citlali history of history of [place] 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 History of History of Diagnosis Active Citlali falling falling [place] Pain frequent Pain Mgmt Resolve 2018-092019-08-08 Olesya pain d 1-18 10:00:00 Valle[place] 09:00: 00 Cardio edema Cardiovasc Resolve 2018-092019-08-08 Olesya patricio d 1-18 10:00:00 Valle[place] 09:00: 00 Cardio knowledge/s Cardiovasc Resolve 2018-092019-08-08 Olesya crow sintia d 118 10:00:00 [place] deficit: pt 09:00: 00 Cardio knowledge/s Cardiovasc Resolve 2018-092019-08-08 Olesya crow sintia d 18 10:00:00 [place]le[place] deficit: cg 09:00: 00 Respiratory lung sounds Respirator Resolve 2018-092019-08-14 Olesya deficit y d 18 09:00:00 [place]le[place] 09:00: 00 Respiratory dyspnea Respirator Resolve 2018-092019-08-14 Olesya present y d 10-05 09:00:00 Vallely 09:00: 00 Endo/Ty knowledge/s Endo/Ty Resolve 2018-092019-08-08 Olesya crow d 18 10:00:00 [place]le[place] deficit: pt 09:00: 00 Endo/Ty anti-coagul Endo/Ty Resolve 2018-092019-08-08 Olesya ation d 18 10:00:00 [place]le[place] therapy 09:00: 00 Integument knowledge/s Integument Resolve 2018-092019-08-05 Olesya crow d 18 09:00:00 [place]le[place] deficit: pt 09:00: 00 Nutrition nutritional Nutrition Resolve 2018-092019-08-05 Olesya restriction d 18 09:00:00 Vallely s 09:00: 00 Elimination urinary Eliminatio Resolve 2018-092019-08-08 Olesya incontinenc n d 18 10:00:00 Vallely e 09:00: 00 Elimination bowel Eliminatio Resolve 2018-092019-08-08 Olesya incontinenc n d 18 10:00:00 Vallely e 09:00: 00 Neuro knowledge/s Neuro/Emot Resolve 2018-092019-08-08 Olesya kill ion d 18 10:00:00 [place] deficit: pt 09:00: 00 Neuro knowledge/s Neuro/Emot Resolve 2018-092019-08-08 Olesya kill ion d 18 10:00:00 [place] deficit: cg 09:00: 00 Activity ADL Activity Resolve 2018-092019-08-14 Olesya assistance d 18 09:00:00 [place] required 09:00: 00 Activity knowledge/s Activity Resolve 2018-092019-08-14 Olesya kill d 10-05 09:00:00 Vallely deficit: pt 09:00: 00 Activity knowledge/s Activity Resolve 2018-092019-08-14 Olesya kill d 10-05 09:00:00 Vallely deficit: cg 09:00: 00 Activity self-care Activity Resolve 2018-092019-08-14 Olesya deficit d 10-05 09:00:00 Vallely 09:00: 00 Safety structural Safety Resolve 2018-092019-08-14 Olesya barriers d 10-05 09:00:00 Vallely present 09:00: 00 Safety safety Safety Resolve 2018-092019-08-14 Olesya hazards d 10-05 09:00:00 Vallely present 09:00: 00 Safety cannot be Safety Resolve 2018-092019-08-14 Olesya left alone d 10-05 09:00:00 Vallely 09:00: 00 Safety knowledge/s Safety Resolve 2018-092019-08-14 Olesya kill d 10-05 09:00:00 Vallely deficit: pt 09:00: 00 Safety knowledge/s Safety Resolve 2018-092019-08-14 Olesya kill d 18 09:00:00 Vallely deficit: cg 09:00: 00 Safety fall risk Safety Resolve 2018-092019-08-14 Olesya factor d 10-05 09:00:00 Vallely present 09:00: 00 Safety fire risk Safety Resolve 2018-092019-08-14 Olesya present d 10-05 09:00:00 Vallely 09:00: 00 Safety risk for Safety Resolve 2018-092019-08-14 Olesya antoineiza d 10-05 09:00:00 Vallely tion 09:00: 00 Medication oral med Meds Resolve 2018-092019-08-14 Olesya assistance d 10-05 09:00:00 Valle[place] required 09:00: 00 Medication knowledge/s Meds Resolve 2018-092019-08-08 Olesya kill d 1-18 10:00:00 Vallely deficit: pt 09:00: 00 Medication knowledge/s Meds Resolve 2018-092019-08-08 Olesya kill d 1-18 10:00:00 Valle[place] deficit: cg 09:00: 00 Medication potential Meds Resolve 2018-092019-08-14 Olesya clinically d -18 09:00:00 [place]le[place] significant 09:00: medication 00 issue Medication injectable Meds Resolve 2018-092019-08-14 Olesya med d 18 09:00:00 [place] assistance 09:00: required 00 Musculoskel transfer Musculoske Resolve 2018-092019-08-19 Olesya etal assistance letal d -18 12:18:00 Vallely required 09:00: 00 Musculoskel knowledge/s Musculoske Resolve 2018-092019-08-19 Olesya etal kill letal d 1-18 12:18:00 Vallely deficit: pt 09:00: 00 Musculoskel knowledge/s Musculoske Resolve 2018-092019-08-19 Olesya etal kill letal d 1-18 12:18:00 Vallely deficit: cg 09:00: 00 Musculoskel requires Musculoske Resolve 2018-092019-08-19 Olesya etal human letal d -18 12:18:00 [place]le[place] assist to 09:00: leave home 00 Cardio knowledge/s Cardiovasc Unknown 2018-09 Citlalihayde crow ular 10-05 [place] deficit: pt 13:40: 00 Cardio knowledge/s Cardiovasc Unknown 2018-09 Citlalihayde crow ular 18 [place] deficit: cg 13:40: 00 Respiratory dyspnea Respirator Unknown 2018-09 Citlali present y 10-05 [place] 13:40: 00 Endo/Ty knowledge/s Endo/Ty Unknown 2018-09 Citlali kill 10-05 [place] deficit: pt 13:40: 00 Elimination urinary Eliminatio Unknown 2018-09 Citlali incontinenc n 10-05 [place] e 13:40: 00 Elimination bowel Eliminatio Unknown 2018-09 Citlali incontinenc n 18 [place] e 13:40: 00 Activity knowledge/s Activity Unknown 2018-09 Citlali kill 1-18 [place] deficit: pt 13:40: 00 Activity knowledge/s Activity Unknown 2018- Citlali kill 1-18 [place] deficit: cg 13:40: 00 Activity self-care Activity Unknown 2018- Citlali deficit 1-18 [place] 13:40: 00 Safety knowledge/s Safety Unknown 2018- Citlali kill 1-18 [place] deficit: cg 13:40: 00 Safety can be left Safety Resolve 2018-092019-08-14 Citlali alone for d 18 09:00:00 [place] only short 13:40: periods 00 Safety knowledge/s Safety Unknown 2018- Citlali kill -18 [place] deficit: pt 13:40: 00 Medication potential Meds Unknown 2018- Citlali clinically 18 [place] significant 13:40: medication 00 issue Medication oral med Meds Unknown 2018- Citlali assistance 18 [place] required 13:40: 00 Medication injectable Meds Unknown 2018- Citlali med 18 [place] assistance 13:40: required 00 Medication knowledge/s Meds Unknown 2018- Citlali kill 1-18 [place] deficit: pt 13:40: 00 Medication knowledge/s Meds Unknown 2018- Citlali kill 1-18 [place] deficit: cg 13:40: 00 Musculoskel transfer Musculoske Unknown 2018- Citlali etal assistance letal 1-18 [place] required 13:40: 00 Musculoskel knowledge/s Musculoske Unknown 2018- Citlali etal kill letal -18 [place] deficit: pt 13:40: 00 Musculoskel knowledge/s Musculoske Unknown 2018- Citlali etal kill letal 1-18 [place] deficit: cg 13:40: 00 Bed mobility/tr PT/OT: Bed Active 2018- Citlali Mobility/Tr ansfer Mobility/T 1-18 [place] ansfer device ransfer 13:40: present 00 Bed transfer PT/OT: Bed Active 2018- Citlali Mobility/Tr deficit: Mobility/T 1-18 [place] ansfer sit/stand ransfer 13:40: 00 Bed transfer PT/OT: Bed Active 2018-09 Citlali Mobility/Tr deficit: Mobility/T 1-18 [place] ansfer toilet/comm ransfer 13:40: ode 00 Bed transfer PT/OT: Bed Active 2018- Citlali Mobility/Tr deficit: Mobility/T 1-18 [place] ansfer shower/tub ransfer 13:40: 00 Bed knowledge/s PT/OT: Bed Active 2018-09 Citlali Mobility/Tr kill Mobility/T 1-18 [place] ansfer deficit: pt ransfer 13:40: 00 Bed bed PT/OT: Bed Active 2018-09 Citlali Mobility/Tr mobility Mobility/T 1-18 [place] ansfer deficit ransfer 13:40: 00 Gait/Locomo stair PT/OT: Active 2018-09 Citlali tion management Gait/Locom 1-18 [place] problems req otion 13:40: 00 Gait/Locomo knowledge/s PT/OT: Active 2018-09 Citlali tion kill Gait/Locom 1-18 [place] problems deficit: pt otion 13:40: 00 Gait/Locomo gait PT/OT: Active 2018-09 Citlali tion deficit Gait/Locom 1-18 [place] problems otion 13:40: 00 Integument skin Integument Resolve 2018-092019-08-14 Olesya lora 10-08 09:00:00 [place] risk 10:00: 00 Integument knowledge/s Integument Active 2018-09 Olesya crow 10-08 [place] deficit: pt 10:00: 00 Medication inhalant Meds Resolve 2018-092019-08-14 Olesya lora 10-08 09:00:00 [place] assistance 10:00: required 00 Medication knowledge/s Meds Resolve 2018-092019-08-14 Carlita lora 10-12 09:00:00 Gross deficit: pt 16:00: [id number] Medication knowledge/s Meds Resolve 2018-092019-08-14 Carlita lora 10-12 09:00:00 Gross deficit: cg 16:00: [id number] Gait/Locomo gait PT/OT: Active 2018-09 Citlali tion assistive Gait/Locom 25 [place] problems device otion 16:00: present 00 OT: Self self-care OT: Active 2018-09 Berna Care deficit Self-Care 10-13 Elio 10:15: [id number] 00 Endo/Ty anti-coagul Endo/Ty Resolve 2018-092019-08-19 Olesya lora 10-14 12:18:00 Valle[place] therapy 09:00: 00 Safety knowledge/s Safety Unknown 2018-09 Citlali crow 10-14 [place] deficit: pt 16:00: 00 Safety risk for Safety Unknown 2018-09 Citlali rice 10-14 [place] tion 16:00: 00 Medication knowledge/s Meds Unknown 2018-09 Citlali crow 10-14 [place] deficit: pt 16:00: 00 Respiratory lung sounds Respirator Resolve 2018-092019-08-19 Emily deficit y d 10-20 12:18:00 Malnoske 12:18: RN 00 Safety cannot be Safety Resolve 2018-092019-08-19 Emily left alone d 10-20 12:18:00 Malnoske 12:18: RN 00 Safety knowledge/s Safety Resolve 2018-092019-08-19 Emily kill d 10-20 12:18:00 Malnoske deficit: pt 12:18: RN 00 Safety risk for Safety Resolve 2018-092019-08-19 Emily hospitaliza d 10-20 12:18:00 Malnoske tion 12:18: RN 00 Safety risk for Safety Unknown 2018-09 Citlali rice 10-20 [place] tion 13:50: 00 Medication knowledge/s Meds Active 2018-09 Citlali crow 10-20 [place] deficit: pt 13:50: 00 Musculoskel knowledge/s Musculoske Unknown 2018-09 Citlali crow letal 10-20 [place] deficit: pt 13:50: 00 Safety risk for Safety Active 2018-09 Citlali tapiaa 10-25 [place] tion 15:10: 00 Allergies, Adverse Reactions, Alerts Allergy Allergy Status Severity Reaction(s) Onset Inactive Treating Comments Name Type Date Date Clinician Unknown None Active Unknown None Unknown No Known Allergies For This Patient Medications Ordered Filled Start Stop Current Ordering Indication Dosage Frequency Signature Comments Components Medication Medication Date Date Medication? Clinician (SIG) Name Name gabapentin gabapentin 2018-09 Yes Garbo Unknown Unknown ER 300 mg ER 300 mg 10-05 Von DECKER tablet,exte tablet,exte nded nded release 24 release 24 hr hr senna 8.6 senna 8.6 2018-09 Yes Garbo Unknown Unknown mg tablet mg tablet 10-05 Von DECKER atenolol 50 atenolol 50 2018-09 Yes Garbo Unknown Unknown mg tablet mg tablet Von DECKER dilTIAZem dilTIAZem 2018-09 Yes Garbo Unknown Unknown CD 120 mg CD 120 mg 10-05 Von DECKER capsule,ext capsule,ext ended ended release 24 release 24 hr hr tamsulosin tamsulosin 2018-09 Yes Garbo Unknown Unknown 0.4 mg 0.4 mg 10-05 Von DECKER capsule capsule evolocumab evolocumab 2018-09 Yes Garbo Unknown Unknown 140 mg/mL 140 mg/mL 10-05 Von DECKER subcutaneou subcutaneou s pen s pen injector injector Lipitor 20 Lipitor 20 2018-09 Yes Garbo Unknown Unknown mg tablet mg tablet 10-05 Von DECKER Dulera 100 Dulera 100 2018-09 Yes Garbo Unknown Unknown mcg-5 mcg-5 10-05 Von DECKER mcg/actuati mcg/actuati on HFA on HFA aerosol aerosol inhaler inhaler aspirin 325 aspirin 325 2018-09 Yes Garbo Unknown Unknown mg tablet mg tablet 10-05 Von DECKER Lotrisone 1 Lotrisone 1 2018-09 Yes Garbo Unknown Unknown %-0.05 % %-0.05 % 10-05 Von DECKER topical topical cream cream Co Q-10 200 Co Q-10 200 2018-09 Yes Garbo Unknown Unknown mg capsule mg capsule 10-05 Von DECKER Vital Signs Vital Name Observation Time Observation Value Comments SYSTOLIC mm[Hg] 2019-09-17 18:09:38 110 mm[Hg] mm[Hg] Method: Sit DIASTOLIC mm[Hg] 2019-09-17 18:09:38 68 mm[Hg] mm[Hg] Method: Sit PULSE 2019-09-17 18:09:38 84 /min /min RESP RATE 2019-08-19 18:09:09 16 /min /min TEMP 2019-09-17 18:09:38 97.8 [degF] Procedures This patient has no known procedures. Results This patient has no known results.
--- OUTSIDE RECORDS SUMMARY | 2019-09-26 16:19 | XMS REPORT ---
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 (current) (current) [place] use [...] Safety Resolve 2018-092019-08-14 Citlali alone for d 10-05 09:00:00 [place] only short 13:40: periods 00 Safety knowledge/s Safety Unknown 2018-09 Citlali kill 18 [place] deficit: pt 13:40: 00 Medication potential Meds Unknown 2018-09 Citlali clinically 18 [place] significant 13:40: medication 00 issue Medication oral med Meds Unknown 2018- Citlali assistance 18 [place] required 13:40: 00 Medication injectable Meds Unknown 2018-09 Citlali med 18 [place] assistance 13:40: required 00 Medication knowledge/s Meds Unknown 2018- Citlali kill -18 [place] deficit: pt 13:40: 00 Medication knowledge/s Meds Unknown 2018-09 Citlali kill 18 [place] deficit: cg 13:40: 00 Musculoskel transfer Musculoske Unknown 2018-09 Citlali etal assistance letal -18 [place] required 13:40: 00 Musculoskel knowledge/s Musculoske Unknown 2018- Citlali etal kill letal 18 [place] deficit: pt 13:40: 00 Musculoskel knowledge/s Musculoske Unknown 2018-09 Citlali etal kill letal -18 [place] deficit: cg 13:40: 00 Bed mobility/tr PT/OT: Bed Resolve 2018-092019-09-17 Citlali Mobility/Tr ansfer Mobility/T d 18 14:25:00 [place] ansfer device ransfer 13:40: present 00 Bed transfer PT/OT: Bed Resolve 2018-092019-09-17 Citlali Mobility/Tr deficit: Mobility/T d 18 14:25:00 [place] ansfer sit/stand ransfer 13:40: 00 Bed transfer PT/OT: Bed Resolve 2018-092019-09-17 Citlali Mobility/Tr deficit: Mobility/T d 10-05 14:25:00 [place] ansfer toilet/comm ransfer 13:40: ode 00 Bed transfer PT/OT: Bed Resolve 2018-092019-09-17 Citlali Mobility/Tr deficit: Mobility/T d -18 14:25:00 Augustus paulafer shower/tub ransfer 13:40: 00 Bed knowledge/s PT/OT: Bed Resolve 2018-092019-09-17 Citlali Mobility/Tr kill Mobility/T d 18 14:25:00 [place] ansfer deficit: pt ransfer 13:40: 00 Bed bed PT/OT: Bed Resolve 2018-092019-09-17 Citlali Mobility/Tr mobility Mobility/T d 18 14:25:00 [place] ansfer deficit ransfer 13:40: 00 Gait/Locomo stair PT/OT: Active 2018-09 Citlali tion management Gait/Locom 1-18 [place] problems req otion 13:40: 00 Gait/Locomo knowledge/s PT/OT: Active 2018-09 Citlali tion kill Gait/Locom 1-18 [place] problems deficit: pt otion 13:40: 00 Gait/Locomo gait PT/OT: Active 2018-09 Citlali tion deficit Gait/Locom 1-18 [place] problems otion 13:40: 00 Integument skin Integument Resolve 2018-092019-08-14 Olesya integrity d 1- 09:00:00 [place]le[place] risk 10:00: 00 Integument knowledge/s Integument Active 2018-09 Olesya crow 10-08 Vallely deficit: pt 10:00: 00 Medication inhalant Meds Resolve 2018-092019-08-14 Olesya petit d 1-21 09:00:00 Vallely assistance 10:00: required 00 Medication knowledge/s Meds Resolve 2018-092019-08-14 Carlita crow d 10-12 09:00:00 Gross deficit: pt 16:00: [id number] Medication knowledge/s Meds Resolve 2018-092019-08-14 Carlita crow d 10-12 09:00:00 Gross deficit: cg 16:00: [id number] Gait/Locomo gait PT/OT: Active 2018-09 Citlali tion assistive Gait/Locom 1-25 [place] problems device otion 16:00: present 00 OT: Self self-care OT: Active 2018-09 Berna Care deficit Self-Care 10-13 Elio 10:15: [id number] 00 Endo/Ty anti-coagul Endo/Ty Resolve 2018-092019-08-19 Olesya lee d 10-14 12:18:00 Vallely therapy 09:00: 00 Safety knowledge/s Safety Unknown 2018-09 Citlali crow 10-14 [place] deficit: pt 16:00: 00 Safety risk for Safety Unknown 2018-09 Citlali hospitaliza 10-14 [place] tion 16:00: 00 Medication knowledge/s [...] Safety risk for Safety Unknown 2018-09 Citlali hospitalpachecoa 10-20 [place] tion 13:50: 00 Medication knowledge/s Meds Active 2018-09 Citlali kill 10-20 [place] deficit: pt 13:50: 00 Musculoskel knowledge/s Musculoske Unknown 2018-09 Citlali etal kill letal 10-20 [place] deficit: pt 13:50: 00 Safety risk for Safety Active 2018-09 Citlali hospitaliza 10-25 [place] tion 15:10: 00 Safety can be left Safety Active 2018-09 Citlali alone for [place] only short 14:25: periods 00 Allergies, Adverse Reactions, Alerts Allergy Allergy [...] Unknown ER 300 mg ER 300 mg - Von DECKER tablet,exte tablet,exte nded nded release 24 release 24 hr hr senna 8.6 senna 8.6 2018-09 Yes Garbo Unknown Unknown mg tablet mg tablet - Von DECKER atenolol 50 atenolol 50 2018-09 Yes Garbo Unknown Unknown mg tablet mg tablet 10-05 Von DECKER dilTIAZem dilTIAZem 2018-09 Yes Garbo [...] Observation Time Observation Value Comments SYSTOLIC mm[Hg] 2019-09-19 18:09:40 112 mm[Hg] mm[Hg] Method: Sit DIASTOLIC mm[Hg] 2019-09-19 18:09:40 62 mm[Hg] mm[Hg] Method: Sit PULSE 2019-09-19 18:09:40 84 /min /min RESP RATE 2019-08-19 18:09:09 16 /min /min TEMP 2019-09-19 18:09:40 97.9 [degF] Procedures This patient has no known procedures. Results This patient has no known results.
--- OUTSIDE RECORDS SUMMARY | 2019-09-26 16:19 | XMS REPORT ---
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 Citlali (current) (current) [place] use [...] periods 00 Safety knowledge/s Safety Unknown 2018- Ictlali kill -18 [place] deficit: pt 13:40: 00 [...] lora 10-12 09:00:00 Gross deficit: pt 16:00: [id number] Medication knowledge/s Meds Resolve 2018-092019-08-14 Carlita lora 10-12 09:00:00 Gross deficit: cg 16:00: [id number] Gait/Locomo gait PT/OT: Active 2018-09 Citlali tion assistive Gait/Locom 25 [place] problems device otion 16:00: present 00 OT: Self self-care OT: Active 2018-09 Berna Care deficit Self-Care 10-13 Elio 10:15: [id number] 00 Endo/Ty anti-coagul Endo/Ty Resolve 2018-092019-08-19 Olesya [...] Observation Time Observation Value Comments SYSTOLIC mm[Hg] 2019-09-05 18:09:26 112 mm[Hg] mm[Hg] Method: Sit DIASTOLIC mm[Hg] 2019-09-05 18:09:26 62 mm[Hg] mm[Hg] Method: Sit PULSE 2019-09-05 18:09:26 72 /min /min RESP RATE 2019-08-19 18:09:09 16 /min /min TEMP 2019-09-05 18:09:26 98.1 [degF] Procedures This patient has no known procedures. Results This patient has no known results.
--- OUTSIDE RECORDS SUMMARY | 2019-09-26 16:19 | XMS REPORT ---
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 Citlali (current) (current) [place] use [...] 13:40: 00 Elimination urinary Eliminatio Unknown 2018-09 Citlail incontinenc n 10-05 [place] e 13:40: 00 [...] Resolve 2018-092019-09-17 Citlali Mobility/Tr deficit: Mobility/T d 1-18 14:25:00 [place] ansfer shower/tub ransfer 13:40: 00 Bed knowledge/s PT/OT: Bed Resolve 2018-092019-09-17 Citlali Mobility/Tr kill Mobility/T d 18 14:25:00 [place] ansfer deficit: pt ransfer 13:40: 00 Bed bed PT/OT: Bed Resolve 2018-092019-09-17 Citlali Mobility/Tr mobility Mobility/T d 18 14:25:00 [place] ansfer deficit ransfer 13:40: 00 Gait/Locomo stair PT/OT: Resolve 2018-092019-09-20 Citlali tion management Gait/Locom d 18 15:30:00 [place] problems req otion 13:40: 00 Gait/Locomo knowledge/s PT/OT: Resolve 2018-092019-09-20 Citlali tion kill Gait/Locom d 18 15:30:00 [place] problems deficit: pt otion 13:40: 00 Gait/Locomo gait PT/OT: Resolve 2018-092019-09-20 Citlali tion deficit Gait/Locom d 18 15:30:00 [place] problems otion 13:40: 00 Integument skin Integument Resolve 2018-092019-08-14 Olesya integrity d 10-08 09:00:00 Vallely risk 10:00: 00 Integument knowledge/s Integument Active 2018-09 Olesya crow 10-08 Vallely deficit: pt 10:00: 00 Medication inhalant Meds Resolve 2018-092019-08-14 Olesya med d 10-08 09:00:00 Vallely assistance 10:00: required 00 Medication knowledge/s Meds Resolve 2018-092019-08-14 Carlita lora 10-12 09:00:00 Gross deficit: pt 16:00: [id number] Medication knowledge/s Meds Resolve 2018-092019-08-14 Carlita lora 10-12 09:00:00 Gross deficit: cg 16:00: [id number] 00 Gait/Locomo gait PT/OT: Resolve 2018-092019-09-20 Citlali aguero assistive Gait/Locom d 10-12 15:30:00 [place] problems device otion 16:00: present 00 OT: Self self-care OT: Resolve 2018-092019-09-20 Berna Care deficit Self-Care d 10-13 15:30:00 Elio 10:15: [id number] 00 Endo/Ty anti-coagul Endo/Ty Resolve 2018-092019-08-19 Olesya ation d 10-14 12:18:00 Vallely therapy 09:00: 00 Safety knowledge/s Safety Unknown 2018-09 Citlali kill 10-14 [place] deficit: pt 16:00: 00 Safety risk for Safety Unknown 2018-09 Citlali hospitaliza 10-14 [place] tion 16:00: 00 Medication knowledge/s Meds Unknown 2018-09 Citlali kill 10-14 [place] deficit: pt 16:00: 00 Respiratory lung sounds Respirator Resolve 2018-092019-08-19 Emily deficit y d 2- 12:18:00 Malnoske 12:18: RN 00 Safety cannot be Safety Resolve 2018-092019-08-19 Emily left alone d 2- 12:18:00 Malnoske 12:18: RN 00 Safety knowledge/s Safety Resolve 2018-092019-08-19 Emily kill d 2- 12:18:00 Malnoske deficit: pt 12:18: RN 00 Safety risk for Safety Resolve 2018-092019-08-19 Emily hospitaliza d 2-02 12:18:00 Malnoske tion 12:18: RN 00 Safety risk for Safety Unknown 2018-09 Citlali hospitaliza 2- [place] tion 13:50: 00 Medication knowledge/s Meds Resolve 2018-092019-09-20 Citlali kill d 2-02 15:30:00 [place] deficit: pt 13:50: 00 Musculoskel knowledge/s Musculoske Unknown 2018-09 Ictlali etal kill letal - [place] deficit: pt 13:50: 00 Safety risk for Safety Resolve 2018-092019-09-20 Citlali hospitaliza d 2- 15:30:00 [place] tion 15:10: 00 Safety can be left Safety Resolve 2018-092019-09-20 Citlali ma for d 2-31 15:30:00 [place] only short 14:25: periods 00 Allergies, [...] Observation Time Observation Value Comments SYSTOLIC mm[Hg] 2019-09-24 18:09:45 120 mm[Hg] mm[Hg] Method: Sit DIASTOLIC mm[Hg] 2019-09-24 18:09:45 62 mm[Hg] mm[Hg] Method: Sit PULSE 2019-09-24 18:09:45 70 /min /min RESP RATE 2019-09-24 18:09:45 20 /min /min TEMP 2019-09-24 18:09:45 98 [degF] Procedures This patient has no known procedures. Results This patient has no known results.
--- OUTSIDE RECORDS SUMMARY | 2019-09-26 16:19 | XMS REPORT ---
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 Personal Personal Diagnosis Active Citlali history of history of [place] 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 History of History of Diagnosis Active Citllai falling falling [place] Pain frequent Pain Mgmt [...] Citlali Mobility/Tr kill Mobility/T d 18 14:25:00 [place]ff[place] ansfer deficit: pt ransfer 13:40: 00 Bed [...] lora 10-12 09:00:00 Gross deficit: pt 16:00: [id number] Medication knowledge/s Meds Resolve 2018-092019-08-14 Carlita lora 10-12 09:00:00 Gross deficit: cg 16:00: [id number] Gait/Locomo gait PT/OT: Resolve 2018-092019-09-20 Citlali aguero assistive Gait/Locom d 10-12 15:30:00 [place] problems device otion 16:00: present 00 OT: Self self-care OT: Resolve 2018-092019-09-20 Berna Care deficit Self-Care d 10-13 15:30:00 Elio 10:15: [id number] Endo/Ty anti-coagul Endo/Ty Resolve 2018-092019-08-19 Olesya [...] Musculoske Unknown 2018-09 Citlali etal kill letal - [place] deficit: pt [...]
--- OUTSIDE RECORDS SUMMARY | 2019-09-26 16:19 | XMS REPORT ---
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
--- OUTSIDE RECORDS SUMMARY | 2019-09-26 16:19 | XMS REPORT ---
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
--- OUTSIDE RECORDS SUMMARY | 2019-09-26 16:20 | XMS REPORT ---
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
--- OUTSIDE RECORDS SUMMARY | 2019-09-26 16:20 | XMS REPORT ---
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 Citlali (current) (current) [place] use [...] Active 2018-09 Citlali Mobility/Tr deficit: Mobility/T 1-18 Cofmfan ansfer toilet/comm ransfer 13:40: ode 00 Bed [...] lora 10-12 09:00:00 Gross deficit: pt 16:00: [id number] Medication knowledge/s Meds Resolve 2018-092019-08-14 Carlita lora 10-12 09:00:00 Gross deficit: cg 16:00: [id number] 00 Gait/Locomo gait PT/OT: Active 2018-09 Citlali tion assistive Gait/Locom 25 [place] problems device otion 16:00: present 00 OT: Self self-care OT: Active 2018-09 Berna Care deficit Self-Care 10-13 Elio 10:15: [id number] Endo/Ty anti-coagul Endo/Ty Resolve 2018-092019-08-19 Olesya [...] Observation Time Observation Value Comments SYSTOLIC mm[Hg] 2019-08-28 18:09:18 108 mm[Hg] mm[Hg] Method: Sit DIASTOLIC mm[Hg] 2019-08-28 18:09:18 68 mm[Hg] mm[Hg] Method: Sit PULSE 2019-08-28 18:09:18 66 /min /min RESP RATE 2019-08-19 18:09:09 16 /min /min TEMP 2019-08-28 18:09:18 97.4 [degF] Procedures This patient has no known procedures. Results This patient has no known results.
--- OUTSIDE RECORDS SUMMARY | 2019-09-26 16:20 | XMS REPORT ---
:1935 Author Organization [facility] Care Team Providers Name Role Phone Unavailable Unavailable Unavailable Problems Condition Condition Condition Status Onset Resolution Last Treating Comments Name Details Category Date Date Treatment Clinician Date Pain frequent Pain Mgmt Resolve 2018-092019-08-08 Olesya pain d -18 10:00:00 Vallely 09:00: 00 Cardio edema Cardiovasc Resolve 2018-092019-08-08 Olesya pratherar d 18 10:00:00 Vallely 09:00: 00 Cardio knowledge/s Cardiovasc Resolve 2018-092019-08-08 Olesya patricio d 18 10:00:00 Vallely deficit: pt 09:00: 00 Cardio knowledge/s Cardiovasc Resolve 2018-092019-08-08 Olesya patricio d 18 10:00:00 Vallely deficit: cg 09:00: 00 Respiratory lung sounds Respirator Resolve 2018-092019-08-14 Olesya leigh y d 18 09:00:00 Vallely 09:00: 00 Respiratory dyspnea Respirator Resolve 2018-092019-08-14 Olesya present y d 18 09:00:00 Vallely 09:00: 00 Endo/Ty knowledge/s Endo/Ty Resolve 2018-092019-08-08 Olesya crow d 18 10:00:00 Vallely deficit: pt 09:00: 00 Endo/Ty anti-coagul Endo/Ty Resolve 2018-092019-08-08 Olesya lora 18 10:00:00 Vallely therapy 09:00: 00 Integument knowledge/s Integument Resolve 2018-092019-08-05 Olesya lora 18 09:00:00 Vallely deficit: pt 09:00: 00 Nutrition nutritional Nutrition Resolve 2018-092019-08-05 Olesya restriction d -18 09:00:00 Vallely s 09:00: 00 Elimination urinary Eliminatio Resolve 2018-092019-08-08 Olesya incontinenc n d 18 10:00:00 Vallely e 09:00: 00 Elimination bowel Eliminatio Resolve 2018-092019-08-08 Olesya incontinenc n d 18 10:00:00 Vallely e 09:00: 00 Neuro knowledge/s Neuro/Emot Resolve 2018-092019-08-08 Olesya kill ion d 18 10:00:00 Vallely deficit: pt 09:00: 00 Neuro knowledge/s Neuro/Emot Resolve 2018-092019-08-08 Olesya kill ion d 10-05 10:00:00 Vallely deficit: cg 09:00: 00 Activity ADL Activity Resolve 2018-092019-08-14 Olesya assistance d 10-05 09:00:00 Vallely required 09:00: 00 Activity knowledge/s Activity Resolve 2018-092019-08-14 Olesya kill d 18 09:00:00 Vallely deficit: pt 09:00: 00 Activity knowledge/s Activity Resolve 2018-092019-08-14 Olesya kill d 10-05 09:00:00 Vallely deficit: cg 09:00: 00 Activity self-care Activity Resolve 2018-092019-08-14 Olesya deficit d 10-05 09:00:00 Vallely 09:00: 00 Safety structural Safety Resolve 2018-092019-08-14 Olesya barriers d 18 09:00:00 Vallely present 09:00: 00 Safety safety Safety Resolve 2018-092019-08-14 Olesya hazards d 18 09:00:00 Vallely present 09:00: 00 Safety cannot be Safety Resolve 2018-092019-08-14 Olesya left alone d 10-05 09:00:00 Vallely 09:00: 00 Safety knowledge/s Safety Resolve 2018-092019-08-14 Olesya kill d 10-05 09:00:00 Vallely deficit: pt 09:00: 00 Safety knowledge/s Safety Resolve 2018-092019-08-14 Olesya kill d 10-05 09:00:00 Vallely deficit: cg 09:00: 00 Safety fall risk Safety Resolve 2018-092019-08-14 Olesya factor d 1-18 09:00:00 Vallely present 09:00: 00 Safety fire risk Safety Resolve 2018-092019-08-14 Olesya wright d 18 09:00:00 Vallely 09:00: 00 Safety risk for Safety Resolve 2018-092019-08-14 Olesya rice d 18 09:00:00 Vallely tion 09:00: 00 Medication oral med Meds Resolve 2018-092019-08-14 Olesya assistance d 18 09:00:00 Vallely required 09:00: 00 Medication knowledge/s Meds Resolve 2018-092019-08-08 Olesya crow d 18 10:00:00 Vallely deficit: pt 09:00: 00 Medication knowledge/s Meds Resolve 2018-092019-08-08 Olesya crow d 18 10:00:00 Vallely deficit: cg 09:00: 00 Medication potential Meds Resolve 2018-092019-08-14 Olesya clinically d 18 09:00:00 Vallely significant 09:00: medication 00 issue [...] Resolve 2018-092019-08-19 Olesya etal kill letal d -18 12:18:00 Vallely deficit: cg 09:00: 00 Musculoskel requires Musculoske Resolve 2018-092019-08-19 Olesya maganal human letal d -18 12:18:00 Vallely assist to 09:00: leave home 00 Cardio knowledge/s Cardiovasc Unknown 2018- Citlali kill ular 1-18 [place] deficit: pt 13:40: 00 Cardio knowledge/s Cardiovasc Unknown 2018-09 Citlali kill ular -18 [place] deficit: cg 13:40: 00 Respiratory dyspnea Respirator Unknown 2018- Citlali present y 18 [place] 13:40: 00 Endo/Ty knowledge/s Endo/Ty Unknown 2018-09 Citlali kill 18 [place] deficit: pt 13:40: 00 Elimination urinary Eliminatio Unknown 2018- Citlali incontinenc n -18 [place] e 13:40: 00 Elimination bowel Eliminatio Unknown 2018-09 Citlali incontinenc n -18 [place] e 13:40: 00 Activity knowledge/s Activity Unknown 2018-09 Citlali kill 18 [place] deficit: pt 13:40: 00 Activity knowledge/s Activity Unknown 2018-09 Citlali kill 18 [place] deficit: cg 13:40: 00 Activity self-care Activity Unknown 2018-09 Citlali deficit 18 [place] 13:40: 00 Safety knowledge/s Safety Unknown 2018-09 Citlali kill 18 [place] deficit: cg 13:40: 00 Safety can [...] 13:40: required 00 Medication knowledge/s Meds Unknown 2018-09 Citlali kill 18 [place] deficit: pt 13:40: 00 Medication knowledge/s Meds Unknown 2018-09 Citlali kill 18 [place] deficit: cg 13:40: 00 Musculoskel transfer Musculoske Unknown 2018-09 Citlali etal assistance letal 18 [place] required 13:40: 00 Musculoskel knowledge/s Musculoske Unknown 2018-09 Citlali etal kill letal 18 [place] deficit: pt 13:40: 00 Musculoskel knowledge/s Musculoske Unknown 2018-09 Citlali etal kill letal 1-18 [place] deficit: cg 13:40: 00 Bed mobility/tr PT/OT: Bed Active 2018-09 Citlali Mobility/Tr ansfer Mobility/T 1-18 [place] ansfer device ransfer 13:40: present 00 Bed transfer PT/OT: Bed Active 2018-09 Citlali Mobility/Tr deficit: Mobility/T 1-18 [place] ansfer sit/stand ransfer 13:40: 00 Bed transfer PT/OT: Bed Active 2018-09 Citlali Mobility/Tr deficit: Mobility/T 1-18 [place] ansfer toilet/comm ransfer 13:40: ode 00 Bed transfer PT/OT: Bed Active 2018-09 [...] Integument skin Integument Resolve 2018-092019-08-14 Olesya integrity geno 10-08 09:00:00 Vallely risk 10:00: 00 Integument knowledge/s Integument Active 2018-09 Olesya crow 10-08 Vallely deficit: pt 10:00: 00 Medication inhalant Meds Resolve 2018-092019-08-14 Olesya lora 10-08 09:00:00 Vallely assistance 10:00: required 00 Medication knowledge/s Meds Resolve 2018-092019-08-14 Carlita lora 10-12 09:00:00 Gross deficit: pt 16:00: [id number] Medication knowledge/s Meds Resolve 2018-092019-08-14 Carlita crow d 10-12 09:00:00 Gross deficit: cg 16:00: [id number] Gait/Locomo gait PT/OT: Active 2018-09 Citlali whittakerrafael assistive Gait/Locom 10-12 [place] problems device otion 16:00: present 00 OT: Self self-care OT: Active 2018-09 Berna Care deficit Self-Care 10-13 Elio 10:15: [id number] Endo/Ty anti-coagul Endo/Ty Resolve 2018-092019-08-19 Olesya atcesar d 10-14 12:18:00 Vallely therapy 09:00: 00 [...] for Safety Resolve 2018-092019-08-19 Emily hospital[facility] d 2- 12:18:00 Malnoske tion 12:18: RN 00 Safety risk for Safety Unknown 2018-09 [facility] [place] tion 13:50: 00 Medication knowledge/s Meds Active 2018-09 Citlali kill - [place] deficit: pt 13:50: 00 Musculoskel knowledge/s Musculoske Unknown 2018-09 Citlali etal kill letal 10-20 [place] deficit: pt 13:50: 00 Safety risk for Safety Active 2018-09 Citlali [facility] 10-25 [place] tion 15:10: 00 Allergies, Adverse [...] Observation Time Observation Value Comments SYSTOLIC mm[Hg] 2019-08-26 18:09:16 110 mm[Hg] mm[Hg] Method: Sit DIASTOLIC mm[Hg] 2019-08-26 18:09:16 69 mm[Hg] mm[Hg] Method: Sit PULSE 2019-08-26 18:09:16 89 /min /min RESP RATE 2019-08-19 18:09:09 16 /min /min TEMP 2019-08-26 18:09:16 98.2 [degF] Procedures This patient has no known procedures. Results This patient has no known results.
--- OUTSIDE RECORDS SUMMARY | 2019-09-26 16:20 | XMS REPORT | Continuity of Care Document ---
:1935 External Reference #:[id number] Author Name Kyle Greenwood M.D. Address [facility]. [facility] [place] [address] Care Team Providers Name Role Phone MD Hector, Von Care Team Information Director Of Residential Services [phone] Problems Active Problems Provider Date Essential hypertension Kyle Greenwood M.D. Onset: 09/01/2017 Social History Type Date Description Comments Sex Unknown ETOH Use Denies alcohol use Tobacco Use Start: Unknown End: Unknown Patient is a former smoker Smoking Status Reviewed: 09/05/19 Patient is a former smoker Allergies, Adverse Reactions, Alerts Description No Known Drug Allergies Medications Active Medications SIG Qnty Indications Ordering Provider Date Repatha Sureclick Unknown 140mg/ml Solution Auto-Inject Cartia XT Unknown 120mg Caps ER 24HR Hydrochlorothiazide MD Young Charles 25mg Tablets Breo Ellipta Unknown 100-25mcg/Inh Aerosol Ramipril 5mg Unknown Capsules Rosuvastatin Calcium MD Young Charles 10mg Tablets Atenolol 100mg Unknown Tablets Keytruda Unknown 100mg/4ML Solution Gabapentin Unknown 300mg Capsules Aspirin Adult Unknown 325mg Tablets Immunizations Description No Information Available Vital Signs Date Vital Result Comment 09/06/2019 10:03am Intraocular Pressure Right Eye 14 mmHg Intraocular Pressure Left Eye 14 mmHg 09/03/2018 9:58am Intraocular Pressure Right Eye 13 mmHg Intraocular Pressure Left Eye 13 mmHg Results Description No Information Available Procedures Date Code Description Status 09/06/2019 62297 Fundus Photography W/Interpretation & Report Completed 09/06/2019 32914 Ophthalmoscopy Subsequent Completed 09/06/2019 12751 Eye Exam Est Comprehensive Completed Medical Devices Description No Information Available Encounters Description No Information Available Assessments Date Code Description Provider 09/06/2019 H35.341 Macular cyst, hole, or pseudohole, right eye Kyle Greenwood M.D. 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 09/06/2019 Z96.1 Presence of intraocular lens Kyle Greenwood M.D. Plan of Treatment 09/06/2019 - Kyle Greenwood M.D.H35.341 Macular cyst, hole, or pseudohole, right eyeH35.373 Puckering of macula, wzyrpkzcbO83.1 Presence of intraocular lensFollow up:6mos oct mac Functional Status Description No Information Available Mental Status Description No Information Available Referrals Description No Information Available
--- OUTSIDE RECORDS SUMMARY | 2019-09-26 16:20 | XMS REPORT ---
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 Citlali (current) (current) [place] use [...] required 00 Medication knowledge/s Meds Unknown 2018- Ctilali kill 1-18 [place] deficit: pt 13:40: 00 [...] lora 10-12 09:00:00 Gross deficit: pt 16:00: [id number] Medication knowledge/s Meds Resolve 2018-092019-08-14 Carlita lora 10-12 09:00:00 Gross deficit: cg 16:00: [id number] 00 Gait/Locomo gait PT/OT: Active 2018-09 Citlali tion assistive Gait/Locom 25 [place] problems device otion 16:00: present 00 OT: Self self-care OT: Active 2018-09 Berna Care deficit Self-Care 10-13 Elio 10:15: [id number] 00 Endo/Ty anti-coagul Endo/Ty Resolve 2018-092019-08-19 Olesya [...]
--- OUTSIDE RECORDS SUMMARY | 2019-09-26 16:20 | XMS REPORT ---
:1935 Author Organization [facility] Care Team Providers Name Role Phone Unavailable [...] lora 10-12 09:00:00 Gross deficit: pt 16:00: [id number] 00 Medication knowledge/s Meds Resolve 2018-092019-08-14 Carlita crow d 10-12 09:00:00 Gross deficit: cg 16:00: [id number] 00 Gait/Locomo gait PT/OT: Active 2018-09 Citlali whittakerrafael assistive Gait/Locom 10-12 [place] problems device otion 16:00: present 00 OT: Self self-care OT: Active 2018-09 Berna Care deficit Self-Care 10-13 Elio 10:15: [id number] 00 Endo/Ty anti-coagul Endo/Ty Resolve 2018-092019-08-19 Olesya [...] Safety risk for Safety Active 2018-09 Citlali [facility] 10-25 [place] tion 15:10: 00 Allergies, [...]
--- OUTSIDE RECORDS SUMMARY | 2019-09-26 16:20 | XMS REPORT ---
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 [...] [place] ry bypass ry bypass graft graft [facility] intermediate Diagnosis Active Citlali (current) (current) [place] use [...] lora 10-12 09:00:00 Gross deficit: pt 16:00: [id number] 00 Medication knowledge/s Meds Resolve 2018-092019-08-14 Carlita lora 10-12 09:00:00 Gross deficit: cg 16:00: [id number] Gait/Locomo gait PT/OT: Active 2018-09 Citlali tion assistive Gait/Locom 25 [place] problems device otion 16:00: present 00 OT: Self self-care OT: Active 2018-09 Berna Care deficit Self-Care 10-13 Elio 10:15: [id number] Endo/Yt anti-coagul Endo/Ty Resolve 2018-092019-08-19 Olesya lora 10-14 [...] Unknown %-0.05 % %-0.05 % 10-05 Von EDCKER topical topical cream cream Co Q-10 200 Co Q-10 200 2018-09 Yes Garbo Unknown Unknown mg capsule mg capsule 10-05 Von DECKER Vital Signs Vital Name Observation Time Observation Value Comments SYSTOLIC mm[Hg] 2019-09-04 18:09:25 106 mm[Hg] mm[Hg] Method: Sit DIASTOLIC mm[Hg] 2019-09-04 18:09:25 52 mm[Hg] mm[Hg] Method: Sit PULSE 2019-09-04 18:09:25 66 /min /min RESP RATE 2019-08-19 18:09:09 16 /min /min TEMP 2019-09-04 18:09:25 97.8 [degF] Procedures This patient has no known procedures. Results This patient has no known results.
--- OUTSIDE RECORDS SUMMARY | 2019-09-26 16:20 | XMS REPORT ---
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 Citlali (current) (current) [place] [...] lora 10-12 09:00:00 Gross deficit: pt 16:00: [id number] Medication knowledge/s Meds Resolve 2018-092019-08-14 Carlita lora 10-12 09:00:00 Gross deficit: cg 16:00: [id number] 00 Gait/Locomo gait PT/OT: Active 2018-09 Citlali tion assistive Gait/Locom 25 [place] problems device otion 16:00: present 00 OT: Self self-care OT: Active 2018-09 Berna Care deficit Self-Care 10-13 Elio 10:15: [id number] 00 Endo/Ty anti-coagul Endo/Ty Resolve 2018-092019-08-19 Olesya [...] Unknown Unknown mg tablet mg tablet 10-05 Vno DECEKR dilTIAZem dilTIAZem 2018-09 Yes Garbo Unknown Unknown [...]
--- OUTSIDE RECORDS SUMMARY | 2019-09-26 16:20 | XMS REPORT ---
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 [...] [place] ry bypass ry bypass graft graft long term detention Diagnosis Active Citlali (current) (current) [place] use [...] Cardio knowledge/s Cardiovasc Resolve 2018-092019-08-08 Olesya crow isntia d 18 10:00:00 Vallely deficit: cg 09:00: [...] lora 10-12 09:00:00 Gross deficit: pt 16:00: [id number] 00 Medication knowledge/s Meds Resolve 2018-092019-08-14 Carlita lora 10-12 09:00:00 Gross deficit: cg 16:00: [id number] Gait/Locomo gait PT/OT: Active 2018-09 Citlali tion assistive Gait/Locom 25 [place] problems device otion 16:00: present 00 OT: Self self-care OT: Active 2018-09 Berna Care deficit Self-Care 10-13 Elio 10:15: [id number] 00 Endo/Ty anti-coagul Endo/Ty Resolve 2018-092019-08-19 Olesya [...]
--- OUTSIDE RECORDS SUMMARY | 2019-09-26 16:20 | XMS REPORT ---
:1935 Author Organization [facility] Care Team Providers Name Role Phone [...] lora 10-12 09:00:00 Gross deficit: pt 16:00: [id number] 00 Medication knowledge/s Meds Resolve 2018-092019-08-14 Carlita crow d 10-12 09:00:00 Gross deficit: cg 16:00: [id number] 00 Gait/Locomo gait PT/OT: Active 2018-09 Citlali whittakerrafael assistive Gait/Locom 10-12 [place] problems device otion 16:00: present 00 OT: Self self-care OT: Active 2018-09 Berna Care deficit Self-Care 10-13 Elio 10:15: [id number] Endo/Ty anti-coagul Endo/Ty Resolve 2018-092019-08-19 Olesya [...] Safety risk for Safety Active 2018-09 Citlali [facility] 10-25 [place] tion 15:10: 00 Allergies, Adverse [...]
--- OUTSIDE RECORDS SUMMARY | 2019-09-26 16:20 | XMS REPORT ---
:1935 Author Organization [facility] Care Team Providers Name Role Phone Unavailable [...] lora 10-12 09:00:00 Gross deficit: pt 16:00: [id number] Medication knowledge/s Meds Resolve 2018-092019-08-14 Carlita crow d 10-12 09:00:00 Gross deficit: cg 16:00: [id number] 00 Gait/Locomo gait PT/OT: Active 2018-09 Citlali whittakerrafael assistive Gait/Locom 10-12 [place] problems device otion 16:00: present 00 OT: Self self-care OT: Active 2018-09 Beran Care deficit Self-Care 10-13 Elio 10:15: [id number] Endo/Ty anti-coagul Endo/Ty Resolve 2018-092019-08-19 Olesya [...] Safety risk for Safety Active 2018-09 Citlali [facility] 10-25 [place] tion 15:10: 00 [...] Unknown 0.4 mg 0.4 mg 10-05 Von DEKCER capsule capsule evolocumab evolocumab 2018-09 Yes Garbo [...]
--- OUTSIDE RECORDS SUMMARY | 2019-09-26 16:20 | XMS REPORT ---
:1935 Author Organization [facility] Care Team Providers Name Role Phone Unavailable [...] lora 10-12 09:00:00 Gross deficit: pt 16:00: [id number] Medication knowledge/s Meds Resolve 2018-092019-08-14 Carlita crow d 10-12 09:00:00 Gross deficit: cg 16:00: [id number] Gait/Locomo gait PT/OT: Active 2018-09 Citlali aguero assistive Gait/Locom 10-12 [place] problems device otion 16:00: present 00 OT: Self self-care OT: Active 2018-09 Berna Care deficit Self-Care 10-13 Elio 10:15: [id number] Endo/Ty anti-coagul Endo/Ty Resolve 2018-092019-08-19 Olesya lee d 10-14 12:18:00 Vallely therapy 09:00: 00 Safety knowledge/s Safety Unknown 2018-09 Citlali crow 10-14 [place] deficit: pt 16:00: 00 Safety risk for Safety Unknown 2018-09 Citlali tapiaa 10-14 [place] tion 16:00: 00 Medication knowledge/s [...] letal 10-20 [place] deficit: pt 13:50: 00 Allergies, Adverse Reactions, Alerts Allergy Allergy [...] Observation Time Observation Value Comments SYSTOLIC mm[Hg] 2019-08-22 18:09:12 115 mm[Hg] mm[Hg] Method: Sit DIASTOLIC mm[Hg] 2019-08-22 18:09:12 72 mm[Hg] mm[Hg] Method: Sit PULSE 2019-08-22 18:09:12 92 /min /min RESP RATE 2019-08-19 18:09:09 16 /min /min TEMP 2019-08-22 18:09:12 98.1 [degF] Procedures This patient has no known procedures. Results This patient has no known results.
--- OUTSIDE RECORDS SUMMARY | 2019-09-26 16:21 | XMS REPORT ---
:1935 Author Organization [facility] Care Team Providers Name Role [...] Safety fall risk Safety Resolve 2018-092019-08-14 Olesya vale d 1-18 09:00:00 Vallely present 09:00: 00 Safety fire risk Safety Resolve 2018-092019-08-14 Olesyadarnell wright d 18 09:00:00 Vallely 09:00: 00 [...] assistance 09:00: required 00 Musculoskel transfer Musculoske Active 2018-09 Olesya etal assistance letal 18 Vallely required 09:00: 00 Musculoskel knowledge/s Musculoske Active 2018-09 Olesya etal kill letal 18 Vallely deficit: pt 09:00: 00 Musculoskel knowledge/s Musculoske Active 2018-09 Olesya etal kill letal 10-05 Vallely deficit: cg 09:00: 00 Musculoskel requires Musculoske Active 2018-09 Olesya etal human letal 18 [place]lely assist to 09:00: leave home 00 Cardio knowledge/s Cardiovasc Unknown 2018-09 Citlali mignon ular -18 [place] deficit: pt 13:40: 00 Cardio knowledge/s Cardiovasc Unknown 2018-09 Citlali mignon ular -18 [place] deficit: cg 13:40: 00 Respiratory dyspnea Respirator Unknown 2018-09 Citlali present y 18 [place] 13:40: 00 Endo/Ty knowledge/s Endo/Ty Unknown 2018-09 Citlali kill 18 [place] deficit: pt 13:40: 00 Elimination urinary Eliminatio Unknown 2018-09 Citlali incontinenc n 18 [place] e 13:40: 00 Elimination bowel Eliminatio Unknown 2018-09 Citlali incontinenc n 18 [place] e 13:40: 00 Activity knowledge/s Activity Unknown 2018-09 Citlali kill 18 [place] deficit: pt 13:40: 00 Activity knowledge/s Activity Unknown 2018-09 Citlali kill 18 [place] deficit: cg 13:40: 00 Activity self-care Activity Unknown 2018-09 Citlali deficit 18 [place] 13:40: 00 Safety knowledge/s Safety Unknown 2018-09 Citlali kill 10-05 [place] deficit: cg 13:40: 00 Safety can be left Safety Resolve 2018-092019-08-14 Citlali alone for d 10-05 09:00:00 [place] only short 13:40: periods 00 Safety knowledge/s Safety Unknown 2018-09 Citlali kill 10-05 [place] deficit: pt 13:40: 00 Medication potential Meds Unknown 2018-09 Citlali clinically 10-05 [place] significant 13:40: medication 00 issue Medication oral med Meds Unknown 2018- Citlali assistance 10-05 [place] required 13:40: 00 Medication injectable Meds [...] Citlali etal kill letal 18 [place] deficit: cg 13:40: 00 Bed mobility/tr PT/OT: Bed Active 2018-09 Citlali Mobility/Tr ansfer Mobility/T 10-05 [place] ansfer device ransfer 13:40: present 00 [...] lora 10-12 09:00:00 Gross deficit: pt 16:00: [id number] Medication knowledge/s Meds Resolve 2018-092019-08-14 Carlita lora 10-12 09:00:00 Gross deficit: cg 16:00: [id number] Gait/Locomo gait PT/OT: Active 2018-09 Citlali aguero assistive Gait/Locom 10-12 [place] problems device otion 16:00: present 00 OT: Self self-care OT: Active 2018-09 Berna Care deficit Self-Care 10-13 Elio 10:15: [id number] Endo/Ty anti-coagul Endo/Ty Active 2018-09 Olesya ation 10-14 Vallely therapy 09:00: 00 Safety knowledge/s Safety Unknown 2018-09 Citlali crow 10-14 [place] deficit: pt 16:00: 00 Safety risk for Safety Unknown 2018-09 Citlali tapiaa 10-14 [place] tion 16:00: 00 Medication knowledge/s Meds Unknown 2018-09 Citlali crow 10-14 [place] deficit: pt 16:00: 00 Respiratory lung sounds Respirator Active 2018-09 Emily deficit y 2-02 Malnoske 12:18: RN 00 Allergies, Adverse Reactions, Alerts Allergy Allergy [...] Garbo Unknown Unknown mg tablet mg tablet -18 Von DECKER Dulera 100 Dulera 100 2018-09 Yes Garbo Unknown Unknown mcg-5 mcg-5 - Von DECKER mcg/actuati mcg/actuati on HFA on HFA aerosol aerosol inhaler inhaler aspirin 325 aspirin 325 2018-09 Yes Garbo Unknown Unknown mg tablet mg tablet -18 Von DECKER Lotrisone 1 Lotrisone 1 2018-09 Yes Garbo Unknown Unknown %-0.05 % %-0.05 % 10-05 Von DECKER topical topical cream cream Co Q-10 200 Co Q-10 200 2018-09 Yes Garbo Unknown Unknown mg capsule mg capsule -18 Von DECKER Vital Signs Vital Name Observation Time Observation Value Comments SYSTOLIC mm[Hg] 2019-08-19 18:09:09 110 mm[Hg] mm[Hg] Method: Sit DIASTOLIC mm[Hg] 2019-08-19 18:09:09 62 mm[Hg] mm[Hg] Method: Sit PULSE 2019-08-19 18:09:09 73 /min /min RESP RATE 2019-08-19 18:09:09 16 /min /min TEMP 2019-08-19 18:09:09 98.1 [degF] Procedures This patient has no known procedures. Results This patient has no known results.
--- OUTSIDE RECORDS SUMMARY | 2019-09-26 16:21 | XMS REPORT ---
:1935 Author Organization [facility] Care Team Providers Name Role Phone [...] 13:40: 00 Activity knowledge/s Activity Unknown 2018-09 Citlail kill 18 [place]ff[place] deficit: pt 13:40: 00 [...] lora 10-12 09:00:00 Gross deficit: pt 16:00: [id number] Medication knowledge/s Meds Resolve 2018-092019-08-14 Carlita lora 10-12 09:00:00 Gross deficit: cg 16:00: [id number] 00 OT: Self self-care OT: Active 2018-09 Berna Care deficit Self-Care 10-13 Elio 10:15: [id number] Endo/Ty anti-coagul Endo/Ty Active 2018-09 Olesya lee 10-14 Vallely therapy 09:00: 00 Allergies, Adverse Reactions, Alerts Allergy Allergy [...] cream Co Q-10 200 Co Q-10 200 2019-1 Yes Garbo Unknown Unknown mg capsule mg capsule 1-18 ,Von Vital Signs Vital Name Observation Time Observation Value Comments SYSTOLIC mm[Hg] 2019-08-14 18:09:04 115 mm[Hg] mm[Hg] Method: Sit DIASTOLIC mm[Hg] 2019-08-14 18:09:04 58 mm[Hg] mm[Hg] Method: Sit PULSE 2019-08-14 18:09:04 93 /min /min RESP RATE 2019-08-14 18:09:04 16 /min /min TEMP 2019-08-14 18:09:04 97 [degF] Procedures This patient has no known procedures. Results This patient has no known results.
--- OUTSIDE RECORDS SUMMARY | 2019-09-26 16:21 | XMS REPORT ---
:1935 Author Organization [facility] Care Team Providers Name Role Phone Unavailable [...] lora 10-12 09:00:00 Gross deficit: pt 16:00: [id number] Medication knowledge/s Meds Resolve 2018-092019-08-14 Carlita lora 10-12 09:00:00 Gross deficit: cg 16:00: [id number] OT: Self self-care OT: Active 2018-09 Berna Care deficit Self-Care 10-13 Elio 10:15: [id number] Endo/Ty anti-coagul Endo/Ty Active 2018-09 Olesya [...] Yes Garbo Unknown Unknown mcg-5 mcg-5 10-05 oVn DECKER mcg/actuati mcg/actuati on HFA on HFA [...]
--- OUTSIDE RECORDS SUMMARY | 2019-09-26 16:21 | XMS REPORT ---
[...] home 00 Cardio knowledge/s Cardiovasc Unknown 2018- Ctilali kill ular 1-18 [place] deficit: pt 13:40: 00 Cardio knowledge/s Cardiovasc Unknown 2018-09 Citlali kill ular -18 Cfofman deficit: cg 13:40: 00 Respiratory dyspnea Respirator [...] lora 10-12 09:00:00 Gross deficit: pt 16:00: [id number] Medication knowledge/s Meds Resolve 2018-092019-08-14 Carlita crow d 10-12 09:00:00 Gross deficit: cg 16:00: [id number] Gait/Locomo gait PT/OT: Active 2018-09 Citlali aguero assistive Gait/Locom 10-12 [place] problems device otion 16:00: present 00 OT: Self self-care OT: Active 2018-09 Berna Care deficit Self-Care 10-13 Elio 10:15: [id number] Endo/Ty anti-coagul Endo/Ty Resolve 2018-092019-08-19 Olesya [...]
--- OUTSIDE RECORDS SUMMARY | 2019-09-26 16:21 | XMS REPORT ---
:1935 Author Organization [facility] Care Team Providers Name Role Phone [...] lora 10-12 09:00:00 Gross deficit: pt 16:00: [id number] Medication knowledge/s Meds Resolve 2018-092019-08-14 Carlita lora 10-12 09:00:00 Gross deficit: cg 16:00: [id number] Gait/Locomo gait PT/OT: Active 2018-09 Citlali aguero assistive Gait/Locom 10-12 [place] problems device otion 16:00: present 00 OT: Self self-care OT: Active 2018-09 Benra Care deficit Self-Care 10-13 Elio 10:15: [id number] Endo/Ty anti-coagul Endo/Ty Resolve 2018-092019-08-19 Olesya [...] Respirator Resolve 2018-092019-08-19 Emily deficit y d - 12:18:00 Malnoske 12:18: RN 00 Safety cannot be Safety Resolve 2018-092019-08-19 Emily left alone d 2- 12:18:00 [place]ke 12:18: RN 00 Safety knowledge/s Safety Resolve 2018-092019-08-19 Emily kill d 2- 12:18:00 Malnoske deficit: pt 12:18: RN 00 Safety risk for Safety Resolve 2018-092019-08-19 Emily hospitaliza d 2- 12:18:00 Malnoske tion 12:18: RN 00 Allergies, Adverse Reactions, Alerts [...] Unknown ER 300 mg ER 300 mg 1-18 ,Von tablet,exte tablet,exte nded nded release 24 release 24 hr hr senna 8.6 senna 8.6 2018-09 Yes Garbo Unknown Unknown mg tablet mg tablet -18 Von DECKER atenolol 50 atenolol 50 2018-09 Yes Garbo Unknown Unknown mg tablet mg tablet -18 Von DECKER dilTIAZem dilTIAZem 2018-09 Yes Garbo Unknown Unknown CD 120 mg CD 120 mg 10-05 Von DECKER capsule,ext capsule,ext ended ended release 24 release 24 hr hr tamsulosin tamsulosin 2018-09 Yes Garbo Unknown Unknown 0.4 mg 0.4 mg 10-05 Von DECKER capsule capsule evolocumab evolocumab 2018-09 Yes Renatobo Unknown Unknown 140 mg/mL 140 mg/mL 10-05 [...] 18:09:09 62 mm[Hg] mm[Hg] Method: Sit PULSE 2019-08-21 18:09:11 90 /min /min RESP RATE 2019-08-19 18:09:09 16 /min /min TEMP 2019-08-19 18:09:09 98.1 [degF] Procedures This patient has no known procedures. Results This patient has no known results.
--- OUTSIDE RECORDS SUMMARY | 2019-09-26 16:21 | XMS REPORT ---
[...] lora 10-12 09:00:00 Gross deficit: pt 16:00: [id number] Medication knowledge/s Meds Resolve 2018-092019-08-14 Carlita lora 10-12 09:00:00 Gross deficit: cg 16:00: [id number] Gait/Locomo gait PT/OT: Active 2018-09 Citlali aguero assistive Gait/Locom 10-12 [place] problems device otion 16:00: present 00 OT: Self self-care OT: Active 2018-09 Berna Care deficit Self-Care 10-13 Elio 10:15: [id number] Endo/Ty anti-coagul Endo/Ty Active 2018-09 Olesya [...] CD 120 mg CD 120 mg 10-05 Vno DECKER capsule,ext capsule,ext ended ended release 24 [...]
[2019-09-26] MEDS ORDERED: Acetaminophen TAB* 325 MG PO ONE (16:40)
[2019-09-26 17:02] LABS: ABS Eosinophils 0.1 10^3/ul (0-0.6); ABS Lymphocytes 0.3 10^3/ul (1.0-4.8); ABS Monocytes 0.5 10^3/ul (0-0.8); ABS Neutrophils 5.3 10^3/ul (1.5-7.7); Eosinophil % 0.8 %; Hematocrit 30 % (42-52); Hemoglobin 10.1 g/dL (14.0-18.0); Lymphocyte % 5.3 %; Mean Corpuscular HGB Conc 34 g/dL (31-36); Mean Corpuscular Hemoglobin 27 pg (27-31); Mean Corpuscular Volume 80 fL (80-94); Mean Platelet Volume 8.6 fL (7.4-10.4); Platelet Count 229 10^3/uL (150-450); Red Blood Count 3.73 10^6 /uL (4.18-5.48); Red Cell Distribution Width 19 % (10-15); White Blood Count 6.1 10^3/uL (3.5-10.8)
--- NOTE | 2019-09-26 17:04 | ED ---
Complex/Multi-Sys Presentation - HPI Summary HPI Summary: Patient is an 84 y/o M presenting to the ED via EMS for a chief complaint of generalized weakness. He also reports worsening NEAL/SOB. Patient is present with his daughter. Per patient's daughter, patient has been unable to ambulate due to weakness. His daughter also notes that the patient has bilateral knee weakness, more in the left than right, bilateral LE edema, fever, and occasional shortness of breath. Patient notes losing his balance and falling 2 days ago. At that time, patient was able to ambulate and had no complaints other than ecchymosis to the left arm. Denies hitting his head or LOC. Any fever, nausea, vomiting, or diarrhea is denied. PMHx is significant for neuropathy since March 2019, atherosclerosis, COPD, prostate cancer, and lung cancer for which the patient follows up with Dr. Young. Patient is not currently on chemotherapy. Patient was at [facility] for one month for his cancer recently. PSHx is significant for quadruple bypass 44 years ago. He does not use oxygen at home, but he does take aspirin and has a history of taking Xarelto postop secondary to hematuria. Patient was scheduled for a CT of hid lungs on 09/30/19 [address] an appointment with Dr. Young on 10/04/19. - History Of Current Complaint Chief Complaint: EDWeakness Time Seen by Provider: 09/26/19 16:14 Hx Obtained From: Patient, Family/Research Physician - Daughter Onset/Duration: Sudden Onset Timing: Constant Severity Currently: Moderate Severity Initially: Moderate Associated Signs And Symptoms: Positive: Weakness - Generalized, bilateral knee , SOB, Edema - Bilateral LE. Negative: Nausea, Diarrhea, Fever - Allergies/Home Medications Allergies/Adverse Reactions: Allergies Allergy/AdvReac Type Severity Reaction Status Date / Time No Known Allergies Allergy Verified 09/26/19 18:35 Home Medications: Home Medications Atorvastatin* [Lipitor 20 MG*] 20 mg PO QPM 09/26/19 [History Confirmed 09/26/19 ] Evolocumab (NF) [Repatha inj (NF)] 140 mg SUBCUT Q14D 09/26/19 [History Confirmed 09/26/19] Gabapentin CAP(*) [Neurontin 300 CAP(*)] 300 mg PO QPM 09/26/19 [History Confirmed 09/26/19] Gabapentin CAP(*) [Neurontin 300 CAP(*)] 600 mg PO QAM 09/26/19 [History Confirmed 09/26/19] dilTIAZem HCl [Diltiazem 24Hr ER] 120 mg PO DAILY 09/26/19 [History Confirmed ] PMH/Surg Hx/FS Hx/Imm Hx Previously Healthy: Yes Endocrine/Hematology History: Reports: Hx Anemia - from chemo, Other Endocrine/ Hematological Disorders - glucose intolerance Denies: Hx Bone Marrow Disease, Hx Diabetes, Hx Sickle Cell Disease Cardiovascular History: Reports: Hx Angina, Hx Coronary Artery Disease, Hx Hypertension, Hx Valvular Heart Disease, Other Cardiovascular Problems/ Disorders - FOLLOWED BY DR CASAREZ Respiratory History: Reports: Hx Chronic Obstructive Pulmonary Disease (COPD), Hx Lung Cancer, Hx Pulmonary Edema, Hx Sleep Apnea, Other Respiratory Problems/ Disorders - 08/2016 lung cancer,CHEMO, PARALYSIS OF VOCAL CORDS & LARYNX GI History: Denies: Other GI Disorders - hx diverticulitis History: Reports: Hx Benign Prostatic Hyperplasia, Other Problems/ Disorders - matt catheter Denies: Hx Dialysis, Hx Kidney Infection, Hx Kidney Stones, Hx Renal Disease Musculoskeletal History: Reports: Other Musculoskeletal History - Left Drop Foot Denies: Hx Back Problems Sensory History: Reports: Hx Cataracts - Bilateral cataracts, Hx Contacts or Glasses - reading Denies: Hx Legally Blind, Hx Deafness, Hx Hearing Aid Opthamlomology History: Reports: Hx Cataracts - Bilateral cataracts, Hx Contacts or Glasses - reading Denies: Hx Legally Blind EENT History: Denies: Hx Deafness Neurological History: Reports: Other Neuro Impairments/Disorders - VOCAL CHORD NERVE DAMAGE POSSIBLY FROM THE CANCER Denies: Hx Dementia, Hx Seizures - Cancer History Cancer Type, Location and Year: lung CA, prostate CA Hx Chemotherapy: Yes - Surgical History Surgical History: Yes Surgery Procedure, Year, and Place: 1986 CABG X4, [place]. DOUBLE HERNIA REPAIR. 2004 X2 LT ROTATOR CUFF REPAIR [place]. 04/2017 THYROPLASTY / GORE-TOMER GRAFT. 10/2017-CATARACTS. bladder surgery for tumor removal [id number] Hx Anesthesia Reactions: Yes - during shoulder anesthesia seeping into lungs Infectious Disease History: No Infectious Disease History: Denies: Traveled Outside the [place] in Last 30 Days - Family History Known Family History: Positive: Diabetes, Other - Negative Cancer - Social History Occupation: Retired Lives: With Family Alcohol Use: None Hx Substance Use: No Substance Use Type: Reports: None Hx Tobacco Use: Yes Smoking Status (MU): Former Smoker Type: Cigarettes Amount Used/How Often: 2 packs a day for25 yrs Have You Smoked in the Last Year: No Review of Systems Negative: Fever Positive: Shortness Of Breath Negative: Vomiting, Diarrhea, Nausea Positive: Edema - Bilateral LE Positive: Bruising - Left arm Positive: Weakness - Generalized, bilateral knees All Other Systems Reviewed And Are Negative: Yes Physical Exam - Summary Physical Exam Summary: Constitutional: Well-developed, Well-nourished, Alert. (-) Distressed Skin: Warm, Dry HENT: Normocephalic; Atraumatic Eyes: Conjunctiva normal Neck: Musculoskeletal ROM normal neck. (-) JVD, (-) Stridor, (-) Nuchal rigidity Cardio: irregular rhythm. Heart sounds normal; Intact distal pulses; Radial pulses are 2+ and symmetric. (-) Murmur. Tachycardic. Pulmonary/Chest wall: (-) Respiratory distress, (-) Wheezes, (-) Rales. Tachypneic. Crackles in the right lower lobe. Dec breath sounds LLL Abd: Soft, (-) tenderness, (-) Distension, (-) Guarding, (-) Rebound Musculoskeletal: 2+ pitting edema, more on the right than left. Lymph: (-) Cervical adenopathy Neuro: Alert, Oriented x3 Psych: Mood and affect Normal Triage Information Reviewed: Yes Vital Signs On Initial Exam: Initial Vitals Temp Pulse Resp BP Pulse Ox 100.5 F 107 10 135/77 91 09/26/19 16:13 09/26/19 16:13 09/26/19 16:13 09/26/19 16:13 09/26/19 16:13 Vital Signs Reviewed: Yes Procedures - Sedation Patient Received Moderate/Deep Sedation with Procedure: No Diagnostics - Vital Signs Vital Signs Temp Pulse Resp BP Pulse Ox 09/26/19 16:13 100.5 F 107 10 135/77 91 - Laboratory Lab Results: Lab Results 09/26/19 Range/Units 16:52 WBC 6.1 (3.5-10.8) 10^3/uL RBC 3.73 L (4.18-5.48) 10^6 /uL Hgb 10.1 L (14.0-18.0) g/dL Hct 30 L (42-52) % MCV 80 (80-94) fL MCH 27 (27-31) pg MCHC 34 (31-36) g/dL RDW 19 H (10-15) % Plt Count 229 (150-450) 10^3/uL MPV 8.6 (7.4-10.4) fL Neut % (Auto) 85.9 % Lymph % (Auto) 5.3 % [place] % (Auto) 7.6 % Eos % (Auto) 0.8 % Baso % (Auto) 0.4 % Absolute Neuts (auto) 5.3 (1.5-7.7) 10^3/ul Absolute Lymphs (auto) 0.3 L (1.0-4.8) 10^3/ul Absolute Monos (auto) 0.5 (0-0.8) 10^3/ul Absolute Eos (auto) 0.1 (0-0.6) 10^3/ul Absolute Basos (auto) 0.0 (0-0.2) 10^3/ul Absolute Nucleated RBC 0.0 10^3/ul Nucleated RBC % 0.0 Result Diagrams: 09/27/19 06:40 09/27/19 06:40 Lab Statement: Any lab studies that have been ordered have been reviewed, and results considered in the medical decision making process. - Radiology Chest X-ray Radiology Interpretation Completed By: Radiologist Summary of Radiographic Findings: Chest X-ray IMPRESSION: PROGRESSION OF SOFT TISSUE DENSITY ALONG THE LEFT UPPER MEDIASTINUM WITH PROGRESSION OF LEFT PLEURAL EFFUSION. Reviewed by Dr. Ozuna. - EKG 17:45 Cardiac Rate: Other Rate - 102 BPM EKG Rhythm: Atrial Fibrillation ST Segment: Normal Ectopy: None EKG Comparison: No Significant Change - Compared to 09/17/17. Summary of EKG Findings: An EKG at 17:45 reveals atrial fibrillation with 102 BPM, LBBB, left axis, nml intervals. No STEMI. No acute changes. Compared to , no significant change. Dr. Ozuna has reviewed and interpreted this EKG. Re-Evaluation - Re-Evaluation First Eval Re-Evaluation Time: 18:42 Change: Unchanged Comment: At 18:42, patient is hypotensive and has 3+ LE in the urine. Will give IV fluids and rocephin. Complex Multi-Symp Course/Dx Course Of Treatment: 84 y/o male w hx lung cancer s/p chemo (last in Apr), prostate cancer status post seeding, CAD, afib, DJD, spinal cord compression, p/ w SOB and fatigue. - in the ER, patient found to be hypoxic, febrile and tachycardic. - chest x-ray with worsening mass of the left side, no obvious pneumonia. Normal white count. Lactic acid. Urinalysis 3+ esterase, given ceftriaxone. Matt placed for inability to void. - Patient placed on nasal cannula 4 L with O2 sat 90%. CT of the chest ordered to rule out PE given history of cancer, increasing right lower extremity swelling, and hypoxia. - patient to be admitted to hospitalist team, oncology aware - Diagnoses Provider Diagnoses: Shortness of breath - Physician Notifications Discussed Care Of Patient With: Tammy Bey - At 18:12, Dr. Tammy Bey who agrees with CTA and recommends admission. At 18:18, patients case was reviewed by Dr. Zulay Packer who will admit the patient to [facility] with a diagnosis of shortness of breath. Time Discussed With Above Provider: 18:12 Instructed by Provider To: Admit As Inpatient Discharge ED - Sign-Out/Discharge Documenting (check all that apply): Patient Departure - Admit - Discharge Plan Condition: Stable Disposition: ADMITTED TO [facility] - Billing Disposition and Condition Condition: STABLE Disposition: Admitted to [facility] - Attestation Statements Document Initiated by Hemanth: Yes Documenting Scribe: Brandee Mcfarland Provider For Whom Hemanth is Documenting (Include Credential): Brendon Ozuna MD Scribe Attestation: Brandee Yanes, scribed for Brendon Ozuna MD on 09/27/19 at 0725. Scribe Documentation Reviewed: Yes Provider Attestation: The documentation as recorded by the Brandee bailey accurately reflects the service I personally performed and the decisions made by me, Brendon Ozuna MD Status of Scribe Document: Viewed
[2019-09-26 17:16] LABS: Calcium 9.2 mg/dL (8.6-10.3); Potassium 4.3 mmol/L (3.5-5.0); Total Bilirubin 0.7 mg/dL (0.2-1.0)
[2019-09-26 17:22] LABS: Albumin/Globulin Ratio 1.3 (1-3); EGFR African American 90.3 (>60); EGFR Non-African American 74.6 (>60); Globulin 3.2 g/dL (2-4); Total Protein 7.2 g/dL (6.4-8.9)
[2019-09-26 18:40] LABS: Urine Appearance Cloudy; Urine Bilirubin Negative (Negative); Urine Blood Negative (Negative); Urine Color Yellow; Urine Glucose Negative (Negative); Urine Ketones Negative (Negative); Urine Nitrite Positive (Negative); Urine Protein 2+(100 mg/dL) (Negative); Urine Specific Gravity 1.013 (1.010-1.030); Urine Urobilinogen Negative (Negative)
[2019-09-26] MEDS ORDERED: Ondansetron INJ* 2 MG/ML VIAL IV PRN (18:41)
[2019-09-26] MEDS ORDERED: Benzonatate CAP* 100 MG PO PRN (18:41)
[2019-09-26] MEDS ORDERED: cefTRIAXone(*) 2 GM in NS 0.9% 100 ML* 100 ML IVPB ONE (18:42)
[2019-09-26] MEDS ORDERED: NS 0.9% 1000 ML** 1,000 ML IV ONE (18:42)
[2019-09-26] MEDS ORDERED: cefTRIAXone(*) 1 GM in NS 0.9% 50 ML* 50 ML IVPB ONE (18:42)
[2019-09-26 18:44] LABS: Urine Bacteria 1+ (Absent); Urine Red Blood Cell Trace(0-2/hpf) (Absent); Urine White Blood Cell 3+(>20/hpf) (Absent)
[2019-09-26 18:55] LABS: Troponin I 0.01 ng/mL (<0.03)
[2019-09-26] MEDS ORDERED: Iodixanol* (CONTRAST) 320 MG/ML 100 ML SDV IV ONE (18:58)
[2019-09-26] MEDS ORDERED: cefTRIAXone(*) 1 GM in NS 0.9% 50 ML* 50 ML IVPB SCH (19:00)
[2019-09-26] MEDS ORDERED: Enoxaparin(*) 40 MG/0.4 ML SYR SUBCUT SCH (19:00)
[2019-09-26] MEDS ORDERED: Albuterol/Ipratropium NEB.SOL* Albuterol 2.5 MG/Ipratropium 0.5 MG 3 ML INH SCH (19:00)
[2019-09-26] MEDS: Mometasone/Formoter 100/5 MDI INH SCH (19:52)
[2019-09-26] MEDS: guaiFENesin ER TAB 600 MG PO SCH (21:36)
[2019-09-26] MEDS: Senna TAB 8.6 mg* TAB PO SCH (21:37)
[2019-09-26] MEDS: Tamsulosin CAP* 0.4 MG PO SCH (21:42)
--- NOTE | 2019-09-26 22:43 | HP ---
CC: Dr. Von Young * ADMISSION HISTORY AND PHYSICAL: DATE OF ADMISSION: 09/26/19 PRIMARY CARE PROVIDER: Dr. Von Young. MY ATTENDING WHILE IN THE HOSPITAL: Dr. Zulay De La Garza.* (DICTATED BY ANDI TORRE) CHIEF COMPLAINT: Weakness x2 days. HISTORY OF PRESENT ILLNESS: Mr. Carreon is an 84-year-old male with past medical history significant for squamous cell lung cancer, previously on Abraxane, most recent dose in April of 2019 as well as coronary artery disease , AFib and cervical and lumbar cord compressions related to chronic degenerative disk disease, who starting in April of last year had a poor reaction to Abraxane, which caused a severe neuropathy, particularly in his hands and feet accompanied by severe weakness, which was also somewhat attributed to his spinal disease. The patient did not undergo surgery and underwent a long period of rehabilitation first in a hospital [facility], then at the [facility] and then [facility] and then with physical therapy at home. The patient throughout that time had gained a large amount of his strength back, was able to walk up 2 steps with a walker. He was able to participate fully in PT twice a week and had significant functional limitations related to shortness of breath, but generally was able to care for himself with assistance, however, for the past 2 weeks, the patient has had increased swelling in his bilateral lower extremities and the right worse than the left per his daughter. The patient has never had any issues like this before. The patient has no history of blood clots, but the patient was previously on Xarelto and this was discontinued due to hematuria related to complications of prostate cancer surgery and the patient has only been on full-dose aspirin. The patient 2 days ago had particular weakness in his left foot that was generally the foot that is weaker , but was still able to walk, but with more difficulty and then the day before the patient's admission, he was still walking, but needed assistance getting off of the toilet, which he normally does not. The patient also was noted to have increased shortness of breath. The patient denies having chest pains, abdominal pain, nausea, vomiting or other sick contacts. The patient recently had his gabapentin increased and had no other changes in his medications. The patient on the day of admission got progressively weaker still, was unable to sit on the edge of the bed without support and looked like he felt poorly and he was going to fall. The patient was brought into the emergency department by ambulance. In the emergency department, the patient was found to have a low- grade fever, mild tachycardia, found to be hypoxic on room air and blood pressures lowest of which is recorded at 91/50. The patient denies dizziness, palpitations. In the emergency department, the patient had no white blood cell count, the patient had a hemoglobin at his baseline, normal lactic acid and essentially no other significant laboratory abnormalities. The patient, however , did have urinalysis, which showed positive nitrite and 3+ leukocyte esterase with 3+ white blood cells and 1+ bacteria. Due to concern for urinary tract infection, coughing, weakness, we were asked to evaluate the patient for admission to the hospital. PAST MEDICAL HISTORY: 1. Squamous cell lung cancer. 2. Neuropathy. 3. Atrial fibrillation. 4. Coronary artery disease, status post CABG. 5. Hyperlipidemia. 6. Prostate cancer. 7. Bladder cancer. 8. Basal cell cancer. 9. Degenerative disk disease with cord compression. PAST SURGICAL HISTORY: 1. Coronary artery bypass graft 44 years ago. 2. Bladder surgery. 3. Basal cell carcinoma removal. 4. Vocal cord surgery. 5. Cataract surgery. MEDICATIONS: 1. Aspirin 325 mg p.o. daily. 2. Atenolol 50 mg p.o. daily. 3. Dulera 100/5 two puffs inhalation b.i.d. 4. Senna 2 tabs p.o. b.i.d. 5. Tamsulosin 0.4 mg p.o. at bedtime. 6. Evolocumab 140 mg subcutaneous q.14 days. 7. Diltiazem 120 mg p.o. daily. 8. Gabapentin 300 mg p.o. nightly. 9. Gabapentin 600 mg p.o. daily. 10. Lipitor 20 mg p.o. nightly. ALLERGIES: No known drug allergies. FAMILY HISTORY: The patient's father had MS and mother of diabetes. SOCIAL HISTORY: The patient has a 40- to 60-pack year history of smoking. The patient still drinks occasional alcohol. Denies illicit drug use. 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 He is a and has 2 children. His surrogate decision maker will be his daughter, Rosalina Marx. REVIEW OF SYSTEMS: A 10-point review of systems was reviewed and is negative except as above in the HPI. PHYSICAL EXAMINATION GENERAL: The patient is an 84-year-old male who appears stated age and sitting comfortably in bed, in no acute distress. VITAL SIGNS: At the time of evaluation, temperature 100.5, pulse rate 100, respiratory rate 30, oxygen saturation 93% on 4 L, blood pressure 91/50. HEENT: Head: Normocephalic, atraumatic. Sclerae anicteric. No conjunctival injection. Nasal mucosa moist. Oral mucosa moist. No pharyngeal erythema, discharge, or exudate. NECK: Supple, nontender. No lymphadenopathy. No carotid bruits auscultated. No JVD. CARDIAC: Tachycardic. No clicks, murmurs, gallops, or rubs. Pulses 2+ in bilateral dorsalis pedis, posterior tibialis, and radial areas. 1+ bilateral lower extremity edema noted, pitting. RESPIRATORY: Diminished in the left lung base. No other adventitious lung sounds. No wheezes, rales, or rhonchi. Good air exchange bilaterally. ABDOMEN: Soft, nontender, and nondistended. Bowel sounds present, normoactive in all 4 quadrants. No hepatosplenomegaly. No abdominal bruits auscultated. No hepatojugular reflux. GENITOURINARY: No suprapubic or CVA tenderness. SKIN: Skin tear on the left elbow without signs of discharge or erythema. NEURO: Cranial nerves II through XII intact. Bilateral upper extremity strength 5/5 in the distal and proximal muscles. Strength 4/5 in the bilateral lower extremities except for strength 3/5 in the bilateral dorsiflexors of the foot. Diminished sensation in the bilateral feet. Reflexes 1+ bilaterally in the patellar and Achilles areas. Babinski's are downgoing bilaterally. DIAGNOSTIC STUDIES/LAB DATA: White blood cell count 6.1, hemoglobin 10.1, platelet count 229. Sodium 138, potassium 4.3, chloride 97, carbon dioxide 29, anion gap 7, BUN 25, creatinine 0.96, glucose 110, lactic acid 2.8, calcium 9.2 , bilirubin 0.7, AST 19, ALT 24, alkaline phosphatase 73. Troponin 0.01. Protein 7.2, albumin 4, globulin 3.2. Urine; yellow, cloudy, 2+ protein, positive nitrite, 3+ leuk esterase, 3+ white blood cells, trace red blood cells , 1+ bacteria, hyaline casts present, negative glucose. Studies: Chest x-ray read as progression of soft tissue density along the left upper mediastinum, progression of left pleural effusion. Electrocardiogram read as atrial fibrillation, incomplete left bundle-branch block, left axis deviation, no hypertrophy or enlargement, rate of 102, QTc of 450. Compared to previous exam, no evidence of significant changes. ASSESSMENT AND PLAN: Impression: Mr. Carreon is an 84-year-old male with past medical history significant for lung cancer, prostate cancer, bladder cancer, cord compression, atrial fibrillation and coronary artery disease, who presents to the emergency department with acute on chronic weakness and found to have a positive urinalysis for leukocyte esterase and nitrite with presumed urinary tract infection as well as hypoxia of unknown origin, is admitted to the hospital for antibiotics and further evaluation. 1. Weakness, urinary tract infection: The patient's urinary tract infection is most likely the cause of his acute on chronic weakness. The patient will be started on ceftriaxone. The patient received a liter of fluid. His blood pressure has been low and he has low-grade temperature and there is no reason at this time to suspect a resistant organism, but the antibiotics maybe adjusted based on the results of the patient's urine culture. The patient may have a secondary cause for his weakness. The patient is hypoxic and the chronicity of this is unknown. Given the patient's low-grade fever, malignancy , tachycardia, hypotension, CT of the patient's chest has been recommended by Hematology/Oncology and this will be performed to both check for postobstructive pneumonia as well as possible pulmonary embolism. Urology will likely need to be involved if the patient will be restarted on anticoagulation given his history of hematuria while on Xarelto. 2. Lower extremity edema. The patient's lower extremity edema could be related to a blood clot in one or both of his legs; however, this may also be related to the increase in his gabapentin dosing or heart failure given the patient's history of atrial fibrillation and coronary artery disease. The patient will have a transthoracic echocardiogram to assess for the overall function of his heart including getting clues towards possible right ventricular overload from either chronic hypoxia, acute pulmonary embolism or heart failure with preserved ejection fraction. 3. Lung cancer. 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 The patient will be scheduled for a CT and a followup with Oncology next week. The patient's CT will be performed now. 4. Prostate cancer. Continue the patient's tamsulosin. The prostate cancer is likely predisposing the patient to the urinary tract infection. 5. Bladder cancer. The patient does not have current hematuria. 6. Hypotension. Hold the patient's atenolol and diltiazem. 7. Atrial fibrillation. Hold the patient's atenolol and diltiazem. The patient is not currently fully anticoagulated for this and at this point given no other indication for anticoagulation, the risks outweigh the benefits given known history of hematuria. 8. Neuropathy. Continue the patient's gabapentin. The patient's neuropathy is likely a chemotherapy complication. 9. DVT prophylaxis. Lovenox subcu. 10. FEN. Heart-healthy diet without caffeine. The patient received 1 L of fluids in the emergency department and will not be continued at this time. TIME SPENT: Approximately 60 minutes was spent on the admission of this patient , 30 of which is spent [id number] with the patient obtaining history and physical and discussing treatment plan. The plan was discussed my attending, Dr. Zulay De La Garza, and she is in agreement. ANDI TORRE [id number]/CPS #: [id number]
[2019-09-27 07:05] LABS: ABS Eosinophils 0.1 10^3/ul (0-0.6); ABS Lymphocytes 0.3 10^3/ul (1.0-4.8); ABS Monocytes 0.4 10^3/ul (0-0.8); ABS Neutrophils 3.6 10^3/ul (1.5-7.7); Eosinophil % 1.2 %; Hematocrit 26 % (42-52); Hemoglobin 8.8 g/dL (14.0-18.0); Lymphocyte % 6.4 %; Mean Corpuscular HGB Conc 34 g/dL (31-36); Mean Corpuscular Hemoglobin 27 pg (27-31); Mean Corpuscular Volume 80 fL (80-94); Mean Platelet Volume 8.5 fL (7.4-10.4); Nucleated Red Blood Cells % 0.1; Platelet Count 181 10^3/uL (150-450); Red Blood Count 3.23 10^6 /uL (4.18-5.48); Red Cell Distribution Width 18 % (10-15); White Blood Count 4.3 10^3/uL (3.5-10.8)
[2019-09-27 07:15] LABS: BUN/Creatinine Ratio 22.7 (8-20); Calcium 8.6 mg/dL (8.6-10.3); EGFR African American 99.8 (>60); EGFR Non-African American 82.5 (>60); Magnesium 1.6 mg/dL (1.9-2.7); Potassium 3.7 mmol/L (3.5-5.0)
[2019-09-27] MEDS: Mometasone/Formoter 100/5 MDI INH SCH ×2 (07:56→20:33)
[2019-09-27] MEDS: Senna TAB 8.6 mg* TAB PO SCH ×2 (09:51→20:46)
[2019-09-27] MEDS: Gabapentin CAP(*) 300 MG PO SCH ×2 (09:51→16:56)
[2019-09-27] MEDS: Aspirin TAB* 325 MG PO SCH (09:51)
[2019-09-27] MEDS: guaiFENesin ER TAB 600 MG PO SCH ×2 (09:52→20:45)
[2019-09-27] MEDS: Acetaminophen TAB* 325 MG PO PRN (10:46)
--- NOTE | 2019-09-27 11:52 | ECHO ---
*[facility]* [place] [address] Fax #: [phone] Transthoracic Echocardiogram Patient: Tristan Carreon : 1935 Study Date: 09/27/2019 Age: 84 Gender: M HR: 104 bpm Height: 69 in /175.3 cm BSA: 1.97 m^2 Weight: 178.6 lb /81.2 kg BMI: 26.4 kg/m^2 *Social Media Intern: * Lori Cordero [facility] *Referring Physician: * Alphonso Aguilar *Reading Physician: * Nelson Dykes MD Indications: Edema. History: Atrial fibrillation. Coronary artery disease. The patient has a lung malignancy. Squamous cell lung cancer, prostate and bladder cancer. Risk factors: Former tobacco use. Dyslipidemia. Labs, prior tests, procedures, and surgery: Coronary artery bypass grafting. Conclusions Summary: - Left ventricle: The cavity size is normal. Wall thickness is mildly increased. Systolic function is normal. The estimated ejection fraction is 55-60%. Akinesis of the basalinferolateral and inferior myocardium. - Right ventricle: The cavity size is mildly dilated. Systolic function is mildly to moderately reduced. - Ventricular septum: Ventricular septal wall motion has a postoperative appearance. - Left atrium: The atrium is mildly dilated. - Right atrium: The atrium is moderately dilated. - Pulmonary arteries: Systolic pressure is mildly increased. - No significant valvular abnormalities noted. Study data: Transthoracic echocardiogram. Procedure: Transthoracic echocardiography was performed. Image quality was fair. Complete 2D, spectral Doppler, and color flow Doppler. Location: Bedside. Patient status: Inpatient. Patient room number: 446-02. Rhythm: Atrial fibrillation. Findings Left ventricle: The cavity size is normal. Wall thickness is mildly increased. Systolic function is normal. The estimated ejection fraction is 55-60%. Regional wall motion abnormalities: Akinesis of the basalinferolateral and inferior myocardium. Left ventricular diastolic function parameters are indeterminate. Right ventricle: The cavity size is mildly dilated. Systolic function is mildly to moderately reduced. Ventricular septum: Ventricular septal wall motion has a postoperative appearance. Left atrium: The atrium is mildly dilated. Right atrium: The atrium is moderately dilated. Mitral valve: The leaflets are mildly thickened. There is no evidence of stenosis. There is trace to mild regurgitation. Aortic valve: The annulus is mildly calcified. The valve is trileaflet. The leaflets are mildly thickened. Moderate thickening involving the left coronary and noncoronary cusp. There is no evidence of stenosis. There is trace regurgitation. Tricuspid valve: The leaflets are normal thickness. There is no evidence of stenosis. There is mild regurgitation. Pulmonic valve: The leaflets are normal thickness. There is no evidence of stenosis. There is trace regurgitation. Aorta: Aortic root: The aortic root is mildly dilated. Ascending aorta: The ascending aorta is appears normal. Aortic arch: The aortic arch is appears normal. Pulmonary arteries: Not well visualized. Systolic pressure is mildly increased. Systemic veins: Inferior vena cava: The vessel is dilated. There is (< 50%) respiratory change in the IVC dimension. Measurements Left ventricle Value Ref Aortic valve Value Ref ZACH, LAX 4.7 cm 4.2 - 5.8 Fernando diam, ED 2.2 cm ----- ESD, LAX 4.0 cm 2.5 - 4.0 Peak v, S 1.16 m/sec ----- FS, LAX (L) 15 % 25 - 43 VTI, S 17.8 cm ----- PW, ED, LAX (H) 1.1 cm 0.6 - 1.0 Mean grad, S 4.0 mm Hg ----- FS (L) 15 % 25 - 43 Peak grad, S 5.0 mm Hg ----- PW, ED (H) 1.1 cm 0.6 - 1.0 LVOT/AV, VTI ratio 0.67 ----- PW/ID, ED 0.22 OTSHIA, VTI 2.12 cm^2 ----- E', lat fernando, TDI (L) 9.3 cm/sec >=10.0 TOSHIA, Vmax 1.95 cm^2 --- -- E/e', lat fernando, 9 TDI Mitral valve Value Ref E', med fernando, TDI (L) 6.2 cm/sec >=7.0 Peak E 0.86 m/sec --- -- E/e', med fernando, 14 Decel time 172 ms ----- TDI Peak grad, D 3.0 mm Hg ----- E', avg, TDI 7.8 cm/sec E/e', avg, TDI 11 <=14 Pulmonic valve Value Ref Peak v, S 0.84 m/sec ----- LVOT Value Ref Peak grad, S 3.0 mm Hg ----- Diam, S 2.00 cm Area 3.1 cm^2 Tricuspid valve Value Ref Peak lowell, S 0.72 m/sec TR peak v (H) 3 m/sec <=2.8 VTI, S 12.0 cm Peak RV-RA grad, S 36 mm Hg ----- Mean grad, S 1 mm Hg SV 37 ml Aortic root Value Ref SV/bsa 19 ml/m^2 Root diam 3.7 cm <4.1 Root max diam, ED 3.7 cm <4.1 Ventricular septum Value Ref IVS, ED (H) 1.3 cm 0.6 - 1.0 Ascending aorta Value Ref AAo AP diam, S 3.5 cm ----- Right ventricle Value Ref ZACH, LAX 3.5 cm Aortic arch Value Ref ZACH minor ax, A4C (H) 4.6 cm 1.9 - 3.5 Arch diam 2.4 cm ----- mid Pressure, S 44 mm Hg Decending aorta Value Ref Tabby peak lowell 0.62 m/sec ----- Left atrium Value Ref AP dim, ES (H) 4.60 cm 3.00 - Pulmonary artery Value Ref 4.00 Pressure, S 41.0 mm Hg ----- ML dim, A4C 3.9 cm SI dim, A4C 6.3 cm Inferior vena cava Value Ref Vol/bsa, ES, 1-p 27 ml/m^2 12 - 37 Diam 2.8 cm ----- A4C Vol/bsa, ES, A/L (H) 42 ml/m^2 16 - 34 Right atrium Value Ref SI dim, ES (H) 6.1 cm 3.4 - 5.3 ML dim, ES, A4C (H) 4.9 cm 2.6 - 4.4 SI dim, ES, A4C (H) 6.1 cm 3.4 - 5.3 Estimated RAP 8 mm Hg Legend: (L) and (H) estefania values outside specified reference range. Prepared and electronically signed by Nelson Dykes MD 09/27/2019 11:52
--- NOTE | 2019-09-27 15:12 | CONSULT ---
Subjective Date of Service: 09/27/19 Interval History: Admission Date: 09/26/19 consult date 09/27/2019 service: Hospitalist Oncologist: Dr. Von Young CHIEF COMPLAINT: Weakness Reason for consult: edema HISTORY OF PRESENT ILLNESS: Mr. Carreon is an 84-year-old man known to me from outpatient practice with a history as below. His daughter is not currently accompanying him at time of consultation. Patient has stable NEAL but has worsened recently. He has had several week of edema. Has had increase of weakness. He was found with a UTI and is being treated. He had had no chest discomfort. He is currently sitting up and denies any symptoms. He is being treated for UTI due to abnormal urinalysis and low grade fever Pmhx: squamous cell lung cancer CAD/AL/CABG HTN HFpEF Atrial fibrillation not on anticoagulation currently due to hematuria Neuropathy as a result of chemotherapy degenerative spinal disc disease with associated weakness and use of assistive devices past surgical hx Coronary artery disease, status post CABG ~ 1989 carioversion 2016 Bladder surgery. Basal cell carcinoma removal. Vocal cord surgery. Cataract surgery. ALLERGIES: No known drug allergies. FAMILY HISTORY: The patient's father had MS and mother of diabetes. SOCIAL HISTORY: The patient has a 40- to 60-pack year history of smoking. The patient still drinks occasional alcohol. Denies illicit drug use. 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 He is a and has 2 children. His surrogate decision maker will be his daughter, Rosalina Marx. Medications Active Medications: Acetaminophen (Tylenol Tab*) 650 mg PO Q6H PRN PRN Reason: MILD PAIN or TEMP > 100.4 Last Admin: 09/27/19 10:46 Dose: 650 mg Aspirin (Aspirin Tab*) 325 mg PO DAILY [facility] Last Admin: 09/27/19 09:51 Dose: 325 mg Atorvastatin Calcium (Lipitor*) 20 mg PO QPM [facility] Benzonatate (Tessalon Cap*) 100 mg PO BID PRN PRN Reason: COUGH Gabapentin (Neurontin Cap(*)) 300 mg PO QPM [facility] Gabapentin (Neurontin Cap(*)) 600 mg PO QAM [facility] Last Admin: 09/27/19 09:51 Dose: 600 mg Guaifenesin (Mucinex*) 1,200 mg PO BID [facility] Last Admin: 09/27/19 09:52 Dose: 1,200 mg Ceftriaxone Sodium 1 gm/ (Sodium Chloride) 50 mls @ 200 mls/hr IVPB Q24H [facility] Mometasone Furoate/Formoterol Fumar (Dulera 100/5 Mdi*) 2 puff INH BID [facility] Last Admin: 09/27/19 07:56 Dose: 2 puff Ondansetron HCl (Zofran Inj*) 4 mg IV Q6H PRN PRN Reason: NAUSEA Senna (Senokot 8.6 Mg Tab*) 2 tab PO BID [facility] Last Admin: 09/27/19 09:51 Dose: 2 tab Tamsulosin HCl (Flomax Cap*) 0.4 mg PO BEDTIME [facility] Last Admin: 09/26/19 21:42 Dose: 0.4 mg Home Medications: Aspirin TAB* [Aspirin 325 MG TAB*] 325 mg PO DAILY 05/29/19 [History Confirmed 09/26/19] Atenolol TAB* [Tenormin TAB* 50 MG] 50 mg PO DAILY tab 07/01/19 [Rx Confirmed 09/26/19] Mometasone/Formoter 100/5 MDI* [Dulera 100/5 MDI*] 2 puff INH BID mdi 07/01/19 [Rx Confirmed 09/26/19] Senna TAB 8.6 mg* [Senokot 8.6 mg TAB*] 2 tab PO BID tab 07/01/19 [Rx Confirmed 09/26/19] Tamsulosin CAP* [Flomax CAP*] 0.4 mg PO BEDTIME cap 07/01/19 [Rx Confirmed 06/07] Atorvastatin* [Lipitor 20 MG*] 20 mg PO QPM 09/26/19 [History Confirmed 09/26/19 ] Evolocumab (NF) [Repatha inj (NF)] 140 mg SUBCUT Q14D 09/26/19 [History Confirmed 09/26/19] Gabapentin CAP(*) [Neurontin 300 CAP(*)] 300 mg PO QPM 09/26/19 [History Confirmed 09/26/19] Gabapentin CAP(*) [Neurontin 300 CAP(*)] 600 mg PO QAM 09/26/19 [History Confirmed 09/26/19] dilTIAZem HCl [Diltiazem 24Hr ER] 120 mg PO DAILY 09/26/19 [History Confirmed ] [id number] inhibtior Review of Systems - Measurements Intake and Output: Intake and Output Last 24 Hours 09/25/19 09/26/19 09/27/19 09/28/19 06:59 06:59 06:59 06:59 Intake Total 1050 510 Output Total 1600 315 Balance -550 195 Weight 193 lb Intake: IV Fluids 1050 Oral 0 510 Output: Lopez 1600 315 - Review of Systems Constitutional Symptoms: Positive: Weakness, Fatigue Negative: Weight Gain, Weight Loss Dermatology: Negative: Rash HEENT: Negative: Change in Hearing, Vertigo Eyes: Negative: Change in Vision, Double Vision Thyroid: Negative: Palpitations, Weight Loss, Weight Gain Pulmonary: Positive: Shortness of Breath, Exercise Intolerance Negative: Hemoptysis, Respiratory Distress, Asthma, Home Oxygen Cardiology: Positive: Shortness of Breath, Swelling of Ankles Negative: Chest Pain, Palpitations, Syncope, Paroxysmal Nocturnal Dyspnea, Orthopnea Gastroenterology: Negative: Blood in Stools, Haematemesis, Melena Genital - Urinary: Negative: Dysuria, Hematuria, Nocturia Musculoskeletal: Negative: Joint Pain, Joint Stiffness Endocrinology: Negative: Polydipsia, Polyuria Hematologic/Lymphatic: Positive: Anemia, Use of Antiplatelet Drugs Negative: Use of Anticoagulant Neurology: Negative: Hx of Stroke\TIA, Hx Seizures Psychiatry: Negative: Unusual Anxiety, Suicidal Ideation Allergic/Immunologic: Negative: Hx HIV, Immunocompromise Review of Systems Statement: All other review of systems negative, unless stated above. Objective Vital Signs: Temp Pulse Resp BP Pulse Ox 97.9 F 112 20 90/56 98 09/27/19 11:15 09/27/19 11:15 09/27/19 12:35 09/27/19 11:15 09/27/19 11:15 Oxygen Devices in Use Now: Nasal Cannula Appearance: nad, pleasant Ears/Nose/Mouth/Throat: Clear Oropharnyx, Mucous Membranes Moist Neck: Trachea Midline, - - uncertain jvp Respiratory: Symmetrical Chest Expansion and Respiratory Effort, - - coarse sounds Cardiovascular: - - stenotomy noted, irregular, no significant murmur Abdominal: NL Sounds; No Tenderness; No Distention Extremities: No Clubbing, Cyanosis, - - mild edema of ankles Skin: No Rash or Ulcers Neurological: - - awake and alert Laboratory Results: 09/27/19 06:40 09/27/19 06:40 Total Bilirubin 0.70 mg/dL (0.2-1.0) 09/26/19 16:52 AST 19 U/L (13-39) 09/26/19 16:52 ALT 24 U/L (7-52) 09/26/19 16:52 Alkaline Phosphatase 72 U/L (34-104) 09/26/19 16:52 Total Protein 7.2 g/dL (6.4-8.9) 09/26/19 16:52 Albumin 4.0 g/dL (3.2-5.2) 09/26/19 16:52 Globulin 3.2 g/dL (2-4) 09/26/19 16:52 Albumin/Globulin Ratio 1.3 (1-3) 09/26/19 16:52 09/26/19 16:52 Troponin I 0.01 Diagnostic Imaging: Exam Date: 09/26/19 CTA CHEST Exam Date: 09/26/19 CTA CHEST IMPRESSION: 1. No pulmonary emboli. 2. Mild emphysema with intervally enlarged left upper lobe primary lung neoplasm and new onset associated post obstructive atelectasis and malignant effusion. Transthoracic Echocardiogram Study Date: 09/27/2019 Conclusions Summary: - Left ventricle: The cavity size is normal. Wall thickness is mildly increased. Systolic function is normal. The estimated ejection fraction is 55-60%. Akinesis of the basalinferolateral and inferior myocardium. - Right ventricle: The cavity size is mildly dilated. Systolic function is mildly to moderately reduced. - Ventricular septum: Ventricular septal wall motion has a postoperative appearance. - Left atrium: The atrium is mildly dilated. - Right atrium: The atrium is moderately dilated. - Pulmonary arteries: Systolic pressure is mildly increased. No significant valvualr abnormalities noted EKG Data: ekg 09/26/2018 afib 100 bpm, incomplete lbbb Assessment/Plan I don't think CHF is playing a signficant role in patients presentation. I think the increased shortness of breath can be explained by the lung cancer and the new CT scan findings. A left pleural effusion without right pleural effusion is unlikely to be related to CHF (even in the setting of prior CABG). The edema is likely multifactorial. He had been on HCTZ previously but does not appear on currently. Will stop the calcium channel levy (which can contribute to edema) and restart home atenolol at 25 mg po daily (ordered) and can be uptitrate as needed for better rate control. Can consider compression socks. Consider a low dose loop diuretic (after replacing electrolytes) such as lasix 20 mg at 3 or 4 times a week once infection is felt to be controlled if not going to perform a thoracentesis. Will sign off, please reconsult as needed.
[2019-09-27] MEDS: Atorvastatin* 20 MG TAB PO SCH (16:56)
[2019-09-27] MEDS: Atenolol TAB* 25 MG PO SCH (16:56)
[2019-09-27] MEDS: cefTRIAXone(*) 1 GM in NS 0.9% 50 ML* 50 ML IVPB SCH (16:57)
[2019-09-27] MEDS: Tamsulosin CAP* 0.4 MG PO SCH (20:45)
[2019-09-27] MEDS ORDERED: NS 0.9% 500 ML* 500 ML IV ONE (21:00)
[2019-09-28] MEDS: Mometasone/Formoter 100/5 MDI INH SCH ×2 (08:19→20:40)
[2019-09-28] MEDS: Gabapentin CAP(*) 300 MG PO SCH ×2 (09:32→17:33)
[2019-09-28] MEDS: Aspirin TAB* 325 MG PO SCH (09:32)
[2019-09-28] MEDS: Atenolol TAB* 25 MG PO SCH (09:32)
[2019-09-28] MEDS: Senna TAB 8.6 mg* TAB PO SCH ×2 (09:32→21:37)
[2019-09-28] MEDS: guaiFENesin ER TAB 600 MG PO SCH ×2 (09:33→21:37)
[2019-09-28 14:23] LABS: Influenza A Molecular NEGATIVE (Negative); Influenza B Molecular NEGATIVE (Negative)
[2019-09-28] MEDS: Atorvastatin* 20 MG TAB PO SCH (17:33)
[2019-09-28] MEDS: cefTRIAXone(*) 1 GM in NS 0.9% 50 ML* 50 ML IVPB SCH (17:35)
[2019-09-28] MEDS: Acetaminophen TAB* 325 MG PO PRN (17:57)
[2019-09-28] MEDS: Tamsulosin CAP* 0.4 MG PO SCH (21:37)
[2019-09-29 05:24] LABS: BUN/Creatinine Ratio 26.7 (8-20); Calcium 8.8 mg/dL (8.6-10.3); EGFR African American 120.1 (>60); EGFR Non-African American 99.2 (>60); Potassium 3.6 mmol/L (3.5-5.0)
[2019-09-29] MEDS: Mometasone/Formoter 100/5 MDI INH SCH ×2 (08:12→20:28)
[2019-09-29] MEDS: Atenolol TAB* 25 MG PO SCH (08:30)
[2019-09-29] MEDS: Senna TAB 8.6 mg* TAB PO SCH ×2 (08:31→19:39)
[2019-09-29] MEDS: guaiFENesin ER TAB 600 MG PO SCH ×2 (08:31→19:39)
[2019-09-29] MEDS: Gabapentin CAP(*) 300 MG PO SCH ×2 (08:32→17:44)
[2019-09-29] MEDS: Aspirin TAB* 325 MG PO SCH (08:33)
[2019-09-29] MEDS ORDERED: Potassium Chlor TAB* 20 MEQ TAB.ER PO ONE (10:43)
[2019-09-29] MEDS: Cephalexin CAP* 250 MG PO SCH ×3 (12:42→19:38)
[2019-09-29] MEDS: Atorvastatin* 20 MG TAB PO SCH (17:44)
[2019-09-29] MEDS: Tamsulosin CAP* 0.4 MG PO SCH (19:39)
[2019-09-30 06:09] LABS: Calcium 8.7 mg/dL (8.6-10.3); EGFR African American 120.1 (>60); EGFR Non-African American 99.2 (>60); Potassium 3.6 mmol/L (3.5-5.0)
[2019-09-30] MEDS: Atenolol TAB* 25 MG PO SCH (08:44)
[2019-09-30] MEDS: Cephalexin CAP* 250 MG PO SCH (08:44)
[2019-09-30] MEDS: Aspirin TAB* 325 MG PO SCH (08:44)
[2019-09-30] MEDS: Gabapentin CAP(*) 300 MG PO SCH (08:45)
[2019-09-30] MEDS: guaiFENesin ER TAB 600 MG PO SCH (08:45)
[2019-09-30] MEDS: Senna TAB 8.6 mg* TAB PO SCH (08:45)
[2019-09-30] MEDS: Mometasone/Formoter 100/5 MDI INH SCH (09:04)
[2019-09-30 11:37] VITALS: BP 102/55
--- NOTE | 2019-09-30 13:49 | DS ---
CC: Dr. Young; Dr. Dykes * DISCHARGE SUMMARY: DATE OF ADMISSION: 09/26/19 DATE OF DISCHARGE: 09/30/19 PRIMARY ONCOLOGIST AND ATTENDING PHYSICIAN: Dr. Von Young.* (DICTATED BY ANDI ADAN) CONSULTING CONSULTING ENGINEER: Dr. Nelson Dykes. PRIMARY DISCHARGE DIAGNOSES: 1. Sepsis secondary to urinary tract infection - no associated bacteremia and grew a relatively sensitive proteus bacteria. 2. Metastatic lung cancer - not on current therapy with just mild progression seen on restaging scans this hospitalization. 3. History of prostate cancer. 4. History of bladder cancer. 5. Atrial fibrillation, not anticoagulated due to high bleeding risk. 6. History of cerebrovascular accident, generalized deconditioning. DISCHARGE MEDICATIONS: 1. Aspirin 325 mg p.o. daily. 2. Atorvastatin 20 mg p.o. daily. 3. Diltiazem 120 mg p.o. daily. 4. Repatha 140 mg subcu every 2 weeks. 5. Gabapentin 600 mg q. morning and 300 q. evening. 6. Atenolol 50 mg p.o. daily. 7. Keflex 250 mg p.o. 4 times daily x5 additional days. 8. Dulera 100/5 two puffs inhaled twice daily. 9. Senna 2 tabs p.o. twice daily. 10. Flomax 0.4 mg p.o. at bedtime. HOSPITAL IMAGIN. Chest x-ray, 09/26/19, shows progression of soft tissue density along the left upper mediastinum with progression of left pleural effusion. 2. CTA of the chest, 09/26/19, shows no PE, mild emphysema with an enlarged left upper lobe primary lung neoplasm and new onset associated postobstructive atelectasis and malignant effusion. 3. Transthoracic echocardiogram, 09/27/19, shows left ventricular ejection fraction estimated at 55% to 60% with akinesis of the basal inferolateral and inferior myocardium, left ventricular diastolic function parameters were indeterminant. There was mildly dilated right ventricle and systolic function is [id number] reduced. No significant valvular disease. HOSPITAL COURSE: This is an 84-year-old gentleman with significant malignancy history including metastatic non-small cell lung cancer as well as a history of limited stage prostate cancer treated with radiation, limited stage melanoma, and limited stage bladder cancer, who has been under the care of Dr. Young for several years, but off of chemotherapy since April of 2019, who presented to the emergency department with new onset weakness. He was found to be initially febrile with a temperature of 100.5 degrees Fahrenheit, pulse of 107 beats per minute, and mildly tachypneic and notably lethargic. Initial labs were relatively unremarkable. No leukocytosis or severe electrolyte abnormalities. Urinalysis appeared consistent with urinary tract infection showing positive nitrite, leuk esterase, white blood cells, and bacteria. The patient was empirically treated for urinary tract infection given ceftriaxone. Blood cultures were collected, which were eventually negative. Urine culture grew Proteus mirabilis, resistant only to nitrofurantoin and tetracyclines. The patient was subsequently switched to oral Keflex after several days of IV therapy and tolerated this well. The patient remained afebrile throughout the remainder of his hospital stay. He was initially quite weak, but by the time of discharge, was able to return to his baseline functional status, which included limited assistance with the use of a rolling walker for ambulation. The patient underwent a CT scan of the chest, which showed interval progression of his known lung cancer, but rather a small volume increase without any new areas of disease. Therapy had been held starting in April of this year after significant hospitalization in [place] related to an acute CVA and multiple rehab stays following this. No plan to resume therapy at this time and we will continue to monitor. DISPOSITION AND FOLLOWUP PLAN: The patient is being discharged to home in stable condition where he lives with his daughter. He will complete 5 additional days of oral Keflex. He will follow up in the oncology office later this week. ANDI ADAN [id number]/[facility] #: [id number] [facility]ITAL[facility]vey
== END 2019-09-30 12:15 | disposition home health service (06) | DRG 872 ==
LOC: ED 16:08 → MEDTELE 18:41
PROVIDERS: ADMIT Hospitalist; ATTEND Internal Medicine Hematology & Oncology
DX: A41.9 Sepsis, unspecified organism (principal); N39.0 Urinary tract infection, site not specified; C34.90 Malignant neoplasm of unspecified part of unspecified bronchus or lung; G95.9 Disease of spinal cord, unspecified; I50.30 Unspecified diastolic (congestive) heart failure; J98.11 Atelectasis; J91.0 Malignant pleural effusion; Z16.29 Resistance to other single specified antibiotic; I25.10 Atherosclerotic heart disease of native coronary artery without angina pectoris; I48.91 Unspecified atrial fibrillation; G62.9 Polyneuropathy, unspecified; C61 Malignant neoplasm of prostate; E78.5 Hyperlipidemia, unspecified; R60.0 Localized edema; C67.9 Malignant neoplasm of bladder, unspecified; I11.0 Hypertensive heart disease with heart failure; B96.4 Proteus (mirabilis) (morganii) as the cause of diseases classified elsewhere; Z86.73 Personal history of transient ischemic attack (TIA), and cerebral infarction without residual deficits; M50.30 Other cervical disc degeneration, unspecified cervical region; M51.36 Other intervertebral disc degeneration, lumbar region; Z95.1 Presence of aortocoronary bypass graft; Z79.82 Long term (current) use of aspirin; Z79.899 Other long term (current) drug therapy; Z83.3 Family history of diabetes mellitus; Z82.69 Family history of other diseases of the musculoskeletal system and connective tissue; Z87.891 Personal history of nicotine dependence; R09.02 Hypoxemia
CPT/HCPCS: 36415; 71046; 71275; 80048; 80053; 81003; 81015; 83605; 83735; 84484; 85025; 87040; 87070; 87077; 87086; 87186; 87205; 87899; 93005; 93306; 94640; 96365; 99239; 99284; A9270-GY; J0696; J1650; Q9967

== ENCOUNTER 2020-07-31 02:10 | Inpatient (IN) ==
[~2020-07-31 02:10] MED LIST changes: +Amiodarone IV 150 mg/3 ml VIAL IV PUSH ONE; -Artificial Tear OPHTH.OINT* 3.5 GM ONE; -Buffered Lidocaine 1% SYRIN* 1 ML/SYRINGE INTRADERM ONE; -Lactated Ringers 1000 ML Bag* 1,000 ML IV SCH; -Lidocain 1% EPI 1:100,000 * 30 ML MDV ONE; -Lidocaine 2% PF * 5 ML VIAL ONE; -Midazolam* 1 MG/ML 2 ML VIAL (2 MG) ONE; -Mineral Oil Sterile, TOPICAL* 25 ML BTL ONE; -Naloxone* 0.4 MG/ML 1 ML VIAL IV PRN; -Propofol* 10 MG/ML 20 ML BTL ONE; -ceFAZolin 2 GM PREMIX in ORs 2 GM/50 ML BAG IVPB ONE; -fentaNYL* 50 MCG/ML 2 ML VIAL (100 MCG VIAL) ONE
[2020-07-31] MEDS ORDERED: Adenosine 3 MG/ML 2 ml VIAL (6 mg) IV PUSH ONE (02:33)
[2020-07-31] MEDS ORDERED: Propofol 10 MG/ML 20 ML BTL IV PUSH ONE (02:33)
[2020-07-31] MEDS ORDERED: Amiodarone 150 mg IVPREMIX 150 MG/100 ML BAG IV ONE (02:34)
[2020-07-31 02:45] LABS: ABS Eosinophils 0.1 10^3/ul (0-0.6); ABS Lymphocytes 0.5 10^3/ul (1.0-4.8); ABS Monocytes 0.6 10^3/ul (0-0.8); ABS Neutrophils 7.6 10^3/ul (1.5-7.7); Eosinophil % 0.6 %; Hematocrit 31 % (42-52); Hemoglobin 10.4 g/dL (14.0-18.0); Lymphocyte % 5.4 %; Mean Corpuscular HGB Conc 33 g/dL (31-36); Mean Corpuscular Hemoglobin 28 pg (27-31); Mean Corpuscular Volume 85 fL (80-94); Mean Platelet Volume 9.2 fL (7.4-10.4); Nucleated Red Blood Cells % 0.1; Platelet Count 226 10^3/uL (150-450); Red Blood Count 3.68 10^6 /uL (4.18-5.48); Red Cell Distribution Width 18 % (10-15); White Blood Count 8.8 10^3/uL (3.5-10.8)
[2020-07-31 02:47] LABS: INR 1.63 (0.82-1.09)
[2020-07-31 02:59] LABS: ALT 138 U/L (7-52); AST 79 U/L (13-39); Albumin 2.9 g/dL (3.2-5.2); Albumin/Globulin Ratio 0.9 (1-3); Alkaline Phosphatase 120 U/L (34-104); Anion Gap 9 mmol/L (2-11); BUN/Creatinine Ratio 34.9 (8-20); Blood Urea Nitrogen 22 mg/dL (6-24); CO2 Carbon Dioxide 25 mmol/L (22-32); Calcium 8.3 mg/dL (8.6-10.3); Chloride 95 mmol/L (101-111); EGFR African American 146.8 (>60); EGFR Non-African American 121.3 (>60); Globulin 3.4 g/dL (2-4); Glucose 172 mg/dL (70-100); Potassium 3.1 mmol/L (3.5-5.0); Sodium 129 mmol/L (135-145); Total Protein 6.3 g/dL (6.4-8.9)
[2020-07-31] MEDS ORDERED: NS 0.9% 1000 ml BAG 1,000 ML IV.FLUID IV ONE (03:01)
[2020-07-31 03:03] LABS: Troponin I 0.45 ng/mL (<0.03)
[2020-07-31 03:41] LABS: Magnesium 1.4 mg/dL (1.9-2.7)
[2020-07-31] MEDS ORDERED: Magnesium Sulf 4 GM/100 ML IV 4,000 MG/100 ML BAG IVPB ONE (05:02)
[2020-07-31] MEDS: KCL 20 MEQ/100 ML IVPREMIX 20 MEQ/100 ML BAG IV SCH ×3 (06:44→11:35)
[2020-07-31] MEDS: Heparin DRIP 25,000 UNITS BAG 25,000 UNITS/500 ML BAG IV SCH (06:49)
[2020-07-31] MEDS: Heparin 5000 UNITS/ML 1 mL VIAL IV SCH ×2 (06:50→13:16)
[2020-07-31 07:20] LABS: Troponin I 0.54 ng/mL (<0.03)
[2020-07-31] MEDS ORDERED: Amiodarone 360 MG IVPREMIX 360 MG/200 ML BAG IV ONE ×2 (07:26→13:46)
[2020-07-31] MEDS: Mometasone/Formoter 100/5 MDI INH SCH ×2 (08:14→18:44)
[2020-07-31] MEDS: Cholecalciferol (VIT D3) 1,000 unit TAB PO SCH (08:44)
[2020-07-31] MEDS: Senna TAB 8.6 mg TAB PO SCH ×2 (08:44→20:30)
[2020-07-31] MEDS: COENZYME Q10 200 MG PO SCH (09:14)
[2020-07-31] MEDS: Amiodarone 360 MG IVPREMIX 360 MG/200 ML BAG IV SCH (13:50)
[2020-07-31 16:00] LABS: ABS Eosinophils 0.1 10^3/ul (0-0.6); ABS Lymphocytes 0.3 10^3/ul (1.0-4.8); ABS Monocytes 0.6 10^3/ul (0-0.8); ABS Neutrophils 7.1 10^3/ul (1.5-7.7); Eosinophil % 0.7 %; Hematocrit 29 % (42-52); Hemoglobin 9.8 g/dL (14.0-18.0); Lymphocyte % 3.8 %; Mean Corpuscular HGB Conc 34 g/dL (31-36); Mean Corpuscular Hemoglobin 29 pg (27-31); Mean Corpuscular Volume 85 fL (80-94); Mean Platelet Volume 9.1 fL (7.4-10.4); Nucleated Red Blood Cells % 0.1; Platelet Count 242 10^3/uL (150-450); Red Blood Count 3.42 10^6 /uL (4.18-5.48); Red Cell Distribution Width 18 % (10-15); White Blood Count 8.1 10^3/uL (3.5-10.8)
[2020-07-31 16:43] LABS: Albumin 2.7 g/dL (3.2-5.2); CO2 Carbon Dioxide 26 mmol/L (22-32); Calcium 8.1 mg/dL (8.6-10.3); Chloride 97 mmol/L (101-111); Magnesium 2.6 mg/dL (1.9-2.7); Sodium 131 mmol/L (135-145)
[2020-07-31 16:48] LABS: Glucose 174 mg/dL (70-100)
[2020-07-31 17:08] LABS: ALT 130 U/L (7-52); Albumin/Globulin Ratio 0.9 (1-3); Alkaline Phosphatase 135 U/L (34-104); Anion Gap 8 mmol/L (2-11); BUN/Creatinine Ratio 29.9 (8-20); Blood Urea Nitrogen 23 mg/dL (6-24); EGFR African American 116.5 (>60); EGFR Non-African American 96.2 (>60); Globulin 2.9 g/dL (2-4); Total Protein 5.6 g/dL (6.4-8.9)
[2020-07-31 19:31] LABS: Potassium Redraw 4.2 mmol/L (3.5-5.0)
[2020-08-01] MEDS: Amiodarone 360 MG IVPREMIX 360 MG/200 ML BAG IV SCH (01:01)
[2020-08-01] MEDS: Heparin 5000 UNITS/ML 1 mL VIAL IV SCH ×2 (03:42→11:23)
[2020-08-01 04:39] LABS: ABS Basophils 0.1 10^3/ul (0-0.2); ABS Lymphocytes 0.4 10^3/ul (1.0-4.8); ABS Monocytes 0.5 10^3/ul (0-0.8); ABS Neutrophils 7.8 10^3/ul (1.5-7.7); Eosinophil % 0.1 %; Hematocrit 27 % (42-52); Hemoglobin 9.3 g/dL (14.0-18.0); Lymphocyte % 5.1 %; Mean Corpuscular HGB Conc 34 g/dL (31-36); Mean Corpuscular Hemoglobin 29 pg (27-31); Mean Corpuscular Volume 85 fL (80-94); Mean Platelet Volume 9.1 fL (7.4-10.4); Platelet Count 215 10^3/uL (150-450); Red Blood Count 3.19 10^6 /uL (4.18-5.48); Red Cell Distribution Width 18 % (10-15); White Blood Count 8.8 10^3/uL (3.5-10.8)
[2020-08-01 04:56] LABS: Albumin 2.8 g/dL (3.2-5.2); Albumin/Globulin Ratio 0.9 (1-3); BUN/Creatinine Ratio 31.7 (8-20); Calcium 8.3 mg/dL (8.6-10.3); EGFR African American 108.3 (>60); EGFR Non-African American 89.5 (>60); Globulin 3.1 g/dL (2-4); Potassium 3.7 mmol/L (3.5-5.0); Total Bilirubin 0.6 mg/dL (0.2-1.0); Total Protein 5.9 g/dL (6.4-8.9)
[2020-08-01] MEDS ORDERED: Potassium Chlor 20 meq TAB.ER PO ONE (07:25)
[2020-08-01] MEDS ORDERED: KCL 20 MEQ/100 ML IVPREMIX 20 MEQ/100 ML BAG IV ONE (07:26)
[2020-08-01 07:53] LABS: Magnesium 2.2 mg/dL (1.9-2.7)
[2020-08-01] MEDS: Senna TAB 8.6 mg TAB PO SCH ×2 (08:05→21:24)
[2020-08-01] MEDS: Cholecalciferol (VIT D3) 1,000 unit TAB PO SCH (08:05)
[2020-08-01] MEDS: Heparin DRIP 25,000 UNITS BAG 25,000 UNITS/500 ML BAG IV SCH (08:06)
[2020-08-01] MEDS: COENZYME Q10 200 MG PO SCH (08:07)
[2020-08-01] MEDS: Mometasone/Formoter 100/5 MDI INH SCH ×2 (21:24→22:20)
[2020-08-01] MEDS: Heparin 5000 UNITS/ML 1 mL VIAL SUBCUT SCH (21:25)
[2020-08-02] MEDS: Heparin 5000 UNITS/ML 1 mL VIAL SUBCUT SCH ×3 (05:59→21:29)
[2020-08-02] MEDS: Senna TAB 8.6 mg TAB PO SCH ×2 (07:48→21:30)
[2020-08-02] MEDS: Cholecalciferol (VIT D3) 1,000 unit TAB PO SCH (07:49)
[2020-08-02] MEDS: COENZYME Q10 200 MG PO SCH (07:53)
[2020-08-02] MEDS: Mometasone/Formoter 100/5 MDI INH SCH ×2 (08:16→21:11)
[2020-08-03 05:33] LABS: ABS Basophils 0.1 10^3/ul (0-0.2); ABS Lymphocytes 0.3 10^3/ul (1.0-4.8); ABS Monocytes 0.6 10^3/ul (0-0.8); ABS Neutrophils 6.2 10^3/ul (1.5-7.7); Eosinophil % 0.6 %; Hematocrit 30 % (42-52); Hemoglobin 9.9 g/dL (14.0-18.0); Lymphocyte % 4.3 %; Mean Corpuscular HGB Conc 34 g/dL (31-36); Mean Corpuscular Hemoglobin 29 pg (27-31); Mean Corpuscular Volume 85 fL (80-94); Mean Platelet Volume 8.8 fL (7.4-10.4); Platelet Count 215 10^3/uL (150-450); Red Blood Count 3.47 10^6 /uL (4.18-5.48); Red Cell Distribution Width 18 % (10-15); White Blood Count 7.2 10^3/uL (3.5-10.8)
[2020-08-03] MEDS: Heparin 5000 UNITS/ML 1 mL VIAL SUBCUT SCH ×3 (05:45→21:04)
[2020-08-03 05:51] LABS: Albumin 2.7 g/dL (3.2-5.2); Albumin/Globulin Ratio 0.8 (1-3); BUN/Creatinine Ratio 28.6 (8-20); Calcium 8.4 mg/dL (8.6-10.3); EGFR African American 146.8 (>60); EGFR Non-African American 121.3 (>60); Globulin 3.3 g/dL (2-4); Magnesium 1.7 mg/dL (1.9-2.7); Potassium 4.1 mmol/L (3.5-5.0); Total Bilirubin 0.9 mg/dL (0.2-1.0)
[2020-08-03] MEDS: Mometasone/Formoter 100/5 MDI INH SCH ×2 (08:29→20:56)
[2020-08-03] MEDS: COENZYME Q10 200 MG PO SCH (08:54)
[2020-08-03] MEDS: Cholecalciferol (VIT D3) 1,000 unit TAB PO SCH (08:56)
[2020-08-03] MEDS: Senna TAB 8.6 mg TAB PO SCH ×2 (09:01→21:05)
[2020-08-03] MEDS ORDERED: Furosemide 20 mg/2 ml IV VIAL IV SLOW PU ONE (13:48)
[2020-08-03] MEDS ORDERED: Magnesium Sulfate IV 3 GM in NS 0.9% 100 ml BAG 100 ML IVPB ONE (14:00)
[2020-08-04] MEDS: Heparin 5000 UNITS/ML 1 mL VIAL SUBCUT SCH ×3 (05:03→22:00)
[2020-08-04] MEDS: Mometasone/Formoter 100/5 MDI INH SCH ×2 (08:25→20:18)
[2020-08-04] MEDS: Cholecalciferol (VIT D3) 1,000 unit TAB PO SCH (09:01)
[2020-08-04] MEDS: Senna TAB 8.6 mg TAB PO SCH ×2 (09:01→21:59)
[2020-08-04] MEDS: COENZYME Q10 200 MG PO SCH (09:02)
[2020-08-05] MEDS: Heparin 5000 UNITS/ML 1 mL VIAL SUBCUT SCH (05:21)
[2020-08-05] MEDS: Mometasone/Formoter 100/5 MDI INH SCH (08:44)
[2020-08-05] MEDS: COENZYME Q10 200 MG PO SCH (09:12)
[2020-08-05] MEDS: Senna TAB 8.6 mg TAB PO SCH (09:12)
[2020-08-05] MEDS: Cholecalciferol (VIT D3) 1,000 unit TAB PO SCH (09:12)
[2020-08-05 10:08] VITALS: BP 106/45
== END 2020-08-05 11:00 | disposition hospice, inpatient (51) | DRG 309 ==
LOC: ED 02:10 → ICU 04:08 → MEDTELE 08-01 22:19
PROVIDERS: ADMIT Student in an Organized Health Care Education/Training Program; ATTEND Internal Medicine

== ENCOUNTER 2020-08-06 16:31 | Inpatient (IN) ==
[2020-08-06] MEDS ORDERED: Atropine 1% (ORAL/SL) 15 ML BTL SL PRN (17:26)
[2020-08-06] MEDS ORDERED: Morphine ORAL CONCENTRATE 5 MG/0.25 ML ORAL.SYRIN SL PRN (17:26)
[2020-08-06] MEDS ORDERED: Ondansetron ODT 4 mg TAB 4 MG TAB SL PRN (17:26)
[2020-08-06] MEDS: Mometasone/Formoter 100/5 MDI INH SCH (19:15)
[2020-08-06] MEDS: Senna TAB 8.6 mg TAB PO SCH (20:46)
[2020-08-07] MEDS: Senna TAB 8.6 mg TAB PO SCH ×2 (08:42→20:09)
[2020-08-07] MEDS: Mometasone/Formoter 100/5 MDI INH SCH ×2 (08:45→19:57)
[2020-08-08] MEDS: Senna TAB 8.6 mg TAB PO SCH ×2 (07:42→22:18)
[2020-08-08] MEDS: Mometasone/Formoter 100/5 MDI INH SCH ×2 (09:05→20:05)
[2020-08-09] MEDS: Mometasone/Formoter 100/5 MDI INH SCH ×2 (08:22→19:39)
[2020-08-09] MEDS: Senna TAB 8.6 mg TAB PO SCH ×2 (10:18→21:14)
[2020-08-10] MEDS: Mometasone/Formoter 100/5 MDI INH SCH ×2 (07:30→20:30)
[2020-08-10] MEDS: Senna TAB 8.6 mg TAB PO SCH ×2 (09:46→20:27)
[2020-08-11] MEDS: Mometasone/Formoter 100/5 MDI INH SCH ×2 (07:30→19:52)
[2020-08-11] MEDS: Senna TAB 8.6 mg TAB PO SCH ×2 (09:57→20:22)
[2020-08-12] MEDS: Mometasone/Formoter 100/5 MDI INH SCH ×2 (08:16→20:22)
[2020-08-12] MEDS: Senna TAB 8.6 mg TAB PO SCH ×2 (10:25→20:51)
[2020-08-13] MEDS: Mometasone/Formoter 100/5 MDI INH SCH ×2 (07:08→19:31)
[2020-08-13] MEDS: Senna TAB 8.6 mg TAB PO SCH ×2 (09:19→21:04)
[2020-08-14] MEDS: Mometasone/Formoter 100/5 MDI INH SCH ×2 (07:16→20:18)
[2020-08-14] MEDS: Senna TAB 8.6 mg TAB PO SCH ×2 (09:17→21:08)
[2020-08-15] MEDS: Mometasone/Formoter 100/5 MDI INH SCH ×2 (07:16→19:30)
[2020-08-15] MEDS: Senna TAB 8.6 mg TAB PO SCH ×2 (09:39→21:15)
[2020-08-16] MEDS: Mometasone/Formoter 100/5 MDI INH SCH ×2 (07:00→19:06)
[2020-08-16] MEDS: Senna TAB 8.6 mg TAB PO SCH ×2 (10:46→19:22)
[2020-08-17] MEDS: Mometasone/Formoter 100/5 MDI INH SCH ×2 (08:07→20:40)
[2020-08-17] MEDS: Senna TAB 8.6 mg TAB PO SCH ×2 (09:08→20:36)
[2020-08-18] MEDS: Senna TAB 8.6 mg TAB PO SCH ×2 (09:51→22:06)
[2020-08-18] MEDS: Mometasone/Formoter 100/5 MDI INH SCH ×2 (10:23→19:57)
[2020-08-19] MEDS: Senna TAB 8.6 mg TAB PO SCH (08:54)
[2020-08-19 09:07] VITALS: BP 120/61
[2020-08-19] MEDS: Mometasone/Formoter 100/5 MDI INH SCH (09:27)
== END 2020-08-19 10:00 | disposition hospice, inpatient (51) | DRG 137 ==
LOC: MED 17:21
PROVIDERS: ADMIT Pediatrics; ATTEND Pediatrics